=== PATIENT | male | born 1940 | race Caucasian/White ===

== ENCOUNTER 2017-01-12 16:35 | Emergency (ER) | payer MEDICARE, OTHER ==
[~2017-01-12] VITALS: Ht 172.7 cm; Wt 75.0 kg
[~2017-01-12 16:35] MED LIST: AMLO5TAB2 PO; ASPI81CH25 PO; BUME1TAB26 PO; CARV6.25 PO; HUMALOG SQ; ISOS30TA3 PO; LANTINJ SQ; LIPI80TA PO; OMEP20TA PO; PERC5TAB12 PO; PLAV75TA29 PO; PROS5TAB PO; SEVEL800 PO; SODI650T PO; TAMS5CAP PO; VITA200012 PO
[2017-01-12 16:44] VITALS: BP 95/64; PULSE 67; RESP 18; TEMP 97.7; O2SAT 95
[2017-01-12 17:09] VITALS: BP 96/52; PULSE 63; RESP 24; O2SAT 96
--- NOTE | 2017-01-12 17:27 | PD ---
HPI Chief Complaint: Respiratory Symptoms Time Seen by Provider: 17:18 Travel History International Travel<30 days: No Contact w/Intl Traveler<30days: No Traveled to known affect area: No History of Present Illness HPI 76-year-old male history of end-stage renal disease on dialysis Mondays once his and Fridays, coronary artery disease, congestive heart failure, CVA presents with his for evaluation of generalized weakness. The patient returned home 4 days ago from dialysis complaining of general weakness. He has had minimal appetite over the past few days. He has had a cough with congestion as well and today he vomited. He has had occasional left-sided chest pressure for the past 4 days as well. None currently. Denies abdominal pain, fevers or chills, rash, flank pain, dysuria. The left does note that he recently had some hematuria which seems to be improving as well. He has no other complaints. PFSH Past Medical History Hx Anticoagulant Therapy: Yes (DVT) Anemia: Yes Arthritis: Yes Asthma: No Autoimmune Disease: No Blood Disorders: No Anxiety: No Depression: No Heart Rhythm Problems: Yes Cancer: Yes (SKIN) Cardiovascular Problems: Yes ([place] X 2) High Cholesterol: Yes Chemotherapy: No Chest Pain: Yes Congestive Heart Failure: Yes COPD: Yes Cerebrovascular Accident: Yes (CVA) Diabetes: Yes Diminished Hearing: Yes ([place]) Endocrine: Yes Gastrointestinal Disorders: Yes (HX ULCER) GERD: Yes Genitourinary: Yes (BPH) Headaches: No Hepatitis: No Hiatal Hernia: No Hypertension: Yes Immune Disorder: No Implanted Vascular Access Dvce: Yes Kidney Stones: No Musculoskeletal: Yes (NECK) Neurologic: Yes (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) Psychiatric: No Reproductive: No Respiratory: Yes (COPD, EMPHYSEMA) Immunizations Current: Yes ( STATES DIALYSIS GAVE HEPATITIS SHOT TODAY) Migraines: No Myocardial Infarction: Yes (pt states one 4 weeks ago and 1 week ago ) Radiation Therapy: No Renal Failure: Yes (DIALYSIS X 3 YEARS, MWF, PER PT) Seizures: Yes Sickle Cell Disease: No Sleep Apnea: No Thyroid Disease: No Ulcer: No Past Surgical History Abdominal Surgery: Yes (CHOLY) AICD: No Arteriovenous Shunt: No Body Medical Devices: STENTS,IVC FILTER, AV FISTULA LEFT Cardiac Surgery: Yes (CABG X3 , HT STENTS) Coronary Artery Bypass Graft: Yes (triple, 2008) Coronary Stent: Yes Ear Surgery: No Endocrine Surgery: No Eye Surgery: Yes (DUONG CATARACTS) Genitourinary Surgery: No Insulin Pump: No Joint Replacement: Yes (LEFT KNEE) Oral Surgery: No Pacemaker: No Thoracic Surgery: No Other Surgery: Yes (REMOVED SKIN CANCER LEFT FOREARM AND NECK) Social History Alcohol Use: No Tobacco Use: No Substance Use: No Allergies-Medications (Allergen,Severity, Reaction): Coded Allergies: No Known Allergies (Verified , 01/12/17) Reported Meds & Prescriptions Reported Meds & Active Scripts Active Plavix (Clopidogrel Bisulfate) 75 Mg Tab 75 Mg PO DAILY 30 Days Coreg (Carvedilol) 6.25 Mg Tab 6.25 Mg PO BID 30 Days Lipitor (Atorvastatin Calcium) 80 Mg Tab 80 Mg PO HS 30 Days Aspirin Low Strength (Aspirin) 81 Mg Chew 81 Mg PO DAILY 30 Days Reported Humalog Inj (Insulin Human Lispro) 1,000 Unit/10 Ml Vial 5 Units SQ TIDAC Lantus Solostar Pen Inj (Insulin Glargine) 300 Unit/3 Ml Pen 10 Units SQ HS Vitamin D3 (Cholecalciferol) 2,000 Unit Tab 2,000 Units PO DAILY Isosorbide Mononitrate ER (Isosorbide Mononitrate) 30 Mg Tanmay 30 Mg PO DAILY Percocet (Oxycodone-Acetaminophen) 5-325 mg Tab 1-2 Tab PO Q6H PRN Flomax (Tamsulosin HCl) 0.4 Mg Cap 0.4 Mg PO BID Proscar (Finasteride) 5 Mg Tab 5 Mg PO DAILY Do not crush. Sodium Bicarbonate 650 Mg Tab 650 Mg PO BID Renvela (Sevelamer Carbonate) 800 Mg Tab 800 Mg PO DAILY Omeprazole 20 Mg Tab 20 Mg PO DAILY Bumex (Bumetanide) 1 Mg Tab 1 Mg PO DAILY Amlodipine (Amlodipine Besylate) 5 Mg Tab 5 Mg PO DAILY Review of Systems Except as stated in HPI: all other systems reviewed are Neg Physical Exam Narrative GENERAL: Well-developed well-nourished male in no acute distress SKIN: Warm and dry. HEAD: Atraumatic. Normocephalic. EYES: Pupils equal and round. No scleral icterus. No injection or drainage. ENT: No nasal bleeding or discharge. Mucous membranes pink and moist. NECK: Trachea midline. No JVD. CARDIOVASCULAR: Regular rate and rhythm. No murmur appreciated. RESPIRATORY: No accessory muscle use. Clear to auscultation. Breath sounds equal bilaterally. GASTROINTESTINAL: Abdomen soft, non-tender, nondistended. Hepatic and splenic margins not palpable. MUSCULOSKELETAL: No obvious deformities. No edema. NEUROLOGICAL: Awake and alert. No obvious cranial nerve deficits. Motor grossly within normal limits. Normal speech. PSYCHIATRIC: Appropriate mood and affect; insight and judgment normal. Data Data Last Documented VS Vital Signs Date Time Temp Pulse Resp B/P Pulse Ox O2 Delivery O2 Flow Rate FiO2 01/12/17 17:09 63 24 96/52 96 Room Air 01/12/17 16:44 97.7 Orders Electrocardiogram (01/12/17 17:22) B-Type Natriuretic Peptide (01/12/17 17:22) Ckmb (Isoenzyme) Profile (01/12/17 17:22) Complete Blood Count With Diff (01/12/17 17:22) Comprehensive Metabolic Panel (01/12/17 17:22) Magnesium (Mg) (01/12/17 17:22) Prothrombin Time / Inr (Pt) (01/12/17 17:22) Act Partial Throm Time (Ptt) (01/12/17 17:22) Troponin I (01/12/17 17:22) Chest, Single Ap (01/12/17 17:22) Urinalysis - C+S If Indicated (01/12/17 17:22) Lactic Acid Sepsis Protocol (01/12/17 18:40) Blood Culture (01/12/17 18:40) Influenzae A/B Antigen (01/12/17 18:41) Labs Laboratory Tests Test 01/12/17 17:40 White Blood Count 9.2 TH/MM3 Red Blood Count 4.09 MIL/MM3 Hemoglobin 11.9 GM/DL Hematocrit 36.7 % Mean Corpuscular Volume 89.6 FL Mean Corpuscular Hemoglobin 29.2 PG Mean Corpuscular Hemoglobin 32.6 % Concent Red Cell Distribution Width 19.0 % Platelet Count 141 TH/MM3 Mean Platelet Volume 9.9 FL Neutrophils (%) (Auto) 75.5 % Lymphocytes (%) (Auto) 13.0 % Monocytes (%) (Auto) 9.1 % Eosinophils (%) (Auto) 1.5 % Basophils (%) (Auto) 0.9 % Neutrophils # (Auto) 6.9 TH/MM3 Lymphocytes # (Auto) 1.2 TH/MM3 Monocytes # (Auto) 0.8 TH/MM3 Eosinophils # (Auto) 0.1 TH/MM3 Basophils # (Auto) 0.1 TH/MM3 CBC Comment DIFF FINAL Differential Comment Prothrombin Time 11.0 SEC Prothromb Time International 1.0 RATIO Ratio Activated Partial 21.5 SEC Thromboplast Time Sodium Level 135 MEQ/L Potassium Level 4.8 MEQ/L Chloride Level 100 MEQ/L Carbon Dioxide Level 19.1 MEQ/L Anion Gap 16 MEQ/L Blood Urea Nitrogen 47 MG/DL Creatinine 8.26 MG/DL Estimat Glomerular Filtration 6 ML/MIN Rate Random Glucose 157 MG/DL Calcium Level 8.0 MG/DL Magnesium Level 2.0 MG/DL Total Bilirubin 0.5 MG/DL Aspartate Amino Transf 9 U/L (AST/SGOT) Alanine Aminotransferase 8 U/L (ALT/SGPT) Alkaline Phosphatase 79 U/L Total Creatine Kinase 39 U/L Troponin I 0.06 NG/ML B-Type Natriuretic Peptide 99 PG/ML Total Protein 6.8 GM/DL Albumin 3.4 GM/DL MDM Medical Decision Making Medical Screen Exam Complete: Yes Emergency Medical Condition: Yes Medical Record Reviewed: Yes Differential Diagnosis Dehydration, angina, acute coronary syndrome, CHF exacerbation, pneumonia, electrolyte abnormality Narrative Course 76 year old male with 4 days of generalized weakness, intermittent left-sided chest pressure, nausea and vomiting, cough and congestion. The patient was initially seen in triage where protocol was initiated. The patient will be moved to a medical bed when one becomes available. Procedures EKG Prior to Arrival: Yes [place] Jan 12, 2017 17:27
[2017-01-12 17:51] LABS: AUTOMATED NEUTROPHIL # 6.9 TH/MM3 (1.8-7.7); BASOPHIL # 0.1 TH/MM3 (0-0.2); BASOPHIL % 0.9 % (0.0-2.0); EOSINOPHIL # 0.1 TH/MM3 (0-0.4); EOSINOPHIL % 1.5 % (0.0-4.0); HEMATOCRIT 36.7 % (39.0-51.0); HEMO FLAGS DIFF FINAL; LYMPHOCYTE # 1.2 TH/MM3 (1.0-4.8); MEAN CELL VOLUME 89.6 FL (80.0-100.0); MEAN CORPUSCULAR HEMOGLOBIN 29.2 PG (27.0-34.0); MEAN CORPUSCULAR HGB CONC 32.6 % (32.0-36.0); MONO % 9.1 % (0.0-8.0); NEUT % 75.5 % (16.0-70.0); PLATELET COUNT 141 TH/MM3 (150-450); RED BLOOD COUNT 4.09 MIL/MM3 (4.50-5.90); WHITE BLOOD COUNT 9.2 TH/MM3 (4.0-11.0)
--- NOTE | 2017-01-12 17:57 | RADRPT ---
EXAM DATE/TIME: 01/12/2017 17:33 [facility] COMPARISON: CHEST SINGLE AP, October 09, 2016, 4:07. INDICATIONS : Chest pain and short of breath x 4 days. MEDICAL HISTORY : Hypertension. Diabetes mellitus type II. Chronic obstructive pulmonary disease. Myocardial infarc tion. Angina. Congestive heart failure. SURGICAL HISTORY : CABG. Cholecystectomy. ENCOUNTER: Initial ACUITY: 1 day PAIN SCORE: 2/10 LOCATION: Bilateral chest FINDINGS: A single view of the chest demonstrates the lungs to be symmetrically aerated without evidence of mas s, infiltrate or effusion. The cardiomediastinal contours are unremarkable. Osseous structures are intact. Stents overlie the subclavian and axillary regions on the left. CONCLUSION: Normal examination. 8 intact sternal wires. John Trotter MD on January 12, 2017 at 17:55 Board Certified Radiologist. This report was verified electronically.
[2017-01-12 18:03] LABS: APTT (PATIENT) 21.5 SEC (24.3-30.1)
[2017-01-12 18:16] LABS: ALKALINE PHOSPHATASE 79 U/L (45-117); TOTAL BILIRUBIN ADULT 0.5 MG/DL (0.2-1.0)
[2017-01-12 18:19] LABS: ALT (GPT) 8 U/L (12-78); ANION GAP 16 MEQ/L (5-15); AST (GOT) 9 U/L (15-37); BICARBONATE 19.1 MEQ/L (21.0-32.0); BLOOD UREA NITROGEN 47 MG/DL (7-18); CHLORIDE 100 MEQ/L (98-107); CREATINE KINASE 39 U/L (39-308); GLOMERULAR FILTRATION RATE 6 ML/MIN (>89); POTASSIUM 4.8 MEQ/L (3.5-5.1); SODIUM (NA) 135 MEQ/L (136-145)
[2017-01-12 19:00] VITALS: BP 148/70; PULSE 63; RESP 20; O2SAT 98
--- NOTE | 2017-01-12 19:03 | PD ---
Physical Exam Date Seen by Provider: Jan 12, 2017 Narrative For full history and physical examination please see previous provider's note. Initial workup was initiated in triage. I assumed care of patient when he was transferred to medical bed. Patient reports having decreased appetite, dizziness, shortness of breath, left upper chest wall pain, productive cough, nausea, vomiting. states that he's been sleeping more than normal. Patient has dialysis on Wednesday, Wednesday, and Fridays. He had dialysis yesterday. There is been no documented fevers. Data Data Last Documented VS Vital Signs Date Time Temp Pulse Resp B/P Pulse Ox O2 Delivery O2 Flow Rate FiO2 01/12/17 21:07 63 16 157/68 98 Nasal Cannula 2 01/12/17 16:44 97.7 Orders Electrocardiogram (01/12/17 17:22) B-Type Natriuretic Peptide (01/12/17 17:22) Ckmb (Isoenzyme) Profile (01/12/17 17:22) Complete Blood Count With Diff (01/12/17 17:22) Comprehensive Metabolic Panel (01/12/17 17:22) Magnesium (Mg) (01/12/17 17:22) Prothrombin Time / Inr (Pt) (01/12/17 17:22) Act Partial Throm Time (Ptt) (01/12/17 17:22) Troponin I (01/12/17 17:22) Chest, Single Ap (01/12/17 17:22) Urinalysis - C+S If Indicated (01/12/17 17:22) Lactic Acid Sepsis Protocol (01/12/17 18:40) Blood Culture (01/12/17 18:40) Influenzae A/B Antigen (01/12/17 18:41) Ventilation & Perfusion Scan (01/12/17 ) Urine Culture (01/12/17 22:00) Labs Laboratory Tests Test 01/12/17 01/12/17 01/12/17 17:40 19:05 22:00 White Blood Count 9.2 TH/MM3 Red Blood Count 4.09 MIL/MM3 Hemoglobin 11.9 GM/DL Hematocrit 36.7 % Mean Corpuscular Volume 89.6 FL Mean Corpuscular Hemoglobin 29.2 PG Mean Corpuscular Hemoglobin 32.6 % Concent Red Cell Distribution Width 19.0 % Platelet Count 141 TH/MM3 Mean Platelet Volume 9.9 FL Neutrophils (%) (Auto) 75.5 % Lymphocytes (%) (Auto) 13.0 % Monocytes (%) (Auto) 9.1 % Eosinophils (%) (Auto) 1.5 % Basophils (%) (Auto) 0.9 % Neutrophils # (Auto) 6.9 TH/MM3 Lymphocytes # (Auto) 1.2 TH/MM3 Monocytes # (Auto) 0.8 TH/MM3 Eosinophils # (Auto) 0.1 TH/MM3 Basophils # (Auto) 0.1 TH/MM3 CBC Comment DIFF FINAL Differential Comment Prothrombin Time 11.0 SEC Prothromb Time International 1.0 RATIO Ratio Activated Partial 21.5 SEC Thromboplast Time Sodium Level 135 MEQ/L Potassium Level 4.8 MEQ/L Chloride Level 100 MEQ/L Carbon Dioxide Level 19.1 MEQ/L Anion Gap 16 MEQ/L Blood Urea Nitrogen 47 MG/DL Creatinine 8.26 MG/DL Estimat Glomerular Filtration 6 ML/MIN Rate Random Glucose 157 MG/DL Calcium Level 8.0 MG/DL Magnesium Level 2.0 MG/DL Total Bilirubin 0.5 MG/DL Aspartate Amino Transf 9 U/L (AST/SGOT) Alanine Aminotransferase 8 U/L (ALT/SGPT) Alkaline Phosphatase 79 U/L Total Creatine Kinase 39 U/L Troponin I 0.06 NG/ML B-Type Natriuretic Peptide 99 PG/ML Total Protein 6.8 GM/DL Albumin 3.4 GM/DL Lactic Acid Level 1.5 mmol/L Urine Color LIGHT-RED Urine Turbidity CLOUDY Urine pH 5.5 Urine Specific [place] 1.016 Urine Protein 300 mg/dL Urine Glucose (UA) NEG mg/dL Urine Ketones NEG mg/dL Urine Occult Blood LARGE Urine Nitrite NEG Urine Bilirubin NEG Urine Urobilinogen LESS THAN 2.0 MG/DL Urine Leukocyte Esterase LARGE Urine RBC /hpf Urine WBC /hpf Urine WBC Clumps MANY Urine Bacteria MOD /hpf Urine Mucus FEW /lpf Microscopic Urinalysis Comment CULTURE INDICATED MDM Medical Record Reviewed: Yes Supervised Visit with [place]: No Interpretation(s) Vital Signs Date Time Temp Pulse Resp B/P Pulse Ox O2 Delivery O2 Flow Rate FiO2 01/12/17 21:07 63 16 157/68 98 Nasal Cannula 2 01/12/17 19:00 63 20 148/70 98 Nasal Cannula 2 01/12/17 17:09 63 24 96/52 96 Room Air 01/12/17 16:44 97.7 67 18 95/64 95 Laboratory Tests Test 01/12/17 01/12/17 17:40 19:05 White Blood Count 9.2 TH/MM3 Red Blood Count 4.09 MIL/MM3 Hemoglobin 11.9 GM/DL Hematocrit 36.7 % Mean Corpuscular Volume 89.6 FL Mean Corpuscular Hemoglobin 29.2 PG Mean Corpuscular Hemoglobin 32.6 % Concent Red Cell Distribution Width 19.0 % Platelet Count 141 TH/MM3 Mean Platelet Volume 9.9 FL Neutrophils (%) (Auto) 75.5 % Lymphocytes (%) (Auto) 13.0 % Monocytes (%) (Auto) 9.1 % Eosinophils (%) (Auto) 1.5 % Basophils (%) (Auto) 0.9 % Neutrophils # (Auto) 6.9 TH/MM3 Lymphocytes # (Auto) 1.2 TH/MM3 Monocytes # (Auto) 0.8 TH/MM3 Eosinophils # (Auto) 0.1 TH/MM3 Basophils # (Auto) 0.1 TH/MM3 CBC Comment DIFF FINAL Differential Comment Prothrombin Time 11.0 SEC Prothromb Time International 1.0 RATIO Ratio Activated Partial 21.5 SEC Thromboplast Time Sodium Level 135 MEQ/L Potassium Level 4.8 MEQ/L Chloride Level 100 MEQ/L Carbon Dioxide Level 19.1 MEQ/L Anion Gap 16 MEQ/L Blood Urea Nitrogen 47 MG/DL Creatinine 8.26 MG/DL Estimat Glomerular Filtration 6 ML/MIN Rate Random Glucose 157 MG/DL Calcium Level 8.0 MG/DL Magnesium Level 2.0 MG/DL Total Bilirubin 0.5 MG/DL Aspartate Amino Transf 9 U/L (AST/SGOT) Alanine Aminotransferase 8 U/L (ALT/SGPT) Alkaline Phosphatase 79 U/L Total Creatine Kinase 39 U/L Troponin I 0.06 NG/ML B-Type Natriuretic Peptide 99 PG/ML Total Protein 6.8 GM/DL Albumin 3.4 GM/DL Lactic Acid Level 1.5 mmol/L Last Impressions Chest X-Ray 01/12/17 1722 Signed Impressions: Service Date/Time: Thursday, January 12, 2017 17:33 - CONCLUSION: Normal examination. 8 intact sternal wires. John Trotter MD Lung Scan-V Nuclear Medicine 01/12/17 0000 Signed Impressions: Service Date/Time: Thursday, January 12, 2017 21:11 - CONCLUSION: Low probability of pulmonary embolism. Chrsi Cabral MD Vital Signs Date Time Temp Pulse Resp B/P Pulse Ox O2 Delivery O2 Flow Rate FiO2 01/12/17 17:09 63 24 96/52 96 Room Air 01/12/17 16:44 97.7 67 18 95/64 95 Differential Diagnosis Sepsis versus pneumonia versus bronchitis versus electrolyte abnormality versus acute RI versus angina versus chest wall pain versus viral syndrome versus influenza versus pulmonary embolism versus other Narrative Course Patient is a 76-year-old male presenting to the emergency room with his and daughter for evaluation of generalized weakness that started on Wednesday after he went to hemodialysis. Patient was mildly hypotensive in triage, his blood pressure is currently in the 140s over 70s. He is well oxygenated on room air. Chest x-ray shows no acute disease. CBC shows mild anemia which was improved from the prior records. Chemistry with elevated BUN and creatinine which is to be expected as patient has end-stage renal disease on dialysis. BNP is 99, anion gap is 16. Coags are unremarkable. Troponin 0.06, patient had an RI in September 2016, last documented troponin was 3.21 Lactic acid, blood cultures, influenza screen added on. Urinalysis is pending. AV fistula in left upper arm with positive thrill and bruit. VQ scan shows low probability Lactic acid is normal Influenza screen is negative Blood cultures are pending Patient tolerated by mouth fluid challenge. Urinalysis with moderate bacteria, moderate white blood cells in clumps, large leukocyte esterase, large occult blood, protein. Patient will be treated with Keflex empirically, reflex culture pending. Patient is encouraged to follow-up with his primary care provider. He is encouraged to take medications as directed, on dialysis days he is encouraged to take the antibiotics after his dialysis treatment. He is encouraged to return to emergency department for any new or worsening symptoms. Patient is stable for discharge. Diagnosis Primary Impression: UTI (urinary tract infection) Qualified Code: N39.0 - Urinary tract infection with hematuria, site unspecified Referrals: Primary Care Physician 2 days Patient Instructions: General Instructions, Urinary Tract Infection in Men (DC) Additional Instruction: Follow-up with your primary doctor Take medications as directed Take antibiotics after dialysis on dialysis days Return to emergency department for any new or worsening symptoms Med/Other Pt SpecificInfo: Prescription(s) given Scripts Cephalexin (Keflex)500 Mg [id number] Mg PO Q12H 7 Days Ref 0 Prov:Jackie Garibay 01/12/17 Disposition: 01 DISCHARGE HOME Condition: Stable Jackie Garibay Jan 12, 2017 19:03
[2017-01-12 21:07] VITALS: BP 157/68; PULSE 63; RESP 16; O2SAT 98
--- NOTE | 2017-01-12 22:07 | RADRPT ---
EXAM DATE/TIME: 01/12/2017 21:11 [facility] COMPARISON: No previous studies available for comparison. INDICATIONS : Shortness of breath with dizziness and generalized weakness for one day. DOSE: 8.7 mCi Tc99m MAA IV 0.83 mCi Tc99m DTPA aerosol MEDICAL HISTORY : Diabetes mellitus type 2. Chronic obstructive pulmonary disease. Cardiovascular disease Renal disease . SURGICAL HISTORY : Cholecystectomy. CABG Coronary artery stent. ENCOUNTER: Initial ACUITY: 1 day PAIN SCALE: 0/10 LOCATION: Bilateral chest TECHNIQUE: Following five minutes of tidal breathing of DTPA aerosol, planar images of the lungs were performed in eight projections. The patient was then injected with MAA, and eight-view perfusion scan was perf ormed. FINDINGS: There is a heterogeneous pattern of aerosol delivery to the periphery of both lungs. No focal ventil atory defects are seen. The perfusion lung scan demonstrates a homogenous pattern of uptake in both lungs. No segmental or s ubsegmental defects are seen. CONCLUSION: Low probability of pulmonary embolism. Chris Cabral MD on January 12, 2017 at 22:05 Board Certified Radiologist. This report was verified electronically.
[2017-01-12 22:37] LABS: BACTERIA, URINE MOD /hpf; BLOOD, URINE LARGE (NEG); GLUCOSE,URINE NEG (NEG); KETONE, URINE NEG (NEG); MUCUS URINE FEW /lpf (OCC); NITRITE,URINE NEG (NEG); PH, URINE 5.5 (5.0-8.5)
[2017-01-12 22:39] LABS: COMMENT (UR) CULTURE INDICATED; CULTURE IF INDICATED CULTURE INDICATED; URINE COLOR LIGHT-RED (YELLW/STRAW)
[2017-01-12] MEDS ORDERED: CEPHALEXIN MONOHYDRATE 500 MG CAP PO ONE (22:45)
[2017-01-12] MEDS ORDERED: CEPH-460 PO (22:47)
[2017-01-12 22:57] VITALS: BP 147/79
--- NOTE | 2017-01-13 11:03 | EKG ---
Date Performed: 01/12/2017 Time Performed: 17:26:13 PTAGE: 76 years EKG: Sinus rhythm INFERIOR MYOCARDIAL INFARCTION MODERATE T-WAVE ABNORMALITY, CONSIDER ANTEROLATERAL ISCHEMIA ABNORMAL ECG PREVIOUS TRACING : 01/12/2017 17.25 DOCTOR: John Berger Interpretating Date/Time 01/19/2017 07:12:30
[2017-03-22] MEDS ORDERED: CEPH-459 PO (11:52)
[2017-03-22] MEDS ORDERED: PHEN0.4T PO (11:52)
[2017-03-22] MEDS ORDERED: PERC5TAB12 PO (11:52)
[2017-05-06] MEDS ORDERED: VITA2000 PO (15:25)
[2017-05-06] MEDS ORDERED: BUME1TAB PO (15:25)
[2017-05-06] MEDS ORDERED: BRIL90TA PO (15:25)
== END 2017-01-12 23:00 | disposition home or self-care (01) ==
LOC: NETRI 16:35 → NEPE 23:00
DX: N39.0 Urinary tract infection, site not specified (principal); R31.9 Hematuria, unspecified; B95.2 Enterococcus as the cause of diseases classified elsewhere; R94.31 Abnormal electrocardiogram [ECG] [EKG]; N18.6 End stage renal disease; E78.00 Pure hypercholesterolemia, unspecified; R07.9 Chest pain, unspecified; E11.22 Type 2 diabetes mellitus with diabetic chronic kidney disease; I12.0 Hypertensive chronic kidney disease with stage 5 chronic kidney disease or end stage renal disease; Z79.01 Long term (current) use of anticoagulants; Z99.2 Dependence on renal dialysis
CPT/HCPCS: 71010; 78582; 80053; 81001; 82550; 83605; 83735; 83880; 84484; 85025; 85610; 85730; 87040; 87077; 87086; 87186; 87804; 93005; 99285; A9540; A9567

== ENCOUNTER 2017-01-17 12:18 | Observation (INO) | payer MEDICARE, OTHER ==
[2017-01-17] VITALS (7 sets, daily range): BP systolic 117–150; BP diastolic 51–65; PULSE 60–67; RESP 16–20; TEMP 96.2–98; O2SAT 95–99
[~2017-01-17] VITALS: Ht 172.7 cm; Wt 76.3 kg
[~2017-01-17 12:18] MED LIST changes: +CEPH-460 PO
--- NOTE | 2017-01-17 12:43 | PD ---
HPI Chief Complaint: Abnormal Results Time Seen by Provider: 12:42 Travel History International Travel<30 days: No Contact w/Intl Traveler<30days: No Traveled to known affect area: No History of Present Illness HPI 76-year-old male with a history of ESRD on hemodialysis MWF, hypertension, CHF, COPD, CAD, recurrent DVT, remote CVA, seizures presents to the emergency department for evaluation of abnormal urine culture. The patient was seen here 5 days ago for generalized weakness and found to have a urinary tract infection. He does still produce a small amount of urine, he urinates about once daily. When he was seen 5 days ago he was sent home with a prescription for Keflex. The urine culture grew out enterococcus Raffinosus susceptible only to daptomycin, vancomycin or linezolid and therefore he was called today by charge nurse and advised to return to the ED. The patient states that he is still having generalized weakness and that his symptoms have not improved since he was last seen. He states that he does have chest pain "sometimes" but has not had any chest pain today. He does state he has shortness of breath but this is also not new. He is complaining of pain in his left upper abdomen and left flank that he states his been present for 5 days. Denies any fever, chills , nausea, vomiting, burning with urination, diarrhea, constipation, cough or cold symptoms. States that he did have gross hematuria this morning when he urinated, states that this was happening a few months ago but did stop for a while. PCP Dr. Winchester. Wool Was[facility] Dr. Purcell and Dr. Singh. [facility] Past Medical History Hx Anticoagulant Therapy: Yes (DVT) Anemia: Yes Arthritis: Yes Asthma: No Autoimmune Disease: No Blood Disorders: No Anxiety: No Depression: No Heart Rhythm Problems: Yes Cancer: Yes (SKIN) Cardiovascular Problems: Yes High Cholesterol: Yes Chemotherapy: No Chest Pain: Yes Congestive Heart Failure: Yes COPD: Yes Cerebrovascular Accident: Yes (CVA) Diabetes: Yes Diminished Hearing: Yes (CAP[place] BAND) Endocrine: Yes Gastrointestinal Disorders: Yes (HX ULCER) GERD: Yes Genitourinary: Yes (BPH) Headaches: No Hepatitis: No Hiatal Hernia: No Hypertension: Yes Immune Disorder: No Implanted Vascular Access Dvce: Yes Kidney Stones: No Musculoskeletal: Yes (NECK) Neurologic: Yes (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) Psychiatric: No Reproductive: No Respiratory: Yes (COPD, EMPHYSEMA) Immunizations Current: Yes ( STATES DIALYSIS GAVE HEPATITIS SHOT TODAY) Migraines: No Myocardial Infarction: Yes (pt states one 4 weeks ago and 1 week ago ) Radiation Therapy: No Renal Failure: Yes (DIALYSIS X 3 YEARS, MWF, PER PT) Seizures: Yes Sickle Cell Disease: No Sleep Apnea: No Thyroid Disease: No Ulcer: No Past Surgical History Abdominal Surgery: Yes (CHOLY) AICD: No Arteriovenous Shunt: No Body Medical Devices: STENTS,IVC FILTER, AV FISTULA LEFT Cardiac Surgery: Yes (CABG X3 , HT STENTS) Coronary Artery Bypass Graft: Yes (triple, 2008) Coronary Stent: Yes Ear Surgery: No Endocrine Surgery: No Eye Surgery: Yes (DUONG CATARACTS) Genitourinary Surgery: No Insulin Pump: No Joint Replacement: Yes (LEFT KNEE) Oral Surgery: No Pacemaker: No Thoracic Surgery: No Other Surgery: Yes (REMOVED SKIN CANCER LEFT FOREARM AND NECK) Social History Alcohol Use: No Tobacco Use: No Substance Use: No Allergies-Medications (Allergen,Severity, Reaction): Coded Allergies: No Known Allergies (Verified , 01/17/17) Reported Meds & Prescriptions Reported Meds & Active Scripts Active Keflex (Cephalexin) 500 Mg Cap 500 Mg PO Q12H 7 Days Plavix (Clopidogrel Bisulfate) 75 Mg Tab 75 Mg PO DAILY 30 Days Coreg (Carvedilol) 6.25 Mg Tab 6.25 Mg PO BID 30 Days Lipitor (Atorvastatin Calcium) 80 Mg Tab 80 Mg PO HS 30 Days Aspirin Low Strength (Aspirin) 81 Mg Chew 81 Mg PO DAILY 30 Days Reported Humalog Inj (Insulin Human Lispro) 1,000 Unit/10 Ml Vial 5 Units SQ TIDAC Lantus Solostar Pen Inj (Insulin Glargine) 300 Unit/3 Ml Pen 10 Units SQ HS Vitamin D3 (Cholecalciferol) 2,000 Unit Tab 2,000 Units PO DAILY Isosorbide Mononitrate ER (Isosorbide Mononitrate) 30 Mg Tan[place] 30 Mg PO DAILY Percocet (Oxycodone-Acetaminophen) 5-325 mg Tab 1-2 Tab PO Q6H PRN Flomax (Tamsulosin HCl) 0.4 Mg Cap 0.4 Mg PO BID Proscar (Finasteride) 5 Mg Tab 5 Mg PO DAILY Do not crush. Sodium Bicarbonate 650 Mg Tab 650 Mg PO BID Renvela (Sevelamer Carbonate) 800 Mg Tab 800 Mg PO DAILY Omeprazole 20 Mg Tab 20 Mg PO DAILY Bumex (Bumetanide) 1 Mg Tab 1 Mg PO DAILY Amlodipine (Amlodipine Besylate) 5 Mg Tab 5 Mg PO DAILY Review of Systems Except as stated in HPI: all other systems reviewed are Neg Physical Exam Narrative GENERAL: Well-nourished and well-developed male patient in no acute distress. SKIN: Warm and dry. HEAD: Normocephalic and atraumatic. EYES: No injection, drainage, or hyphema noted. PERRLA. EOMI. ENT: No nasal drainage noted. Oropharynx is clear. NECK: Supple and the trachea is midline. CARDIOVASCULAR: Regular rate and rhythm. RESPIRATORY: Breath sounds are equal bilaterally with no accessory muscle use, wheezing, rhonchi, or crackles. GASTROINTESTINAL: Mild left upper quadrant and left flank tenderness to palpation. No rebound tenderness or guarding. Abdomen is soft and nondistended. MUSCULOSKELETAL: No obvious deformities, swelling, cyanosis, or ecchymosis is present throughout the upper and lower extremities. Patient has full range of motion without any signs of neurovascular compromise. NEUROLOGICAL: Awake, alert, and oriented. Normal speech and gait. Cranial nerves are grossly intact. Data Data Last Documented VS Vital Signs Date Time Temp Pulse Resp B/P Pulse Ox O2 Delivery O2 Flow Rate FiO2 01/17/17 14:09 62 18 150/65 95 Room Air 01/17/17 12:29 98.0 Orders Electrocardiogram (01/17/17 12:37) Complete Blood Count With Diff (01/17/17 12:37) Comprehensive Metabolic Panel (01/17/17 12:37) Prothrombin Time / Inr (Pt) (01/17/17 12:37) Act Partial Throm Time (Ptt) (01/17/17 12:37) Lactic Acid Sepsis Protocol (01/17/17 12:37) Magnesium (Mg) (01/17/17 12:37) Troponin I (01/17/17 12:37) Urinalysis - C+S If Indicated (01/17/17 12:37) Blood Culture (01/17/17 12:37) Chest, Single Ap (01/17/17 12:37) Blood Glucose (01/17/17 12:37) Ecg Monitoring (01/17/17 12:37) Iv Access Insert/Monitor (01/17/17 12:37) Oximetry (01/17/17 12:37) Daptomycin Inj (Cubicin Inj) (01/17/17 12:45) Consult Infectious Disease (01/17/17 ) Consult Nephrology (01/17/17 ) Admit Order (Ed Use Only) (01/17/17 14:15) Labs Laboratory Tests Test 01/17/17 01/17/17 13:00 14:06 White Blood Count 7.9 TH/MM3 Red Blood Count 3.88 MIL/MM3 Hemoglobin 11.3 GM/DL Hematocrit 35.9 % Mean Corpuscular Volume 92.4 FL Mean Corpuscular Hemoglobin 29.2 PG Mean Corpuscular Hemoglobin 31.6 % Concent Red Cell Distribution Width 19.2 % Platelet Count 181 TH/MM3 Mean Platelet Volume 9.9 FL Neutrophils (%) (Auto) 76.6 % Lymphocytes (%) (Auto) 12.9 % Monocytes (%) (Auto) 7.3 % Eosinophils (%) (Auto) 1.9 % Basophils (%) (Auto) 1.3 % Neutrophils # (Auto) 6.1 TH/MM3 Lymphocytes # (Auto) 1.0 TH/MM3 Monocytes # (Auto) 0.6 TH/MM3 Eosinophils # (Auto) 0.2 TH/MM3 Basophils # (Auto) 0.1 TH/MM3 CBC Comment DIFF FINAL Differential Comment Prothrombin Time 10.4 SEC Prothromb Time International 0.9 RATIO Ratio Activated Partial 26.4 SEC Thromboplast Time Sodium Level 138 MEQ/L Potassium Level 5.0 MEQ/L Chloride Level 100 MEQ/L Carbon Dioxide Level 23.2 MEQ/L Anion Gap 15 MEQ/L Blood Urea Nitrogen 47 MG/DL Creatinine 8.29 MG/DL Estimat Glomerular Filtration 6 ML/MIN Rate Random Glucose 180 MG/DL Lactic Acid Level 2.4 mmol/L Calcium Level 7.4 MG/DL Protein Corrected Calcium 7.7 MG/DL Magnesium Level 1.9 MG/DL Total Bilirubin 0.3 MG/DL Aspartate Amino Transf 9 U/L (AST/SGOT) Alanine Aminotransferase 11 U/L (ALT/SGPT) Alkaline Phosphatase 119 U/L Troponin I 0.06 NG/ML Total Protein 6.5 GM/DL Albumin 3.0 GM/DL Urine Color RED Urine Turbidity HAZY Urine pH 5.5 Urine Specific [place] 1.017 Urine Protein 300 mg/dL Urine Glucose (UA) TRACE mg/dL Urine Ketones TRACE mg/dL Urine Occult Blood MOD Urine Nitrite NEG Urine Bilirubin NEG Urine Urobilinogen 2.0 MG/DL Urine Leukocyte Esterase LARGE Urine RBC /hpf Urine WBC /hpf Urine WBC Clumps MOD Urine Bacteria FEW /hpf Microscopic Urinalysis Comment CATH-CULTURE IND MDM Medical Decision Making Medical Screen Exam Complete: Yes Emergency Medical Condition: Yes Differential Diagnosis Urinary tract infection versus antibiotic resistance versus electrolyte abnormality versus sepsis Narrative Course 76-year-old male with ESRD on hemodialysis presents to the emergency department for generalized weakness. Patient is afebrile, vital signs are stable. 5 days ago when he was seen for the same complaint. Urinary tract infection that grew out enterococcus raffinosus which is susceptible only to vancomycin, daptomycin or linezolid. He was called to come back to the emergency department today. He still symptomatic. IV access is obtained, labs have been drawn and sent. EKG shows sinus rhythm with first-degree AV block, no acute ST elevations or depressions. Chest x-ray is negative for any acute abnormalities. CBC shows mild anemia with hemoglobin 11.3, hematocrit 35.9, consistent with previous laboratories. CMP shows renal failure with a creatinine of 8.29, BUN 47, GFR 6. Calcium is low at 7.7. Troponin is 0.06, this is the same from previous labs. Lactic acid is elevated at 2.4. Urinalysis shows 300 protein, trace ketones, moderate occult blood, large leukocyte Estrace, innumerable red blood cells and white blood cells with moderate white blood cell clumps and few bacteria. Patient will be admitted to medicine service with infectious disease and nephrology consultation. I discussed the case with my attending physician Dr. Pichardo who is aware of the patients history, physical examination findings, and treatment plan. Physician Communication Physician Communication I spoke with Dr. Viera [facility] who agrees to admit the patient to his service. Diagnosis Primary Impression: UTI (urinary tract infection) Qualified Code: N39.0 - Urinary tract infection without hematuria, site unspecified Additional Impression: ESRD (end stage renal disease) on dialysis Admitting Information Admitting Physician Requests: Admit Franci Doran Jan 17, 2017 12:42
[2017-01-17] MEDS ORDERED: DAPTOmycin INJ 300 MG in SODIUM CHLORIDE 0.9% INJ 100 ML IV ONE (12:45)
--- NOTE | 2017-01-17 13:01 | RADRPT ---
EXAM DATE/TIME: 01/17/2017 12:50 [place] COMPARISON: CHEST SINGLE AP, January 12, 2017, 17:33. INDICATIONS : Shortness of breath. MEDICAL HISTORY : Myocardial infarction. Angina. Congestive heart failure. Hypertension, COPD, emphyesema. SURGICAL HISTORY : CABG. ENCOUNTER: Initial ACUITY: 4 - 6 days PAIN SCORE: 0/10 LOCATION: Bilateral chest FINDINGS: Portable AP view of the chest demonstrates a normal-sized cardiac silhouette with calcification of th e aorta. Patient is post median sternotomy. Lungs are underinflated. No effusion, consolidation, or p neumothorax is visualized. Bones and soft tissues demonstrate no acute finding. Vascular stents are p resent in the left axillary region. CONCLUSION: Stable chest x-ray. No acute cardiopulmonary abnormality is identified. Kaleb Ba MD on January 17, 2017 at 12:59 Board Certified Radiologist. This report was verified electronically.
--- NOTE | 2017-01-17 13:19 | PD ---
Data Data Last Documented VS Vital Signs Date Time Temp Pulse Resp B/P Pulse Ox O2 Delivery O2 Flow Rate FiO2 01/17/17 12:46 96 Room Air 01/17/17 12:29 98.0 64 18 134/63 Orders Electrocardiogram (01/17/17 12:37) Complete Blood Count With Diff (01/17/17 12:37) Comprehensive Metabolic Panel (01/17/17 12:37) Prothrombin Time / Inr (Pt) (01/17/17 12:37) Act Partial Throm Time (Ptt) (01/17/17 12:37) Lactic Acid Sepsis Protocol (01/17/17 12:37) Magnesium (Mg) (01/17/17 12:37) Troponin I (01/17/17 12:37) Urinalysis - C+S If Indicated (01/17/17 12:37) Blood Culture (01/17/17 12:37) Chest, Single Ap (01/17/17 12:37) Blood Glucose (01/17/17 12:37) Ecg Monitoring (01/17/17 12:37) Iv Access Insert/Monitor (01/17/17 12:37) Oximetry (01/17/17 12:37) Consult Vascular Access Team (01/17/17 ) Daptomycin Inj (Cubicin Inj) (01/17/17 12:45) Vascular Poc Ultrasound (01/17/17 ) MDM Supervised Visit with [place]: Yes Narrative Course The history, exam, and medical decision-making in the associated mid-level provider note were completed with my assistance. I reviewed and agree with the findings presented. I attest that I had a [id number] encounter with the patient on the same day, and personally performed and documented my assessment and findings in the medical record. *My assessment and Findings: 76-year-old woman with multiple medical problems including end-stage renal disease, congestive heart failure, presents to the emergency department after being called to come back in. He is been having several weeks' worth of generalized weakness, some flank pain, and feeling poorly. Sets of intermittent hypotension at dialysis and in the emergency department recently. He has not had any fevers or chills. He had an extensive workup that revealed only pyuria. He states he urinates one time a day, small amount. He was treated for urinary tract infection however this grew back and unusual resistant organisms susceptible only to Zyvox, daptomycin, and linezolid. Given this he was instructed to return to the emergency department. He feels unchanged with several generalized weakness fatigue but no fevers. We'll resend labs, cultures, urine, x-ray. We'll give a dose of daptomycin, the patient will need to be admitted for further evaluation and treatment for possible multidrug resistant UTI. It's unclear if this represents true infection, or contamination and the patient and makes only a small amount of urine. John Pichardo MD Jan 17, 2017 13:19
[2017-01-17 13:22] LABS: AUTOMATED NEUTROPHIL # 6.1 TH/MM3 (1.8-7.7); BASOPHIL # 0.1 TH/MM3 (0-0.2); BASOPHIL % 1.3 % (0.0-2.0); EOSINOPHIL # 0.2 TH/MM3 (0-0.4); EOSINOPHIL % 1.9 % (0.0-4.0); HEMATOCRIT 35.9 % (39.0-51.0); HEMO FLAGS DIFF FINAL; LYMPH % 12.9 % (9.0-44.0); MEAN CELL VOLUME 92.4 FL (80.0-100.0); MEAN CORPUSCULAR HEMOGLOBIN 29.2 PG (27.0-34.0); MEAN CORPUSCULAR HGB CONC 31.6 % (32.0-36.0); MONO % 7.3 % (0.0-8.0); NEUT % 76.6 % (16.0-70.0); PLATELET COUNT 181 TH/MM3 (150-450); RED BLOOD COUNT 3.88 MIL/MM3 (4.50-5.90); RED CELL DISTRIBUTION WIDTH 19.2 % (11.6-17.2); WHITE BLOOD COUNT 7.9 TH/MM3 (4.0-11.0)
[2017-01-17 13:32] LABS: APTT (PATIENT) 26.4 SEC (24.3-30.1); INTERNATIONAL NORMALIZED RATIO 0.9 RATIO; PROTHROMBIN TIME - PATIENT 10.4 SEC (9.8-11.6)
[2017-01-17 13:41] LABS: BICARBONATE 23.2 MEQ/L (21.0-32.0); MAGNESIUM 1.9 MG/DL (1.5-2.5)
[2017-01-17 13:43] LABS: CALCIUM-PROTEIN CORRECTED 7.7 MG/DL (8.5-10.1); TOTAL BILIRUBIN ADULT 0.3 MG/DL (0.2-1.0)
[2017-01-17 14:37] LABS: BACTERIA, URINE FEW /hpf; BLOOD, URINE MOD (NEG); GLUCOSE,URINE TRACE mg/dL (NEG); KETONE, URINE TRACE mg/dL (NEG); NITRITE,URINE NEG (NEG); PH, URINE 5.5 (5.0-8.5)
[2017-01-17 14:43] LABS: COMMENT (UR) CATH-CULTURE IND; CULTURE IF INDICATED CATH CULTURE IND; URINE COLOR RED (YELLW/STRAW)
[2017-01-17] MEDS ORDERED: ACETAMINOPHEN 325 MG TAB PO PRN (14:45)
[2017-01-17] MEDS ORDERED: NALOXONE HCL 0.4 MG/ML AMP IV PRN (14:45)
[2017-01-17] MEDS ORDERED: ONDANSETRON HCL 4 MG/2 ML VIAL IVP PRN (14:45)
[2017-01-17] MEDS ORDERED: SODIUM CHLORIDE 0.9% FLUSH 5 ML FLUSH FLUSH PRN (14:45)
[2017-01-17 15:15] LABS: LACTIC ACID GHOST NOT REPORTABLE
[2017-01-17] MEDS: HEPARIN SODIUM - SQ 10,000 UNITS/ML VIAL SQ SCH (15:57)
--- NOTE | 2017-01-17 17:11 | HHI.HP ---
[facility] Service [facility] Primary Care Physician Tonio Winchester MD Admission Diagnosis UTI, Generalized Weakness Diagnoses: Chief Complaint: I was called because of urine culture result Travel History International Travel<30 Days: No Contact w/Intl Traveler <30 Da: No Traveled to Known Affected Are: No History of Present Illness 76 years old male with history of ESRD on hemodialysis MWF, CHF COPD coronary artery disease, recurrent DVT, and remote CVA, seizure, came to the ED after he was called and notified that his recent urine culture which was taken in his last visit to the ED, grew up enterococcus Raffinosus which is only susceptible to Vanco, daptomycin and linezolid. Initially patient came she days ago to the ED complaining of severe weakness, and then the urine culture was sent when he was found to have urine infection UTI. Patient still produces small amount of urine, in general him and his are extremely poor historian, however the told me that last month patient underwent bladder abscess versus cyst removal. Patient reported one time vomiting this morning, he denied any chest or short of breath, fever or chills, abdominal pain diarrhea or constipation or back pain. Patient started with 1 dose of daptomycin in ED Review of Systems All 10 systems reviewed and was positive for what is mentioned in history of present illness otherwise negative Past Family Social History Past Medical History ESRD on dialysis CAD COPD CHF Remote CVA with left sided weakness Past Surgical History IVC filter CABG 3 Heart stenting Lateral cataract Left knee replacement Skin cancer left forearm and neck Allergies: Coded Allergies: No Known Allergies (Verified , 01/17/17) Family History sister has a uterus cancer Social History Denied tobacco alcohol or illicit drug abuse Physical Exam Vital Signs Vital Signs Date Time Temp Pulse Resp B/P Pulse Ox O2 Delivery O2 Flow Rate FiO2 01/17/17 14:09 62 18 150/65 95 Room Air 01/17/17 12:46 96 Room Air 01/17/17 12:29 98.0 64 18 134/63 96 01/17/17 12:21 97.6 67 16 127/59 97 Physical Exam GENERAL: This is a frail elderly 76 years old male, well-developed patient, in no apparent distress. SKIN: No rashes, warm and dry HEAD: Atraumatic. Normocephalic. EYES: Pupils equal round and reactive. Extraocular motions intact. No scleral icterus. ENT: Nose without bleeding, or drainage, Airway patent. NECK: Trachea midline. Supple CARDIOVASCULAR: Regular rate and rhythm without murmurs, gallops, or rubs. RESPIRATORY: Fair air entry bilaterally. No wheezes, rales, or rhonchi. GASTROINTESTINAL: Abdomen soft, non-tender, nondistended. Positive bowel sounds MUSCULOSKELETAL: Extremities without clubbing, cyanosis, or edema. Pedal pulses appreciated NEUROLOGICAL: Awake and alert. Moves all extremity. Normal speech.no focal neurological deficit Laboratory Laboratory Tests Test 01/17/17 01/17/17 01/17/17 13:00 14:06 15:24 White Blood Count 7.9 Red Blood Count 3.88 Hemoglobin 11.3 Hematocrit 35.9 Mean Corpuscular Volume 92.4 Mean Corpuscular Hemoglobin 29.2 Mean Corpuscular Hemoglobin 31.6 Concent Red Cell Distribution Width 19.2 Platelet Count 181 Mean Platelet Volume 9.9 Neutrophils (%) (Auto) 76.6 Lymphocytes (%) (Auto) 12.9 Monocytes (%) (Auto) 7.3 Eosinophils (%) (Auto) 1.9 Basophils (%) (Auto) 1.3 Neutrophils # (Auto) 6.1 Lymphocytes # (Auto) 1.0 Monocytes # (Auto) 0.6 Eosinophils # (Auto) 0.2 Basophils # (Auto) 0.1 CBC Comment DIFF FINAL Differential Comment Prothrombin Time 10.4 Prothromb Time International 0.9 Ratio Activated Partial 26.4 Thromboplast Time Sodium Level 138 Potassium Level 5.0 Chloride Level 100 Carbon Dioxide Level 23.2 Anion Gap 15 Blood Urea Nitrogen 47 Creatinine 8.29 Estimat Glomerular Filtration 6 Rate Random Glucose 180 Lactic Acid Level 2.4 1.7 Calcium Level 7.4 Protein Corrected Calcium 7.7 Magnesium Level 1.9 Total Bilirubin 0.3 Aspartate Amino Transf 9 (AST/SGOT) Alanine Aminotransferase 11 (ALT/SGPT) Alkaline Phosphatase 119 Troponin I 0.06 Total Protein 6.5 Albumin 3.0 Urine Color RED Urine Turbidity HAZY Urine pH 5.5 Urine Specific [place] 1.017 Urine Protein 300 Urine Glucose (UA) TRACE Urine Ketones TRACE Urine Occult Blood MOD Urine Nitrite NEG Urine Bilirubin NEG Urine Urobilinogen 2.0 Urine Leukocyte Esterase LARGE Urine RBC Urine WBC Urine WBC Clumps MOD Urine Bacteria FEW Microscopic Urinalysis Comment CATH-CULTURE IND Date/Time Procedure Status Source Growth 01/17/17 14:06 Urine Culture Received Urine Catheterized Urine Pending 01/17/17 13:05 Aerobic Blood Culture Received Blood Peripheral Pending 01/17/17 13:05 Anaerobic Blood Culture Received Blood Peripheral Pending Result Diagram: 01/17/17 1300 01/17/17 1300 Imaging Last Impressions Chest X-Ray 01/17/17 1237 Signed Impressions: Service Date/Time: Tuesday, January 17, 2017 12:50 - CONCLUSION: Stable chest x-ray. No acute cardiopulmonary abnormality is identified. Kaleb Ba MD Assessment and Plan Problem List: (1) UTI (urinary tract infection) ICD Code: N39.0 Status: Acute (2) CHF (congestive heart failure) ICD Code: I50.9 Status: Acute (3) ESRD needing dialysis ICD Code: N18.6 Status: Acute (4) Diabetes mellitus ICD Code: E11.9 Status: Chronic (5) History of CVA (cerebrovascular accident) ICD Code: Z86.73 Status: Acute (6) History of DVT (deep vein thrombosis) ICD Code: Z86.718 Status: Acute Assessment and Plan 76 years old male with history of CAD, ESRD on hemodialysis, and H/O bladder cyst versus abscess removal last month came what with UTI with enterococcus Raffinosus, only susceptible for Vanco daptomycin and linezolid Reported history of bladder cyst versus abscess removal last month History of CAD status post CABG and stenting History of CHF H/O remote CVA with left sided weakness Diabetes mellitus DVT prophylaxis Plan: Admit for observation Healthy heart ADA diabetic renal diet Received one dose of daptomycin in ED, linezolid could possibly another good option, further recommendation per ID Consult ID Consult nephrology for hemodialysis Resume home medication for rest of medical problem Heparin for DVT prophylaxis Discussed Condition With Patient and his and ED physician Problem Qualifiers (1) UTI (urinary tract infection): Qualified Code: N39.0 - Urinary tract infection without hematuria, site unspecified David Viera MD Jan 17, 2017 17:11
[2017-01-17] MEDS ORDERED: oxyCODONE/ACETAMINOPHEN 5 MG/325 MG TAB PO PRN ×2 (17:15)
[2017-01-17] MEDS ORDERED: ATORVASTATIN 80 MG TAB PO SCH (21:00)
[2017-01-17] MEDS ORDERED: INSULIN DETEMIR 100 UNITS/ML VIAL SQ SCH (21:00)
[2017-01-17] MEDS: TAMSULOSIN HCL 0.4 MG CAP PO SCH (21:40)
[2017-01-17] MEDS: CARVEDILOL 6.25 MG TAB PO SCH (21:40)
[2017-01-17] MEDS: SODIUM CHLORIDE 0.9% FLUSH 5 ML FLUSH FLUSH SCH (22:15)
[2017-01-17] MEDS: SODIUM BICARBONATE 650 MG TAB PO SCH (22:15)
[2017-01-18] VITALS: BP 110/50; PULSE 60; RESP 20; TEMP 95.6; O2SAT 97
[2017-01-18] MEDS: HEPARIN SODIUM - SQ 10,000 UNITS/ML VIAL SQ SCH ×3 (00:58→16:00)
[2017-01-18 04:00] VITALS: BP 106/50; PULSE 60; RESP 20; TEMP 96; O2SAT 97
[2017-01-18 08:00] VITALS: BP 125/62; PULSE 61; RESP 20; TEMP 96.4; O2SAT 97
[2017-01-18] MEDS: TAMSULOSIN HCL 0.4 MG CAP PO SCH (08:15)
[2017-01-18] MEDS: SODIUM BICARBONATE 650 MG TAB PO SCH (08:15)
[2017-01-18] MEDS: CARVEDILOL 6.25 MG TAB PO SCH (08:16)
[2017-01-18] MEDS: SODIUM CHLORIDE 0.9% FLUSH 5 ML FLUSH FLUSH SCH (08:16)
[2017-01-18] MEDS ORDERED: CHOLECALCIFEROL (VIT D3) 1000 UNIT TAB PO SCH (09:00)
[2017-01-18] MEDS ORDERED: PANTOPRAZOLE SOD 20 MG DELAYED RELEASE TAB PO SCH (09:00)
[2017-01-18] MEDS ORDERED: FINASTERIDE 5 MG TAB PO SCH (09:00)
[2017-01-18] MEDS ORDERED: CLOPIDOGREL 75 MG TAB PO SCH (09:00)
[2017-01-18] MEDS ORDERED: BUMETANIDE 1 MG TAB PO SCH (09:00)
[2017-01-18] MEDS ORDERED: amLODIPine BESYLATE 5 MG TAB PO SCH (09:00)
[2017-01-18] MEDS ORDERED: ISOSORBIDE MONONITRATE 30 MG TAB PO SCH (09:00)
[2017-01-18] MEDS ORDERED: SEVELAMER CARBONATE 800 MG TAB PO SCH (09:00)
[2017-01-18] MEDS ORDERED: ASPIRIN 81 MG CHEW TAB PO SCH (09:00)
[2017-01-18] MEDS ORDERED: SODIUM CHLOR 0.9% 1000 ML INJ 1,000 ML IV PRN ×3 (09:05)
[2017-01-18] MEDS ORDERED: HEPARIN SODIUM - IV 10,000 UNITS/10 ML VIAL PRN (09:15)
[2017-01-18] MEDS ORDERED: cloNIDine HCL 0.1 MG TAB PO PRN (09:15)
[2017-01-18] MEDS ORDERED: GELATIN 12 MM/7 MM FOAM TOP PRN (09:15)
[2017-01-18] MEDS ORDERED: GENTAMICIN SULFATE (DIALYSIS USE ONLY) 20 MG/2 ML VIAL IV PRN (09:15)
[2017-01-18] MEDS ORDERED: MANNITOL 12.5 GM/50 ML VIAL IV PRN (09:15)
[2017-01-18] MEDS ORDERED: SODIUM CHLORIDE 0.9% FLUSH 5 ML FLUSH IVF PRN (09:15)
[2017-01-18] MEDS ORDERED: ALBUMIN HUMAN 25% 25 GM/100 ML BAGP IV PRN (09:15)
[2017-01-18] MEDS ORDERED: HEPARIN SODIUM - IV 10,000 UNITS/10 ML VIAL IVF PRN (09:15)
[2017-01-18] MEDS ORDERED: ONDANSETRON HCL 4 MG/2 ML VIAL IV PRN (09:15)
[2017-01-18] MEDS ORDERED: NITROGLYCERIN 0.4 MG SL 25 TABS/BTL SL PRN (09:15)
[2017-01-18] MEDS ORDERED: diphenhydrAMINE HCL 25 MG CAP PO PRN (09:15)
[2017-01-18] MEDS ORDERED: ACETAMINOPHEN 325 MG TAB PO PRN (09:15)
[2017-01-18 09:39] VITALS: PULSE 56
[2017-01-18 12:00] VITALS: BP 127/53; PULSE 57; RESP 23; TEMP 96.7; O2SAT 96
[2017-01-18 16:00] VITALS: BP 145/72; PULSE 73; RESP 22; TEMP 96.8; O2SAT 97
--- NOTE | 2017-01-18 16:33 | PD.ID.CON ---
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 (followed by Dr Velásquez) and multiple other med probolems presented to ER last tue co weakness, dizziness post HD No fever, chills, disuria Pt has some residual kidney fnx and produces small amount of urine daily He was diagnosed with UTI and d/c 'd on abx (Cephalexin (Keflex)500 Mg Fxa261 Mg PO Q12H 7 Days Ref 0) He took those abx thru Sat and felt fine, but received a call from the hospital to come back for his UTI tx He grew out susceptible only to vanco, daptomycin, and linezolid He was given 1 dose of daptomycin yday He is feeling OK today, afebrile with nl WBC His UA is again positive with pyuria, hematuria and growing enteroccus Past Family Social History Allergies: Coded Allergies: No Known Allergies (Verified , 01/17/17) Past Medical History ESRD on dialysis CAD COPD CHF Remote CVA with left sided weakness Past Surgical History IVC filter CABG 3 Heart stenting Lateral cataract Left knee replacement Skin cancer left forearm and neck Active Ordered Medications Medications where reviewed in EMR Antibiotics Include: daptomycin Family History Non-Contributory. Social History Denied tobacco alcohol or illicit drug abuse Physical Exam Vital Signs Vital Signs Date Time Temp Pulse Resp B/P Pulse Ox O2 Delivery O2 Flow Rate FiO2 01/18/17 16:00 96.8 73 22 145/72 97 01/18/17 12:00 96.7 57 23 127/53 96 01/18/17 09:39 56 01/18/17 08:00 96.4 61 20 125/62 97 01/18/17 04:00 96.0 60 20 106/50 97 01/18/17 00:00 95.6 60 20 110/50 97 01/17/17 20:09 96.7 60 20 117/51 99 01/17/17 20:00 60 01/17/17 18:01 96.2 63 18 137/63 97 Physical Exam CONSTITUTIONAL/GENERAL: This is an adequately nourished patient, in no apparent distress. TUBES/LINES/DRAINS: SKIN: No jaundice, rashes, or lesions. Ecchymoses on upper extremities. No wounds seen anteriorly. Skin temperature appropriate. Not diaphoretic. HEAD: Atraumatic. Normocephalic. EYES: Pupils equal and round and reactive. Extraocular motions intact. No scleral icterus. No injection or drainage. Fundi not examined. ENT: Hearing grossly normal. Nose without bleeding or purulent drainage. Throat without visible erythema, exudates, masses, or lesions. NECK: Trachea midline. Supple, nontender. . CARDIOVASCULAR: Regular rate and rhythm without 1/6 murmur, no gallops, or rubs. No JVD. Peripheral pulses symmetric. RESPIRATORY/CHEST: Symmetric, unlabored respirations. Clear to auscultation. Breath sounds equal bilaterally. No wheezes, rales, or rhonchi. GASTROINTESTINAL: Abdomen soft, non-tender, nondistended. No hepato-splenomegaly , or palpable masses. No guarding. Bowel sounds present. GENITOURINARY: Without palpable bladder distension. Small amount of urine in urinal appears bloody and cloudy MUSCULOSKELETAL: Extremities without clubbing, cyanosis, or edema. No joint tenderness or effusion noted. No calf tenderness. No mottling or clubbing. LYMPHATICS: No palpable cervical or supraclavicular adenopathy. NEUROLOGICAL: Awake and alert. Motor and sensory grossly within normal limits. Follows commands. Speech normal. Moves all extremities. PSYCHIATRIC: No obvious anxiety/depression. no apparent hallucinations or other psychotic thought process. Laboratory Date/Time Procedure Status Source Growth 01/17/17 14:06 Urine Culture - Preliminary Resulted Urine Catheterized Urine Group D Enterococcus 01/17/17 13:05 Aerobic Blood Culture - Preliminary Resulted Blood Peripheral NO GROWTH IN 1 DAY 01/17/17 13:05 Anaerobic Blood Culture - Preliminary Resulted Blood Peripheral NO GROWTH IN 1 DAY Result Diagram: 01/17/17 1300 01/17/17 1300 Imaging Last Impressions Chest X-Ray 01/17/17 1237 Signed Impressions: Service Date/Time: Tuesday, January 17, 2017 12:50 - CONCLUSION: Stable chest x-ray. No acute cardiopulmonary abnormality is identified. Kaleb Ba MD Assessment and Plan Assessment and Plan ESRD/HD UTI, Enterococcus raffinosus Bladder ca - Rx with vanco 1 gm p each HD x 2 weeks - fu with Dr Velásquez - KAMARI to dc home Discussed Condition With Mattie Larson MD Jan 18, 2017 16:33
--- NOTE | 2017-01-18 16:55 | PD.CONS ---
HPI Service Nephrology Consult Requested By [facility] Reason for Consult ESRD on HD Primary Care Physician Tonio Winchester MD History of Present Illness This is our 76 y/o dialysis pt who had treatment wednesday. He has been feeling weak with malaise for several days. He came to hospital on Wednesday, given oral Antibiotic at discharge for UTI. He later received a call that the medication ( Keflex) would not be effective per the culture report, which showed enterococcus. It is sensitive to vancomycin, daptomycin, and Zyvox.He was admitted for antibiotic therapy. He is due today for dialysis, no other complaints. He has a hx of chronic hematuria, follows with [facility] of urology, and has upcoming appt. He has had to have bladder growths removed. He is on Plavix and ASA per cardiology. Other PMH as outlined below including DM, HTN.. (Mechelle Mcgee) Review of Systems Constitutional: COMPLAINS OF: Fatigue, Change in appetite, DENIES: Fever Gastrointestinal: DENIES: Abdominal pain, Bloody stools Genitourinary: COMPLAINS OF: Dysuria (Mechelle Mcgee) Past Family Social History Allergies: Coded Allergies: No Known Allergies (Verified , 01/17/17) Past Medical History ESRD on dialysis M-W-F CAD COPD CHF Remote CVA with left sided weakness metabolic bone disorder anemia Past Surgical History IVC filter multiple cystoscopies bladder surgery CABG 3 Heart stenting Lateral cataract Left knee replacement Skin cancer left forearm and neck Reported Medications Keflex (Cephalexin) 500 Mg Cap 500 Mg PO Q12H 7 Days Plavix (Clopidogrel Bisulfate) 75 Mg Tab 75 Mg PO DAILY 30 Days Coreg (Carvedilol) 6.25 Mg Tab 6.25 Mg PO BID 30 Days Lipitor (Atorvastatin Calcium) 80 Mg Tab 80 Mg PO HS 30 Days Aspirin Low Strength (Aspirin) 81 Mg Chew 81 Mg PO DAILY 30 Days Humalog Inj (Insulin Human Lispro) 1,000 Unit/10 Ml Vial 5 Units SQ TIDAC Lantus Solostar Pen Inj (Insulin Glargine) 300 Unit/3 Ml Pen 10 Units SQ HS Vitamin D3 (Cholecalciferol) 2,000 Unit Tab 2,000 Units PO DAILY Isosorbide Mononitrate ER (Isosorbide Mononitrate) 30 Mg Tanmay 30 Mg PO DAILY Percocet (Oxycodone-Acetaminophen) 5-325 mg Tab 1-2 Tab PO Q6H PRN Flomax (Tamsulosin HCl) 0.4 Mg Cap 0.4 Mg PO BID Proscar (Finasteride) 5 Mg Tab 5 Mg PO DAILY Do not crush. Renvela (Sevelamer Carbonate) 800 Mg Tab 800 Mg PO DAILY Omeprazole 20 Mg Tab 20 Mg PO DAILY Bumex (Bumetanide) 1 Mg Tab 1 Mg PO DAILY Amlodipine (Amlodipine Besylate) 5 Mg Tab 5 Mg PO DAILY Active Ordered Medications Last 72 hours Impressions Chest X-Ray 01/17/17 1237 Signed Impressions: Service Date/Time: Tuesday, January 17, 2017 12:50 - CONCLUSION: Stable chest x-ray. No acute cardiopulmonary abnormality is identified. Kaleb Ba MD Family History No hx of renal disorders Social History , lives locally no hx of smoking or ETOH retired needs assistance with activities full code (Mechelle Mcgee) Physical Exam Vital Signs Vital Signs Date Time Temp Pulse Resp B/P Pulse Ox O2 Delivery O2 Flow Rate FiO2 01/18/17 16:00 96.8 73 22 145/72 97 01/18/17 12:00 96.7 57 23 127/53 96 01/18/17 09:39 56 01/18/17 08:00 96.4 61 20 125/62 97 01/18/17 04:00 96.0 60 20 106/50 97 01/18/17 00:00 95.6 60 20 110/50 97 01/17/17 20:09 96.7 60 20 117/51 99 01/17/17 20:00 60 01/17/17 18:01 96.2 63 18 137/63 97 Physical Exam Elderly male lying in bed, appears fatigued awake/alert, no neuro deficit S1/S2, reg rate/rhythm lungs: clear abd: soft extremities no edema Laboratory Date/Time Procedure Status Source Growth 01/17/17 14:06 Urine Culture - Preliminary Resulted Urine Catheterized Urine Group D Enterococcus 01/17/17 13:05 Aerobic Blood Culture - Preliminary Resulted Blood Peripheral NO GROWTH IN 1 DAY 01/17/17 13:05 Anaerobic Blood Culture - Preliminary Resulted Blood Peripheral NO GROWTH IN 1 DAY (Mechelle Mcgee) Result Diagram: 01/17/17 1300 01/17/17 1300 Imaging Last 72 hours Impressions Chest X-Ray 01/17/17 1237 Signed Impressions: Service Date/Time: Tuesday, January 17, 2017 12:50 - CONCLUSION: Stable chest x-ray. No acute cardiopulmonary abnormality is identified. Kaleb Ba MD (Mechelle Mcgee) Assessment and Plan Problem List: (1) ESRD needing dialysis Plan: dialyze today and M-W-, orders entered no electrolyte concerns has functioning AVF avoid IVF, gadolinium in ESRD pts renal panel in am high protein diet (2) UTI (urinary tract infection) Plan: ID has been consulted given a dose of Daptomycin, needs outpatient Abx therapy vanco can be given with dialysis in clinic setting (3) Hypertension Plan: resume home medications (4) Metabolic bone disease Plan: check phos in am continue renvela (5) Diabetes mellitus Plan: on multiple insulin therapies follow glucose (6) Anemia Plan: stable, no epogen required (Mechelle Mcgee) Assessment and Plan patient was seen and examined. Dialysis today. He can be discharged from renal standpoint after dialysis. Agree with above assessment and plan. (Chava Singh MD) Problem Qualifiers (1) UTI (urinary tract infection): Qualified Code: N39.0 - Urinary tract infection without hematuria, site unspecified Mechelle Mcgee Jan 18, 2017 16:55 Chava Singh MD Jan 19, 2017 09:44
--- NOTE | 2017-01-18 16:59 | EKG ---
Date Performed: 01/17/2017 Time Performed: 12:44:00 PTAGE: 76 years EKG: Sinus rhythm WITH FIRST DEGREE AV BLOCK INFERIOR MYOCARDIAL INFARCTION MODERATE T-WAVE ABNORMALITY, CONSIDER LATE RAL ISCHEMIA ABNORMAL ECG Compared to PREVIOUS TRACING , lateral T-wave changes have improved. PREVIOUS TRACIN01/12/2017 17. 26 DOCTOR: Migue Parra Interpretating Date/Time 01/18/2017 16:57:42
[2017-01-18] MEDS ORDERED: INSULIN ASPART 1,000 UNITS/10 ML VIAL SQ SCH (17:00)
[2017-01-18] MEDS ORDERED: VANCOMYCIN INJ 1,000 MG in SODIUM CHLOR 0.9% 250 ML INJ 250 ML IV SCH ×2 (17:45→18:30)
--- NOTE | 2017-01-18 17:48 | HHI.FF ---
Dr Camara Infusion Therapy Location of Infusion Therapy: Dialysis Center Patient Information Patient Weight 76.3 kg Diagnosis: Diagnosis UTI Coded Allergies: No Known Allergies (Verified , 01/17/17) Administer Medication Vancomycin 1 gram IV q 48 hours w/Hemodialysis M,W,F Start Treatment: Jan 18, 2017 Stop Treatment: Jan 31, 2017 Additional Information Venous access: Other (AVF) Additional Instructions [x] Peripheral flush and dressing changes per protocol [x] Implanted port and central line prep cook: * Implanted port: 10 ml Normal Saline followed by 5 ml Heparin 100 units/ml Heparin flush after each use and monthly to maintain. [] May leave port accessed during therapy. [] May leave peripheral site accessed for duration of therapy. [x] If patient has SOB or respiratory distress, check oxygen saturation. If less than 90% or clinical signs of respiratory distress, administer oxygen at 2 L/min. via nasal cannula and notify physician. [x] Anaphylaxis/Reaction orders: * Stop infusion. * Keep IV line open with saline flush. * Notify physician. * Monitor vital signs every 15 minutes until symptoms resolve. * Check Oxygen saturation; Oxygen at 2 L/min. via nasal cannula if less than 90% or clinical signs of respiratory distress. * Administer diphenhydramine (Benadryl) 25 mg IV STAT, (unless patient has received as pre-med). May repeat once, if necessary. * Solu-Cortef 250 mg IVP over 30-60 seconds, use 100 mg vials for each dissolution. * Epinephrine (1mg/1 ml) 0.3 mg subcutaneously or IVP now with any signs of respiratory distress. * Check with physician for new additional pre-med orders if patient is re- challenged or re-treated. [x] May remove PICC line when treatment complete, after confirming with Physician. [x] If the patient is admitted to the hospital, the ED, or transferred via [facility] , complete transfer form including medication reconciliation order sheet. Mattie Jaeger MD Jan 18, 2017 17:48
--- NOTE | 2017-01-18 18:00 | HHI.PR ---
Subjective Remarks Patient just came from hemodialysis is doing well, he wants to go home, discussed with ID, he will need to weeks of vancomycin with dialysis Objective Vitals Vital Signs Date Time Temp Pulse Resp B/P Pulse Ox O2 Delivery O2 Flow Rate FiO2 01/18/17 16:00 96.8 73 22 145/72 97 01/18/17 12:00 96.7 57 23 127/53 96 01/18/17 09:39 56 01/18/17 08:00 96.4 61 20 125/62 97 01/18/17 04:00 96.0 60 20 106/50 97 01/18/17 00:00 95.6 60 20 110/50 97 01/17/17 20:09 96.7 60 20 117/51 99 01/17/17 20:00 60 01/17/17 18:01 96.2 63 18 137/63 97 I/O 01/17/17 01/17/17 01/17/17 01/18/17 01/18/17 01/18/17 07:00 15:00 23:00 07:00 15:00 23:00 Intake Total 240 ml 60 ml 280 ml Output Total 100 ml 2000 ml Balance 240 ml -40 ml 280 ml -2000 ml Intake Oral 240 ml 60 ml 280 ml Output Urine Total 100 ml Hemodialysis 2000 ml # Voids 1 1 1 # Bowel Movements 0 1 1 Result Diagram: 01/17/17 1300 01/17/17 1300 Objective Remarks GENERAL: This is a frail elderly 76 years old male, well-developed patient, in no apparent distress. SKIN: No rashes, warm and dry HEAD: Atraumatic. Normocephalic. EYES: Pupils equal round and reactive. Extraocular motions intact. No scleral icterus. ENT: Nose without bleeding, or drainage, Airway patent. NECK: Trachea midline. Supple CARDIOVASCULAR: Regular rate and rhythm without murmurs, gallops, or rubs. RESPIRATORY: Fair air entry bilaterally. No wheezes, rales, or rhonchi. GASTROINTESTINAL: Abdomen soft, non-tender, nondistended. Positive bowel sounds MUSCULOSKELETAL: Extremities without clubbing, cyanosis, or edema. Pedal pulses appreciated NEUROLOGICAL: Awake and alert. Moves all extremity. Normal speech.no focal neurological deficit A/P Problem List: (1) UTI (urinary tract infection) ICD Code: N39.0 Status: Acute (2) CHF (congestive heart failure) ICD Code: I50.9 Status: Acute (3) ESRD needing dialysis ICD Code: N18.6 Status: Acute (4) Diabetes mellitus ICD Code: E11.9 Status: Chronic (5) History of CVA (cerebrovascular accident) ICD Code: Z86.73 Status: Acute (6) History of DVT (deep vein thrombosis) ICD Code: Z86.718 Status: Acute Assessment and Plan 76 years old male with history of CAD, ESRD on hemodialysis, and H/O bladder cyst versus abscess removal last month came what with UTI with enterococcus Raffinosus, only susceptible for Vanco daptomycin and linezolid Reported history of bladder cyst versus abscess removal last month History of CAD status post CABG and stenting History of CHF H/O remote CVA with left sided weakness Diabetes mellitus DVT prophylaxis Plan: Healthy heart ADA diabetic renal diet Received one dose of daptomycin in ED, linezolid could possibly another good option, further recommendation per ID Patient ID consultation, discussed with Dr. Jaeger, patient will need to weeks of vancomycin with dialysis Consult nephrology for hemodialysis Resume home medication for rest of medical problem Heparin for DVT prophylaxis Discharge Planning Discharge patient to home Condition on discharge: Improved Regular Diet as tolerated Ad Leeanna activity Rx written: Vancomycin with dialysis for 2 weeks Follow-up with primary care physician PCP normally, urology as directed, hemodialysis as scheduled Problem Qualifiers (1) UTI (urinary tract infection): Qualified Code: N39.0 - Urinary tract infection without hematuria, site unspecified David Viera MD Jan 18, 2017 18:00
[2017-03-22] MEDS ORDERED: PHEN0.4T PO (11:52)
[2017-03-22] MEDS ORDERED: PERC5TAB12 PO (11:52)
[2017-03-22] MEDS ORDERED: CEPH-459 PO (11:52)
[2017-05-06] MEDS ORDERED: VITA2000 PO (15:25)
[2017-05-06] MEDS ORDERED: BUME1TAB PO (15:25)
[2017-05-06] MEDS ORDERED: BRIL90TA PO (15:25)
== END 2017-01-18 18:26 | disposition home or self-care (01) ==
LOC: NEPC 12:18 → NEDA 14:19 → INTOOBSV 14:19 → N05A 17:17 → UNDODISIN 01-18 18:26
PROVIDERS: ADMIT Hospitalist; ATTEND Hospitalist
DX: N39.0 Urinary tract infection, site not specified (principal); R31.0 Gross hematuria; N40.1 Benign prostatic hyperplasia with lower urinary tract symptoms; R30.0 Dysuria; B95.2 Enterococcus as the cause of diseases classified elsewhere; B95.7 Other staphylococcus as the cause of diseases classified elsewhere; I13.2 Hypertensive heart and chronic kidney disease with heart failure and with stage 5 chronic kidney disease, or end stage renal disease; I50.9 Heart failure, unspecified; N18.6 End stage renal disease; E11.22 Type 2 diabetes mellitus with diabetic chronic kidney disease; I44.0 Atrioventricular block, first degree; J44.9 Chronic obstructive pulmonary disease, unspecified; I25.10 Atherosclerotic heart disease of native coronary artery without angina pectoris; I69.354 Hemiplegia and hemiparesis following cerebral infarction affecting left non-dominant side; D64.9 Anemia, unspecified; R53.1 Weakness; E78.00 Pure hypercholesterolemia, unspecified; K21.9 Gastro-esophageal reflux disease without esophagitis; I25.2 Old myocardial infarction; E88.89 Other specified metabolic disorders; C67.2 Malignant neoplasm of lateral wall of bladder; Z99.2 Dependence on renal dialysis; Z86.718 Personal history of other venous thrombosis and embolism; Z16.11 Resistance to penicillins; Z85.828 Personal history of other malignant neoplasm of skin; Z16.21 Resistance to vancomycin; Z95.1 Presence of aortocoronary bypass graft; Z79.02 Long term (current) use of antithrombotics/antiplatelets; Z79.82 Long term (current) use of aspirin
CPT/HCPCS: 71010; 80053; 81001; 82948; 83605; 83735; 84484; 85025; 85610; 85730; 87040; 87077; 87086; 87186; 87205; 93005; 96365; 99285; G0257; G0378; J0878; J1644; J1815; 90935

== ENCOUNTER 2017-02-27 14:01 | Emergency (ER) | payer MEDICARE, OTHER ==
[~2017-02-27] VITALS: Ht 172.7 cm; Wt 61.0 kg
[~2017-02-27 14:01] MED LIST changes: -CEPH-460 PO
[2017-02-27 14:03] VITALS: BP 115/69; PULSE 71; RESP 16; TEMP 98.1; O2SAT 97
[2017-02-27 14:29] VITALS: BP 127/60; PULSE 68; RESP 19; O2SAT 98
--- NOTE | 2017-02-27 14:44 | PD ---
HPI Chief Complaint: abdominal pain Time Seen by Provider: 14:24 Travel History International Travel<30 days: No Contact w/Intl Traveler<30days: No Traveled to known affect area: No History of Present Illness HPI This patient complains of both chest and abdominal pain. Location is primarily left upper quadrant to a lesser degree in the epigastrium. Radiated up into his chest to some degree but does not primarily seem to be chest pain. He's had diarrhea for a couple of weeks. No active vomiting or fever. Symptoms severity is moderate. No alleviating factors. He is a dialysis patient who went yesterday. Duration of abdominal pain 2 days PFSH Past Medical History Hx Anticoagulant Therapy: Yes (PLAVIX) Anemia: Yes Arthritis: Yes Asthma: No Autoimmune Disease: No Blood Disorders: No Anxiety: No Depression: No Heart Rhythm Problems: Yes Cancer: Yes (SKIN, BLADDER) Cardiovascular Problems: Yes High Cholesterol: Yes Chest Pain: Yes Congestive Heart Failure: Yes COPD: Yes Cerebrovascular Accident: Yes (CVA) Diabetes: Yes Patient Takes Glucophage: No Dialysis: Yes ( MWF) Diminished Hearing: Yes (WALES) Endocrine: Yes Gastrointestinal Disorders: Yes GERD: Yes Genitourinary: Yes (BPH) Headaches: No Hepatitis: No Hiatal Hernia: No Hypertension: Yes Immune Disorder: No Implanted Vascular Access Dvce: Yes Kidney Stones: No Musculoskeletal: Yes Neurologic: Yes Psychiatric: No Reproductive: No Respiratory: Yes Immunizations Current: Yes ( STATES DIALYSIS GAVE HEPATITIS SHOT TODAY) Migraines: No Myocardial Infarction: Yes (pt states one 4 weeks ago and 1 week ago ) Radiation Therapy: No Renal Failure: Yes Seizures: Yes Sickle Cell Disease: No Sleep Apnea: No Thyroid Disease: No Ulcer: Yes Tetanus Vaccination: Unknown Influenza Vaccination: Yes Past Surgical History Abdominal Surgery: Yes AICD: No Arteriovenous Shunt: No Body Medical Devices: STENTS,IVC FILTER, AV FISTULA LEFT Cardiac Surgery: Yes Cholecystectomy: Yes Coronary Artery Bypass Graft: Yes (triple, 2008) Coronary Stent: Yes Ear Surgery: No Endocrine Surgery: No Eye Surgery: Yes (DUONG CATARACTS) Genitourinary Surgery: No Insulin Pump: No Joint Replacement: Yes (LEFT KNEE) Oral Surgery: No Pacemaker: No Thoracic Surgery: No Other Surgery: Yes (REMOVED SKIN CANCER LEFT FOREARM AND NECK) Social History Alcohol Use: No Tobacco Use: No Substance Use: No Allergies-Medications (Allergen,Severity, Reaction): Coded Allergies: No Known Allergies (Verified , 02/27/17) Reported Meds & Prescriptions Reported Meds & Active Scripts Active Plavix (Clopidogrel Bisulfate) 75 Mg Tab 75 Mg PO DAILY 30 Days Coreg (Carvedilol) 6.25 Mg Tab 6.25 Mg PO BID 30 Days Lipitor (Atorvastatin Calcium) 80 Mg Tab 80 Mg PO HS 30 Days Aspirin Low Strength (Aspirin) 81 Mg Chew 81 Mg PO DAILY 30 Days Reported Humalog Inj (Insulin Human Lispro) 1,000 Unit/10 Ml Vial 5 Units SQ TIDAC Lantus Solostar Pen Inj (Insulin Glargine) 300 Unit/3 Ml Pen 10 Units SQ HS Vitamin D3 (Cholecalciferol) 2,000 Unit Tab 2,000 Units PO DAILY Isosorbide Mononitrate ER (Isosorbide Mononitrate) 30 Mg Tanmay 30 Mg PO DAILY Percocet (Oxycodone-Acetaminophen) 5-325 mg Tab 1-2 Tab PO Q6H PRN Flomax (Tamsulosin HCl) 0.4 Mg Cap 0.4 Mg PO BID Proscar (Finasteride) 5 Mg Tab 5 Mg PO DAILY Do not crush. Sodium Bicarbonate 650 Mg Tab 650 Mg PO BID Renvela (Sevelamer Carbonate) 800 Mg Tab 800 Mg PO DAILY Omeprazole 20 Mg Tab 20 Mg PO DAILY Bumex (Bumetanide) 1 Mg Tab 1 Mg PO DAILY Amlodipine (Amlodipine Besylate) 5 Mg Tab 5 Mg PO DAILY Review of Systems General / Constitutional: No: Fever Eyes: No: Visual changes HENT: No: Headaches Cardiovascular: Positive: Chest Pain or Discomfort, No: Palpitations Respiratory: No: Shortness of Breath Gastrointestinal: Positive: Nausea, Diarrhea, Abdominal Pain Genitourinary: No: Dysuria Musculoskeletal: No: Pain Skin: No Rash Neurologic: No: Weakness Psychiatric: No: Depression Endocrine: No: Polydipsia Hematologic/Lymphatic: No: Easy Bruising Physical Exam Narrative GENERAL: Well-nourished, well-developed patient in no apparent distress. SKIN: Focused skin assessment reveals no rash and nodules. Skin is Warm and dry. HEAD: Atraumatic. Normocephalic. EYES: Pupils equal and round. No scleral icterus. No injection or drainage. ENT: No nasal bleeding or discharge. Mucous membranes pink and moist. NECK: Trachea midline. No JVD. CARDIOVASCULAR: Regular rate and rhythm. No murmur appreciated. RESPIRATORY: No accessory muscle use. Clear to auscultation. Breath sounds equal bilaterally. GASTROINTESTINAL: Abdomen soft, protuberant, tender in the epigastrium but primarily left upper quadrant without rebound or guarding, nondistended. Hepatic and splenic margins not palpable. MUSCULOSKELETAL: No obvious deformities. No clubbing. No cyanosis. No edema. NEUROLOGICAL: Awake and alert. No obvious cranial nerve deficits. Motor grossly within normal limits. Normal speech. PSYCHIATRIC: Appropriate mood and affect; insight and judgment normal. Data Data Last Documented VS Vital Signs Date Time Temp Pulse Resp B/P Pulse Ox O2 Delivery O2 Flow Rate FiO2 02/27/17 14:46 16 98 Room Air 02/27/17 14:30 67 02/27/17 14:29 127/60 02/27/17 14:03 98.1 Orders Electrocardiogram (02/27/17 ) Complete Blood Count With Diff (02/27/17 14:36) Comprehensive Metabolic Panel (02/27/17 14:36) Lipase (02/27/17 14:36) Iv Access Insert/Monitor (02/27/17 14:36) Ecg Monitoring (02/27/17 14:36) Oximetry (02/27/17 14:36) Sodium Chloride 0.9% Flush (Ns Flush) (02/27/17 14:45) Ckmb (Isoenzyme) Profile (02/27/17 14:36) Troponin I (02/27/17 14:36) Ct Abd/Pel W/O Iv Contrast (02/27/17 ) Labs Laboratory Tests Test 02/27/17 14:25 White Blood Count 10.8 TH/MM3 Red Blood Count 4.21 MIL/MM3 Hemoglobin 12.0 GM/DL Hematocrit 38.0 % Mean Corpuscular Volume 90.5 FL Mean Corpuscular Hemoglobin 28.6 PG Mean Corpuscular Hemoglobin 31.6 % Concent Red Cell Distribution Width 19.4 % Platelet Count 157 TH/MM3 Mean Platelet Volume 10.9 FL Neutrophils (%) (Auto) 74.1 % Lymphocytes (%) (Auto) 14.9 % Monocytes (%) (Auto) 9.0 % Eosinophils (%) (Auto) 0.9 % Basophils (%) (Auto) 1.1 % Neutrophils # (Auto) 8.0 TH/MM3 Lymphocytes # (Auto) 1.6 TH/MM3 Monocytes # (Auto) 1.0 TH/MM3 Eosinophils # (Auto) 0.1 TH/MM3 Basophils # (Auto) 0.1 TH/MM3 CBC Comment DIFF FINAL Differential Comment Sodium Level 135 MEQ/L Potassium Level 5.0 MEQ/L Chloride Level 99 MEQ/L Carbon Dioxide Level 22.1 MEQ/L Anion Gap 14 MEQ/L Blood Urea Nitrogen 44 MG/DL Creatinine 7.19 MG/DL Estimat Glomerular Filtration 7 ML/MIN Rate Random Glucose 165 MG/DL Calcium Level 8.4 MG/DL Total Bilirubin 0.6 MG/DL Aspartate Amino Transf 13 U/L (AST/SGOT) Alanine Aminotransferase 10 U/L (ALT/SGPT) Alkaline Phosphatase 86 U/L Total Creatine Kinase 52 U/L Troponin I 0.05 NG/ML Total Protein 7.0 GM/DL Albumin 3.2 GM/DL Lipase 264 U/L MDM Medical Decision Making Medical Screen Exam Complete: Yes Emergency Medical Condition: Yes Medical Record Reviewed: Yes Differential Diagnosis Differential diagnosis includes pancreatitis, biliary colic, hepatitis, GERD, peptic ulcer disease. Narrative Course I have reviewed the patient's electronic medical record. I reviewed his most recent EKGs. He looks basically the same as the one done just now. I reviewed his cardiology consultation from 5 months ago. IV placed CBC is normal Metabolic profile is normal CK is normal Troponin is normal I reviewed his EKG which shows sinus rhythm. Lead 3 and aVF looks like possibility of 0.[address] elevation but it's the same as prior EKGs. He does not have ST elevation in lead 2 Extended cardiac monitoring reveals sinus rhythm without ectopy I reviewed his chest x-ray shows nothing acute This is not a cardiac situation. He basically has abdominal pain that is somewhat diffuse and radiates up into the chest but he is not having chest pain at all. EKG is his standard baseline EKG and his cardiac enzymes are normal CT of abdomen and pelvis was done. He does not have any acute findings to explain acute pain On recheck he looks comfortable and has normal vital signs and is stable for outpatient family physician follow-up I advised him to call Wednesday for follow-up as well as to dialyze Wednesday as usual Diagnosis Primary Impression: Abdominal pain Qualified Code: R10.12 - Left upper quadrant pain Additional Instructions: The patient was advised to follow up with their physician and return if they worsen. Med/Other Pt SpecificInfo: Other Disposition: 01 DISCHARGE HOME Condition: Stable Ankur Pierce MD Feb 27, 2017 14:44
[2017-02-27] MEDS ORDERED: SODIUM CHLORIDE 0.9% FLUSH 10 ML FLUSH IV FLUSH PRN (14:45)
[2017-02-27 14:46] VITALS: RESP 16; O2SAT 98
[2017-02-27 15:05] LABS: BASOPHIL # 0.1 TH/MM3 (0-0.2); BASOPHIL % 1.1 % (0.0-2.0); EOSINOPHIL # 0.1 TH/MM3 (0-0.4); EOSINOPHIL % 0.9 % (0.0-4.0); HEMO FLAGS DIFF FINAL; LYMPH % 14.9 % (9.0-44.0); LYMPHOCYTE # 1.6 TH/MM3 (1.0-4.8); MEAN CELL VOLUME 90.5 FL (80.0-100.0); MEAN CORPUSCULAR HEMOGLOBIN 28.6 PG (27.0-34.0); MEAN CORPUSCULAR HGB CONC 31.6 % (32.0-36.0); NEUT % 74.1 % (16.0-70.0); PLATELET COUNT 157 TH/MM3 (150-450); RED BLOOD COUNT 4.21 MIL/MM3 (4.50-5.90); RED CELL DISTRIBUTION WIDTH 19.4 % (11.6-17.2); WHITE BLOOD COUNT 10.8 TH/MM3 (4.0-11.0)
[2017-02-27 15:38] LABS: ANION GAP 14 MEQ/L (5-15); AST (GOT) 13 U/L (15-37); BICARBONATE 22.1 MEQ/L (21.0-32.0); BLOOD UREA NITROGEN 44 MG/DL (7-18); CHLORIDE 99 MEQ/L (98-107); GLOMERULAR FILTRATION RATE 7 ML/MIN (>89); SODIUM (NA) 135 MEQ/L (136-145)
[2017-02-27 15:40] LABS: ALKALINE PHOSPHATASE 86 U/L (45-117); ALT (GPT) 10 U/L (12-78); CREATINE KINASE 52 U/L (39-308); TOTAL BILIRUBIN ADULT 0.6 MG/DL (0.2-1.0)
--- NOTE | 2017-02-27 17:55 | RADRPT ---
EXAM DATE/TIME: 02/27/2017 17:31 [place] COMPARISON: No previous studies available for comparison. INDICATIONS : Left upper quadrant pain past 2 days. ORAL CONTRAST: No oral contrast ingested. RADIATION DOSE: 11.56 CTDIvol (mGy) MEDICAL HISTORY : Cardiovascular disease. Gastroesophageal reflux disease. Renal failure, acute. SURGICAL HISTORY : Cholecystectomy. CABG ENCOUNTER: Initial ACUITY: 2 days PAIN SCALE: 6/10 LOCATION: Left upper quadrant TECHNIQUE: Volumetric scanning of the abdomen and pelvis was performed. Using automated exposure control and ad justment of the mA and/or kV according to patient size, radiation dose was kept as low as reasonably achievable to obtain optimal diagnostic quality images. FINDINGS: There is linear atelectasis left lung base. Severe coronary calcifications. No acute findings in the liver. Previous cholecystectomy. Spleen, adrenals and pancreas unremarkable. Extensive renal vascular calcifications. Inferior vena cava filter is present. There is dense athero sclerotic change in the aorta and branches. Bladder wall is thickened. CONCLUSION: 1. No acute findings. Severe vascular calcifications including coronary artery calcifications without aneurysm. 2. Inferior vena cava filter present. Cholecystectomy. No acute inflammatory changes identified withi n the abdomen or pelvis. Specifically no obstructive uropathy. Jules Donald MD on February 27, 2017 at 17:49 Board Certified Radiologist. This report was verified electronically.
--- NOTE | 2017-02-28 14:00 | EKG ---
Date Performed: 02/27/2017 Time Performed: 14:30:03 PTAGE: 76 years EKG: Sinus rhythm WITH FIRST DEGREE AV BLOCK INFERIOR MYOCARDIAL INFARCTION MODERATE T-WAVE ABNORMALITY, CONSIDER LATE RAL ISCHEMIA Since previous tracing, no significant change noted ABNORMAL ECG PREVIOUS TRACING : 01/17/2017 12.44 DOCTOR: Anish Long Interpretating Date/Time 02/28/2017 13:59:24
[2017-03-22] MEDS ORDERED: CEPH-459 PO (11:52)
[2017-03-22] MEDS ORDERED: PERC5TAB12 PO (11:52)
[2017-03-22] MEDS ORDERED: PHEN0.4T PO (11:52)
[2017-05-06] MEDS ORDERED: BUME1TAB PO (15:25)
[2017-05-06] MEDS ORDERED: BRIL90TA PO (15:25)
[2017-05-06] MEDS ORDERED: VITA2000 PO (15:25)
== END 2017-02-27 19:17 | disposition home or self-care (01) ==
LOC: NEPC 14:01
DX: R10.12 Left upper quadrant pain (principal); I12.9 Hypertensive chronic kidney disease with stage 1 through stage 4 chronic kidney disease, or unspecified chronic kidney disease; N18.9 Chronic kidney disease, unspecified; E78.00 Pure hypercholesterolemia, unspecified; I50.9 Heart failure, unspecified; J44.9 Chronic obstructive pulmonary disease, unspecified; E11.9 Type 2 diabetes mellitus without complications; K21.9 Gastro-esophageal reflux disease without esophagitis; N40.0 Benign prostatic hyperplasia without lower urinary tract symptoms; I44.0 Atrioventricular block, first degree; I25.2 Old myocardial infarction; Z95.1 Presence of aortocoronary bypass graft; Z79.01 Long term (current) use of anticoagulants; Z99.2 Dependence on renal dialysis; Z86.73 Personal history of transient ischemic attack (TIA), and cerebral infarction without residual deficits; R94.31 Abnormal electrocardiogram [ECG] [EKG]
CPT/HCPCS: 74176; 80053; 82550; 83690; 84484; 85025; 93005

== ENCOUNTER → 2017-03-22 | Day surgery (SDC) | payer MEDICARE, OTHER ==
[~2017-03-22] VITALS: Ht 172.7 cm; Wt 84.7 kg
[~2017-03-22] MED LIST changes: +ASPI1TAB91 PO; +Aspirin Chew PO; +BRIL90TA PO; +BUME1TAB PO; +CARV12.5 PO; +CEPH-459 PO; +CHLORHEXIDINE GLUCONATE 2 % 1 PACK (2 CLOTHS) TOPICAL PRN; +DO NOT ADM ANY ANTICOAGULANT DRUGS PRN; +FAMOTIDINE 20 MG/2 ML VIAL ONE; +INSULIN HUMAN REGULAR 1,000 UNITS/10 ML VIAL SQ PRN; +LACTATED RINGER'S 1000 ML IV PRN; +LEVO500T3 PO; +METOPROLOL TARTRATE 25 MG TAB PO PRN; +ONDANSETRON HCL 4 MG/2 ML VIAL IV PUSH ONE; +ONDANSETRON HCL 4 MG/2 ML VIAL IV PUSH PRN; +OXYB5TAB10 PO; +OXYGENDME NAS.CANULA; +PHEN0.4T PO; +POVIDONE IODINE 5% (ANTISEPSIS KIT) 4 APPLICATIONS EACH NARE PRN; +PRED20 PO; +PROPOFOL 200 MG/20 ML AMP IV ONE; +SODIUM CHLORID 0.9% 500 ML IV PRN; +VITA2000 PO; +ceFAZolin 1,000 MG/NS 100 ML IV SCH; +fentaNYL CITRATE 250 MCG/5 ML AMP ONE; +oxyCODONE/ACETAMINOPHEN 5 MG/325 MG TAB PO PRN
[2017-03-22 08:20] VITALS: BP 118/49; PULSE 63; RESP 18; TEMP 97.8; O2SAT 99
--- NOTE | 2017-03-22 11:50 | PD.OP ---
Operative Report Date of Surgery: March 22, 2017 Preoperative Diagnosis: (1) Bladder mass Postoperative Diagnosis: (1) Bladder mass Procedure: Cystoscopy and transurethral resection of bladder tumors involving the left wall and bladder neck region Anesthesia: General Surgeon: Shubham Velásquez Cable Tool Driller(s): None Operation and Findings: Indication for procedure: Case of a pleasant 76-year-old gentleman with history of high grade bladder cancer who presents now for transurethral resection of at least 2 recurrent lesions seen on cystoscopic evaluation. Operative procedure in detail: Patient was brought to the operating room suite and placed supine on the cystoscopy table. He was then placed under general anesthesia. He was then repositioned in the dorsolithotomy position and prepped and draped in normal sterile fashion. After the appropriate timeout was undertaken I proceeded with cystoscopic evaluation utilizing the rigid cystoscope with a 20 [place] sheath and 30 lens. The prostatic urethra was moderately obstructing with apposition of the lateral lobes. Further advancement of the cystoscope within the urinary bladder to continuous bladder tumors involving the left wall greater than 5 cm in total diameter. Also noted was a less than 1 cm papillary lesion involving the bladder neck region at the 5 o'clock position. The cystoscope was exchanged for the resectoscope with a 24 [place] cutting loop. The patient next underwent transrectal resection of these recurrent bladder tumors. The uric evacuation device to extract some of the tissue and this was sent off to pathology. Most of the tumor was fulgurated with electrocautery. The resectoscope was then withdrawn after careful inspection was made for any inadvertent bladder wall perforation and none was noted. A 20 [place] 10 cc Frankel catheter was then placed and connected to gravity drainage. The patient tolerated the procedures without complications and was transferred to the PACU in satisfactory condition. Shubham Velásquez MD March 22, 2017 11:50
[2017-03-22 13:30] VITALS: BP 150/73; PULSE 76; RESP 18; TEMP 97.6; O2SAT 97
--- NOTE | 2017-03-24 14:56 | CATHPROC ---
[facility] HIS Report Study Information Study Number Admission Scheduled Start Study Start 03/24/2017 03/24/2017 Mar 24 2017 11:53AM Study Type [place] Service Left/Possible PCI Cardiac Catheterization Referring Institution Admit Source Facility Department 1 Emergency department [facility] - Street Openings Inspector Physician and Clinical Staff Initial Rachael Mccollum Music Manager Krista Lamar BSRN Music Manager Arlin Blanco RN Other cathlab, cathlab Recorder Tereso Cruz RCIS(BS) Scrub Jessica Schultz RCIS TECH2 Procedures Performed Procedure Location (Site) Vessel Name Angiogram LV LV Ventricle Coronary Angiograms LCA Left Coronary Coronary Angiograms RCA Right Coronary Coronary Angiograms RIBEIRO-LAD Left Coronary Coronary Angiograms SVG-OM CIRC Coronary Angiograms SVG-RCA Right Coronary Drug Eluting Inflatio SVG-RCA Right Coronary L Heart Cath PTCA SVG-RCA Right Coronary Wire insertion Fem Art (right) Femoral Art Equipment Time Protection Mgr Description Size Mfg Part Number Used/Scraped WIRE, BALANCE MIDDLEWEIGHT [id number] 12:37 SIN [employer]IT[employer]ARE 190CM Used 190CM *[id number] WIRE, HI TORQUE ALLSTAR [id number] 13:17 SIN CRITICAL CARE 190CM Used 190CM *[id number] 13:39 SIN CRITICAL CARE WIRE, IRON MAN 190CM 190CM Used *[id number] TRANSDUCER, TRUWAVE 12:24 QUINONEZ FRANCISCO * [id number] Used W/STOCKCOCK STENT, 3.5 38MM PROMUS [id number] 14:07 BOSTON SCIENTIFIC 3.5 38MM Used PREMIER *[id number] 13:41 BOSTON SCI[employer] WIRE, SAMURAI 190CM 190CM Used *[id number] 73928-875 13:22 BOSTON SCI[employer] WIRE, SAMURAI 190CM 190CM Used *[id number] [id number] *[id number] [id number] *[id number] [id number] *[id number] *[id number] [id number] *[id number] 14:15 DAIG/ST. ROSALINE MEDICAL ANGIOSEAL, FR6 VIP FR 6 Used *[id number] 12:24 MEDLINE INDUSTRIES PACK, CCL CUSTOM * Used *[id number] 12:24 MEDLINE PACER PEN, SKIN DUAL W/ RULER * [id number] Used [id number] 13:27 MEDTRONIC BALLOON, 2.5 X 15MM EUPHORA 15MM Used *[id number] 12:52 MEDTRONIC BALLOON, 3.0 X 15MM EUPHORA 15MM Used *[id number] BALLOON, 3.0 X 15MM NC [id number] 13:08 MEDTRONIC 15MM Used EUPHORA *[id number] BALLOON, 3.5 X 12MM NC [id number] 13:40 MEDTRONIC 12MM Used EUPHORA *[id number] EXPORTAP 12:38 MEDTRONIC CATHETER, EXPORT ASPIRATON Used *[id number] STENT, 3.5 38 RESOLUTE [id number] 13:56 MEDTRONIC 3.5 38 Used INTEGRITY RX *[id number] STENT, 3.5 38 RESOLUTE [id number] 13:59 MEDTRONIC 3.5 38 Used INTEGRITY RX *[id number] [id number] 12:43 Stem MEDICAL 30 BRANDAN INDEFLATOR Used *[id number] [id number] 12:38 Stem MEDICAL SHEATH, FR6.5 PRELUDE 11CM FR 6.5 038ACT Used *[id number] 14:15 Stem MEDICAL SHEATH, FR6.5 PRELUDE 11CM FR 6.5 038ACT Used *0610507 [id number] 12:24 Stem MEDICAL WIRE, 3MMJ .035 180CM 180CM Used *1689314 PROBE COVER, STERILE 12:24 [employer] MEDICAL * [id number] Used ULTRASOUND W/ GEL [id number] 12:24 NAMIC MANIFOLD, 4 PORT * Used *[id number] [id number] 12:24 NAMIC TUBING, HIGH PRESSURE 48" 48" Used *[id number] [id number] 12:24 NAMIC TUBING, HIGH PRESSURE 48" 48" Used *[id number] 12:24 NYCOMED OMNIPAQUE, 350 MG, 100ML 100ML [id number] Used 14:12 NYCOMED OMNIPAQUE, 350 MG, 50ML 50ML [id number] Used CATHETER, FR4 SPIROFLEX [id number] 13:05 [employer] FR 4 Used ANGIOJET RX *[id number] 12:24 BRANDT MEDICAL BLANKET,WARM AIR CCL * Used *[id number] 12:24 TERUMO MEDICAL SHEATH, FR5 TERUMO (10CM) FR 5 [id number] Used Equipment Model, Serial, Lot Number and Expiration Data Description Model Number Serial Number Lot Number Expiration Date ANGIOSEAL, FR6 VIP [id number] 01-12-2018 STENT, 3.5 38 RESOLUTE [id number] 10-14-2018 INTEGRITY RX STENT, 3.5 38 RESOLUTE [id number] 01-10-2019 INTEGRITY RX STENT, 3.5 38MM PROMUS [id number] 07-07-2017 PREMIER History: Current Medications Medication Dosage/Unit Route Frequency Last Date/Time Taken ASA PLAVIX Statins (any) History: Allergies Allergy Reaction No Known Allergies History: Risk Factors Family History of Hypertension Dyslipidemia Previous UT Previous Heart Failure Premature CAD Yes Yes No Yes Yes Prior Valve Prior PCI Prior PCIDate Prior CABG Prior CABGDate Surgery No Yes 09/11/2016 Yes 11/15/1998 Cerebrovascular Peripheral 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 Diabetes Diabetes Therapy Disease Disease Disease No Yes No Yes Yes Oral History: Symptoms/Diagnosis Selection Items Chest pain History: Stress Tests Stress or Imaging Studies Performed No History: UT/CV Data Previous Cath Date Previous CABG Date 09/11/2016 11/15/1998 History: Other Current Smoker No Labs Hgb (g/dl) Hct (%) 12.00-18.00 37.00-55.00 11.9 35 BUN (mg/dl) Creatinine (mg/dl) BUN:Creatinine (1:x) 8.00-20.00 0.10-9.00 10.00-20.00 57 6.8 8.4 Na (meq/l) K (meq/l) 138.00-146.00 3.80-5.10 140 5.6 Troponin I (ng/ml) CPK-MB (ng/ML) 0.40-2.30 0.00-7.00 0.75 Not Drawn Medication Medication Total Dose (Bolus/Oral) Medication Total Dosage/Unit 1% XYLOCAINE 20 mL AGGRASTAT BOLUS 39 mg BRILLINTA 180 mg FENTANYL 50 mcg HEPARIN 8000 units LASIX 20 mg VERSED 2 mg Medications (Bolus/Oral) Medication Time Given Dosage/Unit Administered By Reason VERSED 03/24/2017 12:29:48 PM 2 mg Arlin Blanco 2 mg VERSED given in lab by Arlin Blanco RN in Right Hand via Peripheral IV. FENTANYL 03/24/2017 12:29:54 PM 50 mcg Arlin Blanco 50 mcg FENTANYL given in lab by Arlin Blanco RN in Right Hand via Peripheral IV. Ordered by Rachael Mendoza. 1% XYLOCAINE 03/24/2017 12:30:10 PM 20 mL Arlin Blanco 20 mL 1% XYLOCAINE given in lab by Arlin Blanco RN in Right Groin via Subcutaneous. Ordered by Rachael Parmar. HEPARIN 03/24/2017 12:36:02 PM 6000 units Arlin Blanco 6000 units HEPARIN given in lab by Arlin Blanco RN in Right Hand via Peripheral IV. Ordered by Rahcael Parmar. HEPARIN 03/24/2017 1:18:24 PM 2000 units Arlin Blanco 2000 units HEPARIN given in lab by Arlin Blanco RN in Right Hand via Peripheral IV. Ordered by Rachael Parmar. AGGRASTAT BOLUS 03/24/2017 1:56:43 PM 39 mg Arlin Blanco 39 mg AGGRASTAT BOLUS given in lab by Arlin Blanco RN in Right Hand via Peripheral IV. Ordered b y Rachael Eason. BRILLINTA 03/24/2017 2:17:27 PM 180 mg Arlin Blanco 180 mg BRILLINTA given in lab by Arlin Blanco RN in Per mouth via Oral. Ordered by Yoan Eason. LASIX 03/24/2017 2:24:08 PM 20 mg Arlin Blanco 20 mg LASIX given in lab by Arlin Blanco RN in Right Hand via Peripheral IV. Ordered by Rachael Eason. Medication (Drip) Medication Time Given Dosage/Unit Concentration/Unit Diluent (ml) Solution AGGRASTAT DRIP 03/24/2017 1:57:08 PM 0.075 mcg/kg/min 12.5 mg 250 NaCl .9 0.075 mcg/kg/min AGGRASTAT DRIP given in lab by Arlin Blanco RN in Right Hand via Peripheral IV. Pump/Drip Flow = 7 ml/hr using NaCl .9 with a concentration of 12.5 mg in 250 ml. Ordered by Quadrat, [place]ar. IV Solutions 03/24/2017 12:15:38 PM 0 mL (IV) 500 NaCl .9 Patient arrived on IV Solutions given by cathlab, cathlab in Right Hand via Peripheral IV. Pump/Drip Flow = 20 ml/hr using NaCl .9. Initial Case Assessment Cardiovascular HR Rhythm NIBP Chest Pain 99 stemi 115/82 8 Edema Present Skin color Skin None Normal Warm Dry Circulatory - Right Pulses Dorsalis Pedis Femoral d 1 Scale (0,1,2,3,4,d) Circulatory - Left Pulses Dorsalis Pedis Femoral d 1 Scale (0,1,2,3,4,d) Neurological State Oriented to time-place- Alert Moves all extremities person Respiration - General Respiration Rate SpO2 (%) (B/min) 15 97 Initial Case Assessment Cardiovascular HR Rhythm NIBP Chest Pain 73 stemi 136/63 8 Edema Present Skin color Skin None Normal Warm Dry Circulatory - Right Pulses Dorsalis Pedis Femoral d 1 Scale (0,1,2,3,4,d) Circulatory - Left Pulses Dorsalis Pedis Femoral d 1 Scale (0,1,2,3,4,d) Neurological State Oriented to time-place- Alert Moves all extremities person Respiration - General Respiration Rate SpO2 (%) (B/min) 15 100 Chronological Log Time Study Chronological Log 12:15:28 Patient arrived via Bed. 12:15:29 Patient Name, D.O.B, / Armband Verified By R.N. 12:15:30 Consent signed by the physician and the patient and verified by the Street Openings Inspector staff. 12:15:30 Pre-op and post- op instructions given; patient acknowledges understanding of instructions. 12:15:32 Presedation assessment performed by Street Openings Inspector RN. 12:15:33 Immediate Presedation assesment performed by physician. 12:15:33 Patient has been NPO for More than 6Hrs. 12:15:34 Skin Breakdown- none visible 12:15:36 Patient Warmer Placed on the Table. 12:15:36 Ebony Prominences Protected 12:15:37 A # 20 IV was noted in the Hand (right). Grade = 0 Patient arrived on IV Solutions given by cathlab, cathlab in Right Hand via Peripheral IV. Pump /Drip Flow = 20 ml/hr 12:15:38 using NaCl .9. 12:15:39 History and physical on the chart or being dictated. Vitals capture started with the following parameters, Patient=Adult, Interval=5 min, Initial Pr dfxxab=298 mmHg, 12:19:02 Deflation Rate=5 mmHg Vitals capture started with the following parameters, Patient=Adult, Interval=5 min, Initial Pr cyhdue=843 mmHg, 12:21:25 Deflation Rate=5 mmHg Assessment: Initial Case, HR=99 BPM, Rhythm=stemi, VZKW=610/82 mmhg, Chest Pain=8, Edema=None, Color=Normal, Skin = Warm, Dry Right Pulses: Isaac Ped=d, Femoral=1 12:21:44 Left Pulses: Isaac Ped=d, Femoral=1 Neurological: State=Alert, Ox3, [place] Respiration: Resp=15 B/min, SpO2=97 % 12:23:12 Reference ECG taken 12::26 HR=62 bpm, NUQY=263/82 mmhg, SpO2=96.0 %, Resp=16 B/min, Pain=8, Guillermina=10, Duarte=2 12:23:38 MD arrived. 12::15 Contrast Scanned 12::16 Immediate Presedation assesment performed by physician. 12::32 Pressure channel 1 zeroed. Vitals capture started with the following parameters, Patient=Adult, Interval=5 min, Initial Pr guprnq=032 mmHg, 12::37 Deflation Rate=5 mmHg Time Out. Correct patient, correct procedure,correct physician, ,power injector loaded with con trast with surgical team 12:29:22 present. Time Out Concurred by MD, individual staff in procedure 12::42 Case Start 12::43 Verbal Stimulation=2 Physical Stimulation=2 Airway=2 Respiration=2 TOTAL=8. (0=absent, 1=li mited, 2=present) 12:29:48 2 mg VERSED given in lab by Arlin Blanco, SUSAN in Right Hand via Peripheral IV. 12:29:54 50 mcg FENTANYL given in lab by Arlin Blanco, SUSAN in Right Hand via Peripheral IV. Order ed by Rachael Eason. 20 mL 1% XYLOCAINE given in lab by Arlin Blanco, RN in Right Groin via Subcutaneous. Ordere d by Yumi, 12:30:10 Rachael. 12:30:45 HR=37 bpm, TEVX=914/73 mmhg, SpO2=98.0 %, Resp=20 B/min, Pain=8, Guillermina=10, Duarte=2 12:32:36 Access site was Right Femoral Artery. 12:32:41 A SHEATH, FR5 TERUMO (10CM) FR 5 was advanced into the Fem Art (right) using the Percutaneo us technique. A AR MOD INFINITI CATHETER FR 5 was advanced over a wire. OMNIPAQUE, 350 MG, 100ML 100ML was us ed for 12:33:30 injections. 12:34:50 The SVG-RCA was injected and visualized at various angles. OMNIPAQUE, 350 MG, 100ML 100ML u sed. 12:35:22 The RCA was injected and visualized at various angles. OMNIPAQUE, 350 MG, 100ML 100ML used . Vitals capture started with the following parameters, Patient=Adult, Interval=5 min, Initial Pr vbkgsy=413 mmHg, 12:35:45 Deflation Rate=5 mmHg 12:36:02 6000 units HEPARIN given in lab by Arlin Blanco RN in Right Hand via Peripheral IV. Or dered by Rachael Eason. 12:36:21 HR=68 bpm, PQDE=470/90 mmhg, SpO2=94.0 %, Resp=17 B/min 12:37:22 The RIBEIRO-LAD was injected and visualized at various angles. OMNIPAQUE, 350 MG, 100ML 100ML used. 12:38:09 Catheter was removed Recorded Pressure: Ao, HR=56, Condition=Condition 1 12:38:56 (Aorta) Ao 95/33/55 A JL 4.0 INFINITI CATHETER FR 5 was advanced over a wire. OMNIPAQUE, 350 MG, 100ML 100ML was us ed for 12:39:13 injections. 12:39:17 The LCA was injected and visualized at various angles. OMNIPAQUE, 350 MG, 100ML 100ML used . 12:40:16 Catheter was removed 12:41:04 A LCB INFINITI CATHETER FR 5 was advanced over a wire. contrast was used for injections. 12:41:33 The SVG-OM was injected and visualized at various angles. OMNIPAQUE, 350 MG, 100ML 100ML us ed. 12:42:03 HR=62 bpm, NIBP=65/29 mmhg, SpO2=97.0 %, Resp=16 B/min, Pain=8, Guillermina=10, Duarte=2 12:42:40 Catheter was removed A SHEATH, FR6.5 PRELUDE 11CM FR 6.5 was exchanged in the Fem Art (right). This was necessary in order to 12:42:42 accomodate a larger catheter. 12:43:01 Activated Clotting Time Drawn A MPA-1 SH GUIDE CATHETER FR 6 was advanced over a wire. OMNIPAQUE, 350 MG, 100ML 100ML was use d for 12:45:13 injections. 12:45:20 A WIRE, BALANCE MIDDLEWEIGHT 190CM 190CM was inserted via Fem Art (right). 12:46:54 Interventional wire has crossed the lesion Vitals capture started with the following parameters, Patient=Adult, Interval=5 min, Initial Pr tzuaal=562 mmHg, 12:47:37 Deflation Rate=5 mmHg Recorded Pressure: Ao, HR=67, Condition=Condition 1 12:47:55 (Aorta) Ao 92/30/55 12:48:23 ACT (Normal Range 90-180) = 301 12:48:30 Aspiration catheter inserted 12:49:04 Aspiration in progress. 30cc 12:49:38 Catheter was removed Vitals capture started with the following parameters, Patient=Adult, Interval=5 min, Initial Pr yklwej=965 mmHg, 12:49:53 Deflation Rate=5 mmHg 12:51:02 Access site was Right Femoral Vein. Vitals capture started with the following parameters, Patient=Adult, Interval=5 min, Initial Pr fsgoer=988 mmHg, 12:51:46 Deflation Rate=5 mmHg 12:52:02 A SHEATH, FR6.5 PRELUDE 11CM FR 6.5 was advanced into the Fem Vein (right) using the Percut aneous technique. A BALLOON, 3.0 X 15MM EUPHORA 15MM was inserted over WIRE, BALANCE MIDDLEWEIGHT 190CM 190CM via the 12:52:06 SVG-RCA. A BALLOON, 3.0 X 15MM EUPHORA 15MM over a WIRE, BALANCE MIDDLEWEIGHT 190CM 190CM in the SVG-RCA was 12:53:33 inflated using a 30 BRANDAN INDEFLATOR at 10 brandan for 20 sec. Vitals capture started with the following parameters, Patient=Adult, Interval=5 min, Initial Pr sidlih=054 mmHg, 12:54:08 Deflation Rate=5 mmHg A BALLOON, 3.0 X 15MM EUPHORA 15MM over a WIRE, BALANCE MIDDLEWEIGHT 190CM 190CM in the SVG-RCA was 12:54:33 inflated using a 30 BRANDAN INDEFLATOR at 17 brandan for 12 sec. A BALLOON, 3.0 X 15MM EUPHORA 15MM over a WIRE, BALANCE MIDDLEWEIGHT 190CM 190CM in the SVG-RCA was 12:54:46 inflated using a 30 BRANDAN INDEFLATOR at 17 brandan for 12 sec. A BALLOON, 3.0 X 15MM EUPHORA 15MM over a WIRE, BALANCE MIDDLEWEIGHT 190CM 190CM in the SVG-RCA was 12:55:09 inflated using a 30 BRANDAN INDEFLATOR at 17 brandan for 6 sec. A BALLOON, 3.0 X 15MM EUPHORA 15MM over a WIRE, BALANCE MIDDLEWEIGHT 190CM 190CM in the SVG-RCA was 12:55:32 inflated using a 30 BRANDAN INDEFLATOR at 17 brandan for 9 sec. A BALLOON, 3.0 X 15MM EUPHORA 15MM over a WIRE, BALANCE MIDDLEWEIGHT 190CM 190CM in the SVG-RCA was 12:56:32 inflated using a 30 BRANDAN INDEFLATOR at 17 brandan for 15 sec. A BALLOON, 3.0 X 15MM EUPHORA 15MM over a WIRE, BALANCE MIDDLEWEIGHT 190CM 190CM in the SVG-RCA was 12:57:09 inflated using a 30 BRANDAN INDEFLATOR at 17 brandan for 14 sec. 12:57:39 Balloon Removed. Vitals capture started with the following parameters, Patient=Adult, Interval=5 min, Initial Pr izfweu=312 mmHg, 12:58:16 Deflation Rate=5 mmHg 12:59:03 HR=48 bpm, NIBP=89/51 mmhg, SpO2=98.0 %, Resp=15 B/min 12:59:18 A CATHETER, EXPORT ASPIRATON was advanced over a wire. contrast was used for injections. 13:01:04 Aspiration in progress. 15cc. 13:02:35 Catheter was removed 13:03:49 HR=66 bpm, BFPB=560/48 mmhg, SpO2=98.0 %, Resp=16 B/min, Pain=8, Guillermina=10, Duarte=2 A BALLOON, 3.0 X 15MM NC EUPHORA 15MM was inserted over WIRE, BALANCE MIDDLEWEIGHT 190CM 190CM via 13:06:44 the SVG-RCA. A BALLOON, 3.0 X 15MM NC EUPHORA 15MM over a WIRE, BALANCE MIDDLEWEIGHT 190CM 190CM in the SVG- RCA 13:07:02 was inflated using a 30 BRANDAN INDEFLATOR at 25 brandan for 15 sec. A BALLOON, 3.0 X 15MM NC EUPHORA 15MM over a WIRE, BALANCE MIDDLEWEIGHT 190CM 190CM in the SVG- RCA 13:07:51 was inflated using a 30 BRANDAN INDEFLATOR at 19 brandan for 25 sec. 13:08:53 HR=49 bpm, NIBP=96/53 mmhg, SpO2=99.0 %, Resp=24 B/min, Pain=8, Guillermina=10, Duarte=2 13:10:27 Balloon Removed. A CATHETER, FR4 SPIROFLEX ANGIOJET RX FR 4 was advanced over a wire. OMNIPAQUE, 350 MG, 100ML 1 00ML was 13:12:07 used for injections. 13:12:50 Aspiration in progress 13:13:50 HR=50 bpm, PPXU=327/58 mmhg, SpO2=99.0 %, Resp=16 B/min, Pain=8, Guillermina=10, Duarte=2 13:14:50 Lost wire position. 13:15:32 Catheter was removed 13:17:29 A WIRE, HI TORQUE ALLSTAR 190CM 190CM was inserted via Fem Art (right). 13:18:24 2000 units HEPARIN given in lab by Arlin Blanco RN in Right Hand via Peripheral IV. Or dered by Rachael Eason. 13:18:53 HR=52 bpm, YTGZ=252/53 mmhg, SpO2=99.0 %, Resp=24 B/min, Pain=8, Guillermina=10, Duarte=2 13:20:01 Wire removed 13:21:02 A WIRE, SAMURAI 190CM 190CM was inserted via Fem Art (right). 13:22:34 Interventional wire has crossed the lesion A CATHETER, FR4 SPIROFLEX ANGIOJET RX FR 4 was advanced over a wire. OMNIPAQUE, 350 MG, 100ML 1 00ML was 13:22:42 used for injections. 13:23:49 Aspiration in progress 13:23:52 HR=51 bpm, LPUF=846/60 mmhg, SpO2=99.0 %, Resp=16 B/min, Pain=8, Guillermina=10, Duarte=2 13:25:51 Catheter was removed 13:26:36 A BALLOON, 2.5 X 15MM EUPHORA 15MM was inserted over WIRE, SAMURAI 190CM 190CM via the SVG- RCA. 13::53 HR=53 bpm, MFQF=645/56 mmhg, SpO2=99.0 %, Resp=23 B/min A BALLOON, 2.5 X 15MM EUPHORA 15MM over a WIRE, SAMURAI 190CM 190CM in the SVG-RCA was inflated using a 13:28:55 30 BRANDAN INDEFLATOR at 8 brandan for 8 sec. A BALLOON, 2.5 X 15MM EUPHORA 15MM over a WIRE, SAMURAI 190CM 190CM in the SVG-RCA was inflated using a 13:29:06 30 BRANDAN INDEFLATOR at 17 brandan for 8 sec. A BALLOON, 2.5 X 15MM EUPHORA 15MM over a WIRE, SAMURAI 190CM 190CM in the SVG-RCA was inflated using a 13:29:24 30 BRANDAN INDEFLATOR at 17 brandan for 10 sec. A BALLOON, 2.5 X 15MM EUPHORA 15MM over a WIRE, SAMURAI 190CM 190CM in the SVG-RCA was inflated using a 13:29:48 30 BRANDAN INDEFLATOR at 17 brandan for 8 sec. A BALLOON, 2.5 X 15MM EUPHORA 15MM over a WIRE, SAMURAI 190CM 190CM in the SVG-RCA was inflated using a 13:29:57 30 BRANDAN INDEFLATOR at 17 brandan for 8 sec. A BALLOON, 2.5 X 15MM EUPHORA 15MM over a WIRE, SAMURAI 190CM 190CM in the SVG-RCA was inflated using a 13:30:07 30 BRANDAN INDEFLATOR at 17 brandan for 8 sec. A BALLOON, 2.5 X 15MM EUPHORA 15MM over a WIRE, SAMURAI 190CM 190CM in the SVG-RCA was inflated using a 13:30:23 30 BRANDAN INDEFLATOR at 17 brandan for 8 sec. A BALLOON, 2.5 X 15MM EUPHORA 15MM over a WIRE, SAMURAI 190CM 190CM in the SVG-RCA was inflated using a 13:30:37 30 BRANDAN INDEFLATOR at 17 brandan for 8 sec. A BALLOON, 2.5 X 15MM EUPHORA 15MM over a WIRE, SAMURAI 190CM 190CM in the SVG-RCA was inflated using a 13:30:42 30 BRANDAN INDEFLATOR at 17 brandan for 8 sec. A BALLOON, 2.5 X 15MM EUPHORA 15MM over a WIRE, SAMURAI 190CM 190CM in the SVG-RCA was inflated using a 13:30:56 30 BRANDAN INDEFLATOR at 17 brandan for 8 sec. A BALLOON, 2.5 X 15MM EUPHORA 15MM over a WIRE, SAMURAI 190CM 190CM in the SVG-RCA was inflated using a 13:31:08 30 BRANDAN INDEFLATOR at 17 barndan for 8 sec. A BALLOON, 2.5 X 15MM EUPHORA 15MM over a WIRE, SAMURAI 190CM 190CM in the SVG-RCA was inflated using a 13:31:15 30 BRANDAN INDEFLATOR at 17 brandan for 6 sec. A BALLOON, 2.5 X 15MM EUPHORA 15MM over a WIRE, SAMURAI 190CM 190CM in the SVG-RCA was inflated using a 13:31:28 30 BRANDAN INDEFLATOR at 17 brandan for 6 sec. A BALLOON, 2.5 X 15MM EUPHORA 15MM over a WIRE, SAMURAI 190CM 190CM in the SVG-RCA was inflated using a 13:31:42 30 BRANDAN INDEFLATOR at 17 brandan for 6 sec. 13:33:54 HR=56 bpm, YBYP=733/62 mmhg, VzY9=777.0 %, Resp=16 B/min, Pain=8, Guillermina=10, Duarte=2 A BALLOON, 2.5 X 15MM EUPHORA 15MM over a WIRE, SAMURAI 190CM 190CM in the SVG-RCA was inflated using a 13:34:06 30 BRANDAN INDEFLATOR at 17 brandan for 10 sec. A BALLOON, 2.5 X 15MM EUPHORA 15MM over a WIRE, SAMURAI 190CM 190CM in the SVG-RCA was inflated using a 13:34:15 30 BRANDAN INDEFLATOR at 17 brandan for 8 sec. A BALLOON, 2.5 X 15MM EUPHORA 15MM over a WIRE, SAMURAI 190CM 190CM in the SVG-RCA was inflated using a 13:34:28 30 BRANDAN INDEFLATOR at 17 brandan for 6 sec. A BALLOON, 2.5 X 15MM EUPHORA 15MM over a WIRE, SAMURAI 190CM 190CM in the SVG-RCA was inflated using a 13:34:32 30 BRANDAN INDEFLATOR at 17 brandan for 6 sec. A BALLOON, 2.5 X 15MM EUPHORA 15MM over a WIRE, SAMURAI 190CM 190CM in the SVG-RCA was inflated using a 13:34:40 30 BRANDAN INDEFLATOR at 17 brandan for 6 sec. A BALLOON, 2.5 X 15MM EUPHORA 15MM over a WIRE, SAMURAI 190CM 190CM in the SVG-RCA was inflated using a 13:34:57 30 BRANDAN INDEFLATOR at 17 brandan for 6 sec. A BALLOON, 2.5 X 15MM EUPHORA 15MM over a WIRE, SAMURAI 190CM 190CM in the SVG-RCA was inflated using a 13:35:07 30 BRANDAN INDEFLATOR at 17 brandan for 6 sec. A BALLOON, 2.5 X 15MM EUPHORA 15MM over a WIRE, SAMURAI 190CM 190CM in the SVG-RCA was inflated using a 13:35:29 30 BRANDAN INDEFLATOR at 17 brandan for 8 sec. A BALLOON, 2.5 X 15MM EUPHORA 15MM over a WIRE, SAMURAI 190CM 190CM in the SVG-RCA was inflated using a 13:35:49 30 BRANDAN INDEFLATOR at 17 brandan for 7 sec. A BALLOON, 2.5 X 15MM EUPHORA 15MM over a WIRE, SAMURAI 190CM 190CM in the SVG-RCA was inflated using a 13:36:04 30 BRANDAN INDEFLATOR at 17 brandan for 7 sec. A BALLOON, 2.5 X 15MM EUPHORA 15MM over a WIRE, SAMURAI 190CM 190CM in the SVG-RCA was inflated using a 13:36:15 30 BRANDAN INDEFLATOR at 17 brandan for 7 sec. A BALLOON, 2.5 X 15MM EUPHORA 15MM over a WIRE, SAMURAI 190CM 190CM in the SVG-RCA was inflated using a 13:36:37 30 BRANDAN INDEFLATOR at 20 brandan for 18 sec. 13:37:03 Balloon Removed. 13:38:57 HR=52 bpm, TKAJ=127/58 mmhg, CkT2=973.0 %, Resp=14 B/min, Pain=8, Guillermina=10, Duarte=2 13:39:42 A WIRE, IRON MAN 190CM 190CM was inserted via Fem Art (right). 13:40:54 Wires removed 13:41:02 A WIRE, SAMURAI 190CM 190CM was inserted via Fem Art (right). 13:42:36 Interventional wire has crossed the lesion A BALLOON, 3.5 X 12MM NC EUPHORA 12MM over a WIRE, SAMURAI 190CM 190CM in the SVG-RCA was infla tl 13:43:09 using a 30 BRANDAN INDEFLATOR at 25 brandan for 15 sec. 13:43:54 HR=53 bpm, KSSB=680/63 mmhg, RfH6=440.0 %, Resp=19 B/min, Pain=8, Guillermina=10, Duarte=2 A BALLOON, 3.5 X 12MM NC EUPHORA 12MM over a WIRE, SAMURAI 190CM 190CM in the SVG-RCA was infla tl 13:44:16 using a 30 BRANDAN INDEFLATOR at 25 brandan for 12 sec. A BALLOON, 3.5 X 12MM NC EUPHORA 12MM over a WIRE, SAMURAI 190CM 190CM in the SVG-RCA was infla tl 13:44:28 using a 30 BRANDAN INDEFLATOR at 25 brandan for 18 sec. A BALLOON, 3.5 X 12MM NC EUPHORA 12MM over a WIRE, SAMURAI 190CM 190CM in the SVG-RCA was infla tl 13:46:00 using a 30 BRANDAN INDEFLATOR at 25 brandan for 18 sec. A BALLOON, 3.5 X 12MM NC EUPHORA 12MM over a WIRE, SAMURAI 190CM 190CM in the SVG-RCA was infla tl 13:46:35 using a 30 BRANDAN INDEFLATOR at 25 brandan for 10 sec. A BALLOON, 3.5 X 12MM NC EUPHORA 12MM over a WIRE, SAMURAI 190CM 190CM in the SVG-RCA was infla tl 13:46:39 using a 30 BRANDAN INDEFLATOR at 25 brandan for 10 sec. A BALLOON, 3.5 X 12MM NC EUPHORA 12MM over a WIRE, SAMURAI 190CM 190CM in the SVG-RCA was infla tl 13:47:08 using a 30 BRANDAN INDEFLATOR at 25 brandan for 10 sec. 13:48:57 HR=56 bpm, UQQJ=423/55 mmhg, OhG1=720.0 %, Resp=19 B/min, Pain=0, Guillermina=10, Duarte=2 13:49:04 Balloon Removed. 13:50:34 Aspiration in progress 13:51:38 Catheter was removed 13:54:37 HR=64 bpm, CGWX=032/57 mmhg, ZaH7=370.0 %, Resp=10 B/min, Pain=0, Guillermina=10, Duarte=2 An STENT, 3.5 38 RESOLUTE INTEGRITY RX 3.5 38 Bare Metal Stent was inserted through a MPA-1 SH GUIDE 13:55:12 CATHETER FR 6 over a WIRE, SAMURAI 190CM 190CM. 39 mg AGGRASTAT BOLUS given in lab by Arlin Blanco RN in Right Hand via Peripheral IV. Ord ered by Yumi 13:56:43 Rachael. 0.075 mcg/kg/min AGGRASTAT DRIP given in lab by Arlin Blanco RN in Right Hand via Peripher al IV. Pump/Drip 13:57:08 Flow = 7 ml/hr using NaCl .9 with a concentration of 12.5 mg in 250 ml. Ordered by Omayra Eason. A STENT, 3.5 38 RESOLUTE INTEGRITY RX 3.5 38 was deployed using a 30 BRANDAN INDEFLATOR at 16 atmos pheres for 13:57:16 12 seconds in the SVG-RCA. 13:57:38 Re-inflated the stent balloon in the SVG-RCA to 16 BRANDAN for 12 seconds. 13:57:53 Re-inflated the stent balloon in the SVG-RCA to 16 BRANDAN for 8 seconds. 13:58:25 Delivery device removed A STENT, 3.5 38 RESOLUTE INTEGRITY RX 3.5 38 was advanced through a MPA-1 SH GUIDE CATHETER FR 6 over a 13:58:35 WIRE, SAMURAI 190CM 190CM. 13:58:59 HR=70 bpm, EJIN=553/63 mmhg, HpD5=437.0 %, Resp=23 B/min, Pain=0, Guillermina=10, Duarte=2 A STENT, 3.5 38 RESOLUTE INTEGRITY RX 3.5 38 was deployed using a 30 BRANDAN INDEFLATOR at 16 atmos pheres for 14:00:49 12 seconds in the SVG-RCA. 14:01:59 Delivery device removed 14:04:00 HR=67 bpm, BDRM=291/65 mmhg, ZqW3=184.0 %, Resp=15 B/min, Pain=0, Guillermina=10, Duarte=2 A STENT, 3.5 38MM PROMUS PREMIER 3.5 38MM was advanced through a MPA-1 SH GUIDE CATHETER FR 6 o anil a 14:04:26 WIRE, SAMURAI 190CM 190CM. A STENT, 3.5 38MM PROMUS PREMIER 3.5 38MM was deployed using a 30 BRANDAN INDEFLATOR at 22 atmosphe res for 22 14:08:07 seconds in the SVG-RCA. 14:08:28 Delivery device removed 14:09:03 HR=68 bpm, EGHT=663/57 mmhg, CdA7=965.0 %, Resp=15 B/min, Pain=0, Guillermina=10, Duarte=2 14:09:20 Wire removed 14:10:28 Catheter was removed A PIGTAIL ANG. INFINITI CATHETER FR 5 was advanced over a wire. OMNIPAQUE, 350 MG, 100ML 100ML was used 14:10:30 for injections. Recorded Pressure: LV, HR=65, Condition=Condition 1 14:11:01 (Left Ventricle) LV 126/10/18 14:11:31 The LV was injected at 10 cc/sec for a total of 30. OMNIPAQUE, 350 MG, 50ML 50ML used. Recorded Pressure: LV, Ao, HR=65, Condition=Condition 1 14:12:51 (Left Ventricle) LV 127/-11/21, (Aorta) Ao 126/40/74 14:13:10 Catheter was removed 14:13:43 An injection in the Fem Art (right) was made through the SHEATH, FR6.5 PRELUDE 11CM FR 6.5. 14:14:00 HR=62 bpm, PNJE=849/63 mmhg, PaB8=212.0 %, Resp=15 B/min, Pain=0, Guillermina=10, Duaret=2 14:15:14 ANGIOSEAL, FR6 VIP FR 6 placement in the Fem Art (right) 14:17:27 180 mg BRILLINTA given in lab by Arlin Blanco, RN in Per mouth via Oral. Ordered by Rachael Mendieta. 14:17:37 Case End 14:17:47 No case complications noted. 14:17:48 Cine recording checked. 14:17:50 Bedside Report will be given. 14:17:51 Implantable Device card placed in patient's chart. 14:17:53 Verbal Stimulation=2 Physical Stimulation=2 Airway=2 Respiration=2 TOTAL=8. (0=absent, 1=li mited, 2=present) 14:18:03 A Left Heart Cath was performed. 14:18:28 Sheath removed; pressure applied to access site. 14:19:34 HR=54 bpm, RXKC=558/61 mmhg, SpO2=98.0 %, Resp=12 B/min, Pain=0, Guillermina=10, Duarte=2 14:23:52 HR=55 bpm, SSFI=912/93 mmhg, SpO2=99.0 %, Resp=17 B/min, Pain=0, Guillermina=10, Duarte=2 14:24:08 20 mg LASIX given in lab by Arlin Blanco, RN in Right Hand via Peripheral IV. Ordered b Rachael Willett. 14:29:02 HR=72 bpm, WWTS=584/63 mmhg, UiJ1=544.0 %, Resp=16 B/min, Pain=0, Guillermina=10, Duarte=2 14:33:50 Sterile dressing applied to site Vitals capture started with the following parameters, Patient=Adult, Interval=5 min, Initial Pr efwtpb=370 mmHg, 14:34:12 Deflation Rate=5 mmHg Assessment: Initial Case, HR=73 BPM, Rhythm=stemi, KUDN=540/63 mmhg, Chest Pain=8, Edema=None , Color=Normal, Skin = Warm, Dry Right Pulses: Isaac Ped=d, Femoral=1 14:35:07 Left Pulses: Isaac Ped=d, Femoral=1 Neurological: State=Alert, Ox3, [place] Respiration: Resp=15 B/min, QpE4=401 % 14:38:54 Patient moved to stretcher End Study - Contrast Media Used In Study Contrast Total Opened (mL) Total Used (mL) Total Wasted (mL) Omnipaque 215 215 0 End Study - Maximum Contrast Load Max Contrast Load (mL) 57.4 End Study - Radiation Exposure Fluoro Time (minutes) 43.4 End Study - Sheaths Sheaths Pulled By Sheath Hold Time (min) Jessica Schultz 20 End Study - Patient Disposition Complications Transferred To Interventional Outcome No Street Openings Inspector Holding successful
== END | disposition home or self-care (01) ==
LOC: HSDC 07:35
PROVIDERS: ATTEND Urology
DX: C67.9 Malignant neoplasm of bladder, unspecified (principal); E11.9 Type 2 diabetes mellitus without complications; Z79.4 Long term (current) use of insulin
CPT/HCPCS: 00912; 52234; 82948; 88307; J2405; J3010; J7040

== ENCOUNTER 2017-03-24 11:48 | Inpatient (IN) | payer MEDICARE, OTHER ==
[2017-03-24] VITALS (10 sets, daily range): BP systolic 118–162; BP diastolic 51–76; PULSE 74–107; RESP 17–20; TEMP 97.5–99; O2SAT 94–98
[~2017-03-24] VITALS: Ht 172.7 cm; Wt 83.2 kg
[~2017-03-24 11:48] MED LIST changes: -ASPI1TAB91 PO; -Aspirin Chew PO; -BRIL90TA PO; -BUME1TAB PO; -CARV12.5 PO; -CHLORHEXIDINE GLUCONATE 2 % 1 PACK (2 CLOTHS) TOPICAL PRN; -DO NOT ADM ANY ANTICOAGULANT DRUGS PRN; -FAMOTIDINE 20 MG/2 ML VIAL ONE; -INSULIN HUMAN REGULAR 1,000 UNITS/10 ML VIAL SQ PRN; -LACTATED RINGER'S 1000 ML IV PRN; -LEVO500T3 PO; -METOPROLOL TARTRATE 25 MG TAB PO PRN; -ONDANSETRON HCL 4 MG/2 ML VIAL IV PUSH ONE; -ONDANSETRON HCL 4 MG/2 ML VIAL IV PUSH PRN; -OXYB5TAB10 PO; -OXYGENDME NAS.CANULA; -POVIDONE IODINE 5% (ANTISEPSIS KIT) 4 APPLICATIONS EACH NARE PRN; -PRED20 PO; -PROPOFOL 200 MG/20 ML AMP IV ONE; -SODIUM CHLORID 0.9% 500 ML IV PRN; -VITA2000 PO; -ceFAZolin 1,000 MG/NS 100 ML IV SCH; -fentaNYL CITRATE 250 MCG/5 ML AMP ONE; -oxyCODONE/ACETAMINOPHEN 5 MG/325 MG TAB PO PRN
[2017-03-24] MEDS ORDERED: HEPARIN SODIUM - IV 10,000 UNITS/10 ML VIAL ONE (12:00)
[2017-03-24] MEDS ORDERED: IOHEXOL 350 MG/ML 50 ML BTL (for Cath Lab) OTHER ONE (12:00)
[2017-03-24] MEDS ORDERED: HEPARIN-NS/PF INJ 500 ML ONE ×2 (12:00→12:16)
[2017-03-24] MEDS ORDERED: IOHEXOL 350 MG/ML 100 ML BTL (for Cath Lab) OTHER ONE (12:00)
[2017-03-24] MEDS ORDERED: SODIUM CHLOR 0.9% 1000 ML INJ 1,000 ML IV ONE (12:02)
[2017-03-24] MEDS ORDERED: HEPARIN SODIUM - IV 10,000 UNITS/10 ML VIAL IV STA (12:06)
[2017-03-24 12:14] LABS: I-STAT SODIUM 140 MMOL/L (138-146)
[2017-03-24 12:15] LABS: AUTOMATED NEUTROPHIL # 5.4 TH/MM3 (1.8-7.7); BASOPHIL % 0.5 % (0.0-2.0); EOSINOPHIL % 0.5 % (0.0-4.0); HEMATOCRIT 36.6 % (39.0-51.0); HEMO FLAGS DIFF FINAL; I-STAT POTASSIUM 5.6 MMOL/L (3.5-4.9); LYMPH % 7.9 % (9.0-44.0); LYMPHOCYTE # 0.5 TH/MM3 (1.0-4.8); MEAN CELL VOLUME 94.8 FL (80.0-100.0); MEAN CORPUSCULAR HEMOGLOBIN 29.2 PG (27.0-34.0); MEAN CORPUSCULAR HGB CONC 30.8 % (32.0-36.0); MONO % 9.7 % (0.0-8.0); NEUT % 81.4 % (16.0-70.0); PLATELET COUNT 138 TH/MM3 (150-450); RED BLOOD COUNT 3.86 MIL/MM3 (4.50-5.90); WHITE BLOOD COUNT 6.6 TH/MM3 (4.0-11.0)
[2017-03-24] MEDS ORDERED: SODIUM CHLORIDE 0.9% FLUSH 10 ML FLUSH IVF PRN (12:15)
[2017-03-24] MEDS ORDERED: MIDAZOLAM HCL 2 MG/2 ML VIAL ONE (12:17)
[2017-03-24 12:19] LABS: APTT (PATIENT) 29.4 SEC (24.3-30.1); PROTHROMBIN TIME - PATIENT 11.3 SEC (9.8-11.6)
--- NOTE | 2017-03-24 12:28 | PD ---
HPI Chief Complaint: STEMI Alert Time Seen by Provider: 12:01 Travel History International Travel<30 days: No Contact w/Intl Traveler<30days: No Traveled to known affect area: No History of Present Illness HPI 76yo M with PMH of ESRD on HD, last episode yesterday, hypothyroidism, CAD, bladder tumor removal 2 days ago presents to the ED with c/o right sided chest pain since last night. States it is intermittent and hard to described. Associated with sob, nausea, vomiting. Denies any abdominal pain, focal weakness or numbness. Pt was off aspirin and plavix for 9 days for the cystoscopy. Had NSTEMI in 2016. STEMI alert called by [facility]. Pt given aspirin 162mg and albuterol because he was wheezing. PFSH Past Medical History Hx Anticoagulant Therapy: Yes Anemia: Yes Arthritis: Yes Asthma: No Autoimmune Disease: No Blood Disorders: No Anxiety: No Depression: No Heart Rhythm Problems: Yes Cancer: Yes (SKIN, BLADDER) Cardiovascular Problems: Yes High Cholesterol: Yes Chest Pain: Yes Congestive Heart Failure: Yes COPD: Yes Cerebrovascular Accident: Yes (CVA) Diabetes: Yes Dialysis: Yes ( MWF) Diminished Hearing: Yes ([place]) Endocrine: Yes Gastrointestinal Disorders: Yes GERD: Yes Genitourinary: Yes (BPH) Headaches: No Hepatitis: No Hiatal Hernia: No Hypertension: Yes Immune Disorder: No Implanted Vascular Access Dvce: Yes Kidney Stones: No Musculoskeletal: Yes (arthritis, chronic back pain) Neurologic: Yes (stroke 1998 Left sided weakness) Psychiatric: No Reproductive: No Respiratory: Yes Immunizations Current: Yes ( STATES DIALYSIS GAVE HEPATITIS SHOT TODAY) Migraines: No Myocardial Infarction: Yes (pt states one 4 weeks ago and 1 week ago ) Radiation Therapy: No Renal Failure: Yes Seizures: Yes Sickle Cell Disease: No Sleep Apnea: No Thyroid Disease: No Ulcer: Yes Past Surgical History Abdominal Surgery: Yes (solomon) AICD: No Arteriovenous Shunt: No Body Medical Devices: STENTS,IVC FILTER, AV FISTULA LEFT arm Cardiac Surgery: Yes (1998 CABG x 3) Cholecystectomy: Yes Coronary Artery Bypass Graft: Yes (triple, 2008) Coronary Stent: Yes Ear Surgery: No Endocrine Surgery: No Eye Surgery: Yes (DUONG CATARACTS) Genitourinary Surgery: Yes (turbt x 1 yr ago) Gynecologic Surgery: No Insulin Pump: No Joint Replacement: Yes (LEFT KNEE) Oral Surgery: No Pacemaker: No Thoracic Surgery: No Other Surgery: Yes (REMOVED SKIN CANCER LEFT FOREARM AND NECK) Social History Alcohol Use: No Tobacco Use: No Substance Use: No Allergies-Medications (Allergen,Severity, Reaction): Coded Allergies: No Known Allergies (Verified , 03/24/17) Reported Meds & Prescriptions Reported Meds & Active Scripts Active Keflex (Cephalexin) 250 Mg Cap 250 Mg PO TID Pyridium (Phenazopyridine HCl) 100 Mg Tab 100 Mg PO Q8H PRN Percocet (Oxycodone-Acetaminophen) 5-325 mg Tab 1-2 Tab PO Q6H PRN Coreg (Carvedilol) 6.25 Mg Tab 6.25 Mg PO BID 30 Days Lipitor (Atorvastatin Calcium) 80 Mg Tab 80 Mg PO HS 30 Days Aspirin Low Strength (Aspirin) 81 Mg Chew 81 Mg PO DAILY 30 Days Reported Humalog Inj (Insulin Human Lispro) 1,000 Unit/10 Ml Vial 5 Units SQ TIDAC Lantus Solostar Pen Inj (Insulin Glargine) 300 Unit/3 Ml Pen 10 Units SQ HS Vitamin D3 (Cholecalciferol) 2,000 Unit Tab 2,000 Units PO DAILY Isosorbide Mononitrate ER (Isosorbide Mononitrate) 30 Mg Tanmay 30 Mg PO DAILY Flomax (Tamsulosin HCl) 0.4 Mg Cap 0.4 Mg PO BID Proscar (Finasteride) 5 Mg Tab 5 Mg PO DAILY Do not crush. Sodium Bicarbonate 650 Mg Tab 650 Mg PO BID Renvela (Sevelamer Carbonate) 800 Mg Tab 800 Mg PO DAILY Omeprazole 20 Mg Tab 20 Mg PO DAILY Bumex (Bumetanide) 1 Mg Tab 1 Mg PO DAILY Amlodipine (Amlodipine Besylate) 5 Mg Tab 5 Mg PO DAILY Review of Systems Except as stated in HPI: all other systems reviewed are Neg Physical Exam Narrative GENERAL: 76yo M in moderate distress. SKIN: Focused skin assessment warm/dry. HEAD: Atraumatic. Normocephalic. EYES: Pupils equal and round. No scleral icterus. No injection or drainage. ENT: No nasal bleeding or discharge. Mucous membranes pink and moist. NECK: Trachea midline. No JVD. CARDIOVASCULAR: Regular rate and rhythm. No murmur appreciated. RESPIRATORY: + accessory muscle use. Crackles in bases bilaterally. End expiratory wheezing. GASTROINTESTINAL: Abdomen soft, non-tender, nondistended. No rebound tenderness or guarding. : Frankel in place, gross hematuria which is expected. MUSCULOSKELETAL: No obvious deformities. No clubbing. No cyanosis. NEUROLOGICAL: Awake and alert. No obvious cranial nerve deficits. Motor grossly within normal limits. Normal speech. PSYCHIATRIC: Appropriate mood and affect; insight and judgment normal. Data Data Last Documented VS Vital Signs Date Time Temp Pulse Resp B/P Pulse Ox O2 Delivery O2 Flow Rate FiO2 03/24/17 17:00 84 03/24/17 15:00 98.0 20 122/51 97 03/24/17 12:07 Nasal Cannula 2 Orders Heparin-Ns/Pf Inj (Heparin-Ns/Pf Inj) (03/24/17 12:00) Heparin Inj (Heparin Inj) (03/24/17 12:00) Troponin I (03/24/17 12:02) Ckmb (Isoenzyme) Profile (03/24/17 12:02) Complete Blood Count With Diff (03/24/17 12:02) I-Stat Profile (03/24/17 12:02) I-Stat Creatinine (03/24/17 12:02) Calcium (03/24/17 12:02) Magnesium (Mg) (03/24/17 12:02) Prothrombin Time / Inr (Pt) (03/24/17 12:02) Act Partial Throm Time (Ptt) (03/24/17 12:02) B-Type Natriuretic Peptide (03/24/17 12:02) Oxygen Administration (03/24/17 12:02) Iv Access Insert/Monitor (03/24/17 12:02) Oximetry (03/24/17 12:02) Sodium Chlor 0.9% 1000 Ml Inj (Ns 1000 M (03/24/17 12:02) Sodium Chloride 0.9% Flush (Ns Flush) (03/24/17 12:15) Heparin Inj (Heparin Inj) (03/24/17 12:06) Heparin-Ns/Pf Inj (Heparin-Ns/Pf Inj) (03/24/17 12:16) Midazolam Inj (Versed Inj) (03/24/17 12:17) Fentanyl Inj (Fentanyl Inj) (03/24/17 12:17) CKMB (03/24/17 11:51) CKMB% (03/24/17 11:51) Tirofiban Infusion Inj (Aggrastat Infusi (03/24/17 13:54) Ticagrelor (Brilinta) (03/24/17 14:12) Furosemide Inj (Lasix Inj) (03/24/17 14:23) Admit Order (Ed Use Only) (03/24/17 15:26) Activity Bed Rest (03/24/17 16:11) Activity Oob Ad Leeanna (03/24/17 16:11) Diet Heart Healthy (03/24/17 Dinner) ^ Follow Standard Of Care (03/24/17 16:11) Vital Signs (Adult) Q15MX4,Q30MX4,Q1HX4 (03/24/17 16:11) Electrocardiogram (03/24/17 16:11) Electrocardiogram (03/25/17 07:00) Complete Blood Count With Diff (03/25/17 06:30) Creatine Kinase (Cpk) (03/25/17 06:30) Ckmb (Isoenzyme) Profile (03/25/17 06:30) Basic Metabolic Panel (Bmp) (03/25/17 06:30) Lipid Profile (03/25/17 06:30) Cardiac Rehab Consult (03/24/17 16:11) Acetaminophen (Tylenol) (03/24/17 16:15) Temazepam (Restoril) (03/24/17 16:15) Aspirin Chew (Aspirin Chew) (03/25/17 09:00) Ticagrelor (Brilinta) (03/25/17 09:00) Misc Information (03/24/17 16:15) Notify Dr: Other (03/24/17 16:11) Electrocardiogram (03/24/17 11:52) Consult Hospitalist (03/24/17 ) Consult Nephrology (03/24/17 ) Tirofiban Infusion Inj (Aggrastat Infusi (03/24/17 16:13) Notify Dr: Other (03/24/17 16:13) Aspirin Chew (Aspirin Chew) (03/25/17 09:00) Atorvastatin (Lipitor) (03/24/17 21:00) Bumetanide (Bumetanide) (03/25/17 09:00) Carvedilol (Coreg) (03/24/17 21:00) Cephalexin (Keflex) (03/24/17 18:00) Cholecalciferol (Vitamin D3) (03/25/17 09:00) Finasteride (Proscar) (03/25/17 09:00) Isosorbide Mononitrate (Imdur) (03/25/17 09:00) Phenazopyridine (Pyridium) (03/24/17 16:30) Sevelamer (Renvela) (03/25/17 09:00) Sodium Bicarbonate (Sodium Bicarbonate) (03/24/17 21:00) Tamsulosin (Flomax) (03/24/17 21:00) Insulin Detemir Inj (Levemir Inj) (03/24/17 21:00) Insulin Aspart Inj (Novolog Inj) (03/24/17 17:00) Pantoprazole (Protonix) (03/25/17 09:00) Consult Nephrology (03/24/17 ) Dextrose 50% In Ignacio (Vial) Inj (D50w (Vi (03/24/17 16:45) Glucagon Inj (Glucagon Inj) (03/24/17 16:45) (Hub Use Only)Inp Phy Cons/Ref (03/24/17 ) Basic Metabolic Panel (Bmp) (03/24/17 16:45) Consult Urology (03/24/17 ) (Hub Use Only)Inp Phy Cons/Ref (03/24/17 ) Bedside Glucose DERRICK.AC&HS (03/24/17 17:15) Insulin Aspart Supplemtl Scale (Novolog (03/24/17 21:00) Swallow Eval W/ St (03/24/17 17:22) (Hub Use Only)Inp Phy Cons/Ref (03/24/17 ) Resp Oxygen Sammy C Titrat 1-4 L (03/24/17 ) Protein Corrected Calcium(Pcc) (03/24/17 19:00) Labs Laboratory Tests Test 03/24/17 11:51 White Blood Count 6.6 TH/MM3 Red Blood Count 3.86 MIL/MM3 Hemoglobin 11.3 GM/DL Bedside Hemoglobin 11.9 G/DL Hematocrit 36.6 % Bedside Hematocrit 35.0 % Mean Corpuscular Volume 94.8 FL Mean Corpuscular Hemoglobin 29.2 PG Mean Corpuscular Hemoglobin 30.8 % Concent Red Cell Distribution Width 20.0 % Platelet Count 138 TH/MM3 Mean Platelet Volume 10.3 FL Neutrophils (%) (Auto) 81.4 % Lymphocytes (%) (Auto) 7.9 % Monocytes (%) (Auto) 9.7 % Eosinophils (%) (Auto) 0.5 % Basophils (%) (Auto) 0.5 % Neutrophils # (Auto) 5.4 TH/MM3 Lymphocytes # (Auto) 0.5 TH/MM3 Monocytes # (Auto) 0.6 TH/MM3 Eosinophils # (Auto) 0.0 TH/MM3 Basophils # (Auto) 0.0 TH/MM3 CBC Comment DIFF FINAL Differential Comment Prothrombin Time 11.3 SEC Prothromb Time International 1.0 RATIO Ratio Activated Partial 29.4 SEC Thromboplast Time Bedside Sodium 140 MMOL/L Bedside Potassium 5.6 MMOL/L Bedside Chloride 105 MMOL/L Bedside Blood Urea Nitrogen 57 MG/DL Bedside Creatinine 6.8 MG/DL Bedside Glucose 142 MG/DL Calcium Level 7.7 MG/DL Magnesium Level 2.0 MG/DL Total Creatine Kinase 139 U/L Creatine Kinase MB 8.9 NG/ML Troponin I 0.75 NG/ML B-Type Natriuretic Peptide 1416 PG/ML MDM Medical Decision Making Medical Screen Exam Complete: Yes Emergency Medical Condition: Yes Differential Diagnosis STEMI vs. CHF exacerbation vs. Fluid overload Narrative Course 76yo M with chest pain found to have STEMI. EKG showed elevated ST segment in inferior leads and reciprocal ST depression in anterior and lateral leads. Discussed with Dr. Eason who states to bring pt up. I accompanied pt to the laboratory assistant and waited for Dr. Eason to arrive. Heparin was ordered but was not given in the ED. Pt received aspirin by [facility]. Critical Care Narrative Aggregate critical care time was 35 minutes. Time to perform other separately billable procedures was not included in the critical care time. My time did not include minutes spent treating any other patients simultaneously or on activities that did not directly contribute to the patient's treatment. The services I provided to this patient were to treat and/or prevent clinically significant deterioration that could result in: cardiovascular collapse or . I provided critical care services requiring my management, as noted below: Chart data review, documentation time, medication orders and management, vital sign assessments/reviewing monitor data, ordering and reviewing lab tests, ordering and interpreting/reviewing x-rays and diagnostic studies, care of the patient and discussion of the patient with the admitting physicians. Diagnosis Primary Impression: STEMI (ST elevation myocardial infarction) Qualified Code: I21.19 - ST elevation myocardial infarction (STEMI) involving other coronary artery of inferior wall Admitting Information Admitting Physician Requests: Kathie Brothers DO March 24, 2017 12:28
[2017-03-24 12:31] LABS: CREATINE KINASE 139 U/L (39-308)
[2017-03-24 12:52] LABS: CKMB 8.9 NG/ML (0.5-3.6)
[2017-03-24] MEDS ORDERED: TIROFIBAN INFUSION INJ 250 ML IV ONE (13:54)
[2017-03-24] MEDS ORDERED: TICAGRELOR 90 MG TAB PO ONE (14:12)
[2017-03-24] MEDS ORDERED: FUROSEMIDE 40 MG/4 ML VIAL ONE (14:23)
--- NOTE | 2017-03-24 15:40 | MB ---
cc: ELIHAYDEN DATE OF CONSULTATION: 03/24/2017 HISTORY OF PRESENT ILLNESS This is a 76-year-old white male with a history of end-stage renal disease on hemodialysis, coronary artery disease and three-vessel coronary bypass. He had vqw-AI-ymrenkuiw infarction in 2016 and underwent coronary intervention for total occlusion of the saphenous venous graft on the right coronary artery. He developed right-sided chest discomfort last night which was intermittent associated with shortness of breath, nausea and vomiting. He was diagnosed with acute inferior wall myocardial infarction and referred for emergent coronary intervention. The patient has been off Plavix and aspirin for nine days for a cystoscopy to remove bladder tumors. PAST MEDICAL HISTORY 1. Coronary artery disease, history of three-vessel bypass. 2. Stroke in 1998. 3. End-stage renal disease on hemodialysis. 4. CHF. 5. COPD. 6. Recurrent DVT. 7. Seizure disorder. 8. Remote severe left-sided weakness. 10.IVC filter. 11.Left knee replacement. 12.Skin cancer surgery. MEDICATIONS 1. Keflex. 2. Pyridium. 3. Percocet. 4. Plavix. 5. Coreg. 6. Lipitor. 7. Aspirin. 8. Insulin. 9. Vitamin-D3. 10.Isosorbide. 11.Flomax. 12.Proscar. 13.Renvela. 14.Omeprazole. 15.Bumex. 16.Amlodipine. 17.The patient has been off Plavix and aspirin for the last nine days. ALLERGIES None. SOCIAL HISTORY The patient does not smoke, does not drink alcohol. FAMILY HISTORY Negative for heart disease. REVIEW OF SYSTEMS Otherwise negative. PHYSICAL EXAMINATION VITAL SIGNS: Blood pressure 118/71, pulse 50 and regular. HEENT: Negative. NECK: 2+ carotid upstrokes. No bruits. LUNGS: Clear. HEART: Regular, bradycardic with no murmur or gallop. ABDOMEN: Soft. No bruit. EXTREMITIES: Without edema. 1+ distal pulses. NEUROLOGIC: Grossly nonfocal. EKG EKG was reviewed and showed sinus bradycardia and inferior elevation suggestive of coronary changes. LABORATORY Hemoglobin 11.3. Potassium 5.6. Creatinine 7.19. AST and ALT normal. Troponin 0.05, 0.75. BNP 1416. DIAGNOSIS 1. Acute inferior wall myocardial infarction. 2. Coronary artery disease, history of three-vessel coronary bypass and coronary intervention for a total occlusion of the saphenous vein graft to the right coronary artery. 3. Ischemic cardiomyopathy with moderate left ventricular systolic dysfunction. 4. End-stage renal disease on hemodialysis. 5. Recent cystoscopy and removal of bladder tumors. 6. COPD. 7. History of CVA. 8. Congestive heart failure. 9. Recurrent DVT. 10.Seizure disorder. DISPOSITION Mr. Valdovinos will undergo emergent cardiac catheterization and coronary intervention if necessary. He understands the risks and benefits and wishes to proceed. MD HANNAH Sanchez/CHER /3:08 PM /3:20 PM MTDJeannette
[2017-03-24] MEDS: TIROFIBAN INFUSION INJ 250 ML IV SCH (16:13)
[2017-03-24] MEDS ORDERED: ACETAMINOPHEN 325 MG TAB PO PRN ×2 (16:15→18:00)
[2017-03-24] MEDS ORDERED: MISC INFORMATION XX ONE (16:15)
[2017-03-24] MEDS ORDERED: TEMAZEPAM 15 MG CAP PO PRN (16:15)
[2017-03-24] MEDS ORDERED: GLUCAGON 1 MG/ML VIAL OTHER PRN (16:45)
[2017-03-24] MEDS ORDERED: DEXTROSE 50% IN WATER 50 ML VIAL(D50) IV PUSH PRN (16:45)
[2017-03-24] MEDS: INSULIN ASPART 1,000 UNITS/10 ML VIAL SQ SCH (17:00)
--- NOTE | 2017-03-24 17:15 | PD.CONS ---
HPI Service [facility] Hospitalists Consult Requested By Dr. Eason. Reason for Consult Medical management Primary Care Physician Tonio Winchester MD Diagnoses: History of Present Illness The patient is a 76-year-old male with past medical history of CAD status post CABG who is presenting to the hospital with chest pain and shortness of breath. The chest pain was located on the right side of his chest and started at about midnight. He then developed coughing, shortness of breath and nausea and vomiting. He had bouts of vomiting every 20 minutes or so. He had a persistent cough and stated that it was difficult to breathe at times. The patient was evaluated on the scene and he was brought into the hospital as a STEMI alert. The patient says that on Wednesday he had 3 growths removed from his bladder by his urologist. He had been off aspirin and Plavix for a week before that procedure. He had a Frankel catheter in place which was bloody and was told not to resume the aspirin and Plavix until his urine cleared up. He says he is supposed to be on antibiotics after that procedure. The patient also mentions he was supposed to get stents placed in his lower extremities for decreased blood flow. He also endorses a difficult time swallowing at times. Review of Systems Except as stated in HPI: all other systems reviewed are Neg Past Family Social History Allergies: Coded Allergies: No Known Allergies (Verified , 03/24/17) Past Medical History ESRD on dialysis CAD COPD CHF DM Remote CVA with left sided paresthesias DVT IVC filter CABG 3 Cardiac stents Cataract surgery Left knee replacement Skin cancer left forearm and neck Bladder tumor removal TURP Active Ordered Medications Current Medications Medications (Trade) Dose Ordered Sig/Darinel Route Start Time Stop Time Status Last Admin (NS Flush) 2 ml UNSCH PRN IVF 03/24/17 12:15 (Tylenol) 325 mg Q4H PRN PO 03/24/17 16:15 (Restoril) 15 mg HS PRN PO 03/24/17 16:15 (Aspirin Chew) 81 mg DAILY PO 03/25/17 09:00 Ticagrelor 90 mg 90 mg BID PO 03/25/17 09:00 (Aggrastat Infusion Inj) 250 ml @ 7.02 mls/hr Q24H IV 03/24/17 16:13 (Aspirin Chew) 81 mg DAILY PO 03/25/17 09:00 (Lipitor) 80 mg HS PO 03/24/17 21:00 (Bumetanide) 1 mg DAILY PO 03/25/17 09:00 (Coreg) 6.25 mg BID PO 03/24/17 21:00 (Keflex) 250 mg TID PO 03/24/17 18:00 (Vitamin D3) 2,000 units DAILY PO 03/25/17 09:00 (Proscar) 5 mg DAILY PO 03/25/17 09:00 (Imdur) 30 mg DAILY PO 03/25/17 09:00 (Pyridium) 100 mg Q8H PRN PO 03/24/17 16:30 (Renvela) 800 mg DAILY PO 03/25/17 09:00 (Sodium Bicarbonate) 650 mg BID PO 03/24/17 21:00 (Flomax) 0.4 mg BID PO 03/24/17 21:00 (Levemir Inj) 10 units HS SQ 03/24/17 21:00 (NovoLOG INJ) 5 units TIDAC SQ 03/24/17 17:00 (Protonix) 20 mg DAILY PO 03/25/17 09:00 (D50w (Vial) Inj) 25 ml UNSCH PRN IV PUSH 03/24/17 16:45 (Glucagon Inj) 1 mg UNSCH PRN OTHER 03/24/17 16:45 Family History Uterine cancer Social History The patient does not smoke or drink. Physical Exam Vital Signs Vital Signs Date Time Temp Pulse Resp B/P Pulse Ox O2 Delivery O2 Flow Rate FiO2 03/24/17 16:00 79 03/24/17 15:00 98.0 74 20 122/51 97 03/24/17 15:00 76 03/24/17 12:07 118/71 98 Nasal Cannula 2 03/24/17 11:58 96 3.00 03/24/17 11:52 98 Nasal Cannula 2 03/24/17 11:52 20 98 Nasal Cannula 2 03/24/17 11:51 99.0 89 20 132/61 98 03/24/17 11:51 102 20 98 Nasal Cannula 2 Physical Exam GENERAL: Resting comfortably. SKIN: Focused skin assessment warm/dry. HEAD: Atraumatic. Normocephalic. EYES: Pupils equal and round. No scleral icterus. No injection or drainage. ENT: No nasal bleeding or discharge. Mucous membranes pink and moist. NECK: Trachea midline. No JVD. CARDIOVASCULAR: Regular rate and rhythm. No murmur appreciated. RESPIRATORY: Crackles in bases bilaterally. GASTROINTESTINAL: Abdomen soft, slightly tender, nondistended. No rebound tenderness or guarding. : Frankel in place, gross hematuria. MUSCULOSKELETAL: No obvious deformities. No clubbing. No cyanosis. Pedal pulses not palpable. NEUROLOGICAL: Awake and alert. No obvious cranial nerve deficits. Motor grossly within normal limits. Normal speech. PSYCHIATRIC: Appropriate mood and affect; insight and judgment normal. Laboratory Laboratory Tests Test 03/24/17 11:51 White Blood Count 6.6 Red Blood Count 3.86 Hemoglobin 11.3 Bedside Hemoglobin 11.9 Hematocrit 36.6 Bedside Hematocrit 35.0 Mean Corpuscular Volume 94.8 Mean Corpuscular Hemoglobin 29.2 Mean Corpuscular Hemoglobin 30.8 Concent Red Cell Distribution Width 20.0 Platelet Count 138 Mean Platelet Volume 10.3 Neutrophils (%) (Auto) 81.4 Lymphocytes (%) (Auto) 7.9 Monocytes (%) (Auto) 9.7 Eosinophils (%) (Auto) 0.5 Basophils (%) (Auto) 0.5 Neutrophils # (Auto) 5.4 Lymphocytes # (Auto) 0.5 Monocytes # (Auto) 0.6 Eosinophils # (Auto) 0.0 Basophils # (Auto) 0.0 CBC Comment DIFF FINAL Differential Comment Prothrombin Time 11.3 Prothromb Time International 1.0 Ratio Activated Partial 29.4 Thromboplast Time Bedside Sodium 140 Bedside Potassium 5.6 Bedside Chloride 105 Bedside Blood Urea Nitrogen 57 Bedside Creatinine 6.8 Bedside Glucose 142 Calcium Level 7.7 Magnesium Level 2.0 Total Creatine Kinase 139 Creatine Kinase MB 8.9 Troponin I 0.75 B-Type Natriuretic Peptide 1416 Result Diagram: 03/24/17 1151 Assessment and Plan Assessment and Plan STEMI EKG revealed ST elevations in the inferior leads with reciprocal ST depressions. Troponin was 0.75. The patient was taken to the [facility] and a stent was placed to the graft of the RCA. - Continue medication regimen per cardiology. - Telemetry. - Oxygen and pain meds as needed. CHF BNP markedly elevated. Has a history of CAD s/p CABG. - continue Bumex. - dialysis for volume management. - follow Is and Os. - follow up with cardiology. ESRD The patient is on hemodialysis. Will need dialysis soon s/t dye load from cath. - Nephrology consult pending. - Follow BMP. Kayexalate as needed. - Continue diuretics. N/V Likely secondary to STEMI. Seems to be resolved. - Antiemetics as needed. - Advance diet as tolerated. Cough Likely secondary to chronic bronchitis. The patient also acknowledges some difficulty swallowing. - Speech evaluation pending. - Chest x-ray. - Continue diuretics. 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 - Physical therapy. - Continue medical regimen. Bladder tumors/ Hematuria The patient had recent bladder tumor removal on Wednesday. He has hematuria and a Frankel in place. - Continue blood thinners per cardiology. - Urology consult requested. - Follow CBC. PPx: SCDs. Code Status Full. Discussed Condition With Pt, pt's family, nurse. Feliciano Echeverria DO March 24, 2017 17:15
[2017-03-24] MEDS ORDERED: MANNITOL 12.5 GM/50 ML VIAL IV PRN (18:00)
[2017-03-24] MEDS ORDERED: ALBUMIN HUMAN 25% 25 GM/100 ML BAGP IV PRN (18:00)
[2017-03-24] MEDS ORDERED: NS 250 ML IV PRN (18:00)
[2017-03-24] MEDS ORDERED: diphenhydrAMINE HCL 25 MG CAP PO PRN (18:00)
[2017-03-24] MEDS ORDERED: EPOETIN ALFA 10,000 UNITS/ML VIAL IV PRN (18:00)
[2017-03-24] MEDS ORDERED: GENTAMICIN SULFATE (DIALYSIS USE ONLY) 20 MG/2 ML VIAL OTHER PRN (18:00)
[2017-03-24] MEDS ORDERED: NITROGLYCERIN 0.4 MG SL 25 TABS/BTL SL PRN (18:00)
[2017-03-24] MEDS ORDERED: SODIUM CHLOR 0.9% 1000 ML IV PRN ×2 (18:00)
[2017-03-24] MEDS ORDERED: ONDANSETRON HCL 4 MG/2 ML VIAL IV PRN (18:00)
[2017-03-24] MEDS ORDERED: HEPARIN SODIUM - IV 10,000 UNITS/10 ML VIAL IV FLUSH PRN ×2 (18:00)
[2017-03-24] MEDS ORDERED: HEPARIN SODIUM - IV 10,000 UNITS/10 ML VIAL OTHER PRN (18:00)
[2017-03-24] MEDS ORDERED: cloNIDine HCL 0.1 MG TAB PO PRN (18:00)
[2017-03-24] MEDS ORDERED: SODIUM CHLORIDE 0.9% FLUSH 10 ML FLUSH IV FLUSH PRN (18:00)
[2017-03-24] MEDS: CEPHALEXIN MONOHYDRATE 250 MG CAP PO SCH (18:32)
[2017-03-24] MEDS: GELATIN 12 MM/7 MM FOAM TOPICAL PRN (18:54)
[2017-03-24 20:02] LABS: BICARBONATE 25.3 MEQ/L (21.0-32.0); POTASSIUM 4.1 MEQ/L (3.5-5.1)
[2017-03-24 20:15] LABS: CALCIUM-PROTEIN CORRECTED 8.2 MG/DL (8.5-10.1)
[2017-03-24] MEDS ORDERED: SODIUM BICARBONATE 650 MG TAB PO SCH (21:00)
[2017-03-24] MEDS: INSULIN ASPART SUPPLEMENTAL SCALE SQ SCH (21:00)
[2017-03-24] MEDS: TAMSULOSIN HCL 0.4 MG CAP PO SCH (22:26)
[2017-03-24] MEDS: ATORVASTATIN 80 MG TAB PO SCH (22:26)
[2017-03-24] MEDS: CARVEDILOL 6.25 MG TAB PO SCH (22:26)
[2017-03-24] MEDS: INSULIN DETEMIR 100 UNITS/ML VIAL SQ SCH (22:30)
[2017-03-25] VITALS (26 sets, daily range): BP systolic 109–141; BP diastolic 45–72; PULSE 72–100; RESP 16–22; TEMP 97.5–99.4; O2SAT 95–97
[2017-03-25 05:39] LABS: AUTOMATED NEUTROPHIL # 3.3 TH/MM3 (1.8-7.7); BASOPHIL % 0.4 % (0.0-2.0); EOSINOPHIL # 0.1 TH/MM3 (0-0.4); EOSINOPHIL % 1.2 % (0.0-4.0); HEMATOCRIT 27.7 % (39.0-51.0); HEMO FLAGS DIFF FINAL; LYMPH % 11.8 % (9.0-44.0); LYMPHOCYTE # 0.5 TH/MM3 (1.0-4.8); MEAN CELL VOLUME 92.4 FL (80.0-100.0); MEAN CORPUSCULAR HEMOGLOBIN 29.6 PG (27.0-34.0); MONO % 11.5 % (0.0-8.0); NEUT % 75.1 % (16.0-70.0); PLATELET COUNT 124 TH/MM3 (150-450); RED CELL DISTRIBUTION WIDTH 19.7 % (11.6-17.2); WHITE BLOOD COUNT 4.5 TH/MM3 (4.0-11.0)
[2017-03-25] MEDS: INSULIN ASPART SUPPLEMENTAL SCALE SQ SCH ×4 (05:55→21:00)
[2017-03-25 06:05] LABS: ANION GAP 10 MEQ/L (5-15); BICARBONATE 28.9 MEQ/L (21.0-32.0); BLOOD UREA NITROGEN 28 MG/DL (7-18); CHLORIDE 102 MEQ/L (98-107); CREATINE KINASE 144 U/L (39-308); GLOMERULAR FILTRATION RATE 13 ML/MIN (>89); HDL CHOLESTEROL 33.5 MG/DL (40.0-60.0); LDL CHOLESTEROL 15 MG/DL (0-99); POTASSIUM 3.6 MEQ/L (3.5-5.1); SODIUM (NA) 141 MEQ/L (136-145)
[2017-03-25 06:21] LABS: CKMB 15.6 NG/ML (0.5-3.6)
[2017-03-25] MEDS: INSULIN ASPART 1,000 UNITS/10 ML VIAL SQ SCH ×3 (08:00→17:00)
[2017-03-25] MEDS: CEPHALEXIN MONOHYDRATE 250 MG CAP PO SCH ×3 (09:00→18:19)
[2017-03-25] MEDS: FINASTERIDE 5 MG TAB PO SCH (09:00)
[2017-03-25] MEDS: TICAGRELOR 90 MG TAB PO SCH ×2 (09:00→21:00)
[2017-03-25] MEDS ORDERED: ASPIRIN 81 MG CHEW TAB PO SCH (09:00)
[2017-03-25] MEDS: SEVELAMER CARBONATE 800 MG TAB PO SCH (09:00)
[2017-03-25] MEDS: ASPIRIN 81 MG CHEW TAB PO SCH (09:00)
[2017-03-25] MEDS: CARVEDILOL 6.25 MG TAB PO SCH ×2 (09:00→21:00)
[2017-03-25] MEDS: CHOLECALCIFEROL (VIT D3) 1000 UNIT TAB PO SCH (09:00)
[2017-03-25] MEDS: TAMSULOSIN HCL 0.4 MG CAP PO SCH ×2 (09:01→21:00)
[2017-03-25] MEDS: BUMETANIDE 1 MG TAB PO SCH (09:01)
[2017-03-25] MEDS: ISOSORBIDE MONONITRATE 30 MG TAB PO SCH (09:01)
[2017-03-25] MEDS: PANTOPRAZOLE SOD 20 MG DELAYED RELEASE TAB PO SCH (09:01)
--- NOTE | 2017-03-25 09:28 | PD.CONS ---
[facility] Service Nephrology Consult Requested By Reason for Consult ESRD on HD Primary Care Physician Tonio Winchester MD History of Present Illness This is a 76 y/o patient with whom we follow outpatient. Extensive PMH including CAD with pervious CABG and stent placement, CHF, bladder cancer who follows with urology, anemia, HTN, DMII, and CVA. He also has ESRD and is on dialysis MWF. He was taken off ASA and Plavix for 7 days per urology in preparation for cystoscopy with tumor removal that happened Wednesday. He was to resume the medications 24 hours after hematuria ceased. He came to the ER for complaints of vomiting and chest pain Wednesday morning, was found to have STEMI and was taken to physical laboratory assistant emergently. A bare metal stent was placed to RCA. He was dialyzed immediately after the catheterization yesterday, and we were consulted for renal management. He is not in distress today, his metabolic profile is unremarkable aside from labs consistent with renal failure. CBC showing worsening anemia. He has a strong in place with wicho hematuria and blood coming from the tip of his penis, which has been occuring since before the procedure on Wednesday. He and his report RUQ abdominal pain that he has had since the end of last week, no hx of this in the past.; He is a full code. (Mechelle Mcgee) Review of Systems Constitutional: COMPLAINS OF: Fatigue Respiratory: COMPLAINS OF: Shortness of breath Cardiovascular: COMPLAINS OF: Chest pain, DENIES: Palpitations, Lower Extremity Edema Gastrointestinal: DENIES: Abdominal pain Genitourinary: COMPLAINS OF: Hematuria (Mechelle Mcgee) Past Family Social History Allergies: Coded Allergies: No Known Allergies (Verified , 03/24/17) Past Medical History ESRD on dialysis MWF CAD COPD CHF anemia of chronic disease metabolic bone disorder DM Remote CVA with left sided paresthesias hx of DVT bladder cancer Past Surgical History IVC filter multiple cystoscopies (most recent 03/22), bladder surgery TURP CABG 3 Heart stenting Bilateral cataract removal Left knee replacement Skin cancer left forearm and neck Reported Medications Keflex (Cephalexin) 250 Mg Cap 250 Mg PO TID Pyridium (Phenazopyridine HCl) 100 Mg Tab 100 Mg PO Q8H PRN Percocet (Oxycodone-Acetaminophen) 5-325 mg Tab 1-2 Tab PO Q6H PRN Coreg (Carvedilol) 6.25 Mg Tab 6.25 Mg PO BID 30 Days Lipitor (Atorvastatin Calcium) 80 Mg Tab 80 Mg PO HS 30 Days Aspirin Low Strength (Aspirin) 81 Mg Chew 81 Mg PO DAILY 30 Days Reported Humalog Inj (Insulin Human Lispro) 1,000 Unit/10 Ml Vial 5 Units SQ TIDAC Lantus Solostar Pen Inj (Insulin Glargine) 300 Unit/3 Ml Pen 10 Units SQ HS Vitamin D3 (Cholecalciferol) 2,000 Unit Tab 2,000 Units PO DAILY Isosorbide Mononitrate ER (Isosorbide Mononitrate) 30 Mg Tanmay 30 Mg PO DAILY Flomax (Tamsulosin HCl) 0.4 Mg Cap 0.4 Mg PO BID Proscar (Finasteride) 5 Mg Tab 5 Mg PO DAILY Do not crush. Sodium Bicarbonate 650 Mg Tab 650 Mg PO BID Renvela (Sevelamer Carbonate) 800 Mg Tab 800 Mg PO DAILY Omeprazole 20 Mg Tab 20 Mg PO DAILY Bumex (Bumetanide) 1 Mg Tab 1 Mg PO DAILY Amlodipine (Amlodipine Besylate) 5 Mg Tab 5 Mg PO DAILY Active Ordered Medications Current Medications Medications (Trade) Dose Ordered Sig/Darinel Route Start Time Stop Time Status Last Admin (NS Flush) 2 ml UNSCH PRN IVF 03/24/17 12:15 (Tylenol) 325 mg Q4H PRN PO 03/24/17 16:15 (Restoril) 15 mg HS PRN PO 03/24/17 16:15 (Aspirin Chew) 81 mg DAILY PO 03/25/17 09:00 Ticagrelor 90 mg 90 mg BID PO 03/25/17 09:00 (Aggrastat Infusion Inj) 250 ml @ 7.02 mls/hr Q24H IV 03/24/17 16:13 (Lipitor) 80 mg HS PO 03/24/17 21:00 03/24/17 22:26 (Bumetanide) 1 mg DAILY PO 03/25/17 09:00 (Coreg) 6.25 mg BID PO 03/24/17 21:00 03/24/17 22:26 (Keflex) 250 mg TID PO 03/24/17 18:00 03/24/17 18:32 (Vitamin D3) 2,000 units DAILY PO 03/25/17 09:00 (Proscar) 5 mg DAILY PO 03/25/17 09:00 (Imdur) 30 mg DAILY PO 03/25/17 09:00 (Pyridium) 100 mg Q8H PRN PO 03/24/17 16:30 (Renvela) 800 mg DAILY PO 03/25/17 09:00 (Sodium Bicarbonate) 650 mg BID PO 03/24/17 21:00 03/24/17 22:26 (Flomax) 0.4 mg BID PO 03/24/17 21:00 03/24/17 22:26 (Levemir Inj) 10 units HS SQ 03/24/17 21:00 03/24/17 22:30 (NovoLOG INJ) 5 units TIDAC SQ 03/24/17 17:00 (Protonix) 20 mg DAILY PO 03/25/17 09:00 (D50w (Vial) Inj) 25 ml UNSCH PRN IV PUSH 03/24/17 16:45 Glucagon 1 mg 1 mg UNSCH PRN OTHER 03/24/17 16:45 (NS 1000 ml Inj) 1,000 ml @ 0 mls/hr TITRATE PRN IV 03/24/17 18:00 (Heparin Inj) 8,000 units UNSCH PRN IV FLUSH 03/24/17 18:00 Heparin Sodium (Porcine) 1000 units 1,000 units Q1H PRN IV FLUSH 03/24/17 18:00 Sodium Chloride 1,000 ml @ 200 mls/hr Q5H PRN IV 03/24/17 18:00 (NS 250 ml Inj) 200 ml @ 0 mls/hr UNSCH PRN IV 03/24/17 18:00 (Mannitol Inj) 12.5 gm UNSCH PRN IV 03/24/17 18:00 (Albumin 25% Inj) 25 gm UNSCH PRN IV 03/24/17 18:00 03/24/17 19:55 (NS Flush) 5 ml UNSCH PRN IV FLUSH 03/24/17 18:00 (Heparin Inj) Dwell Heparin to f... UNSCH PRN OTHER 03/24/17 18:00 (Gentamicin (Dialysis) Inj) 10 mg UNSCH PRN OTHER 03/24/17 18:00 (Gelfoam 12 Mm/7 Mm Top) 1 foam UNSCH PRN TOPICAL 03/24/17 18:00 03/24/17 18:54 (Zofran Inj) 4 mg UNSCH PRN IV 03/24/17 18:00 03/24/17 22:26 (Benadryl) 25 mg UNSCH PRN PO 03/24/17 18:00 (Nitrostat Sl) 0.4 mg UNSCH PRN SL 03/24/17 18:00 (Catapres) 0.1 mg UNSCH PRN PO 03/24/17 18:00 (Epogen Inj) 6,000 units UNSCH PRN IV 03/24/17 18:00 03/24/17 18:54 Family History No hx of renal disorders Social History , lives locally no hx of smoking or ETOH retired needs assistance with activities full code (Mechelle Mcgee) Physical Exam Vital Signs Vital Signs Date Time Temp Pulse Resp B/P Pulse Ox O2 Delivery O2 Flow Rate FiO2 03/25/17 08:49 82 03/25/17 07:03 72 03/25/17 07:00 97.9 83 16 111/53 96 03/25/17 06:01 79 03/25/17 05:05 81 03/25/17 04:01 77 03/25/17 04:01 98.3 78 18 130/56 96 03/25/17 03:01 87 03/25/17 02:01 88 03/25/17 01:01 99.4 87 18 109/57 97 03/25/17 01:01 91 03/25/17 00:01 89 03/24/17 23:01 93 03/24/17 23:01 97.5 107 18 162/76 96 03/24/17 22:01 97.5 107 20 162/76 94 03/24/17 22:01 107 03/24/17 18:00 90 03/24/17 17:00 84 03/24/17 16:00 79 03/24/17 15:00 98.0 74 20 122/51 97 03/24/17 15:00 76 03/24/17 12:07 118/71 98 Nasal Cannula 2 03/24/17 11:58 96 3.00 03/24/17 11:58 96 Nasal Cannula 3.00 03/24/17 11:52 98 Nasal Cannula 2 03/24/17 11:52 20 98 Nasal Cannula 2 03/24/17 11:51 99.0 89 20 132/61 98 03/24/17 11:51 102 20 98 Nasal Cannula 2 Physical Exam Elderly male lying in bed, awake/alert, somewhat pale follows commands, no neuro deficit S1/S2, reg rate/rhythm lungs: course throughout with wheezing and rales/rhonchi, coughing intermittently, on oxygen abd: soft, tender RUQ, no rebound extremities no edema, AVF + thrill/bruit ; right foot darkened consistent with PAD. : strong in place, bleeding from catheter site and wicho hematuria in drainage bag Laboratory Laboratory Tests Test 03/24/17 03/24/17 03/25/17 11:51 19:00 05:00 White Blood Count 6.6 4.5 Red Blood Count 3.86 3.00 Hemoglobin 11.3 8.9 Bedside Hemoglobin 11.9 Hematocrit 36.6 27.7 Bedside Hematocrit 35.0 Mean Corpuscular Volume 94.8 92.4 Mean Corpuscular Hemoglobin 29.2 29.6 Mean Corpuscular Hemoglobin 30.8 32.0 Concent Red Cell Distribution Width 20.0 19.7 Platelet Count 138 124 Mean Platelet Volume 10.3 10.4 Neutrophils (%) (Auto) 81.4 75.1 Lymphocytes (%) (Auto) 7.9 11.8 Monocytes (%) (Auto) 9.7 11.5 Eosinophils (%) (Auto) 0.5 1.2 Basophils (%) (Auto) 0.5 0.4 Neutrophils # (Auto) 5.4 3.3 Lymphocytes # (Auto) 0.5 0.5 Monocytes # (Auto) 0.6 0.5 Eosinophils # (Auto) 0.0 0.1 Basophils # (Auto) 0.0 0.0 CBC Comment DIFF FINAL DIFF FINAL Differential Comment Prothrombin Time 11.3 Prothromb Time International 1.0 Ratio Activated Partial 29.4 Thromboplast Time Bedside Sodium 140 Bedside Potassium 5.6 Bedside Chloride 105 Bedside Blood Urea Nitrogen 57 Bedside Creatinine 6.8 Bedside Glucose 142 Calcium Level 7.7 7.4 7.8 Magnesium Level 2.0 Total Creatine Kinase 139 144 Creatine Kinase MB 8.9 15.6 Troponin I 0.75 B-Type Natriuretic Peptide 1416 Sodium Level 140 141 Potassium Level 4.1 3.6 Chloride Level 104 102 Carbon Dioxide Level 25.3 28.9 Anion Gap 11 10 Blood Urea Nitrogen 37 28 Creatinine 5.37 4.59 Estimat Glomerular Filtration 10 13 Rate Random Glucose 117 75 Protein Corrected Calcium 8.2 Total Protein 5.6 Triglycerides Level 73 Cholesterol Level 63 LDL Cholesterol 15 HDL Cholesterol 33.5 Cholesterol/HDL Ratio 1.88 (Mechelle Mcgee) Result Diagram: 03/25/17 0500 03/25/17 0500 Assessment and Plan Problem List: (1) ESRD (end stage renal disease) on dialysis Plan: continue HD MWF, orders entered he missed Wednesday due to cystoscopy, was dialyzed Wednesday instead he has dialysis with dye clearance last night (Wed) with 3L UF no current electrolyte concerns functioning AVF for dialysis he does make urine, continue Bumex stop sodium bicarbonate, it is not indicated at this time avoid IVF, gadolinium renal diet with no protein restriction continue present plan, orders reviewed. (2) STEMI (ST elevation myocardial infarction) Plan: cardiology following, s/p PCI with BMS placement to RCA on 03/24 on Brilinta, ASA, and Lipitor appreciate further recommendations (3) Hypertension Plan: BP stable, contine present antihypertensives (4) Anemia Plan: continue epogen, repeat Hb lower, which may be due to gross hematuria monitor CBC (5) Metabolic bone disease Plan: On renvela, obtain intermittent phosphorus level (6) Bladder mass Plan: s/p cystoscopy with tumor removal, follows with [facility] he has been consulted to assist with hematuria management he is on Flomax and Proscar (Mechelle Mcgee) Problem List: (1) ESRD (end stage renal disease) on dialysis Plan: continue HD MWF, orders entered he missed Wednesday due to cystoscopy, was dialyzed Wednesday instead he has dialysis with dye clearance last night (Wed) with 3L UF no current electrolyte concerns functioning AVF for dialysis he does make urine, continue Bumex stop sodium bicarbonate, it is not indicated at this time avoid IVF, gadolinium renal diet with no protein restriction continue present plan, orders reviewed. (2) STEMI (ST elevation myocardial infarction) Plan: cardiology following, s/p PCI with BMS placement to RCA on 03/24 on Brilinta, ASA, and Lipitor appreciate further recommendations (3) Hypertension Plan: BP stable, contine present antihypertensives (4) Anemia Plan: continue epogen, repeat Hb lower, which may be due to gross hematuria monitor CBC (5) Metabolic bone disease Plan: On renvela, obtain intermittent phosphorus level (6) Bladder mass Plan: s/p cystoscopy with tumor removal, follows with [facility] he has been consulted to assist with hematuria management he is on Flomax and Proscar Assessment and Plan patient was seen and examined. s/p STEMI, s/p stent in RCA. Unfortunately he has gross hematuria at this time. Dialyzed yesterday. Urology has been consulted. (Chava Singh MD) Problem Qualifiers (1) STEMI (ST elevation myocardial infarction): Qualified Code: I21.19 - ST elevation myocardial infarction (STEMI) involving other coronary artery of inferior wall Mechelle Mcgee March 25, 2017 09:28 Chava Singh MD March 25, 2017 11:21
--- NOTE | 2017-03-25 14:06 | PD.CONS ---
HPI Service Urology Consult Requested By Reason for Consult Gross hematuria Primary Care Physician Tonio Winchester MD Diagnosis: History of Present Illness 76 year old gentleman with history recurrent bladder cancer who is status post transurethral resection of a large tumor involving the left wall as well as a small tumor involving the bladder neck region on March 22 of this year. He presented to the emergency room on March 24 with complaints of chest pain and shortness of breath. He was diagnosed with a inferior wall GA and underwent emergent cardiac catheterization. Patient still had his Frankel catheter that was placed at the time of surgery and was grossly bloody at the time of ER presentation. Patient had been off of his aspirin and Plavix for over one week. Hematuria had initially resolved during present hospitalization but has now recurred. 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 Review of Systems Constitutional: DENIES: Fever, Chills Cardiovascular: COMPLAINS OF: Chest pain Gastrointestinal: COMPLAINS OF: Nausea, Vomiting Genitourinary: COMPLAINS OF: Hematuria Except as stated in HPI: all other systems reviewed are Neg Past Family Social History Past Medical History End-stage renal disease on hemodialysis Recurrent bladder cancer Coronary artery disease COPD Congestive heart failure Diabetes mellitus CVA history DVT history Past Surgical History Status post multiple TURBTs Status post cardiac stents Status post CABG 3 Status post cataract surgery Status post skin cancer removal Status post left knee replacement Status post placement of IVC filter Reported Medications Refer to EMR Allergies: Coded Allergies: No Known Allergies (Verified , 03/24/17) Active Ordered Medications Refer to EMR Family History Reviewed and noncontributory Social History Denies tobacco, alcohol or intravenous drug abuse Physical Exam Vital Signs Date Time Temp Pulse Resp B/P Pulse Ox O2 Delivery O2 Flow Rate FiO2 03/25/17 13:23 77 03/25/17 12:22 77 03/25/17 11:34 77 03/25/17 11:11 98.5 77 16 111/45 95 03/25/17 10:12 75 03/25/17 09:52 80 03/25/17 08:49 82 03/25/17 07:03 72 03/25/17 07:00 97.9 83 16 111/53 96 03/25/17 06:01 79 03/25/17 05:05 81 03/25/17 04:01 77 03/25/17 04:01 98.3 78 18 130/56 96 03/25/17 03:01 87 03/25/17 02:01 88 03/25/17 01:01 99.4 87 18 109/57 97 03/25/17 01:01 91 03/25/17 00:01 89 03/24/17 23:01 93 03/24/17 23:01 97.5 107 18 162/76 96 03/24/17 22:01 97.5 107 20 162/76 94 03/24/17 22:01 107 03/24/17 18:00 90 03/24/17 17:00 84 03/24/17 16:00 79 03/24/17 15:00 98.0 74 20 122/51 97 03/24/17 15:00 76 Physical Exam GENERAL: This is a well-nourished, well-developed patient, in no apparent distress. SKIN: No rashes, ecchymoses or lesions. Cool and dry. HEAD: Atraumatic. Normocephalic. No temporal or scalp tenderness. EYES: Pupils equal round and reactive. Extraocular motions intact. No scleral icterus. No injection or drainage. ENT: Nose without bleeding, purulent drainage or septal hematoma. Throat without erythema, tonsillar hypertrophy or exudate. Uvula midline. Airway patent. NECK: Trachea midline. No JVD or lymphadenopathy. Supple, nontender, no meningeal signs.. GASTROINTESTINAL: Abdomen soft, non-tender, nondistended. No hepato-splenomegaly , or palpable masses. No guarding. GENITOURINARY: Frankel catheter in place draining grossly bloody urine. Bladder not distended. MUSCULOSKELETAL: Extremities without clubbing, cyanosis, or edema. No joint tenderness, effusion, or edema noted. No calf tenderness. Negative Homans sign bilaterally. NEUROLOGICAL: Awake and alert. Cranial nerves II through XII intact. Motor and sensory grossly within normal limits. Five out of 5 muscle strength in all muscle groups. Normal speech. Laboratory Tests Test 03/24/17 03/25/17 19:00 05:00 Sodium Level 140 141 Potassium Level 4.1 3.6 Chloride Level 104 102 Carbon Dioxide Level 25.3 28.9 Anion Gap 11 10 Blood Urea Nitrogen 37 28 Creatinine 5.37 4.59 Estimat Glomerular Filtration 10 13 Rate Random Glucose 117 75 Calcium Level 7.4 7.8 Protein Corrected Calcium 8.2 Total Protein 5.6 White Blood Count 4.5 Red Blood Count 3.00 Hemoglobin 8.9 Hematocrit 27.7 Mean Corpuscular Volume 92.4 Mean Corpuscular Hemoglobin 29.6 Mean Corpuscular Hemoglobin 32.0 Concent Red Cell Distribution Width 19.7 Platelet Count 124 Mean Platelet Volume 10.4 Neutrophils (%) (Auto) 75.1 Lymphocytes (%) (Auto) 11.8 Monocytes (%) (Auto) 11.5 Eosinophils (%) (Auto) 1.2 Basophils (%) (Auto) 0.4 Neutrophils # (Auto) 3.3 Lymphocytes # (Auto) 0.5 Monocytes # (Auto) 0.5 Eosinophils # (Auto) 0.1 Basophils # (Auto) 0.0 CBC Comment DIFF FINAL Differential Comment Total Creatine Kinase 144 Creatine Kinase MB 15.6 Triglycerides Level 73 Cholesterol Level 63 LDL Cholesterol 15 HDL Cholesterol 33.5 Cholesterol/HDL Ratio 1.88 Result Diagram: 03/25/17 0500 03/25/17 0500 Assessment and Plan Assessment and Plan Urologic impression: Gross hematuria related to recent bladder cancer surgery. Plan: #1 replace present Frankel with a 20 Telugu three-way catheter #2 implement continuous bladder irrigation with Amicar 3000 mg in 3000 cc normal saline #3 will eventually require oncology evaluation for chemotherapy and radiation therapy regarding the muscle invasive bladder cancer, patient would be a poor surgical risk for a radical cystoprostatectomy. Shubham Velásquez MD March 25, 2017 14:06
--- NOTE | 2017-03-25 15:38 | EKG ---
Date Performed: 03/25/2017 Time Performed: 06:03:16 PTAGE: 76 years EKG: Sinus arrhythmia Possible inferior infarct - age undetermined Ant/septal and lateral ST-T c hanges may be due to myocardial ischemia Abnormal ECG PREVIOUS TRACING : 03/24/2017 11.52 Compared to prior tracing no significant change DOCTOR: Toni Jaeger Interpretating Date/Time 03/25/2017 15:39:53
--- NOTE | 2017-03-25 15:38 | EKG ---
Date Performed: 03/24/2017 Time Performed: 11:52:46 PTAGE: 76 years EKG: SUPRAVENTRICULAR RHYTHM INFERIOR MYOCARDIAL INFARCTION ACUTE AL PREVIOUS TRACING 02/27/2017 Compared to prior tracing no significant change DOCTOR: Toni Jaeger Interpretating Date/Time 03/25/2017 15:39:46
[2017-03-25] MEDS: TIROFIBAN INFUSION INJ 250 ML IV SCH (16:13)
--- NOTE | 2017-03-25 16:18 | RADRPT ---
EXAM DATE/TIME: 03/25/2017 15:33 [facility] COMPARISON: CHEST SINGLE AP, January 17, 2017, 12:50. INDICATIONS : Short of breath. MEDICAL HISTORY : None. SURGICAL HISTORY : CABG. ENCOUNTER: Subsequent ACUITY: 1 month PAIN SCORE: 0/10 LOCATION: Bilateral chest FINDINGS: A single view of the chest demonstrates diminished lung volumes and bibasilar densities. Heart normal in size. Previous CABG. Stents are seen in the left arm. Osseous structures are intact. CONCLUSION: Bibasilar densities likely atelectasis. Benji Martin MD on March 25, 2017 at 16:15 Board Certified Radiologist. This report was verified electronically.
--- NOTE | 2017-03-25 17:17 | HHI.PR ---
Subjective Remarks The pt said he has chronic abdominal pain. He has trouble swallowing. He said he talked with the urologist. Family at the bedside. Discusses with nursing. Objective Vitals Vital Signs Date Time Temp Pulse Resp B/P Pulse Ox O2 Delivery O2 Flow Rate FiO2 03/25/17 16:25 77 03/25/17 15:39 97.5 100 16 127/72 96 03/25/17 14:13 77 03/25/17 13:23 77 03/25/17 12:22 77 03/25/17 11:34 77 03/25/17 11:11 98.5 77 16 111/45 95 03/25/17 10:12 75 03/25/17 09:52 80 03/25/17 08:49 82 03/25/17 07:03 72 03/25/17 07:00 97.9 83 16 111/53 96 03/25/17 06:01 79 03/25/17 05:05 81 03/25/17 04:01 77 03/25/17 04:01 98.3 78 18 130/56 96 03/25/17 03:01 87 03/25/17 02:01 88 03/25/17 01:01 99.4 87 18 109/57 97 03/25/17 01:01 91 03/25/17 00:01 89 03/24/17 23:01 93 03/24/17 23:01 97.5 107 18 162/76 96 03/24/17 22:01 97.5 107 20 162/76 94 03/24/17 22:01 107 03/24/17 18:00 90 I/O 03/24/17 03/24/17 03/24/17 03/25/17 03/25/17 03/25/17 07:00 15:00 23:00 07:00 15:00 23:00 Intake Total 304 ml 320 ml Output Total 1050 ml 175 ml Balance -746 ml 145 ml Intake Oral 240 ml 240 ml IV Total 64 ml 80 ml Output Urine Total 1050 ml 175 ml # Bowel Movements 0 Result Diagram: 03/25/17 0500 03/25/17 0500 Imaging Last Impressions Chest X-Ray 03/25/17 0000 Signed Impressions: Service Date/Time: March 15:33 - CONCLUSION: Bibasilar densities likely atelectasis. Benji F. Tocci, MD Objective Remarks GENERAL: Resting comfortably. SKIN: Focused skin assessment warm/dry. HEAD: Atraumatic. Normocephalic. EYES: Pupils equal and round. No scleral icterus. No injection or drainage. ENT: No nasal bleeding or discharge. Mucous membranes pink and moist. NECK: Trachea midline. No JVD. CARDIOVASCULAR: Regular rate and rhythm. No murmur appreciated. RESPIRATORY: Crackles in bases bilaterally. GASTROINTESTINAL: Abdomen soft, slightly tender, nondistended. No rebound tenderness or guarding. : Frankel in place, gross hematuria. MUSCULOSKELETAL: No obvious deformities. No clubbing. No cyanosis. Pedal pulses not palpable. NEUROLOGICAL: Awake and alert. No obvious cranial nerve deficits. Motor grossly within normal limits. Normal speech. PSYCHIATRIC: Appropriate mood and affect; insight and judgment normal. Medications and IVs Current Medications Medications (Trade) Dose Ordered Sig/Darinel Route Start Time Stop Time Status Last Admin (NS Flush) 2 ml UNSCH PRN IVF 03/24/17 12:15 (Tylenol) 325 mg Q4H PRN PO 03/24/17 16:15 (Restoril) 15 mg HS PRN PO 03/24/17 16:15 (Aspirin Chew) 81 mg DAILY PO 03/25/17 09:00 03/25/17 09:00 Ticagrelor 90 mg 90 mg BID PO 03/25/17 09:00 03/25/17 09:00 (Aggrastat Infusion Inj) 250 ml @ 7.02 mls/hr Q24H IV 03/24/17 16:13 (Lipitor) 80 mg HS PO 03/24/17 21:00 03/24/17 22:26 (Bumetanide) 1 mg DAILY PO 03/25/17 09:00 03/25/17 09:01 (Coreg) 6.25 mg BID PO 03/24/17 21:00 03/25/17 09:00 (Keflex) 250 mg TID PO 03/24/17 18:00 03/25/17 13:11 (Vitamin D3) 2,000 units DAILY PO 03/25/17 09:00 03/25/17 09:00 (Proscar) 5 mg DAILY PO 03/25/17 09:00 03/25/17 09:00 (Imdur) 30 mg DAILY PO 03/25/17 09:00 03/25/17 09:01 (Pyridium) 100 mg Q8H PRN PO 03/24/17 16:30 (Renvela) 800 mg DAILY PO 03/25/17 09:00 03/25/17 09:00 (Flomax) 0.4 mg BID PO 03/24/17 21:00 03/25/17 09:01 (Levemir Inj) 10 units HS SQ 03/24/17 21:00 03/24/17 22:30 (NovoLOG INJ) 5 units TIDAC SQ 03/24/17 17:00 03/25/17 08:00 (Protonix) 20 mg DAILY PO 03/25/17 09:00 03/25/17 09:01 (D50w (Vial) Inj) 25 ml UNSCH PRN IV PUSH 03/24/17 16:45 Glucagon 1 mg 1 mg UNSCH PRN OTHER 03/24/17 16:45 (NS 1000 ml Inj) 1,000 ml @ 0 mls/hr TITRATE PRN IV 03/24/17 18:00 (Heparin Inj) 8,000 units UNSCH PRN IV FLUSH 03/24/17 18:00 Heparin Sodium (Porcine) 1000 units 1,000 units Q1H PRN IV FLUSH 03/24/17 18:00 Sodium Chloride 1,000 ml @ 200 mls/hr Q5H PRN IV 03/24/17 18:00 (NS 250 ml Inj) 200 ml @ 0 mls/hr UNSCH PRN IV 03/24/17 18:00 (Mannitol Inj) 12.5 gm UNSCH PRN IV 03/24/17 18:00 (Albumin 25% Inj) 25 gm UNSCH PRN IV 03/24/17 18:00 03/24/17 19:55 (NS Flush) 5 ml UNSCH PRN IV FLUSH 03/24/17 18:00 (Heparin Inj) Dwell Heparin to f... UNSCH PRN OTHER 03/24/17 18:00 (Gentamicin (Dialysis) Inj) 10 mg UNSCH PRN OTHER 03/24/17 18:00 (Gelfoam 12 Mm/7 Mm Top) 1 foam UNSCH PRN TOPICAL 03/24/17 18:00 03/24/17 18:54 (Zofran Inj) 4 mg UNSCH PRN IV 03/24/17 18:00 03/24/17 22:26 (Benadryl) 25 mg UNSCH PRN PO 03/24/17 18:00 (Nitrostat Sl) 0.4 mg UNSCH PRN SL 03/24/17 18:00 (Catapres) 0.1 mg UNSCH PRN PO 03/24/17 18:00 Epoetin Rafael 42359 units 10,000 units UNSCH PRN IV 03/25/17 10:00 (Amicar Inj/NS Irr Bag) 3,012 ml @ 0 mls/hr TITRATE IRRIGATION 03/25/17 16:00 A/P Assessment and Plan STEMI EKG revealed ST elevations in the inferior leads with reciprocal ST depressions. Troponin was 0.75. The patient was taken to the Plant Nursery Worker and a stent was placed to the graft of the RCA. - Continue medication regimen per cardiology. - Telemetry. - Oxygen and pain meds as needed. CHF BNP markedly elevated. Has a history of CAD s/p CABG. - continue Bumex. - dialysis for volume management. - follow Is and Os. - follow up with cardiology. ESRD The patient is on hemodialysis. Will need dialysis soon s/t dye load from cath. Nephrology consult appreciated. - Follow BMP. Kayexalate as needed. - Continue diuretics. - dialysis per nephrology. N/V/ Abdominal pain N/V seems to have resolved but pt complains of some right sided abdominal pain. - Antiemetics and pain meds as needed. - Advance diet as tolerated. - check LFTs and lipase. Cough/ Aspiration Likely secondary to chronic bronchitis. The patient also acknowledges some difficulty swallowing. Speech recommending NPO status. CXR with bibasilar densities, likely atelectasis. - barium swallow per speech. - keep NPO for now. 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 - Physical therapy. - Continue medical regimen. Bladder tumors/ Hematuria The patient had recent bladder tumor removal on Wednesday. He has hematuria and a Frankel in place. Urology consult appreciated. - Continue blood thinners per cardiology. - 3 way Frankel per urology. - Follow CBC and transfuse as needed. PPx: SCDs. Discharge Planning Awaiting clinical improvement. Feliciano Echeverria DO March 25, 2017 17:17
[2017-03-25] MEDS ORDERED: FUROSEMIDE 100 MG/10 ML VIAL IV PUSH ONE (18:15)
--- NOTE | 2017-03-25 18:20 | PD.CARD.PN ---
Subjective Subjective Remarks No CP, mild SOB, abdominal discomfort, still has hematuria, had dialysis yest andrez Objective Medications Current Medications Medications (Trade) Dose Ordered Sig/Darinel Route Start Time Stop Time Status Last Admin (NS Flush) 2 ml UNSCH PRN IVF 03/24/17 12:15 (Tylenol) 325 mg Q4H PRN PO 03/24/17 16:15 (Restoril) 15 mg HS PRN PO 03/24/17 16:15 (Aspirin Chew) 81 mg DAILY PO 03/25/17 09:00 03/25/17 09:00 Ticagrelor 90 mg 90 mg BID PO 03/25/17 09:00 03/25/17 09:00 (Aggrastat Infusion Inj) 250 ml @ 7.02 mls/hr Q24H IV 03/24/17 16:13 (Lipitor) 80 mg HS PO 03/24/17 21:00 03/24/17 22:26 (Bumetanide) 1 mg DAILY PO 03/25/17 09:00 03/25/17 09:01 (Coreg) 6.25 mg BID PO 03/24/17 21:00 03/25/17 09:00 (Keflex) 250 mg TID PO 03/24/17 18:00 03/25/17 13:11 (Vitamin D3) 2,000 units DAILY PO 03/25/17 09:00 03/25/17 09:00 (Proscar) 5 mg DAILY PO 03/25/17 09:00 03/25/17 09:00 (Imdur) 30 mg DAILY PO 03/25/17 09:00 03/25/17 09:01 (Pyridium) 100 mg Q8H PRN PO 03/24/17 16:30 (Renvela) 800 mg DAILY PO 03/25/17 09:00 03/25/17 09:00 (Flomax) 0.4 mg BID PO 03/24/17 21:00 03/25/17 09:01 (Levemir Inj) 10 units HS SQ 03/24/17 21:00 03/24/17 22:30 (NovoLOG INJ) 5 units TIDAC SQ 03/24/17 17:00 03/25/17 08:00 (Protonix) 20 mg DAILY PO 03/25/17 09:00 03/25/17 09:01 (D50w (Vial) Inj) 25 ml UNSCH PRN IV PUSH 03/24/17 16:45 Glucagon 1 mg 1 mg UNSCH PRN OTHER 03/24/17 16:45 (NS 1000 ml Inj) 1,000 ml @ 0 mls/hr TITRATE PRN IV 03/24/17 18:00 (Heparin Inj) 8,000 units UNSCH PRN IV FLUSH 03/24/17 18:00 Heparin Sodium (Porcine) 1000 units 1,000 units Q1H PRN IV FLUSH 03/24/17 18:00 Sodium Chloride 1,000 ml @ 200 mls/hr Q5H PRN IV 03/24/17 18:00 (NS 250 ml Inj) 200 ml @ 0 mls/hr UNSCH PRN IV 03/24/17 18:00 (Mannitol Inj) 12.5 gm UNSCH PRN IV 03/24/17 18:00 (Albumin 25% Inj) 25 gm UNSCH PRN IV 03/24/17 18:00 03/24/17 19:55 (NS Flush) 5 ml UNSCH PRN IV FLUSH 03/24/17 18:00 (Heparin Inj) Dwell Heparin to f... UNSCH PRN OTHER 03/24/17 18:00 (Gentamicin (Dialysis) Inj) 10 mg UNSCH PRN OTHER 03/24/17 18:00 (Gelfoam 12 Mm/7 Mm Top) 1 foam UNSCH PRN TOPICAL 03/24/17 18:00 03/24/17 18:54 (Zofran Inj) 4 mg UNSCH PRN IV 03/24/17 18:00 03/24/17 22:26 (Benadryl) 25 mg UNSCH PRN PO 03/24/17 18:00 (Nitrostat Sl) 0.4 mg UNSCH PRN SL 03/24/17 18:00 (Catapres) 0.1 mg UNSCH PRN PO 03/24/17 18:00 Epoetin Rafael 22381 units 10,000 units UNSCH PRN IV 03/25/17 10:00 (Amicar Inj/NS Irr Bag) 3,012 ml @ 0 mls/hr TITRATE IRRIGATION 03/25/17 16:00 Vital Signs / I&O Vital Signs Date Time Temp Pulse Resp B/P Pulse Ox O2 Delivery O2 Flow Rate FiO2 03/25/17 18:00 80 03/25/17 17:19 78 03/25/17 16:25 77 03/25/17 15:39 97.5 100 16 127/72 96 03/25/17 14:13 77 03/25/17 13:23 77 03/25/17 12:22 77 03/25/17 11:34 77 03/25/17 11:11 98.5 77 16 111/45 95 03/25/17 10:12 75 03/25/17 09:52 80 03/25/17 08:49 82 03/25/17 07:03 72 03/25/17 07:00 97.9 83 16 111/53 96 03/25/17 06:01 79 03/25/17 05:05 81 03/25/17 04:01 77 03/25/17 04:01 98.3 78 18 130/56 96 03/25/17 03:01 87 03/25/17 02:01 88 03/25/17 01:01 99.4 87 18 109/57 97 03/25/17 01:01 91 03/25/17 00:01 89 03/24/17 23:01 93 03/24/17 23:01 97.5 107 18 162/76 96 03/24/17 22:01 97.5 107 20 162/76 94 03/24/17 22:01 107 I/O 03/24/17 03/24/17 03/24/17 03/25/17 03/25/17 03/25/17 06:59 14:59 22:59 06:59 14:59 22:59 Intake Total 304 ml 320 ml 540 ml Output Total 1050 ml 175 ml 200 ml Balance -746 ml 145 ml 340 ml Intake Oral 240 ml 240 ml 480 ml IV Total 64 ml 80 ml 60 ml Output Urine Total 1050 ml 175 ml 200 ml # Bowel Movements 0 0 Physical Exam GENERAL: In NAD. SKIN: Warm and dry. HEAD: Normocephalic. EYES: No scleral icterus. No injection or drainage. NECK: Supple, trachea midline. No JVD or lymphadenopathy. CARDIOVASCULAR: Regular rate and rhythm without murmurs, gallops, or rubs. RESPIRATORY: Breath sounds equal bilaterally. No accessory muscle use. GASTROINTESTINAL: Abdomen soft, non-tender, nondistended. MUSCULOSKELETAL: No cyanosis, or edema. Groin stable. Laboratory Laboratory Tests Test 03/24/17 03/25/17 19:00 05:00 Sodium Level 140 MEQ/L 141 MEQ/L Potassium Level 4.1 MEQ/L 3.6 MEQ/L Chloride Level 104 MEQ/L 102 MEQ/L Carbon Dioxide Level 25.3 MEQ/L 28.9 MEQ/L Anion Gap 11 MEQ/L 10 MEQ/L Blood Urea Nitrogen 37 MG/DL 28 MG/DL Creatinine 5.37 MG/DL 4.59 MG/DL Estimat Glomerular Filtration 10 ML/MIN 13 ML/MIN Rate Random Glucose 117 MG/DL 75 MG/DL Calcium Level 7.4 MG/DL 7.8 MG/DL Protein Corrected Calcium 8.2 MG/DL Total Protein 5.6 GM/DL White Blood Count 4.5 TH/MM3 Red Blood Count 3.00 MIL/MM3 Hemoglobin 8.9 GM/DL Hematocrit 27.7 % Mean Corpuscular Volume 92.4 FL Mean Corpuscular Hemoglobin 29.6 PG Mean Corpuscular Hemoglobin 32.0 % Concent Red Cell Distribution Width 19.7 % Platelet Count 124 TH/MM3 Mean Platelet Volume 10.4 FL Neutrophils (%) (Auto) 75.1 % Lymphocytes (%) (Auto) 11.8 % Monocytes (%) (Auto) 11.5 % Eosinophils (%) (Auto) 1.2 % Basophils (%) (Auto) 0.4 % Neutrophils # (Auto) 3.3 TH/MM3 Lymphocytes # (Auto) 0.5 TH/MM3 Monocytes # (Auto) 0.5 TH/MM3 Eosinophils # (Auto) 0.1 TH/MM3 Basophils # (Auto) 0.0 TH/MM3 CBC Comment DIFF FINAL Differential Comment Total Creatine Kinase 144 U/L Creatine Kinase MB 15.6 NG/ML Triglycerides Level 73 MG/DL Cholesterol Level 63 MG/DL LDL Cholesterol 15 MG/DL HDL Cholesterol 33.5 MG/DL Cholesterol/HDL Ratio 1.88 RATIO Imaging Last Impressions Chest X-Ray 03/25/17 0000 Signed Impressions: Service Date/Time: March 15:33 - CONCLUSION: Bibasilar densities likely atelectasis. Benji Martin MD Assessment and Plan Problem List: (1) ST elevation myocardial infarction (STEMI) of inferior wall (2) CAD (coronary artery disease) (3) ESRD (end stage renal disease) on dialysis (4) Bladder mass (5) Hypertension (6) Diabetes mellitus (7) COPD exacerbation (8) Hematuria, unspecified Assessment and Plan Stable post MS and PCI. Continue Brilinta and baby ASA. Continue post MS care. Still has hematuria, followed by urology. Increase activity. Continue dialysis as per nephrology. Continue monitoring. Rachael Eason MD March 25, 2017 18:20
[2017-03-25 19:52] LABS: INDIRECT BILIRUBIN 0.5 MG/DL (0.0-0.8); TOTAL BILIRUBIN ADULT 0.8 MG/DL (0.2-1.0)
[2017-03-25] MEDS: ATORVASTATIN 80 MG TAB PO SCH (21:00)
[2017-03-25] MEDS: INSULIN DETEMIR 100 UNITS/ML VIAL SQ SCH (21:00)
[2017-03-25] MEDS: guaiFENesin E.R. 600 MG TAB PO SCH (21:00)
[2017-03-26] VITALS (26 sets, daily range): BP systolic 116–144; BP diastolic 62–73; PULSE 72–116; RESP 16–20; TEMP 97.8–98.8; O2SAT 95–99
[2017-03-26 05:34] LABS: HEMATOCRIT 29.6 % (39.0-51.0); MEAN CORPUSCULAR HEMOGLOBIN 29.3 PG (27.0-34.0); MEAN CORPUSCULAR HGB CONC 31.8 % (32.0-36.0); PLATELET COUNT 130 TH/MM3 (150-450); RED BLOOD COUNT 3.21 MIL/MM3 (4.50-5.90); RED CELL DISTRIBUTION WIDTH 19.7 % (11.6-17.2); WHITE BLOOD COUNT 8.3 TH/MM3 (4.0-11.0)
[2017-03-26 05:59] LABS: BICARBONATE 26.8 MEQ/L (21.0-32.0); MAGNESIUM 1.9 MG/DL (1.5-2.5); POTASSIUM 4.2 MEQ/L (3.5-5.1)
[2017-03-26 06:52] LABS: REVIEW FLAG FINAL
[2017-03-26] MEDS: INSULIN ASPART SUPPLEMENTAL SCALE SQ SCH ×3 (07:00→16:00)
--- NOTE | 2017-03-26 07:09 | MA ---
cc: HAYDEN BENITEZ DATE 03/24/[address] elevation myocardial infarction, coronary artery disease, history of coronary bypass, history of ischemic cardiomyopathy, Class IV angina, congestive heart failure Class III. PROCEDURE PERFORMED 1. Retrograde left heart catheterization with left ventriculography, selective coronary angiography, saphenous venous graft angiography and left internal mammary artery angiography. 2. Thrombectomy, angioplasty and stenting of the saphenous vein graft to the right coronary artery. 3. Moderate sedation. ACCESS SITE Right femoral artery and right femoral vein. EQUIPMENT USED A 5-Serbian pigtail catheter, 5-Serbian JL4 and AR modified coronary artery catheters, left bypass graft catheter, [address] thrombectomy catheter, AngioJet catheter; 2.5, 3.0 and 3.5 Compliant and Non-Compliant balloons, 3.5 x 38 Resolute stent at 16 atmospheres to the distal RCA, 3.5 x 38-mm Resolute stent to the mid-RCA at 16 atmospheres and 3.5 x 38-mm Promus Premier stent at 22 atmospheres to the proximal RCA. MEDICATIONS Versed IV. Fentanyl IV. Heparin IV. Tirofiban IV. Brilinta 180 mg p.o. CONTRAST Omnipaque 215 cc. COMPLICATIONS None. BLOOD LOSS Less than 10 cc. METHOD OF HEMOSTASIS AngioSeal closure and manual compression for the vein. RESULTS HEMODYNAMICS: Heart rate 50 beats per minute. Left ventricular end-diastolic pressure 17 mmHg. Left ventricle 136/17. Aorta 130/40/75. LEFT VENTRICULOGRAPHY Ejection fraction 30%. Wall motion: Inferior akinesis. No mitral regurgitation. CORONARY ANGIOGRAPHY The left main coronary artery had 30% stenosis in the distal portion. The proximal LAD had a 20% stenosis. The mid-LAD was totally occluded. The first diagonal artery had 50% stenosis. The left circumflex artery had total occlusion in the mid-portion. OM-1 was a small vessel with 99% proximal stenosis. OM-2 was totally occluded. The right coronary artery is a dominant vessel with 95% stenosis in the proximal portion and total occlusion in the mid-portion. The left internal mammary artery graft to the left anterior descending artery was patent. Saphenous venous graft to the second obtuse marginal artery was patent. Saphenous venous graft to the right coronary artery was totally occluded. Lesion length 100 mm. Pre-DANE flow 0. Post-DANE flow 2. Post-stenosis 0. This was a type C lesion. Post-procedure angiography revealed patency of the stented segments and no evidence of dissection, thrombosis or distal embolization. DIAGNOSES 1. Acute inferior wall myocardial infarction. 2. Coronary artery disease with total occlusion of the saphenous vein graft to the right coronary artery with large amount of thrombus. 3. Moderate to severe left ventricular dysfunction consistent with ischemic cardiomyopathy. 4. Successful thrombectomy, angioplasty and stenting of the saphenous graft to the right coronary artery. DISPOSITION 1. Mr. Valdovinos will be monitored on telemetry after his procedure. He will continue aggressive modification of his cardiac risk factors. 2. He will also continue platelet inhibition including Brilinta and baby aspirin. 3. He will need to stay on platelet inhibition long-term since this was the second time of graft thrombosis. 4. Continue therapy for CHF. The patient is not a candidate for KAYLI inhibitor or ARB since he has end stage renal disease on hemodialysis. MD HANNAH Sanchez/CLINT /2:58 PM /6:38 AM PAUL
[2017-03-26] MEDS: INSULIN ASPART 1,000 UNITS/10 ML VIAL SQ SCH ×3 (08:00→17:00)
[2017-03-26] MEDS: guaiFENesin E.R. 600 MG TAB PO SCH ×2 (08:29→22:17)
[2017-03-26] MEDS: ASPIRIN 81 MG CHEW TAB PO SCH (08:29)
[2017-03-26] MEDS: SEVELAMER CARBONATE 800 MG TAB PO SCH (08:29)
[2017-03-26] MEDS: TICAGRELOR 90 MG TAB PO SCH ×2 (08:30→22:17)
[2017-03-26] MEDS: PANTOPRAZOLE SOD 20 MG DELAYED RELEASE TAB PO SCH (08:30)
[2017-03-26] MEDS: BUMETANIDE 1 MG TAB PO SCH (08:30)
[2017-03-26] MEDS: CEPHALEXIN MONOHYDRATE 250 MG CAP PO SCH ×3 (08:30→18:25)
[2017-03-26] MEDS: FINASTERIDE 5 MG TAB PO SCH (08:30)
[2017-03-26] MEDS: CARVEDILOL 6.25 MG TAB PO SCH ×2 (08:30→22:16)
[2017-03-26] MEDS: CHOLECALCIFEROL (VIT D3) 1000 UNIT TAB PO SCH (08:30)
[2017-03-26] MEDS: TAMSULOSIN HCL 0.4 MG CAP PO SCH ×2 (08:30→22:23)
[2017-03-26] MEDS: ISOSORBIDE MONONITRATE 30 MG TAB PO SCH (08:30)
--- NOTE | 2017-03-26 11:48 | RADRPT ---
EXAM DATE/TIME: 03/26/2017 10:57 [facility] COMPARISON: No previous studies available for comparison. INDICATIONS : Dysphagia FLUORO TIME: 1.3 minutes IMAGE COUNT: 4 CONTRAST: Dose as prescribed by speech pathologist. MEDICAL HISTORY : None. Cardiovascular disease. Gastroesophageal reflux disease. Renal failure, acute SURGICAL HISTORY : CABG. ENCOUNTER: Initial ACUITY: 3 days PAIN SCORE: Non-responsive. LOCATION: throat FINDINGS: A modified barium swallow was performed with speech pathology. Patient was given a variety of liquids to swallow. For a full detailed report, see report by the speech pathologist. CONCLUSION: There is no evidence for aspiration. Jamal Jay MD FACR on March 26, 2017 at 11:45 Board Certified Radiologist. This report was verified electronically.
--- NOTE | 2017-03-26 13:08 | HHI.PR ---
Subjective Remarks The patient was complaining of shortness of breath. He has been coughing up some sputum. He is complaining of abdominal pain. He points to the left upper quadrant but then seems tender in other areas. Family and nursing at the bedside. Objective Vitals Vital Signs Date Time Temp Pulse Resp B/P Pulse Ox O2 Delivery O2 Flow Rate FiO2 03/26/17 12:39 77 03/26/17 11:45 85 03/26/17 11:00 97.8 80 18 116/73 95 03/26/17 10:25 77 03/26/17 09:15 78 03/26/17 08:05 78 03/26/17 07:03 72 03/26/17 07:00 98.3 83 20 118/62 95 03/26/17 06:00 80 03/26/17 05:00 84 03/26/17 04:00 84 03/26/17 03:00 77 03/26/17 03:00 98.4 83 20 120/63 97 03/26/17 02:00 82 03/26/17 01:00 82 03/26/17 00:00 86 03/25/17 23:00 98.7 85 20 120/57 97 03/25/17 23:00 81 03/25/17 22:00 90 03/25/17 21:00 80 03/25/17 20:00 80 03/25/17 19:00 98.6 87 22 141/63 96 03/25/17 19:00 85 03/25/17 18:00 80 03/25/17 17:19 78 03/25/17 16:25 77 03/25/17 15:39 97.5 100 16 127/72 96 03/25/17 14:13 77 03/25/17 13:23 77 I/O 03/25/17 03/25/17 03/25/17 03/26/17 03/26/17 03/26/17 06:59 14:59 22:59 06:59 14:59 22:59 Intake Total 320 ml 540 ml Output Total 175 ml 200 ml 2550 ml Balance 145 ml 340 ml -2550 ml Intake Oral 240 ml 480 ml IV Total 80 ml 60 ml Output Urine Total 175 ml 200 ml 2550 ml # Bowel Movements 0 0 Result Diagram: 03/26/1751903/26/17519 Imaging Last Impressions Modified Barium Swallow 03/26/17 0000 Signed Impressions: Service Date/Time: Sunday, March 26, 2017 10:57 - CONCLUSION: There is no evidence for aspiration. Jamal Jay MD FACR Chest X-Ray 03/25/17 0000 Signed Impressions: Service Date/Time: March 15:33 - CONCLUSION: Bibasilar densities likely atelectasis. Benji Martin MD Objective Remarks GENERAL: Resting comfortably. SKIN: Focused skin assessment warm/dry. HEAD: Atraumatic. Normocephalic. EYES: Pupils equal and round. No scleral icterus. No injection or drainage. ENT: No nasal bleeding or discharge. Mucous membranes pink and moist. NECK: Trachea midline. No JVD. CARDIOVASCULAR: Regular rate and rhythm. No murmur appreciated. RESPIRATORY: Moderate diffuse wheezing. GASTROINTESTINAL: Abdomen soft, slight general tenderness, nondistended. No rebound tenderness or guarding. : Frankel in place, gross hematuria. MUSCULOSKELETAL: No obvious deformities. No clubbing. No cyanosis. Pedal pulses not palpable. NEUROLOGICAL: Awake and alert. No obvious cranial nerve deficits. Motor grossly within normal limits. Normal speech. PSYCHIATRIC: Appropriate mood and affect; insight and judgment normal. Medications and IVs Current Medications Medications (Trade) Dose Ordered Sig/Darinel Route Start Time Stop Time Status Last Admin (NS Flush) 2 ml UNSCH PRN IVF 03/24/17 12:15 (Tylenol) 325 mg Q4H PRN PO 03/24/17 16:15 (Restoril) 15 mg HS PRN PO 03/24/17 16:15 (Aspirin Chew) 81 mg DAILY PO 03/25/17 09:00 03/26/17 08:29 Ticagrelor 90 mg 90 mg BID PO 03/25/17 09:00 03/26/17 08:30 (Aggrastat Infusion Inj) 250 ml @ 7.02 mls/hr Q24H IV 03/24/17 16:13 (Lipitor) 80 mg HS PO 03/24/17 21:00 03/25/17 21:00 (Bumetanide) 1 mg DAILY PO 03/25/17 09:00 03/26/17 08:30 (Coreg) 6.25 mg BID PO 03/24/17 21:00 03/26/17 08:30 (Keflex) 250 mg TID PO 03/24/17 18:00 03/26/17 08:30 (Vitamin D3) 2,000 units DAILY PO 03/25/17 09:00 03/26/17 08:30 (Proscar) 5 mg DAILY PO 03/25/17 09:00 03/26/17 08:30 (Imdur) 30 mg DAILY PO 03/25/17 09:00 03/26/17 08:30 (Pyridium) 100 mg Q8H PRN PO 03/24/17 16:30 (Renvela) 800 mg DAILY PO 03/25/17 09:00 03/26/17 08:29 (Flomax) 0.4 mg BID PO 03/24/17 21:00 03/26/17 08:30 (Levemir Inj) 10 units HS SQ 03/24/17 21:00 03/24/17 22:30 (NovoLOG INJ) 5 units TIDAC SQ 03/24/17 17:00 03/25/17 08:00 (Protonix) 20 mg DAILY PO 03/25/17 09:00 03/26/17 08:30 (D50w (Vial) Inj) 25 ml UNSCH PRN IV PUSH 03/24/17 16:45 Glucagon 1 mg 1 mg UNSCH PRN OTHER 03/24/17 16:45 (NS 1000 ml Inj) 1,000 ml @ 0 mls/hr TITRATE PRN IV 03/24/17 18:00 (Heparin Inj) 8,000 units UNSCH PRN IV FLUSH 03/24/17 18:00 Heparin Sodium (Porcine) 1000 units 1,000 units Q1H PRN IV FLUSH 03/24/17 18:00 Sodium Chloride 1,000 ml @ 200 mls/hr Q5H PRN IV 03/24/17 18:00 (NS 250 ml Inj) 200 ml @ 0 mls/hr UNSCH PRN IV 03/24/17 18:00 (Mannitol Inj) 12.5 gm UNSCH PRN IV 03/24/17 18:00 (Albumin 25% Inj) 25 gm UNSCH PRN IV 03/24/17 18:00 03/24/17 19:55 (NS Flush) 5 ml UNSCH PRN IV FLUSH 03/24/17 18:00 (Heparin Inj) Dwell Heparin to f... UNSCH PRN OTHER 03/24/17 18:00 (Gentamicin (Dialysis) Inj) 10 mg UNSCH PRN OTHER 03/24/17 18:00 (Gelfoam 12 Mm/7 Mm Top) 1 foam UNSCH PRN TOPICAL 03/24/17 18:00 03/24/17 18:54 (Zofran Inj) 4 mg UNSCH PRN IV 03/24/17 18:00 03/24/17 22:26 (Benadryl) 25 mg UNSCH PRN PO 03/24/17 18:00 (Nitrostat Sl) 0.4 mg UNSCH PRN SL 03/24/17 18:00 (Catapres) 0.1 mg UNSCH PRN PO 03/24/17 18:00 Epoetin Rafael 48098 units 10,000 units UNSCH PRN IV 03/25/17 10:00 (Amicar Inj/NS Irr Bag) 3,012 ml @ 0 mls/hr TITRATE IRRIGATION 03/25/17 16:00 (Mucinex Er) 600 mg BID PO 03/25/17 21:00 03/26/17 08:29 (SoluMEDROL INJ) 40 mg Q8HR IV PUSH 03/26/17 13:00 UNV A/P Assessment and Plan STEMI EKG revealed ST elevations in the inferior leads with reciprocal ST depressions. Troponin was 0.75. The patient was taken to the Customer Service Analyst and a stent was placed to the graft of the RCA. - Continue medication regimen per cardiology. - Telemetry. - Oxygen and pain meds as needed. CHF BNP markedly elevated. Has a history of CAD s/p CABG. - continue Bumex. - dialysis for volume management. - follow Is and Os. - follow up with cardiology. ESRD The patient is on hemodialysis. Will need dialysis soon s/t dye load from cath. Nephrology consult appreciated. - Follow BMP. Kayexalate as needed. - Continue diuretics. - dialysis per nephrology. N/V/ Abdominal pain N/V seems to have resolved but pt complains of chronic diffuse abdominal pain. Negative CT in February. LFTs and lipase unremarkable. Possibly s/t GERD or PUD. - Antiemetics and pain meds as needed. - Advance diet as tolerated. - PPI. - repeat CT abdomen. Cough/ Aspiration/ COPD Likely secondary to chronic bronchitis. The patient also acknowledges some difficulty swallowing. Speech recommending NPO status. CXR with bibasilar densities, likely atelectasis. Barium negative for aspiration. Pt with diffuse wheezing. - diet per speech. - Solumedrol and standing nebs. - IS. - oxygen as needed. 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 - Physical therapy. - Continue medical regimen. Bladder tumors/ Hematuria The patient had recent bladder tumor removal on Wednesday. He has hematuria and a Frankel in place. Urology consult appreciated. - Continue blood thinners per cardiology. - 3 way Frankel per urology. - Follow CBC and transfuse as needed. PPx: SCDs. Discharge Planning Awaiting clinical improvement. Feliciano Echeverria DO March 26, 2017 13:07
--- NOTE | 2017-03-26 13:23 | HHI.PR ---
Subjective Patient symptoms today Reports that the hematuria has significantly improved. Denies suprapubic pain. Objective Vital Signs Vital Signs Date Time Temp Pulse Resp B/P Pulse Ox O2 Delivery O2 Flow Rate FiO2 03/26/17 13:08 82 03/26/17 12:39 77 03/26/17 11:45 85 03/26/17 11:00 97.8 80 18 116/73 95 03/26/17 10:25 77 03/26/17 09:15 78 03/26/17 08:05 78 03/26/17 07:03 72 03/26/17 07:00 98.3 83 20 118/62 95 03/26/17 06:00 80 03/26/17 05:00 84 03/26/17 04:00 84 03/26/17 03:00 77 03/26/17 03:00 98.4 83 20 120/63 97 03/26/17 02:00 82 03/26/17 01:00 82 03/26/17 00:00 86 03/25/17 23:00 98.7 85 20 120/57 97 03/25/17 23:00 81 03/25/17 22:00 90 03/25/17 21:00 80 03/25/17 20:00 80 03/25/17 19:00 98.6 87 22 141/63 96 03/25/17 19:00 85 03/25/17 18:00 80 03/25/17 17:19 78 03/25/17 16:25 77 03/25/17 15:39 97.5 100 16 127/72 96 03/25/17 14:13 77 Intake & Output 03/26/17 03/26/17 06:59 18:59 Output Total 2550 ml Balance -2550 ml Output Urine Total 2550 ml Result Diagram: 03/26/17 0520 03/26/17 0520 Imaging Last 24 hours Impressions Modified Barium Swallow 03/26/17 0000 Signed Impressions: Service Date/Time: Sunday, March 26, 2017 10:57 - CONCLUSION: There is no evidence for aspiration. Jamal Jay MD FACR Objective Remarks Continuous bladder irrigation running well with light pink output Medications and IVs Current Medications Medications (Trade) Dose Ordered Sig/Darinel Route Start Time Stop Time Status Last Admin (NS Flush) 2 ml UNSCH PRN IVF 03/24/17 12:15 (Tylenol) 325 mg Q4H PRN PO 03/24/17 16:15 (Restoril) 15 mg HS PRN PO 03/24/17 16:15 (Aspirin Chew) 81 mg DAILY PO 03/25/17 09:00 03/26/17 08:29 Ticagrelor 90 mg 90 mg BID PO 03/25/17 09:00 03/26/17 08:30 (Aggrastat Infusion Inj) 250 ml @ 7.02 mls/hr Q24H IV 03/24/17 16:13 (Lipitor) 80 mg HS PO 03/24/17 21:00 03/25/17 21:00 (Bumetanide) 1 mg DAILY PO 03/25/17 09:00 03/26/17 08:30 (Coreg) 6.25 mg BID PO 03/24/17 21:00 03/26/17 08:30 (Keflex) 250 mg TID PO 03/24/17 18:00 03/26/17 08:30 (Vitamin D3) 2,000 units DAILY PO 03/25/17 09:00 03/26/17 08:30 (Proscar) 5 mg DAILY PO 03/25/17 09:00 03/26/17 08:30 (Imdur) 30 mg DAILY PO 03/25/17 09:00 03/26/17 08:30 (Pyridium) 100 mg Q8H PRN PO 03/24/17 16:30 (Renvela) 800 mg DAILY PO 03/25/17 09:00 03/26/17 08:29 (Flomax) 0.4 mg BID PO 03/24/17 21:00 03/26/17 08:30 (Levemir Inj) 10 units HS SQ 03/24/17 21:00 03/24/17 22:30 (NovoLOG INJ) 5 units TIDAC SQ 03/24/17 17:00 03/25/17 08:00 (Protonix) 20 mg DAILY PO 03/25/17 09:00 03/26/17 08:30 (D50w (Vial) Inj) 25 ml UNSCH PRN IV PUSH 03/24/17 16:45 Glucagon 1 mg 1 mg UNSCH PRN OTHER 03/24/17 16:45 (NS 1000 ml Inj) 1,000 ml @ 0 mls/hr TITRATE PRN IV 03/24/17 18:00 (Heparin Inj) 8,000 units UNSCH PRN IV FLUSH 03/24/17 18:00 Heparin Sodium (Porcine) 1000 units 1,000 units Q1H PRN IV FLUSH 03/24/17 18:00 Sodium Chloride 1,000 ml @ 200 mls/hr Q5H PRN IV 03/24/17 18:00 (NS 250 ml Inj) 200 ml @ 0 mls/hr UNSCH PRN IV 03/24/17 18:00 (Mannitol Inj) 12.5 gm UNSCH PRN IV 03/24/17 18:00 (Albumin 25% Inj) 25 gm UNSCH PRN IV 03/24/17 18:00 03/24/17 19:55 (NS Flush) 5 ml UNSCH PRN IV FLUSH 03/24/17 18:00 (Heparin Inj) Dwell Heparin to f... UNSCH PRN OTHER 03/24/17 18:00 (Gentamicin (Dialysis) Inj) 10 mg UNSCH PRN OTHER 03/24/17 18:00 (Gelfoam 12 Mm/7 Mm Top) 1 foam UNSCH PRN TOPICAL 03/24/17 18:00 03/24/17 18:54 (Zofran Inj) 4 mg UNSCH PRN IV 03/24/17 18:00 03/24/17 22:26 (Benadryl) 25 mg UNSCH PRN PO 03/24/17 18:00 (Nitrostat Sl) 0.4 mg UNSCH PRN SL 03/24/17 18:00 (Catapres) 0.1 mg UNSCH PRN PO 03/24/17 18:00 Epoetin Rafael 63901 units 10,000 units UNSCH PRN IV 03/25/17 10:00 (Amicar Inj/NS Irr Bag) 3,012 ml @ 0 mls/hr TITRATE IRRIGATION 03/25/17 16:00 (Mucinex Er) 600 mg BID PO 03/25/17 21:00 03/26/17 08:29 (SoluMEDROL INJ) 40 mg Q8HR IV PUSH 03/26/17 13:00 UNV Assessment and Plan Assessment and Plan Urologic impression: Gross hematuria related to recent bladder cancer surgery. Plan: #1 continuous bladder irrigation with Amicar 3000 mg in 3000 cc normal saline and attempt to titrate off as urine continues to clear. #2 continue with Frankel catheter after continuous bladder irrigation no longer necessary. #3 outpatient oncology evaluation with Dr. 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 Shubham Velásquez MD March 26, 2017 13:23
[2017-03-26] MEDS ORDERED: DIATRIZOATE MEGLUM/DIATRIZOATE SOD 9 ML CUP PO ONE (13:30)
[2017-03-26] MEDS: RESP: ALBUTEROL 2.5 MG/IPRATROPIUM 0.5 MG NEB (SCH) NEB ×2 (13:30→21:06)
--- NOTE | 2017-03-26 13:31 | HHI.NPPN ---
Subjective Interval History All the notes were reviewed. 3 way Frankel catheter. Urology note reviewed: he has muscle invasive urothelial cancer. Review of Systems General Constitutional: Fatigue Gastrointestinal Gastrointestinal: Abdominal Pain Genitourinary Remarks hematuria Objective Data Data 03/25/17 03/26/17 18:59 06:59 Intake Total 540 ml Output Total 200 ml 2550 ml Balance 340 ml -2550 ml Intake Oral 480 ml IV Total 60 ml Output Urine Total 200 ml 2550 ml # Bowel Movements 0 Vital Signs Date Time Temp Pulse Resp B/P Pulse Ox O2 Delivery O2 Flow Rate FiO2 03/26/17 13:08 82 03/26/17 12:39 77 03/26/17 11:45 85 03/26/17 11:00 97.8 80 18 116/73 95 03/26/17 10:25 77 03/26/17 09:15 78 03/26/17 08:05 78 03/26/17 07:03 72 03/26/17 07:00 98.3 83 20 118/62 95 03/26/17 06:00 80 03/26/17 05:00 84 03/26/17 04:00 84 03/26/17 03:00 77 03/26/17 03:00 98.4 83 20 120/63 97 03/26/17 02:00 82 03/26/17 01:00 82 03/26/17 00:00 86 03/25/17 23:00 98.7 85 20 120/57 97 03/25/17 23:00 81 03/25/17 22:00 90 03/25/17 21:00 80 03/25/17 20:00 80 03/25/17 19:00 98.6 87 22 141/63 96 03/25/17 19:00 85 03/25/17 18:00 80 03/25/17 17:19 78 03/25/17 16:25 77 03/25/17 15:39 97.5 100 16 127/72 96 03/25/17 14:13 77 -: 03/26/17 0520 03/26/17 0520 Physical Exam General Appearance: Well Developed, Malnourished Neck Neck Exam: Neck Supple Pulmonary Resp Exam: Clear Bilaterally, Breath Sounds Equal Cardiology CV Exam: Regular, Normal Sinus Rhythm Gastrointestinal/Abdomen GI Exam: Soft, Bowel Sounds Present Musculoskeletal MS Exam: Joints Intact Integumentary Skin Exam: Intact Extremeties Extremities Exam: No Edema Neurologic Neuro Exam: Moving All Extremities Assessment/Plan Problem List: (1) ESRD (end stage renal disease) on dialysis Plan: Dialysis will be continue MWF. Dialysis later today. Monitor fluid and electrolyte status. Avoid Gadolinium. (2) STEMI (ST elevation myocardial infarction) Plan: cardiology following, s/p PCI with BMS placement to RCA on 03/24 on Brilinta, ASA, and Lipitor (3) Hypertension Plan: BP stable, contine present antihypertensives (4) Anemia Plan: Continue Epogen, stable Hemoglobin. (5) Metabolic bone disease Plan: On Renvela which will be continued. Phosphorus is acceptable. (6) Bladder mass Plan: s/p cystoscopy with tumor removal, follows with Dr. Velásquez Patient has muscle invasive urothelial cancer. Problem Qualifiers (1) STEMI (ST elevation myocardial infarction): Qualified Code: I21.19 - ST elevation myocardial infarction (STEMI) involving other coronary artery of inferior wall Chava Singh MD March 26, 2017 13:31
[2017-03-26] MEDS: methylPREDNISolone SOD SUCC 40 MG/1 ML VIAL IV PUSH SCH ×2 (13:34→22:23)
[2017-03-26] MEDS: EPOETIN ALFA 10,000 UNITS/ML VIAL IV PRN (15:20)
--- NOTE | 2017-03-26 15:22 | RADRPT ---
EXAM DATE/TIME: 03/26/2017 14:41 [facility] COMPARISON: CT ABDOMEN & PELVIS W/O CONTRAST, February 27, 2017, 17:31. INDICATIONS : Left upper quadrant pain. ORAL CONTRAST: Prescribed oral contrast ingested. RADIATION DOSE: 10.83 CTDIvol (mGy) MEDICAL HISTORY : Renal failure, chronic. Carcinoma, bladder. Cardiovascular diseaseHypertension, COPD. SURGICAL HISTORY : Cholecystectomy. CABG ENCOUNTER: Initial ACUITY: 1 day PAIN SCALE: 5/10 LOCATION: Left upper quadrant TECHNIQUE: Volumetric scanning of the abdomen and pelvis was performed. Using automated exposure control and ad justment of the mA and/or kV according to patient size, radiation dose was kept as low as reasonably achievable to obtain optimal diagnostic quality images. FINDINGS: LOWER LUNGS: Mild air space disease is identified in the right middle lobe, lingula and left lower lobe posteriorl y. LIVER: Homogeneous density without lesion. There is no dilation of the biliary tree. Gallbladder has been r emoved. SPLEEN: Normal size without lesion. PANCREAS: Within normal limits. KIDNEYS: Kidneys are small and demonstrate bilateral cortical thinning. There is significant vascular calcific ation bilaterally. There is no evidence of hydronephrosis. ADRENAL GLANDS: Within normal limits. VASCULAR: Extensive calcific atherosclerotic vascular disease is noted. Inferior vena cava filter is present. BOWEL/MESENTERY: The stomach, small bowel, and colon demonstrate no acute abnormality. There is no free intraperitone al air or fluid. ABDOMINAL WALL: Within normal limits. RETROPERITONEUM: There is no lymphadenopathy. BLADDER: Significant irregular wall thickening is noted throughout the urinary bladder. There is perivesicular stranding especially along the anterior margin of the bladder. REPRODUCTIVE: Uterus has been removed. INGUINAL: There is no lymphadenopathy or hernia. MUSCULOSKELETAL: No acute abnormality. CONCLUSION: New bibasilar airspace disease. Bilateral renal atrophy. Significant irregular thickening of the urinary bladder wall with indwelling Frankel. No evidence of acute intestinal process. Chris Cabral MD on March 26, 2017 at 15:13 Board Certified Radiologist. This report was verified electronically.
[2017-03-26] MEDS: TIROFIBAN INFUSION INJ 250 ML IV SCH (16:13)
[2017-03-26] MEDS: DOXYCYCLINE INJ 100 MG in SODIUM CHLORIDE 0.9% INJ 100 ML IV SCH (18:27)
[2017-03-26] MEDS: AMINOCAPROIC ACID INJ 3,000 MG in SODIUM CHLORIDE 0.9% IRR BAG 3,000 ML IRRIGATION SCH (19:24)
--- NOTE | 2017-03-26 20:12 | PD.CARD.PN ---
Subjective Subjective Remarks No CP but still c/o abdominal discomfort. Mild SOB. Less hematuria. Objective Medications Current Medications Medications (Trade) Dose Ordered Sig/Darinel Route Start Time Stop Time Status Last Admin (NS Flush) 2 ml UNSCH PRN IVF 03/24/17 12:15 (Tylenol) 325 mg Q4H PRN PO 03/24/17 16:15 (Restoril) 15 mg HS PRN PO 03/24/17 16:15 (Aspirin Chew) 81 mg DAILY PO 03/25/17 09:00 03/26/17 08:29 Ticagrelor 90 mg 90 mg BID PO 03/25/17 09:00 03/26/17 08:30 (Aggrastat Infusion Inj) 250 ml @ 7.02 mls/hr Q24H IV 03/24/17 16:13 (Lipitor) 80 mg HS PO 03/24/17 21:00 03/25/17 21:00 (Bumetanide) 1 mg DAILY PO 03/25/17 09:00 03/26/17 08:30 (Coreg) 6.25 mg BID PO 03/24/17 21:00 03/26/17 08:30 (Keflex) 250 mg TID PO 03/24/17 18:00 03/26/17 18:25 (Vitamin D3) 2,000 units DAILY PO 03/25/17 09:00 03/26/17 08:30 (Proscar) 5 mg DAILY PO 03/25/17 09:00 03/26/17 08:30 (Imdur) 30 mg DAILY PO 03/25/17 09:00 03/26/17 08:30 (Pyridium) 100 mg Q8H PRN PO 03/24/17 16:30 (Renvela) 800 mg DAILY PO 03/25/17 09:00 03/26/17 08:29 (Flomax) 0.4 mg BID PO 03/24/17 21:00 03/26/17 08:30 (Levemir Inj) 10 units HS SQ 03/24/17 21:00 03/24/17 22:30 (NovoLOG INJ) 5 units TIDAC SQ 03/24/17 17:00 03/25/17 08:00 (Protonix) 20 mg DAILY PO 03/25/17 09:00 03/26/17 08:30 (D50w (Vial) Inj) 25 ml UNSCH PRN IV PUSH 03/24/17 16:45 Glucagon 1 mg 1 mg UNSCH PRN OTHER 03/24/17 16:45 (NS 1000 ml Inj) 1,000 ml @ 0 mls/hr TITRATE PRN IV 03/24/17 18:00 (Heparin Inj) 8,000 units UNSCH PRN IV FLUSH 03/24/17 18:00 Heparin Sodium (Porcine) 1000 units 1,000 units Q1H PRN IV FLUSH 03/24/17 18:00 Sodium Chloride 1,000 ml @ 200 mls/hr Q5H PRN IV 03/24/17 18:00 (NS 250 ml Inj) 200 ml @ 0 mls/hr UNSCH PRN IV 03/24/17 18:00 (Mannitol Inj) 12.5 gm UNSCH PRN IV 03/24/17 18:00 03/26/17 15:21 (Albumin 25% Inj) 25 gm UNSCH PRN IV 03/24/17 18:00 03/24/17 19:55 (NS Flush) 5 ml UNSCH PRN IV FLUSH 03/24/17 18:00 (Heparin Inj) Dwell Heparin to f... UNSCH PRN OTHER 03/24/17 18:00 (Gentamicin (Dialysis) Inj) 10 mg UNSCH PRN OTHER 03/24/17 18:00 (Gelfoam 12 Mm/7 Mm Top) 1 foam UNSCH PRN TOPICAL 03/24/17 18:00 03/24/17 18:54 (Zofran Inj) 4 mg UNSCH PRN IV 03/24/17 18:00 03/24/17 22:26 (Benadryl) 25 mg UNSCH PRN PO 03/24/17 18:00 (Nitrostat Sl) 0.4 mg UNSCH PRN SL 03/24/17 18:00 (Catapres) 0.1 mg UNSCH PRN PO 03/24/17 18:00 Epoetin Rafael 74085 units 10,000 units UNSCH PRN IV 03/25/17 10:00 03/26/17 15:20 (Amicar Inj/NS Irr Bag) 3,012 ml @ 0 mls/hr TITRATE IRRIGATION 03/25/17 16:00 03/26/17 19:24 (Mucinex Er) 600 mg BID PO 03/25/17 21:00 03/26/17 08:29 Methylprednisolone Sodium Succinate 40 mg 40 mg Q8HR IV PUSH 03/26/17 13:30 03/26/17 13:34 (Vibramycin Inj/ NS Inj) 100 ml @ 100 mls/hr Q12H IV 03/26/17 17:00 03/26/17 18:27 Vital Signs / I&O Vital Signs Date Time Temp Pulse Resp B/P Pulse Ox O2 Delivery O2 Flow Rate FiO2 03/26/17 16:03 72 03/26/17 15:56 97.8 85 18 123/72 96 03/26/17 15:00 78 03/26/17 14:18 97 Nasal Cannula 2.00 03/26/17 14:00 72 03/26/17 13:08 82 03/26/17 12:39 77 03/26/17 11:45 85 03/26/17 11:00 97.8 80 18 116/73 95 03/26/17 10:25 77 03/26/17 09:15 78 03/26/17 08:05 78 03/26/17 07:03 72 03/26/17 07:00 98.3 83 20 118/62 95 03/26/17 06:00 80 03/26/17 05:00 84 03/26/17 04:00 84 03/26/17 03:00 77 03/26/17 03:00 98.4 83 20 120/63 97 03/26/17 02:00 82 03/26/17 01:00 82 03/26/17 00:00 86 03/25/17 23:00 98.7 85 20 120/57 97 03/25/17 23:00 81 03/25/17 22:00 90 03/25/17 21:00 80 I/O 03/25/17 03/25/17 03/25/17 03/26/17 03/26/17 03/26/17 07:00 15:00 23:00 07:00 15:00 23:00 Intake Total 320 ml 540 ml 895 ml Output Total 175 ml 200 ml 2550 ml 2500 ml Balance 145 ml 340 ml -2550 ml -1605 ml Intake Oral 240 ml 480 ml 850 ml IV Total 80 ml 60 ml 45 ml Output Urine Total 175 ml 200 ml 2550 ml Hemodialysis 2500 ml # Bowel Movements 0 0 1 Physical Exam GENERAL: In NAD. SKIN: Warm and dry. HEAD: Normocephalic. EYES: No scleral icterus. No injection or drainage. NECK: Supple, trachea midline. No JVD or lymphadenopathy. CARDIOVASCULAR: Regular rate and rhythm without murmurs, gallops, or rubs. RESPIRATORY: Breath sounds equal bilaterally. No accessory muscle use. GASTROINTESTINAL: Abdomen soft, non-tender, nondistended. MUSCULOSKELETAL: No cyanosis, or edema. Groin stable. Laboratory Laboratory Tests Test 03/26/17 05:20 White Blood Count 8.3 TH/MM3 Red Blood Count 3.21 MIL/MM3 Hemoglobin 9.4 GM/DL Hematocrit 29.6 % Mean Corpuscular Volume 92.0 FL Mean Corpuscular Hemoglobin 29.3 PG Mean Corpuscular Hemoglobin 31.8 % Concent Red Cell Distribution Width 19.7 % Platelet Count 130 TH/MM3 Mean Platelet Volume 10.1 FL Sodium Level 140 MEQ/L Potassium Level 4.2 MEQ/L Chloride Level 102 MEQ/L Carbon Dioxide Level 26.8 MEQ/L Anion Gap 11 MEQ/L Blood Urea Nitrogen 38 MG/DL Creatinine 6.28 MG/DL Estimat Glomerular Filtration 9 ML/MIN Rate Random Glucose 89 MG/DL Calcium Level 7.7 MG/DL Phosphorus Level 4.0 MG/DL Magnesium Level 1.9 MG/DL Albumin 2.7 GM/DL Imaging Last Impressions Modified Barium Swallow 03/26/17 0000 Signed Impressions: Service Date/Time: Sunday, March 26, 2017 10:57 - CONCLUSION: There is no evidence for aspiration. Jamal Jay MD FACR Abdomen/Pelvis CT 03/26/17 0000 Signed Impressions: Service Date/Time: Sunday, March 26, 2017 14:41 - CONCLUSION: New bibasilar airspace disease. Bilateral renal atrophy. Significant irregular thickening of the urinary bladder wall with indwelling Frankel. No evidence of acute intestinal process. Chris Cabral MD Chest X-Ray 03/25/17 0000 Signed Impressions: Service Date/Time: March 15:33 - CONCLUSION: Bibasilar densities likely atelectasis. Benji Martin MD Assessment and Plan Problem List: (1) ST elevation myocardial infarction (STEMI) of inferior wall (2) CAD (coronary artery disease) (3) ESRD (end stage renal disease) on dialysis (4) Bladder mass (5) Hypertension (6) Diabetes mellitus (7) COPD exacerbation (8) Hematuria, unspecified Assessment and Plan Stable from cardiac standpoint post FL and PCI. Continue Brilinta and baby ASA for at least one year. Continue post FL care with beta enmanuel and statin. Still has hematuria, followed by urology. Increase activity. Continue dialysis as per nephrology. May need GI evaluation. Continue monitoring. Rachael Eason MD March 26, 2017 20:12
[2017-03-26] MEDS ORDERED: ACETAMINOPHEN/HYDROcodone 325 MG/5 MG TAB PO ONE (22:15)
[2017-03-26] MEDS: ATORVASTATIN 80 MG TAB PO SCH (22:17)
[2017-03-26] MEDS: PHENAZOPYRIDINE HCL 100 MG TAB PO PRN (22:17)
[2017-03-27] VITALS (28 sets, daily range): BP systolic 106–144; BP diastolic 45–71; PULSE 68–109; RESP 16–20; TEMP 97.5–98.2; O2SAT 93–98
[2017-03-27] MEDS: OXYBUTYNIN CHLORIDE 5 MG TAB PO PRN ×2 (01:43→09:49)
[2017-03-27] MEDS: INSULIN DETEMIR 100 UNITS/ML VIAL SQ SCH ×2 (02:02→21:29)
[2017-03-27] MEDS: INSULIN ASPART SUPPLEMENTAL SCALE SQ SCH ×5 (02:04→21:28)
[2017-03-27 02:47] LABS: BICARBONATE 20.8 MEQ/L (21.0-32.0); MAGNESIUM 1.7 MG/DL (1.5-2.5); POTASSIUM 4.6 MEQ/L (3.5-5.1)
[2017-03-27] MEDS: DOXYCYCLINE INJ 100 MG in SODIUM CHLORIDE 0.9% INJ 100 ML IV SCH ×2 (04:09→17:51)
[2017-03-27] MEDS: methylPREDNISolone SOD SUCC 40 MG/1 ML VIAL IV PUSH SCH ×3 (06:00→21:45)
[2017-03-27] MEDS: PHENAZOPYRIDINE HCL 100 MG TAB PO PRN (06:35)
[2017-03-27 06:56] LABS: HEMATOCRIT 32.3 % (39.0-51.0); MEAN CELL VOLUME 91.4 FL (80.0-100.0); MEAN CORPUSCULAR HEMOGLOBIN 29.6 PG (27.0-34.0); MEAN CORPUSCULAR HGB CONC 32.4 % (32.0-36.0); PLATELET COUNT 182 TH/MM3 (150-450); RED BLOOD COUNT 3.54 MIL/MM3 (4.50-5.90); RED CELL DISTRIBUTION WIDTH 19.5 % (11.6-17.2); REVIEW FLAG FINAL; WHITE BLOOD COUNT 10.2 TH/MM3 (4.0-11.0)
[2017-03-27 07:14] LABS: BICARBONATE 26.7 MEQ/L (21.0-32.0); POTASSIUM 4.4 MEQ/L (3.5-5.1)
[2017-03-27] MEDS: RESP: ALBUTEROL 2.5 MG/IPRATROPIUM 0.5 MG NEB (SCH) NEB ×3 (08:06→19:13)
[2017-03-27] MEDS: INSULIN ASPART 1,000 UNITS/10 ML VIAL SQ SCH ×3 (09:47→16:56)
[2017-03-27] MEDS: CEPHALEXIN MONOHYDRATE 250 MG CAP PO SCH ×3 (09:48→17:51)
[2017-03-27] MEDS: TAMSULOSIN HCL 0.4 MG CAP PO SCH ×2 (09:49→21:45)
[2017-03-27] MEDS: ISOSORBIDE MONONITRATE 30 MG TAB PO SCH (09:49)
[2017-03-27] MEDS: ASPIRIN 81 MG CHEW TAB PO SCH (09:49)
[2017-03-27] MEDS: PANTOPRAZOLE SOD 20 MG DELAYED RELEASE TAB PO SCH (09:49)
[2017-03-27] MEDS: BUMETANIDE 1 MG TAB PO SCH (09:49)
[2017-03-27] MEDS: SEVELAMER CARBONATE 800 MG TAB PO SCH (09:49)
[2017-03-27] MEDS: CHOLECALCIFEROL (VIT D3) 1000 UNIT TAB PO SCH (09:49)
[2017-03-27] MEDS: TICAGRELOR 90 MG TAB PO SCH ×2 (09:49→21:44)
[2017-03-27] MEDS: CARVEDILOL 6.25 MG TAB PO SCH (09:49)
[2017-03-27] MEDS: guaiFENesin E.R. 600 MG TAB PO SCH ×2 (09:50→21:44)
--- NOTE | 2017-03-27 10:22 | RADRPT ---
EXAM DATE/TIME: 03/27/2017 08:00 [facility] COMPARISON: CT ABDOMEN & PELVIS W/O CONTRAST, March 26, 2017, 14:41. INDICATIONS : Blockage. MEDICAL HISTORY : Arthritis. Myocardial infarction. Hypercholesterolemia. Cataracts. CVA. Seizures. Heart attack. CHF. Coronary artery disease. Angina. HTN. COPD. GERD. Chronic renal failure. Bladder cancer. Skin cancer. DVT. LUE fistula. SURGICAL HISTORY : Total knee replacement, left. Cholecystectomy. Bilateral cataract extraction. Skin cancer removal f rom neck and left forearm. Right toe amputation. Coronary artery bypass graft. Genitourinary surgery. ENCOUNTER: Initial ACUITY: 3 days PAIN SCORE: 8/10 LOCATION: Bilateral lower quadrant MEASUREMENTS: RIGHT KIDNEY: 10.7 x 4.7 x 5.0 cm LEFT KIDNEY: 8.4 x 4.3 x 5.2 cm FINDINGS: There is thinning of the renal cortex bilaterally. No hydronephrosis. No masses or obvious renal calc jessica. Mixed echogenicity within the dependent portion of the urinary bladder is seen. No color flow. N o bladder wall thickening. Frankel catheter not well seen. CONCLUSION: 1. No hydronephrosis. 2. Mixed echogenicity noted within the urinary bladder likely debris which may represent hematoma. Benji Martin MD on March 27, 2017 at 10:15 Board Certified Radiologist. This report was verified electronically.
[2017-03-27] MEDS: FINASTERIDE 5 MG TAB PO SCH (10:28)
[2017-03-27] MEDS ORDERED: HYDROmorphone HCL PF 1 MG/ML VIAL IV PUSH ONE (11:00)
[2017-03-27] MEDS ORDERED: CARVEDILOL 6.25 MG TAB PO ONE (11:00)
--- NOTE | 2017-03-27 11:03 | HHI.PR ---
Subjective Remarks The patient indicated discomfort around his bladder. He said that the Frankel needs to come out. He says the breathing treatments have been helping. He denies chest pain or shortness of breath. Discussed with family and nursing. Objective Vitals Vital Signs Date Time Temp Pulse Resp B/P Pulse Ox O2 Delivery O2 Flow Rate FiO2 03/27/17 08:08 98 Nasal Cannula 2.00 03/27/17 08:00 98.2 97 16 144/68 98 03/27/17 07:00 108 03/27/17 06:00 96 03/27/17 05:00 94 03/27/17 04:00 98 03/27/17 03:00 109 03/27/17 03:00 97.9 82 16 123/70 98 03/27/17 02:00 94 03/27/17 01:00 106 03/27/17 00:00 100 03/26/17 23:00 104 03/26/17 23:00 98.0 83 16 135/73 99 03/26/17 22:00 116 03/26/17 21:00 102 03/26/17 21:00 98 Nasal Cannula 2.00 03/26/17 20:00 98 03/26/17 19:00 98.8 104 16 144/67 99 03/26/17 19:00 107 03/26/17 16:03 72 03/26/17 15:56 97.8 85 18 123/72 96 03/26/17 15:00 78 03/26/17 14:18 97 Nasal Cannula 2.00 03/26/17 14:00 72 03/26/17 13:08 82 03/26/17 12:39 77 03/26/17 11:45 85 03/26/17 11:00 97.8 80 18 116/73 95 I/O 03/26/17 03/26/17 03/26/17 03/27/17 03/27/17 03/27/17 07:00 15:00 23:00 07:00 15:00 23:00 Intake Total 895 ml 480 ml Output Total 2550 ml 2500 ml 100 ml Balance -2550 ml -1605 ml 380 ml Intake Oral 850 ml 480 ml IV Total 45 ml Output Urine Total 2550 ml 100 ml Hemodialysis 2500 ml # Bowel Movements 1 5 Result Diagram: 03/27/1761903/27/17 06 Imaging Last Impressions Renal Ultrasound 03/27/17 0000 Signed Impressions: Service Date/Time: Monday, March 27, 2017 08:00 - CONCLUSION: 1. No hydronephrosis. 2. Mixed echogenicity noted within the urinary bladder likely debris which may represent hematoma. Benji Martin MD Modified Barium Swallow 03/26/17 0000 Signed Impressions: Service Date/Time: Sunday, March 26, 2017 10:57 - CONCLUSION: There is no evidence for aspiration. Jamal Jay MD FACR Abdomen/Pelvis CT 03/26/17 0000 Signed Impressions: Service Date/Time: Sunday, March 26, 2017 14:41 - CONCLUSION: New bibasilar airspace disease. Bilateral renal atrophy. Significant irregular thickening of the urinary bladder wall with indwelling Frankel. No evidence of acute intestinal process. Chris Cabral MD Chest X-Ray 03/25/17 0000 Signed Impressions: Service Date/Time: March 15:33 - CONCLUSION: Bibasilar densities likely atelectasis. Benji Martin MD Objective Remarks GENERAL: Mildly uncomfortable. SKIN: Focused skin assessment warm/dry. HEAD: Atraumatic. Normocephalic. EYES: Pupils equal and round. No scleral icterus. No injection or drainage. ENT: No nasal bleeding or discharge. Mucous membranes pink and moist. NECK: Trachea midline. No JVD. CARDIOVASCULAR: Regular rate and rhythm. No murmur appreciated. RESPIRATORY: Mild diffuse wheezing. GASTROINTESTINAL: Abdomen soft, slight tenderness in the lower quadrants, nondistended. No rebound tenderness or guarding. : Frankel in place, gross hematuria. MUSCULOSKELETAL: No obvious deformities. No clubbing. No cyanosis. Pedal pulses not palpable. NEUROLOGICAL: Awake and alert. No obvious cranial nerve deficits. Motor grossly within normal limits. Normal speech. PSYCHIATRIC: Appropriate mood and affect; insight and judgment normal. Medications and IVs Current Medications Medications (Trade) Dose Ordered Sig/Darinel Route Start Time Stop Time Status Last Admin (NS Flush) 2 ml UNSCH PRN IVF 03/24/17 12:15 (Tylenol) 325 mg Q4H PRN PO 03/24/17 16:15 (Restoril) 15 mg HS PRN PO 03/24/17 16:15 (Aspirin Chew) 81 mg DAILY PO 03/25/17 09:00 03/27/17 09:49 Ticagrelor 90 mg 90 mg BID PO 03/25/17 09:00 03/27/17 09:49 (Aggrastat Infusion Inj) 250 ml @ 7.02 mls/hr Q24H IV 03/24/17 16:13 (Lipitor) 80 mg HS PO 03/24/17 21:00 03/26/17 22:17 (Bumetanide) 1 mg DAILY PO 03/25/17 09:00 03/27/17 09:49 (Keflex) 250 mg TID PO 03/24/17 18:00 03/27/17 09:48 (Vitamin D3) 2,000 units DAILY PO 03/25/17 09:00 03/27/17 09:49 (Proscar) 5 mg DAILY PO 03/25/17 09:00 03/27/17 10:28 (Imdur) 30 mg DAILY PO 03/25/17 09:00 03/27/17 09:49 (Pyridium) 100 mg Q8H PRN PO 03/24/17 16:30 03/27/17 06:35 (Renvela) 800 mg DAILY PO 03/25/17 09:00 03/27/17 09:49 (Flomax) 0.4 mg BID PO 03/24/17 21:00 03/27/17 09:49 (Levemir Inj) 10 units HS SQ 03/24/17 21:00 03/27/17 02:02 (NovoLOG INJ) 5 units TIDAC SQ 03/24/17 17:00 03/25/17 08:00 (Protonix) 20 mg DAILY PO 03/25/17 09:00 03/27/17 09:49 (D50w (Vial) Inj) 25 ml UNSCH PRN IV PUSH 03/24/17 16:45 Glucagon 1 mg 1 mg UNSCH PRN OTHER 03/24/17 16:45 (NS 1000 ml Inj) 1,000 ml @ 0 mls/hr TITRATE PRN IV 03/24/17 18:00 (Heparin Inj) 8,000 units UNSCH PRN IV FLUSH 03/24/17 18:00 Heparin Sodium (Porcine) 1000 units 1,000 units Q1H PRN IV FLUSH 03/24/17 18:00 Sodium Chloride 1,000 ml @ 200 mls/hr Q5H PRN IV 03/24/17 18:00 (NS 250 ml Inj) 200 ml @ 0 mls/hr UNSCH PRN IV 03/24/17 18:00 (Mannitol Inj) 12.5 gm UNSCH PRN IV 03/24/17 18:00 03/26/17 15:21 (Albumin 25% Inj) 25 gm UNSCH PRN IV 03/24/17 18:00 03/24/17 19:55 (NS Flush) 5 ml UNSCH PRN IV FLUSH 03/24/17 18:00 (Heparin Inj) Dwell Heparin to f... UNSCH PRN OTHER 03/24/17 18:00 (Gentamicin (Dialysis) Inj) 10 mg UNSCH PRN OTHER 03/24/17 18:00 (Gelfoam 12 Mm/7 Mm Top) 1 foam UNSCH PRN TOPICAL 03/24/17 18:00 03/24/17 18:54 (Zofran Inj) 4 mg UNSCH PRN IV 03/24/17 18:00 03/24/17 22:26 (Benadryl) 25 mg UNSCH PRN PO 03/24/17 18:00 (Nitrostat Sl) 0.4 mg UNSCH PRN SL 03/24/17 18:00 (Catapres) 0.1 mg UNSCH PRN PO 03/24/17 18:00 Epoetin Rafael 40818 units 10,000 units UNSCH PRN IV 03/25/17 10:00 03/26/17 15:20 (Amicar Inj/NS Irr Bag) 3,012 ml @ 0 mls/hr TITRATE IRRIGATION 03/25/17 16:00 03/26/17 19:24 (Mucinex Er) 600 mg BID PO 03/25/17 21:00 03/27/17 09:50 Methylprednisolone Sodium Succinate 40 mg 40 mg Q8HR IV PUSH 03/26/17 13:30 03/26/17 22:23 (Vibramycin Inj/ NS Inj) 100 ml @ 100 mls/hr Q12H IV 03/26/17 17:00 03/27/17 04:09 (Ditropan) 5 mg Q8H PRN PO 03/27/17 01:00 03/27/17 09:49 (Coreg) 12.5 mg BID PO 03/27/17 21:00 UNV (Coreg) 6.25 mg ONCE ONCE PO 03/27/17 11:00 03/27/17 11:01 (Roxicodone) 5 mg Q4H PRN PO 03/27/17 11:00 (Dilaudid Pf Inj) 0.5 mg ONCE ONCE IV PUSH 03/27/17 11:00 03/27/17 11:01 A/P Assessment and Plan STEMI EKG revealed ST elevations in the inferior leads with reciprocal ST depressions. Troponin was 0.75. The patient was taken to the [facility] and a stent was placed to the graft of the RCA. The patient had a run of V. tach . - Continue medication regimen per cardiology. Increase Coreg to 12.5 mg BID. - Telemetry. - Oxygen and pain meds as needed. - monitor lytes and replete as needed. CHF BNP markedly elevated. Has a history of CAD s/p CABG. - continue Bumex. - dialysis for volume management. - follow Is and Os. - follow up with cardiology. ESRD The patient is on hemodialysis. Will need dialysis soon s/t dye load from cath. Nephrology consult appreciated. - Follow BMP. Kayexalate as needed. - Continue diuretics. - dialysis per nephrology. N/V/ Abdominal pain N/V seems to have resolved but pt complains of chronic diffuse abdominal pain. Negative CT in February. LFTs and lipase unremarkable. Possibly s/t GERD, PUD or bladder cancer. CT showed: New bibasilar airspace disease; Bilateral renal atrophy; Significant irregular thickening of the urinary bladder wall with indwelling Frankel; No evidence of acute intestinal process. - Antiemetics and pain meds as needed. - Advance diet as tolerated. - PPI. Cough/ Aspiration/ COPD Likely secondary to chronic bronchitis. The patient also acknowledges some difficulty swallowing. Speech recommending NPO status. CXR with bibasilar densities, likely atelectasis. Barium negative for aspiration. Pt with diffuse wheezing. - diet per speech. - Solumedrol and standing nebs. - IS. - oxygen as needed. - doxycycline added. 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 - Physical therapy. - Continue medical regimen. Bladder tumors/ Hematuria The patient had recent bladder tumor removal on Wednesday. He has hematuria and a Frankel in place. Urology consult appreciated. 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 Frankel not draining well 03/27. Renal US without hydronephrosis. - Continue blood thinners per cardiology. - 3 way Frankel per urology. Will likely need to be replaced. - Follow CBC and transfuse as needed. PPx: SCDs. Discharge Planning Awaiting clinical improvement. Feliciano Echeverria DO March 27, 2017 11:03
[2017-03-27] MEDS ORDERED: BELLADONNA ALKALOIDS/OPIUM 60 MG SUPP RECTAL ONE (11:15)
--- NOTE | 2017-03-27 13:13 | HHI.NPPN ---
Subjective Additional Remarks c/o bladder spasm Review of Systems General Constitutional: Fatigue Gastrointestinal Gastrointestinal: Abdominal Pain Genitourinary Remarks hematuria Objective Data Data 03/26/17 03/27/17 19:00 07:00 Intake Total 1375 ml Output Total 2500 ml 100 ml Balance -2500 ml 1275 ml Intake Oral 1330 ml IV Total 45 ml Output Urine Total 100 ml Hemodialysis 2500 ml # Bowel Movements 6 Vital Signs Date Time Temp Pulse Resp B/P Pulse Ox O2 Delivery O2 Flow Rate FiO2 03/27/17 13:04 87 03/27/17 12:05 88 03/27/17 11:30 98.1 75 16 112/45 93 03/27/17 11:00 102 03/27/17 10:00 104 03/27/17 09:00 100 03/27/17 08:08 98 Nasal Cannula 2.00 03/27/17 08:00 96 03/27/17 08:00 98.2 97 16 144/68 98 03/27/17 07:00 108 03/27/17 06:00 96 03/27/17 05:00 94 03/27/17 04:00 98 03/27/17 03:00 109 03/27/17 03:00 97.9 82 16 123/70 98 03/27/17 02:00 94 03/27/17 01:00 106 03/27/17 00:00 100 03/26/17 23:00 104 03/26/17 23:00 98.0 83 16 135/73 99 03/26/17 22:00 116 03/26/17 21:00 102 03/26/17 21:00 98 Nasal Cannula 2.00 03/26/17 20:00 98 03/26/17 19:00 98.8 104 16 144/67 99 03/26/17 19:00 107 03/26/17 16:03 72 03/26/17 15:56 97.8 85 18 123/72 96 03/26/17 15:00 78 03/26/17 14:18 97 Nasal Cannula 2.00 03/26/17 14:00 72 -: 03/27/17 0620 03/27/17 0620 Physical Exam General Appearance: Well Developed, Malnourished Neck Neck Exam: Neck Supple Pulmonary Resp Exam: Clear Bilaterally, Breath Sounds Equal Cardiology CV Exam: Regular, Normal Sinus Rhythm Gastrointestinal/Abdomen GI Exam: Soft, Bowel Sounds Present Musculoskeletal MS Exam: Joints Intact Integumentary Skin Exam: Intact Extremeties Extremities Exam: No Edema Neurologic Neuro Exam: Moving All Extremities Assessment/Plan Problem List: (1) ESRD (end stage renal disease) on dialysis Plan: Dialysis will be continue MWF. Dialysis yesterday Monitor fluid and electrolyte status. Avoid Gadolinium. (2) STEMI (ST elevation myocardial infarction) Plan: cardiology following, s/p PCI with BMS placement to RCA on 03/24 on Brilinta, ASA, and Lipitor (3) Hypertension Plan: BP stable, contine present antihypertensives (4) Anemia Plan: Continue Epogen, stable Hemoglobin. (5) Metabolic bone disease Plan: On Renvela which will be continued. Phosphorus is acceptable. (6) Bladder mass Plan: s/p cystoscopy with tumor removal, follows with Dr. Velásquez Patient has muscle invasive urothelial cancer. he has dysuria await Urology follow up 3 way Frankel malfunction Problem Qualifiers (1) STEMI (ST elevation myocardial infarction): Qualified Code: I21.19 - ST elevation myocardial infarction (STEMI) involving other coronary artery of inferior wall Nicci Rock MD March 27, 2017 13:13
--- NOTE | 2017-03-27 14:21 | PD.CARD.PN ---
Subjective Subjective Remarks PT STABLE BUT STILL HAVING CP HAS NS VT CREAT 5.1 CBI CONTINUES WHEEZING AND RONCHI RRR NO S3 OR S4 2/6 FEI NO EDEMA ON DAPT + COREG HCT 32 P PCI RCA/SVG CHANO X 2 CONT CURRENT R WILL /\ CARVEDILOL Objective Vital Signs / I&O Vital Signs Date Time Temp Pulse Resp B/P Pulse Ox O2 Delivery O2 Flow Rate FiO2 03/27/17 14:02 86 03/27/17 13:12 94 Nasal Cannula 2.00 03/27/17 13:04 87 03/27/17 12:05 88 03/27/17 11:30 98.1 75 16 112/45 93 03/27/17 11:00 102 03/27/17 10:00 104 03/27/17 09:00 100 03/27/17 08:08 98 Nasal Cannula 2.00 03/27/17 08:00 96 03/27/17 08:00 98.2 97 16 144/68 98 03/27/17 07:00 108 03/27/17 06:00 96 03/27/17 05:00 94 03/27/17 04:00 98 03/27/17 03:00 109 03/27/17 03:00 97.9 82 16 123/70 98 03/27/17 02:00 94 03/27/17 01:00 106 03/27/17 00:00 100 03/26/17 23:00 104 03/26/17 23:00 98.0 83 16 135/73 99 03/26/17 22:00 116 03/26/17 21:00 102 03/26/17 21:00 98 Nasal Cannula 2.00 03/26/17 20:00 98 03/26/17 19:00 98.8 104 16 144/67 99 03/26/17 19:00 107 03/26/17 16:03 72 03/26/17 15:56 97.8 85 18 123/72 96 03/26/17 15:00 78 03/26/17 14:18 97 Nasal Cannula 2.00 I/O 03/26/17 03/26/17 03/26/17 03/27/17 03/27/17 03/27/17 07:00 15:00 23:00 07:00 15:00 23:00 Intake Total 895 ml 480 ml Output Total 2550 ml 2500 ml 100 ml Balance -2550 ml -1605 ml 380 ml Intake Oral 850 ml 480 ml IV Total 45 ml Output Urine Total 2550 ml 100 ml Hemodialysis 2500 ml # Bowel Movements 1 5 Laboratory Laboratory Tests Test 03/27/17 03/27/17 01:55 06:20 Sodium Level 137 MEQ/L 139 MEQ/L Potassium Level 4.6 MEQ/L 4.4 MEQ/L Chloride Level 97 MEQ/L 96 MEQ/L Carbon Dioxide Level 20.8 MEQ/L 26.7 MEQ/L Anion Gap 19 MEQ/L 16 MEQ/L Blood Urea Nitrogen 32 MG/DL 36 MG/DL Creatinine 4.38 MG/DL 5.07 MG/DL Estimat Glomerular Filtration 13 ML/MIN 11 ML/MIN Rate Random Glucose 215 MG/DL 159 MG/DL Calcium Level 8.0 MG/DL 8.1 MG/DL Magnesium Level 1.7 MG/DL 2.0 MG/DL White Blood Count 10.2 TH/MM3 Red Blood Count 3.54 MIL/MM3 Hemoglobin 10.5 GM/DL Hematocrit 32.3 % Mean Corpuscular Volume 91.4 FL Mean Corpuscular Hemoglobin 29.6 PG Mean Corpuscular Hemoglobin 32.4 % Concent Red Cell Distribution Width 19.5 % Platelet Count 182 TH/MM3 Mean Platelet Volume 10.4 FL Assessment and Plan Problem List: (1) ST elevation myocardial infarction (STEMI) of inferior wall (2) CAD (coronary artery disease) (3) ESRD (end stage renal disease) on dialysis (4) Bladder mass (5) Hypertension (6) Diabetes mellitus (7) COPD exacerbation (8) Hematuria, unspecified Jeremiah Hill DO March 27, 2017 14:21
--- NOTE | 2017-03-27 15:00 | RADRPT ---
EXAM DATE/TIME: 03/27/2017 14:45 [facility] COMPARISON: CHEST SINGLE AP, March 25, 2017, 15:33. INDICATIONS : Chest and neck pain with shortness of breath. MEDICAL HISTORY : Congestive heart failure. Chronic obstructive pulmonary disease. Emphysema. SURGICAL HISTORY : Stent placement. ENCOUNTER: Initial ACUITY: 1 week PAIN SCORE: 5/10 LOCATION: Bilateral lower chest FINDINGS: A single view of the chest demonstrates cardiomegaly with previous CABG and minimal left basilar dens ity. Osseous structures are intact. CONCLUSION: Minimal left basilar density likely atelectasis. Benji Martin MD on March 27, 2017 at 14:57 Board Certified Radiologist. This report was verified electronically.
--- NOTE | 2017-03-27 17:10 | HHI.PR ---
Subjective Patient symptoms today Called as patient was having significant discomfort. CBI was running with no urine output from the strong, but only around it. CBI was tunred off, patient comfortable, however no UOP from the catheter, only around it. Objective Vital Signs Vital Signs Date Time Temp Pulse Resp B/P Pulse Ox O2 Delivery O2 Flow Rate FiO2 03/27/17 15:00 85 03/27/17 14:02 86 03/27/17 13:12 94 Nasal Cannula 2.00 03/27/17 13:04 87 03/27/17 12:05 88 03/27/17 11:30 98.1 75 16 112/45 93 03/27/17 11:00 102 03/27/17 10:00 104 03/27/17 09:00 100 03/27/17 08:08 98 Nasal Cannula 2.00 03/27/17 08:00 96 03/27/17 08:00 98.2 97 16 144/68 98 03/27/17 07:00 108 03/27/17 06:00 96 03/27/17 05:00 94 03/27/17 04:00 98 03/27/17 03:00 109 03/27/17 03:00 97.9 82 16 123/70 98 03/27/17 02:00 94 03/27/17 01:00 106 03/27/17 00:00 100 03/26/17 23:00 104 03/26/17 23:00 98.0 83 16 135/73 99 03/26/17 22:00 116 03/26/17 21:00 102 03/26/17 21:00 98 Nasal Cannula 2.00 03/26/17 20:00 98 03/26/17 19:00 98.8 104 16 144/67 99 03/26/17 19:00 107 Intake & Output 03/27/17 03/27/17 07:00 19:00 Intake Total 1375 ml Output Total 100 ml Balance 1275 ml Intake Oral 1330 ml IV Total 45 ml Output Urine Total 100 ml # Bowel Movements 6 Result Diagram: 03/27/17 0620 03/27/17619 Imaging Last 24 hours Impressions Renal Ultrasound 03/27/17 0000 Signed Impressions: Service Date/Time: Monday, March 27, 2017 08:00 - CONCLUSION: 1. No hydronephrosis. 2. Mixed echogenicity noted within the urinary bladder likely debris which may represent hematoma. Benji Martin MD Chest X-Ray 03/27/17 0000 Signed Impressions: Service Date/Time: Monday, March 27, 2017 14:45 - CONCLUSION: Minimal left basilar density likely atelectasis. Benji Martin MD Objective Remarks Strong catheter appears to be out of position in the urethra. Unable to irrigate. Abdominal tenderness noted Medications and IVs Current Medications Medications (Trade) Dose Ordered Sig/Darinel Route Start Time Stop Time Status Last Admin (NS Flush) 2 ml UNSCH PRN IVF 03/24/17 12:15 (Tylenol) 325 mg Q4H PRN PO 03/24/17 16:15 (Restoril) 15 mg HS PRN PO 03/24/17 16:15 (Aspirin Chew) 81 mg DAILY PO 03/25/17 09:00 03/27/17 09:49 Ticagrelor 90 mg 90 mg BID PO 03/25/17 09:00 03/27/17 09:49 (Aggrastat Infusion Inj) 250 ml @ 7.02 mls/hr Q24H IV 03/24/17 16:13 (Lipitor) 80 mg HS PO 03/24/17 21:00 03/26/17 22:17 (Bumetanide) 1 mg DAILY PO 03/25/17 09:00 03/27/17 09:49 (Keflex) 250 mg TID PO 03/24/17 18:00 03/27/17 11:39 (Vitamin D3) 2,000 units DAILY PO 03/25/17 09:00 03/27/17 09:49 (Proscar) 5 mg DAILY PO 03/25/17 09:00 03/27/17 10:28 (Imdur) 30 mg DAILY PO 03/25/17 09:00 03/27/17 09:49 (Pyridium) 100 mg Q8H PRN PO 03/24/17 16:30 03/27/17 06:35 (Renvela) 800 mg DAILY PO 03/25/17 09:00 03/27/17 09:49 (Flomax) 0.4 mg BID PO 03/24/17 21:00 03/27/17 09:49 (Levemir Inj) 10 units HS SQ 03/24/17 21:00 03/27/17 02:02 (NovoLOG INJ) 5 units TIDAC SQ 03/24/17 17:00 03/25/17 08:00 (Protonix) 20 mg DAILY PO 03/25/17 09:00 03/27/17 09:49 (D50w (Vial) Inj) 25 ml UNSCH PRN IV PUSH 03/24/17 16:45 Glucagon 1 mg 1 mg UNSCH PRN OTHER 03/24/17 16:45 (NS 1000 ml Inj) 1,000 ml @ 0 mls/hr TITRATE PRN IV 03/24/17 18:00 (Heparin Inj) 8,000 units UNSCH PRN IV FLUSH 03/24/17 18:00 Heparin Sodium (Porcine) 1000 units 1,000 units Q1H PRN IV FLUSH 03/24/17 18:00 Sodium Chloride 1,000 ml @ 200 mls/hr Q5H PRN IV 03/24/17 18:00 (NS 250 ml Inj) 200 ml @ 0 mls/hr UNSCH PRN IV 03/24/17 18:00 (Mannitol Inj) 12.5 gm UNSCH PRN IV 03/24/17 18:00 03/26/17 15:21 (Albumin 25% Inj) 25 gm UNSCH PRN IV 03/24/17 18:00 03/24/17 19:55 (NS Flush) 5 ml UNSCH PRN IV FLUSH 03/24/17 18:00 (Heparin Inj) Dwell Heparin to f... UNSCH PRN OTHER 03/24/17 18:00 (Gentamicin (Dialysis) Inj) 10 mg UNSCH PRN OTHER 03/24/17 18:00 (Gelfoam 12 Mm/7 Mm Top) 1 foam UNSCH PRN TOPICAL 03/24/17 18:00 03/24/17 18:54 (Zofran Inj) 4 mg UNSCH PRN IV 03/24/17 18:00 03/24/17 22:26 (Benadryl) 25 mg UNSCH PRN PO 03/24/17 18:00 (Nitrostat Sl) 0.4 mg UNSCH PRN SL 03/24/17 18:00 (Catapres) 0.1 mg UNSCH PRN PO 03/24/17 18:00 Epoetin Rafael 30494 units 10,000 units UNSCH PRN IV 03/25/17 10:00 03/26/17 15:20 (Amicar Inj/NS Irr Bag) 3,012 ml @ 0 mls/hr TITRATE IRRIGATION 03/25/17 16:00 03/26/17 19:24 (Mucinex Er) 600 mg BID PO 03/25/17 21:00 03/27/17 09:50 Methylprednisolone Sodium Succinate 40 mg 40 mg Q8HR IV PUSH 03/26/17 13:30 03/27/17 13:37 (Vibramycin Inj/ NS Inj) 100 ml @ 100 mls/hr Q12H IV 03/26/17 17:00 03/27/17 04:09 (Ditropan) 5 mg Q8H PRN PO 03/27/17 01:00 03/27/17 09:49 (Roxicodone) 5 mg Q4H PRN PO 03/27/17 11:00 (Coreg) 12.5 mg Q8HR PO 03/27/17 15:00 Assessment and Plan Assessment and Plan -Strong catheter balloon deflated and catheter advanced into bladder. -Successful irrigation with 1L saline after manipulation with minimal clots -CBI resumed with clear urine on moderate rate -Maintain CBI overnight. May titrate -Strong catheter to be removed per Dr. Velásquez's orders Jamey Ford MD March 27, 2017 17:10
[2017-03-27] MEDS: CARVEDILOL 12.5 MG TAB PO SCH ×2 (17:51→21:44)
[2017-03-27] MEDS: AMINOCAPROIC ACID INJ 3,000 MG in SODIUM CHLORIDE 0.9% IRR BAG 3,000 ML IRRIGATION SCH (17:52)
[2017-03-27] MEDS: TIROFIBAN INFUSION INJ 250 ML IV SCH (18:03)
[2017-03-27] MEDS ORDERED: CARVEDILOL 12.5 MG TAB PO SCH (21:00)
[2017-03-27] MEDS: ATORVASTATIN 80 MG TAB PO SCH (21:44)
[2017-03-28] VITALS (27 sets, daily range): BP systolic 100–117; BP diastolic 45–60; PULSE 62–81; RESP 18–22; TEMP 97.6–99.1; O2SAT 93–98
[2017-03-28] MEDS: CARVEDILOL 12.5 MG TAB PO SCH ×3 (06:00→21:55)
[2017-03-28] MEDS: DOXYCYCLINE INJ 100 MG in SODIUM CHLORIDE 0.9% INJ 100 ML IV SCH ×2 (06:00→17:40)
[2017-03-28] MEDS: methylPREDNISolone SOD SUCC 40 MG/1 ML VIAL IV PUSH SCH ×2 (06:00→17:40)
[2017-03-28] MEDS: INSULIN ASPART SUPPLEMENTAL SCALE SQ SCH ×4 (06:00→22:07)
[2017-03-28] MEDS: RESP: ALBUTEROL 2.5 MG/IPRATROPIUM 0.5 MG NEB (SCH) NEB ×3 (07:58→19:44)
[2017-03-28] MEDS: CHOLECALCIFEROL (VIT D3) 1000 UNIT TAB PO SCH (08:56)
[2017-03-28] MEDS: FINASTERIDE 5 MG TAB PO SCH (08:57)
[2017-03-28] MEDS: TICAGRELOR 90 MG TAB PO SCH ×2 (08:57→21:55)
[2017-03-28] MEDS: BUMETANIDE 1 MG TAB PO SCH (08:57)
[2017-03-28] MEDS: ISOSORBIDE MONONITRATE 30 MG TAB PO SCH (08:57)
[2017-03-28] MEDS: ASPIRIN 81 MG CHEW TAB PO SCH (08:57)
[2017-03-28] MEDS: CEPHALEXIN MONOHYDRATE 250 MG CAP PO SCH ×3 (08:57→17:40)
[2017-03-28] MEDS: TAMSULOSIN HCL 0.4 MG CAP PO SCH ×2 (08:57→21:54)
[2017-03-28] MEDS: SEVELAMER CARBONATE 800 MG TAB PO SCH (08:57)
[2017-03-28] MEDS: guaiFENesin E.R. 600 MG TAB PO SCH ×2 (08:57→21:54)
[2017-03-28] MEDS: INSULIN ASPART 1,000 UNITS/10 ML VIAL SQ SCH ×3 (08:58→17:41)
[2017-03-28] MEDS ORDERED: ALUMINUM/MAGNESIUM/SIMETH 30 ML CUP PO ONE (09:00)
[2017-03-28] MEDS ORDERED: PANTOPRAZOLE SOD 20 MG DELAYED RELEASE TAB PO SCH (09:00)
--- NOTE | 2017-03-28 09:00 | HHI.PR ---
Subjective Remarks The patient stated that his urinary pain was better. He still complained of upper abdominal discomfort. The patient has been passing a lot of gas. His breathing is improving with the nebulizers. Family at the bedside. Discussed with nursing. Objective Vitals Vital Signs Date Time Temp Pulse Resp B/P Pulse Ox O2 Delivery O2 Flow Rate FiO2 03/28/17 07:59 93 Nasal Cannula 2.00 03/28/17 06:00 68 03/28/17 05:00 66 03/28/17 04:00 68 03/28/17 03:00 99.1 68 22 105/54 96 03/28/17 03:00 66 03/28/17 02:00 68 03/28/17 01:00 72 03/28/17 00:00 68 03/27/17 23:00 97.9 79 20 106/60 97 03/27/17 23:00 76 03/27/17 22:00 68 03/27/17 21:00 82 03/27/17 20:00 82 03/27/17 19:15 98 Nasal Cannula 2.00 03/27/17 19:00 82 03/27/17 19:00 97.6 84 20 117/64 98 03/27/17 18:00 84 03/27/17 17:00 88 03/27/17 16:00 86 03/27/17 15:00 85 03/27/17 15:00 97.5 79 16 140/71 97 03/27/17 14:02 86 03/27/17 13:12 94 Nasal Cannula 2.00 03/27/17 13:04 87 03/27/17 12:05 88 03/27/17 11:30 98.1 75 16 112/45 93 03/27/17 11:00 102 03/27/17 10:00 104 03/27/17 09:00 100 I/O 03/27/17 03/27/17 03/27/17 03/28/17 03/28/17 03/28/17 07:00 15:00 23:00 07:00 15:00 23:00 Intake Total 480 ml 420 ml 340 ml Output Total 100 ml 1100 ml Balance 380 ml 420 ml -760 ml Intake Oral 480 ml 420 ml 240 ml IV Total 100 ml Output Urine Total 100 ml 1100 ml # Bowel Movements 5 0 Result Diagram: 03/27/1761903/27/17619 Imaging Last Impressions Renal Ultrasound 03/27/17 0000 Signed Impressions: Service Date/Time: Monday, March 27, 2017 08:00 - CONCLUSION: 1. No hydronephrosis. 2. Mixed echogenicity noted within the urinary bladder likely debris which may represent hematoma. Benji Martin MD Chest X-Ray 03/27/17 Signed Impressions: Service Date/Time: Monday, March 27, 2017 14:45 - CONCLUSION: Minimal left basilar density likely atelectasis. Benji Martin MD Modified Barium Swallow 03/26/17 Signed Impressions: Service Date/Time: Sunday, March 26, 2017 10:57 - CONCLUSION: There is no evidence for aspiration. Jamal Jay MD FACR Abdomen/Pelvis CT 03/26/17 Signed Impressions: Service Date/Time: Sunday, March 26, 2017 14:41 - CONCLUSION: New bibasilar airspace disease. Bilateral renal atrophy. Significant irregular thickening of the urinary bladder wall with indwelling Frankel. No evidence of acute intestinal process. Chris Cabral MD Objective Remarks GENERAL: Resting comfortably. SKIN: Focused skin assessment warm/dry. HEAD: Atraumatic. Normocephalic. EYES: Pupils equal and round. No scleral icterus. No injection or drainage. ENT: No nasal bleeding or discharge. Mucous membranes pink and moist. NECK: Trachea midline. No JVD. CARDIOVASCULAR: Regular rate and rhythm. No murmur appreciated. RESPIRATORY: Mild wheezing, crackles at the bases. GASTROINTESTINAL: Abdomen soft, slight tenderness in the upper quadrants, nondistended. No rebound tenderness or guarding. : Frankel in place, hematuria improving. MUSCULOSKELETAL: No obvious deformities. No clubbing. No cyanosis. Pedal pulses not palpable. NEUROLOGICAL: Awake and alert. No obvious cranial nerve deficits. Motor grossly within normal limits. Normal speech. PSYCHIATRIC: Appropriate mood and affect; insight and judgment normal. Procedures Cardiac catheterization Medications and IVs Current Medications Medications (Trade) Dose Ordered Sig/Darinel Route Start Time Stop Time Status Last Admin (NS Flush) 2 ml UNSCH PRN IVF 03/24/17 12:15 (Tylenol) 325 mg Q4H PRN PO 03/24/17 16:15 (Restoril) 15 mg HS PRN PO 03/24/17 16:15 (Aspirin Chew) 81 mg DAILY PO 03/25/17 09:00 03/27/17 09:49 Ticagrelor 90 mg 90 mg BID PO 03/25/17 09:00 03/27/17 21:44 (Aggrastat Infusion Inj) 250 ml @ 7.02 mls/hr Q24H IV 03/24/17 16:13 (Lipitor) 80 mg HS PO 03/24/17 21:00 03/27/17 21:44 (Bumetanide) 1 mg DAILY PO 03/25/17 09:00 03/27/17 09:49 (Keflex) 250 mg TID PO 03/24/17 18:00 03/27/17 17:51 (Vitamin D3) 2,000 units DAILY PO 03/25/17 09:00 03/27/17 09:49 (Proscar) 5 mg DAILY PO 03/25/17 09:00 03/27/17 10:28 (Imdur) 30 mg DAILY PO 03/25/17 09:00 03/27/17 09:49 (Pyridium) 100 mg Q8H PRN PO 03/24/17 16:30 03/27/17 06:35 (Renvela) 800 mg DAILY PO 03/25/17 09:00 03/27/17 09:49 (Flomax) 0.4 mg BID PO 03/24/17 21:00 03/27/17 21:45 (Levemir Inj) 10 units HS SQ 03/24/17 21:00 03/27/17 21:29 (NovoLOG INJ) 5 units TIDAC SQ 03/24/17 17:00 03/25/17 08:00 (D50w (Vial) Inj) 25 ml UNSCH PRN IV PUSH 03/24/17 16:45 Glucagon 1 mg 1 mg UNSCH PRN OTHER 03/24/17 16:45 (NS 1000 ml Inj) 1,000 ml @ 0 mls/hr TITRATE PRN IV 03/24/17 18:00 (Heparin Inj) 8,000 units UNSCH PRN IV FLUSH 03/24/17 18:00 Heparin Sodium (Porcine) 1000 units 1,000 units Q1H PRN IV FLUSH 03/24/17 18:00 Sodium Chloride 1,000 ml @ 200 mls/hr Q5H PRN IV 03/24/17 18:00 (NS 250 ml Inj) 200 ml @ 0 mls/hr UNSCH PRN IV 03/24/17 18:00 (Mannitol Inj) 12.5 gm UNSCH PRN IV 03/24/17 18:00 03/26/17 15:21 (Albumin 25% Inj) 25 gm UNSCH PRN IV 03/24/17 18:00 03/24/17 19:55 (NS Flush) 5 ml UNSCH PRN IV FLUSH 03/24/17 18:00 (Heparin Inj) Dwell Heparin to f... UNSCH PRN OTHER 03/24/17 18:00 (Gentamicin (Dialysis) Inj) 10 mg UNSCH PRN OTHER 03/24/17 18:00 (Gelfoam 12 Mm/7 Mm Top) 1 foam UNSCH PRN TOPICAL 03/24/17 18:00 03/24/17 18:54 (Zofran Inj) 4 mg UNSCH PRN IV 03/24/17 18:00 03/24/17 22:26 (Benadryl) 25 mg UNSCH PRN PO 03/24/17 18:00 (Nitrostat Sl) 0.4 mg UNSCH PRN SL 03/24/17 18:00 (Catapres) 0.1 mg UNSCH PRN PO 03/24/17 18:00 Epoetin Rafael 13774 units 10,000 units UNSCH PRN IV 03/25/17 10:00 03/26/17 15:20 (Amicar Inj/NS Irr Bag) 3,012 ml @ 0 mls/hr TITRATE IRRIGATION 03/25/17 16:00 03/27/17 17:52 Guaifenesin 600 mg 600 mg BID PO 03/25/17 21:00 03/27/17 21:44 (Vibramycin Inj/ NS Inj) 100 ml @ 100 mls/hr Q12H IV 03/26/17 17:00 03/28/17 06:00 (Ditropan) 5 mg Q8H PRN PO 03/27/17 01:00 03/27/17 09:49 (Roxicodone) 5 mg Q4H PRN PO 03/27/17 11:00 (Coreg) 12.5 mg Q8HR PO 03/27/17 15:00 03/28/17 06:00 (Protonix) 40 mg BID PO 03/28/17 09:00 UNV (Colace) 100 mg BID PO 03/28/17 09:00 (Senokot) 17.2 mg DAILY PO 03/28/17 09:00 UNV (SoluMEDROL INJ) 40 mg BID IV PUSH 03/28/17 18:00 UNV A/P Assessment and Plan STEMI EKG revealed ST elevations in the inferior leads with reciprocal ST depressions. Troponin was 0.75. The patient was taken to the [facility] and a stent was placed to the graft of the RCA. The patient has had runs of NSVT on telemetry. - Continue medication regimen per cardiology. Increase Coreg to 12.5 mg TID. - Telemetry. - Oxygen and pain meds as needed. - monitor lytes and replete as needed. - repeat EKG. CHF BNP markedly elevated. Has a history of CAD s/p CABG. - continue Bumex. - dialysis for volume management. - follow Is and Os. - follow up with cardiology. ESRD The patient is on hemodialysis. Will need dialysis soon s/t dye load from cath. Nephrology consult appreciated. - Follow BMP. Kayexalate as needed. - Continue diuretics. - dialysis per nephrology. N/V/ Abdominal pain N/V seems to have resolved but pt complains of chronic diffuse abdominal pain. Negative CT in February. LFTs and lipase unremarkable. Possibly s/t GERD, PUD or bladder cancer. CT showed: New bibasilar airspace disease; Bilateral renal atrophy; Significant irregular thickening of the urinary bladder wall with indwelling Frankel; No evidence of acute intestinal process. - Antiemetics and pain meds as needed. - Advance diet as tolerated. - increase PPI. - add Maalox. - GI consult if no improvement. Cough/ Aspiration/ COPD Likely secondary to chronic bronchitis. The patient also acknowledges some difficulty swallowing. Speech recommending NPO status. CXR with bibasilar densities, likely atelectasis. Repeat CXR stable. Barium negative for aspiration. Pt with diffuse wheezing, improved. - diet per speech. - Solumedrol and standing nebs. - IS. - oxygen as needed. - doxycycline added. 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 - Physical therapy. - Continue medical regimen. Bladder tumors/ Hematuria The patient had recent bladder tumor removal on Wednesday. He has hematuria and a Frankel in place. Urology consult appreciated. 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 Frankel not draining well 03/27. Renal US without hydronephrosis. - Continue blood thinners per cardiology. - 3 way Frankel per urology. - Follow CBC and transfuse as needed. PPx: SCDs; PPI. Discharge Planning Awaiting clinical improvement. Feliciano Echeverria DO March 28, 2017 09:00
[2017-03-28] MEDS: DOCUSATE SODIUM 100 MG CAP PO SCH ×2 (09:04→21:54)
[2017-03-28] MEDS: PANTOPRAZOLE SOD 40 MG DELAYED RELEASE TAB PO SCH ×2 (09:04→21:54)
[2017-03-28] MEDS: SENNOSIDES 8.6 MG TAB PO SCH (09:04)
--- NOTE | 2017-03-28 13:10 | HHI.NPPN ---
Subjective Additional Remarks feels better Review of Systems General Constitutional: Fatigue Gastrointestinal Gastrointestinal: Abdominal Pain Genitourinary Remarks hematuria Objective Data Data 03/27/17 03/28/17 18:59 06:59 Intake Total 420 ml 340 ml Output Total 1100 ml Balance 420 ml -760 ml Intake Oral 420 ml 240 ml IV Total 100 ml Output Urine Total 1100 ml # Bowel Movements 0 Vital Signs Date Time Temp Pulse Resp B/P Pulse Ox O2 Delivery O2 Flow Rate FiO2 03/28/17 11:00 97.8 68 18 100/45 94 03/28/17 08:00 97.8 65 18 100/53 96 03/28/17 07:59 93 Nasal Cannula 2.00 03/28/17 06:00 68 03/28/17 05:00 66 03/28/17 04:00 68 03/28/17 03:00 99.1 68 22 105/54 96 03/28/17 03:00 66 03/28/17 02:00 68 03/28/17 01:00 72 03/28/17 00:00 68 03/27/17 23:00 97.9 79 20 106/60 97 03/27/17 23:00 76 03/27/17 22:00 68 03/27/17 21:00 82 03/27/17 20:00 82 03/27/17 19:15 98 Nasal Cannula 2.00 03/27/17 19:00 82 03/27/17 19:00 97.6 84 20 117/64 98 03/27/17 18:00 84 03/27/17 17:00 88 03/27/17 16:00 86 03/27/17 15:00 85 03/27/17 15:00 97.5 79 16 140/71 97 03/27/17 14:02 86 03/27/17 13:12 94 Nasal Cannula 2.00 -: 03/27/17 0620 03/27/17 0620 Microbiology 03/28/17 Gram Stain, Received Pending 03/28/17 Sputum Culture, Received Pending Physical Exam General Appearance: Well Developed, Malnourished Neck Neck Exam: Neck Supple Pulmonary Resp Exam: Clear Bilaterally, Breath Sounds Equal Cardiology CV Exam: Regular, Normal Sinus Rhythm Gastrointestinal/Abdomen GI Exam: Soft, Bowel Sounds Present Musculoskeletal MS Exam: Joints Intact Integumentary Skin Exam: Intact Extremeties Extremities Exam: No Edema Neurologic Neuro Exam: Moving All Extremities Assessment/Plan Problem List: (1) ESRD (end stage renal disease) on dialysis Plan: Dialysis will be continue MWF. Dialysis Monitor fluid and electrolyte status. Avoid Gadolinium. Bladder irrigation CBI Frankel catheter was advanced dressing on AVF with old blood removed no active bleeding noted Dr. Singh to follow (2) STEMI (ST elevation myocardial infarction) Plan: cardiology following, s/p PCI with BMS placement to RCA on 03/24 on Brilinta, ASA, and Lipitor (3) Hypertension Plan: BP stable, contine present antihypertensives (4) Anemia Plan: Continue Epogen, stable Hemoglobin. (5) Metabolic bone disease Plan: On Renvela which will be continued. Phosphorus is acceptable. (6) Bladder mass Plan: s/p cystoscopy with tumor removal, follows with Dr. Velásquez Patient has muscle invasive urothelial cancer. he has dysuria await Urology follow up 3 way Frankel now functioning better Problem Qualifiers (1) STEMI (ST elevation myocardial infarction): Qualified Code: I21.19 - ST elevation myocardial infarction (STEMI) involving other coronary artery of inferior wall Nicci Rock MD March 28, 2017 13:09
[2017-03-28] MEDS: AMINOCAPROIC ACID INJ 3,000 MG in SODIUM CHLORIDE 0.9% IRR BAG 3,000 ML IRRIGATION SCH ×2 (13:42→21:49)
[2017-03-28] MEDS ORDERED: ALUMINUM/MAGNESIUM/SIMETH 30 ML CUP PO PRN (15:00)
[2017-03-28] MEDS: INSULIN DETEMIR 100 UNITS/ML VIAL SQ SCH (21:42)
[2017-03-28] MEDS: ATORVASTATIN 80 MG TAB PO SCH (21:55)
[2017-03-29] VITALS (25 sets, daily range): BP systolic 103–118; BP diastolic 55–77; PULSE 58–76; RESP 18–20; TEMP 97.5–98.7; O2SAT 95–98
[2017-03-29] MEDS: DOXYCYCLINE INJ 100 MG in SODIUM CHLORIDE 0.9% INJ 100 ML IV SCH ×2 (05:59→17:26)
[2017-03-29] MEDS: CARVEDILOL 12.5 MG TAB PO SCH ×3 (06:00→21:18)
[2017-03-29] MEDS: methylPREDNISolone SOD SUCC 40 MG/1 ML VIAL IV PUSH SCH ×2 (06:00→17:32)
[2017-03-29 06:49] LABS: HEMATOCRIT 26.6 % (39.0-51.0); MEAN CELL VOLUME 91.2 FL (80.0-100.0); MEAN CORPUSCULAR HEMOGLOBIN 30.3 PG (27.0-34.0); MEAN CORPUSCULAR HGB CONC 33.2 % (32.0-36.0); PLATELET COUNT 169 TH/MM3 (150-450); RED BLOOD COUNT 2.92 MIL/MM3 (4.50-5.90); RED CELL DISTRIBUTION WIDTH 18.7 % (11.6-17.2); REVIEW FLAG FINAL; WHITE BLOOD COUNT 8.3 TH/MM3 (4.0-11.0)
[2017-03-29] MEDS: INSULIN ASPART SUPPLEMENTAL SCALE SQ SCH ×4 (07:00→21:35)
[2017-03-29 07:04] LABS: BICARBONATE 27.7 MEQ/L (21.0-32.0); MAGNESIUM 2.1 MG/DL (1.5-2.5)
[2017-03-29 07:16] LABS: CALCIUM-PROTEIN CORRECTED 8.2 MG/DL (8.5-10.1)
[2017-03-29] MEDS: INSULIN ASPART 1,000 UNITS/10 ML VIAL SQ SCH ×3 (08:00→17:00)
--- NOTE | 2017-03-29 08:30 | HHI.NPPN ---
Subjective Additional Remarks feels better. Events of the weekend noted. Patient's Frankel had dislodged from bladder, was manipulated back into bladder. On CBI at this time. Review of Systems General Constitutional: Fatigue Gastrointestinal Gastrointestinal: Abdominal Pain Genitourinary Remarks hematuria Objective Data Data 03/28/17 03/29/17 19:00 07:00 Intake Total 420 ml 240 ml Output Total 5800 ml 0 ml Balance -5380 ml 240 ml Intake Oral 420 ml 240 ml Output Urine Total 5800 ml 0 ml Vital Signs Date Time Temp Pulse Resp B/P Pulse Ox O2 Delivery O2 Flow Rate FiO2 03/29/17 06:00 66 03/29/17 05:00 64 03/29/17 04:00 66 03/29/17 03:00 65 03/29/17 03:00 98.7 71 20 103/55 97 03/29/17 02:00 66 03/29/17 01:00 62 03/29/17 00:00 64 03/28/17 23:00 97.8 70 22 104/49 96 03/28/17 23:00 64 03/28/17 22:00 74 03/28/17 21:00 72 03/28/17 20:00 64 03/28/17 19:44 96 Nasal Cannula 2.00 03/28/17 19:00 66 03/28/17 19:00 97.9 77 22 117/60 98 03/28/17 18:08 72 03/28/17 17:02 68 03/28/17 16:03 68 03/28/17 15:05 97.6 66 20 107/52 95 03/28/17 15:00 75 03/28/17 14:00 66 03/28/17 13:00 70 03/28/17 12:00 66 03/28/17 11:00 97.8 68 18 100/45 94 03/28/17 11:00 68 03/28/17 10:00 62 03/28/17 09:00 66 -: 03/29/17 0515 03/29/17 0515 Microbiology 03/28/17 Gram Stain - Final, Resulted 03/28/17 Sputum Culture, Resulted Pending Physical Exam General Appearance: Well Developed, Malnourished Neck Neck Exam: Neck Supple Pulmonary Resp Exam: Clear Bilaterally, Breath Sounds Equal Cardiology CV Exam: Regular, Normal Sinus Rhythm Gastrointestinal/Abdomen GI Exam: Soft, Bowel Sounds Present Musculoskeletal MS Exam: Joints Intact Integumentary Skin Exam: Intact Extremeties Extremities Exam: No Edema Neurologic Neuro Exam: Moving All Extremities Assessment/Plan Problem List: (1) ESRD (end stage renal disease) on dialysis Plan: Dialysis will be continue MWF. Dialysis Monitor fluid and electrolyte status. Avoid Gadolinium. Frankel catheter was advanced into the bladder, now on CBI (2) STEMI (ST elevation myocardial infarction) Plan: cardiology following, s/p PCI with BMS placement to RCA on 03/24 on Brilinta, ASA, and Lipitor (3) Hypertension Plan: BP stable, contine present antihypertensives (4) Anemia Plan: Continue Epogen. His Hemoglobin has dropped, could be secondary to hematuria. Monitor. (5) Metabolic bone disease Plan: On Renvela which will be continued. Phosphorus is acceptable. (6) Bladder mass Plan: s/p cystoscopy with tumor removal, follows with Dr. Velásquez Patient has muscle invasive urothelial cancer. he has dysuria await Urology follow up 3 way Frankel now functioning better Problem Qualifiers (1) STEMI (ST elevation myocardial infarction): Qualified Code: I21.19 - ST elevation myocardial infarction (STEMI) involving other coronary artery of inferior wall Chava Singh MD March 29, 2017 08:30
[2017-03-29] MEDS: RESP: ALBUTEROL 2.5 MG/IPRATROPIUM 0.5 MG NEB (SCH) NEB ×2 (08:44→19:24)
[2017-03-29] MEDS: EPOETIN ALFA 10,000 UNITS/ML VIAL IV PRN (09:50)
[2017-03-29] MEDS: GELATIN 12 MM/7 MM FOAM TOPICAL PRN (09:50)
--- NOTE | 2017-03-29 10:00 | HHI.PR ---
Subjective Remarks The patient was seen in dialysis. He said he still had abdominal pain. He said the dose of Maalox helped. He did indicate pain along his left chest wall. He otherwise had no acute complaints. Objective Vitals Vital Signs Date Time Temp Pulse Resp B/P Pulse Ox O2 Delivery O2 Flow Rate FiO2 03/29/17 08:47 98 1.50 03/29/17 08:00 97.9 60 18 112/70 96 03/29/17 06:00 66 03/29/17 05:00 64 03/29/17 04:00 66 03/29/17 03:00 65 03/29/17 03:00 98.7 71 20 103/55 97 03/29/17 02:00 66 03/29/17 01:00 62 03/29/17 00:00 64 03/28/17 23:00 97.8 70 22 104/49 96 03/28/17 23:00 64 03/28/17 22:00 74 03/28/17 21:00 72 03/28/17 20:00 64 03/28/17 19:44 96 Nasal Cannula 2.00 03/28/17 19:00 66 03/28/17 19:00 97.9 77 22 117/60 98 03/28/17 18:08 72 03/28/17 17:02 68 03/28/17 16:03 68 03/28/17 15:05 97.6 66 20 107/52 95 03/28/17 15:00 75 03/28/17 14:00 66 03/28/17 13:00 70 03/28/17 12:00 66 03/28/17 11:00 97.8 68 18 100/45 94 03/28/17 11:00 68 03/28/17 10:00 62 I/O 03/28/17 03/28/17 03/28/17 03/29/17 03/29/17 03/29/17 07:00 15:00 23:00 07:00 15:00 23:00 Intake Total 340 ml 420 ml 240 ml Output Total 1100 ml 5800 ml 0 ml 1000 ml Balance -760 ml -5380 ml 240 ml -1000 ml Intake Oral 240 ml 420 ml 240 ml IV Total 100 ml Output Urine Total 1100 ml 5800 ml 0 ml 1000 ml Result Diagram: 03/29/1751403/29/17514 Imaging Last Impressions Renal Ultrasound 03/27/17 0000 Signed Impressions: Service Date/Time: Monday, March 27, 2017 08:00 - CONCLUSION: 1. No hydronephrosis. 2. Mixed echogenicity noted within the urinary bladder likely debris which may represent hematoma. Benji Martin MD Chest X-Ray 03/27/17 0000 Signed Impressions: Service Date/Time: Monday, March 27, 2017 14:45 - CONCLUSION: Minimal left basilar density likely atelectasis. Benji Martin MD Modified Barium Swallow 03/26/17 0000 Signed Impressions: Service Date/Time: Sunday, March 26, 2017 10:57 - CONCLUSION: There is no evidence for aspiration. Jamal Jay MD FACR Abdomen/Pelvis CT 03/26/17 0000 Signed Impressions: Service Date/Time: Sunday, March 26, 2017 14:41 - CONCLUSION: New bibasilar airspace disease. Bilateral renal atrophy. Significant irregular thickening of the urinary bladder wall with indwelling Frankel. No evidence of acute intestinal process. Chris Cabral MD Objective Remarks GENERAL: Resting comfortably. SKIN: Focused skin assessment warm/dry. HEAD: Atraumatic. Normocephalic. EYES: Pupils equal and round. No scleral icterus. No injection or drainage. ENT: No nasal bleeding or discharge. Mucous membranes pink and moist. NECK: Trachea midline. No JVD. CARDIOVASCULAR: Regular rate and rhythm. No murmur appreciated. RESPIRATORY: Mild wheezing, crackles at the bases. GASTROINTESTINAL: Abdomen soft, slight tenderness in the upper quadrants, nondistended. No rebound tenderness or guarding. : Frankel in place, hematuria improving. MUSCULOSKELETAL: Tenderness to palpation of left chest wall. No obvious deformities. No clubbing. No cyanosis. NEUROLOGICAL: Awake and alert. No obvious cranial nerve deficits. Motor grossly within normal limits. Normal speech. PSYCHIATRIC: Appropriate mood and affect; insight and judgment normal. Procedures Cardiac catheterization Medications and IVs Current Medications Medications (Trade) Dose Ordered Sig/Darinel Route Start Time Stop Time Status Last Admin (NS Flush) 2 ml UNSCH PRN IVF 03/24/17 12:15 03/28/17 21:56 (Tylenol) 325 mg Q4H PRN PO 03/24/17 16:15 (Restoril) 15 mg HS PRN PO 03/24/17 16:15 (Aspirin Chew) 81 mg DAILY PO 03/25/17 09:00 03/28/17 08:57 Ticagrelor 90 mg 90 mg BID PO 03/25/17 09:00 03/28/17 21:55 (Aggrastat Infusion Inj) 250 ml @ 7.02 mls/hr Q24H IV 03/24/17 16:13 (Lipitor) 80 mg HS PO 03/24/17 21:00 03/28/17 21:55 (Bumetanide) 1 mg DAILY PO 03/25/17 09:00 03/28/17 08:57 (Keflex) 250 mg TID PO 03/24/17 18:00 03/28/17 17:40 (Vitamin D3) 2,000 units DAILY PO 03/25/17 09:00 03/28/17 08:56 (Proscar) 5 mg DAILY PO 03/25/17 09:00 03/28/17 08:57 (Imdur) 30 mg DAILY PO 03/25/17 09:00 03/28/17 08:57 (Pyridium) 100 mg Q8H PRN PO 03/24/17 16:30 03/27/17 06:35 (Renvela) 800 mg DAILY PO 03/25/17 09:00 03/28/17 08:57 (Flomax) 0.4 mg BID PO 03/24/17 21:00 03/28/17 21:54 (Levemir Inj) 10 units HS SQ 03/24/17 21:00 03/28/17 21:42 (NovoLOG INJ) 5 units TIDAC SQ 03/24/17 17:00 03/28/17 17:41 (D50w (Vial) Inj) 25 ml UNSCH PRN IV PUSH 03/24/17 16:45 Glucagon 1 mg 1 mg UNSCH PRN OTHER 03/24/17 16:45 (NS 1000 ml Inj) 1,000 ml @ 0 mls/hr TITRATE PRN IV 03/24/17 18:00 (Heparin Inj) 8,000 units UNSCH PRN IV FLUSH 03/24/17 18:00 Heparin Sodium (Porcine) 1000 units 1,000 units Q1H PRN IV FLUSH 03/24/17 18:00 Sodium Chloride 1,000 ml @ 200 mls/hr Q5H PRN IV 03/24/17 18:00 (NS 250 ml Inj) 200 ml @ 0 mls/hr UNSCH PRN IV 03/24/17 18:00 (Mannitol Inj) 12.5 gm UNSCH PRN IV 03/24/17 18:00 03/26/17 15:21 (Albumin 25% Inj) 25 gm UNSCH PRN IV 03/24/17 18:00 03/24/17 19:55 (NS Flush) 5 ml UNSCH PRN IV FLUSH 03/24/17 18:00 (Heparin Inj) Dwell Heparin to f... UNSCH PRN OTHER 03/24/17 18:00 (Gentamicin (Dialysis) Inj) 10 mg UNSCH PRN OTHER 03/24/17 18:00 (Gelfoam 12 Mm/7 Mm Top) 1 foam UNSCH PRN TOPICAL 03/24/17 18:00 03/24/17 18:54 (Zofran Inj) 4 mg UNSCH PRN IV 03/24/17 18:00 03/24/17 22:26 (Benadryl) 25 mg UNSCH PRN PO 03/24/17 18:00 (Nitrostat Sl) 0.4 mg UNSCH PRN SL 03/24/17 18:00 (Catapres) 0.1 mg UNSCH PRN PO 03/24/17 18:00 Epoetin Rafael 25561 units 10,000 units UNSCH PRN IV 03/25/17 10:00 03/26/17 15:20 (Amicar Inj/NS Irr Bag) 3,012 ml @ 0 mls/hr TITRATE IRRIGATION 03/25/17 16:00 03/28/17 21:49 Guaifenesin 600 mg 600 mg BID PO 03/25/17 21:00 03/28/17 21:54 (Vibramycin Inj/ NS Inj) 100 ml @ 100 mls/hr Q12H IV 03/26/17 17:00 03/29/17 05:59 (Ditropan) 5 mg Q8H PRN PO 03/27/17 01:00 03/27/17 09:49 (Roxicodone) 5 mg Q4H PRN PO 03/27/17 11:00 (Coreg) 12.5 mg Q8HR PO 03/27/17 15:00 03/29/17 06:00 (Colace) 100 mg BID PO 03/28/17 09:00 03/28/17 21:54 (Senokot) 17.2 mg DAILY PO 03/28/17 09:00 03/28/17 09:04 (SoluMEDROL INJ) 40 mg Q12H IV PUSH 03/28/17 18:00 03/29/17 06:00 (Mag-Al Plus Susp Liq) 30 ml Q6H PRN PO 03/28/17 15:00 (Protonix) 40 mg BID PO 03/28/17 09:00 03/28/17 21:54 A/P Assessment and Plan STEMI EKG revealed ST elevations in the inferior leads with reciprocal ST depressions. Troponin was 0.75. The patient was taken to the [facility] and a stent was placed to the graft of the RCA. The patient has had runs of NSVT on telemetry. - Continue medication regimen per cardiology. Increased Coreg to 12.5 mg TID. - Telemetry. - Oxygen and pain meds as needed. - monitor lytes and replete as needed. - repeat EKG. CHF BNP markedly elevated. Has a history of CAD s/p CABG. - continue Bumex. - dialysis for volume management. - follow Is and Os. - follow up with cardiology. ESRD The patient is on hemodialysis. Nephrology consult appreciated. - Follow BMP. Kayexalate as needed. - Continue diuretics. - dialysis per nephrology. N/V/ Abdominal pain N/V seems to have resolved but pt complains of chronic diffuse abdominal pain. Negative CT in February. LFTs and lipase unremarkable. Possibly s/t GERD, PUD or bladder cancer. CT showed: New bibasilar airspace disease; Bilateral renal atrophy; Significant irregular thickening of the urinary bladder wall with indwelling Frankel; No evidence of acute intestinal process. The pt does have pain upon palpation of the left chest wall. May be costochondritis. - Antiemetics and pain meds as needed. - Advance diet as tolerated. - increase PPI. - add standing Maalox. - start IV Tylenol for costochondritis. - GI consult if no improvement. Cough/ Aspiration/ COPD Likely secondary to chronic bronchitis. The patient also acknowledges some difficulty swallowing. Speech recommending NPO status. CXR with bibasilar densities, likely atelectasis. Repeat CXR stable. Barium negative for aspiration. Pt with diffuse wheezing, improved. - diet per speech. - Solumedrol and standing nebs. - IS. - oxygen as needed. - doxycycline added. 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 - Physical therapy. - Continue medical regimen. Bladder tumors/ Hematuria The patient had recent bladder tumor removal on Wednesday. He has hematuria and a Frankel in place. Urology consult appreciated. 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 Frankel not draining well 03/27. Renal US without hydronephrosis. - Continue blood thinners per cardiology. - 3 way Frankel per urology. - Follow CBC and transfuse as needed. PPx: SCDs; PPI. Discharge Planning Awaiting clinical improvement. Feliciano Echeverria DO March 29, 2017 10:00
[2017-03-29] MEDS: CEPHALEXIN MONOHYDRATE 250 MG CAP PO SCH ×3 (13:00→17:25)
--- NOTE | 2017-03-29 13:04 | HHI.PR ---
Subjective Patient symptoms today Pt completing dialysis today. Some hematuria noted. Objective Vital Signs Vital Signs Date Time Temp Pulse Resp B/P Pulse Ox O2 Delivery O2 Flow Rate FiO2 03/29/17 11:00 64 03/29/17 10:00 64 03/29/17 09:00 66 03/29/17 08:47 98 1.50 03/29/17 08:00 97.9 60 18 112/70 96 03/29/17 08:00 64 03/29/17 06:00 66 03/29/17 05:00 64 03/29/17 04:00 66 03/29/17 03:00 65 03/29/17 03:00 98.7 71 20 103/55 97 03/29/17 02:00 66 03/29/17 01:00 62 03/29/17 00:00 64 03/28/17 23:00 97.8 70 22 104/49 96 03/28/17 23:00 64 03/28/17 22:00 74 03/28/17 21:00 72 03/28/17 20:00 64 03/28/17 19:44 96 Nasal Cannula 2.00 03/28/17 19:00 66 03/28/17 19:00 97.9 77 22 117/60 98 03/28/17 18:08 72 03/28/17 17:02 68 03/28/17 16:03 68 03/28/17 15:05 97.6 66 20 107/52 95 03/28/17 15:00 75 03/28/17 14:00 66 Intake & Output 03/29/17 03/29/17 07:00 19:00 Intake Total 240 ml Output Total 0 ml 4000 ml Balance 240 ml -4000 ml Intake Oral 240 ml Output Urine Total 0 ml 1000 ml Hemodialysis 3000 ml Result Diagram: 03/29/1751403/29/1715 Objective Remarks Frankel catheter appears to be out of position in the urethra. Unable to irrigate. Abdominal tenderness noted 03/29 Abd:soft,slight tenderness, no rebound Frankel: clear when CBI is turned up Medications and IVs Current Medications Medications (Trade) Dose Ordered Sig/Darinel Route Start Time Stop Time Status Last Admin (NS Flush) 2 ml UNSCH PRN IVF 03/24/17 12:15 03/28/17 21:56 (Restoril) 15 mg HS PRN PO 03/24/17 16:15 (Aspirin Chew) 81 mg DAILY PO 03/25/17 09:00 03/28/17 08:57 Ticagrelor 90 mg 90 mg BID PO 03/25/17 09:00 03/28/17 21:55 (Aggrastat Infusion Inj) 250 ml @ 7.02 mls/hr Q24H IV 03/24/17 16:13 (Lipitor) 80 mg HS PO 03/24/17 21:00 03/28/17 21:55 (Bumetanide) 1 mg DAILY PO 03/25/17 09:00 03/28/17 08:57 (Keflex) 250 mg TID PO 03/24/17 18:00 03/28/17 17:40 (Vitamin D3) 2,000 units DAILY PO 03/25/17 09:00 03/28/17 08:56 (Proscar) 5 mg DAILY PO 03/25/17 09:00 03/28/17 08:57 (Imdur) 30 mg DAILY PO 03/25/17 09:00 03/28/17 08:57 (Pyridium) 100 mg Q8H PRN PO 03/24/17 16:30 03/27/17 06:35 (Renvela) 800 mg DAILY PO 03/25/17 09:00 03/28/17 08:57 (Flomax) 0.4 mg BID PO 03/24/17 21:00 03/28/17 21:54 (Levemir Inj) 10 units HS SQ 03/24/17 21:00 03/28/17 21:42 (NovoLOG INJ) 5 units TIDAC SQ 03/24/17 17:00 03/28/17 17:41 (D50w (Vial) Inj) 25 ml UNSCH PRN IV PUSH 03/24/17 16:45 Glucagon 1 mg 1 mg UNSCH PRN OTHER 03/24/17 16:45 (NS 1000 ml Inj) 1,000 ml @ 0 mls/hr TITRATE PRN IV 03/24/17 18:00 (Heparin Inj) 8,000 units UNSCH PRN IV FLUSH 03/24/17 18:00 Heparin Sodium (Porcine) 1000 units 1,000 units Q1H PRN IV FLUSH 03/24/17 18:00 Sodium Chloride 1,000 ml @ 200 mls/hr Q5H PRN IV 03/24/17 18:00 03/29/17 09:50 (NS 250 ml Inj) 200 ml @ 0 mls/hr UNSCH PRN IV 03/24/17 18:00 (Mannitol Inj) 12.5 gm UNSCH PRN IV 03/24/17 18:00 03/26/17 15:21 (Albumin 25% Inj) 25 gm UNSCH PRN IV 03/24/17 18:00 03/24/17 19:55 (NS Flush) 5 ml UNSCH PRN IV FLUSH 03/24/17 18:00 (Heparin Inj) Dwell Heparin to f... UNSCH PRN OTHER 03/24/17 18:00 (Gentamicin (Dialysis) Inj) 10 mg UNSCH PRN OTHER 03/24/17 18:00 (Gelfoam 12 Mm/7 Mm Top) 1 foam UNSCH PRN TOPICAL 03/24/17 18:00 03/29/17 09:50 (Zofran Inj) 4 mg UNSCH PRN IV 03/24/17 18:00 03/24/17 22:26 (Benadryl) 25 mg UNSCH PRN PO 03/24/17 18:00 (Nitrostat Sl) 0.4 mg UNSCH PRN SL 03/24/17 18:00 (Catapres) 0.1 mg UNSCH PRN PO 03/24/17 18:00 Epoetin Rafael 96232 units 10,000 units UNSCH PRN IV 03/25/17 10:00 03/29/17 09:50 (Amicar Inj/NS Irr Bag) 3,012 ml @ 0 mls/hr TITRATE IRRIGATION 03/25/17 16:00 03/28/17 21:49 Guaifenesin 600 mg 600 mg BID PO 03/25/17 21:00 03/28/17 21:54 (Vibramycin Inj/ NS Inj) 100 ml @ 100 mls/hr Q12H IV 03/26/17 17:00 03/29/17 05:59 (Ditropan) 5 mg Q8H PRN PO 03/27/17 01:00 03/27/17 09:49 (Roxicodone) 5 mg Q4H PRN PO 03/27/17 11:00 (Coreg) 12.5 mg Q8HR PO 03/27/17 15:00 03/29/17 06:00 (Colace) 100 mg BID PO 03/28/17 09:00 03/28/17 21:54 (Senokot) 17.2 mg DAILY PO 03/28/17 09:00 03/28/17 09:04 (SoluMEDROL INJ) 40 mg Q12H IV PUSH 03/28/17 18:00 03/29/17 06:00 (Protonix) 40 mg BID PO 03/28/17 09:00 03/28/17 21:54 (Mag-Al Plus Susp Liq) 30 ml Q6H PO 03/29/17 12:00 (Ofirmev Inj) 1,000 mg Q8HR IV 03/29/17 10:00 03/31/17 14:01 Assessment and Plan Assessment and Plan -Frankel catheter balloon deflated and catheter advanced into bladder. -Successful irrigation with 1L saline after manipulation with minimal clots -CBI resumed with clear urine on moderate rate -Maintain CBI overnight. May titrate -Frankel catheter to be removed per Dr. Velásquez's orders 03/29 76 y.o male with h/o muscle invasive bladder cancer s/p TURBT with gross hematuria Continue Amicar CBI for now Irrigate Chito Briseno DO March 29, 2017 13:04
[2017-03-29] MEDS: BUMETANIDE 1 MG TAB PO SCH (13:09)
[2017-03-29] MEDS: SEVELAMER CARBONATE 800 MG TAB PO SCH (13:09)
[2017-03-29] MEDS: guaiFENesin E.R. 600 MG TAB PO SCH ×2 (13:09→21:18)
[2017-03-29] MEDS: TICAGRELOR 90 MG TAB PO SCH ×2 (13:10→21:18)
[2017-03-29] MEDS: SENNOSIDES 8.6 MG TAB PO SCH (13:10)
[2017-03-29] MEDS: DOCUSATE SODIUM 100 MG CAP PO SCH ×2 (13:10→21:18)
[2017-03-29] MEDS: ISOSORBIDE MONONITRATE 30 MG TAB PO SCH (13:11)
[2017-03-29] MEDS: CHOLECALCIFEROL (VIT D3) 1000 UNIT TAB PO SCH (13:11)
[2017-03-29] MEDS: TAMSULOSIN HCL 0.4 MG CAP PO SCH ×2 (13:12→21:18)
[2017-03-29] MEDS: ASPIRIN 81 MG CHEW TAB PO SCH (13:12)
[2017-03-29] MEDS: PANTOPRAZOLE SOD 40 MG DELAYED RELEASE TAB PO SCH ×2 (13:12→21:18)
[2017-03-29] MEDS: FINASTERIDE 5 MG TAB PO SCH (13:12)
[2017-03-29] MEDS: ALUMINUM/MAGNESIUM/SIMETH 30 ML CUP PO SCH ×2 (13:18→17:26)
[2017-03-29] MEDS: ACETAMINOPHEN 1000 MG/100 ML VIAL IV SCH ×3 (13:18→21:18)
--- NOTE | 2017-03-29 17:08 | PD.CARD.PN ---
Subjective Subjective Remarks No CP or SOB, hematuria improving Objective Medications Current Medications Medications (Trade) Dose Ordered Sig/Darinel Route Start Time Stop Time Status Last Admin (NS Flush) 2 ml UNSCH PRN IVF 03/24/17 12:15 03/28/17 21:56 (Restoril) 15 mg HS PRN PO 03/24/17 16:15 (Aspirin Chew) 81 mg DAILY PO 03/25/17 09:00 03/29/17 13:12 Ticagrelor 90 mg 90 mg BID PO 03/25/17 09:00 03/29/17 13:10 (Aggrastat Infusion Inj) 250 ml @ 7.02 mls/hr Q24H IV 03/24/17 16:13 (Lipitor) 80 mg HS PO 03/24/17 21:00 03/28/17 21:55 (Bumetanide) 1 mg DAILY PO 03/25/17 09:00 03/29/17 13:09 (Keflex) 250 mg TID PO 03/24/17 18:00 03/29/17 13:09 (Vitamin D3) 2,000 units DAILY PO 03/25/17 09:00 03/29/17 13:11 (Proscar) 5 mg DAILY PO 03/25/17 09:00 03/29/17 13:12 (Imdur) 30 mg DAILY PO 03/25/17 09:00 03/29/17 13:11 (Pyridium) 100 mg Q8H PRN PO 03/24/17 16:30 03/27/17 06:35 (Renvela) 800 mg DAILY PO 03/25/17 09:00 03/29/17 13:09 (Flomax) 0.4 mg BID PO 03/24/17 21:00 03/29/17 13:12 (Levemir Inj) 10 units HS SQ 03/24/17 21:00 03/28/17 21:42 (NovoLOG INJ) 5 units TIDAC SQ 03/24/17 17:00 03/29/17 13:48 (D50w (Vial) Inj) 25 ml UNSCH PRN IV PUSH 03/24/17 16:45 Glucagon 1 mg 1 mg UNSCH PRN OTHER 03/24/17 16:45 (NS 1000 ml Inj) 1,000 ml @ 0 mls/hr TITRATE PRN IV 03/24/17 18:00 (Heparin Inj) 8,000 units UNSCH PRN IV FLUSH 03/24/17 18:00 Heparin Sodium (Porcine) 1000 units 1,000 units Q1H PRN IV FLUSH 03/24/17 18:00 Sodium Chloride 1,000 ml @ 200 mls/hr Q5H PRN IV 03/24/17 18:00 03/29/17 09:50 (NS 250 ml Inj) 200 ml @ 0 mls/hr UNSCH PRN IV 03/24/17 18:00 (Mannitol Inj) 12.5 gm UNSCH PRN IV 03/24/17 18:00 03/26/17 15:21 (Albumin 25% Inj) 25 gm UNSCH PRN IV 03/24/17 18:00 03/24/17 19:55 (NS Flush) 5 ml UNSCH PRN IV FLUSH 03/24/17 18:00 (Heparin Inj) Dwell Heparin to f... UNSCH PRN OTHER 03/24/17 18:00 (Gentamicin (Dialysis) Inj) 10 mg UNSCH PRN OTHER 03/24/17 18:00 (Gelfoam 12 Mm/7 Mm Top) 1 foam UNSCH PRN TOPICAL 03/24/17 18:00 03/29/17 09:50 (Zofran Inj) 4 mg UNSCH PRN IV 03/24/17 18:00 03/24/17 22:26 (Benadryl) 25 mg UNSCH PRN PO 03/24/17 18:00 (Nitrostat Sl) 0.4 mg UNSCH PRN SL 03/24/17 18:00 (Catapres) 0.1 mg UNSCH PRN PO 03/24/17 18:00 Epoetin Rafael 67764 units 10,000 units UNSCH PRN IV 03/25/17 10:00 03/29/17 09:50 (Amicar Inj/NS Irr Bag) 3,012 ml @ 0 mls/hr TITRATE IRRIGATION 03/25/17 16:00 03/28/17 21:49 Guaifenesin 600 mg 600 mg BID PO 03/25/17 21:00 03/29/17 13:09 (Vibramycin Inj/ NS Inj) 100 ml @ 100 mls/hr Q12H IV 03/26/17 17:00 03/29/17 05:59 (Ditropan) 5 mg Q8H PRN PO 03/27/17 01:00 03/27/17 09:49 (Roxicodone) 5 mg Q4H PRN PO 03/27/17 11:00 (Coreg) 12.5 mg Q8HR PO 03/27/17 15:00 03/29/17 13:18 (Colace) 100 mg BID PO 03/28/17 09:00 03/29/17 13:10 (Senokot) 17.2 mg DAILY PO 03/28/17 09:00 03/29/17 13:10 (SoluMEDROL INJ) 40 mg Q12H IV PUSH 03/28/17 18:00 03/29/17 06:00 (Protonix) 40 mg BID PO 03/28/17 09:00 03/29/17 13:12 (Mag-Al Plus Susp Liq) 30 ml Q6H PO 03/29/17 12:00 03/29/17 13:18 (Ofirmev Inj) 1,000 mg Q8HR IV 03/29/17 10:00 03/31/17 14:01 03/29/17 13:18 Vital Signs / I&O Vital Signs Date Time Temp Pulse Resp B/P Pulse Ox O2 Delivery O2 Flow Rate FiO2 03/29/17 15:58 97.5 66 20 114/57 95 03/29/17 14:01 70 03/29/17 13:30 66 03/29/17 11:00 64 03/29/17 10:00 64 03/29/17 09:00 66 03/29/17 08:47 98 1.50 03/29/17 08:00 97.9 60 18 112/70 96 03/29/17 08:00 64 03/29/17 06:00 66 03/29/17 05:00 64 03/29/17 04:00 66 03/29/17 03:00 65 03/29/17 03:00 98.7 71 20 103/55 97 03/29/17 02:00 66 03/29/17 01:00 62 03/29/17 00:00 64 03/28/17 23:00 97.8 70 22 104/49 96 03/28/17 23:00 64 03/28/17 22:00 74 03/28/17 21:00 72 03/28/17 20:00 64 03/28/17 19:44 96 Nasal Cannula 2.00 03/28/17 19:00 66 03/28/17 19:00 97.9 77 22 117/60 98 03/28/17 18:08 72 I/O 03/28/17 03/28/17 03/28/17 03/29/17 03/29/17 03/29/17 07:00 15:00 23:00 07:00 15:00 23:00 Intake Total 340 ml 420 ml 240 ml Output Total 1100 ml 5800 ml 0 ml 4000 ml Balance -760 ml -5380 ml 240 ml -4000 ml Intake Oral 240 ml 420 ml 240 ml IV Total 100 ml Output Urine Total 1100 ml 5800 ml 0 ml 1000 ml Hemodialysis 3000 ml Physical Exam GENERAL: In NAD. SKIN: Warm and dry. HEAD: Normocephalic. EYES: No scleral icterus. No injection or drainage. NECK: Supple, trachea midline. No JVD or lymphadenopathy. CARDIOVASCULAR: Regular rate and rhythm without murmurs, gallops, or rubs. RESPIRATORY: Breath sounds equal bilaterally. No accessory muscle use. GASTROINTESTINAL: Abdomen soft, non-tender, nondistended. MUSCULOSKELETAL: No cyanosis, or edema. Laboratory Laboratory Tests Test 03/29/17 05:15 White Blood Count 8.3 TH/MM3 Red Blood Count 2.92 MIL/MM3 Hemoglobin 8.8 GM/DL Hematocrit 26.6 % Mean Corpuscular Volume 91.2 FL Mean Corpuscular Hemoglobin 30.3 PG Mean Corpuscular Hemoglobin 33.2 % Concent Red Cell Distribution Width 18.7 % Platelet Count 169 TH/MM3 Mean Platelet Volume 10.5 FL Sodium Level 136 MEQ/L Potassium Level 5.0 MEQ/L Chloride Level 95 MEQ/L Carbon Dioxide Level 27.7 MEQ/L Anion Gap 13 MEQ/L Blood Urea Nitrogen 72 MG/DL Creatinine 8.06 MG/DL Estimat Glomerular Filtration 7 ML/MIN Rate Random Glucose 129 MG/DL Calcium Level 7.3 MG/DL Protein Corrected Calcium 8.2 MG/DL Magnesium Level 2.1 MG/DL Total Protein 5.5 GM/DL Imaging Last Impressions Renal Ultrasound 03/27/17 0000 Signed Impressions: Service Date/Time: Monday, March 27, 2017 08:00 - CONCLUSION: 1. No hydronephrosis. 2. Mixed echogenicity noted within the urinary bladder likely debris which may represent hematoma. Benji Martin MD Chest X-Ray 03/27/17 Signed Impressions: Service Date/Time: Monday, March 27, 2017 14:45 - CONCLUSION: Minimal left basilar density likely atelectasis. Benji Martin MD Modified Barium Swallow 03/26/17 Signed Impressions: Service Date/Time: Sunday, March 26, 2017 10:57 - CONCLUSION: There is no evidence for aspiration. Jamal Jay MD FACR Abdomen/Pelvis CT 03/26/17 Signed Impressions: Service Date/Time: Sunday, March 26, 2017 14:41 - CONCLUSION: New bibasilar airspace disease. Bilateral renal atrophy. Significant irregular thickening of the urinary bladder wall with indwelling Frankel. No evidence of acute intestinal process. Chris Cabral MD Assessment and Plan Problem List: (1) ST elevation myocardial infarction (STEMI) of inferior wall (2) CAD (coronary artery disease) (3) ESRD (end stage renal disease) on dialysis (4) Bladder mass (5) Hypertension (6) Diabetes mellitus (7) COPD exacerbation (8) Hematuria, unspecified Assessment and Plan Remains stable from cardiac standpoint. Continue Brilinta and baby ASA for at least one year. Continue post SD care with beta enmanuel and statin. Hematuria improving, followed by urology. Increase activity. Continue dialysis as per nephrology. Continue monitoring. Anticipate discharge home soon. Rachael Eason MD March 29, 2017 17:08
[2017-03-29] MEDS: INSULIN DETEMIR 100 UNITS/ML VIAL SQ SCH (21:16)
[2017-03-29] MEDS: ATORVASTATIN 80 MG TAB PO SCH (21:18)
[2017-03-30] VITALS (21 sets, daily range): BP systolic 113–123; BP diastolic 52–60; PULSE 60–74; RESP 18–20; TEMP 97.4–98; O2SAT 95–97
[2017-03-30] MEDS: ALUMINUM/MAGNESIUM/SIMETH 30 ML CUP PO SCH ×5 (00:35→23:57)
[2017-03-30] MEDS: AMINOCAPROIC ACID INJ 3,000 MG in SODIUM CHLORIDE 0.9% IRR BAG 3,000 ML IRRIGATION SCH ×3 (00:39→21:53)
[2017-03-30 05:13] LABS: HEMATOCRIT 28.3 % (39.0-51.0); MEAN CELL VOLUME 91.2 FL (80.0-100.0); MEAN CORPUSCULAR HEMOGLOBIN 29.3 PG (27.0-34.0); MEAN CORPUSCULAR HGB CONC 32.1 % (32.0-36.0); PLATELET COUNT 155 TH/MM3 (150-450); RED CELL DISTRIBUTION WIDTH 19.3 % (11.6-17.2); REVIEW FLAG FINAL; WHITE BLOOD COUNT 8.2 TH/MM3 (4.0-11.0)
[2017-03-30 05:40] LABS: BICARBONATE 32.3 MEQ/L (21.0-32.0); MAGNESIUM 1.9 MG/DL (1.5-2.5); POTASSIUM 4.8 MEQ/L (3.5-5.1)
[2017-03-30] MEDS: DOXYCYCLINE INJ 100 MG in SODIUM CHLORIDE 0.9% INJ 100 ML IV SCH ×2 (05:44→17:33)
[2017-03-30] MEDS: methylPREDNISolone SOD SUCC 40 MG/1 ML VIAL IV PUSH SCH (05:44)
[2017-03-30] MEDS: ACETAMINOPHEN 1000 MG/100 ML VIAL IV SCH ×4 (05:45→21:19)
[2017-03-30] MEDS: CARVEDILOL 12.5 MG TAB PO SCH ×3 (06:00→21:25)
[2017-03-30] MEDS: INSULIN ASPART SUPPLEMENTAL SCALE SQ SCH ×4 (06:04→21:38)
[2017-03-30 06:07] LABS: CALCIUM-PROTEIN CORRECTED 8.3 MG/DL (8.5-10.1)
[2017-03-30] MEDS: RESP: ALBUTEROL 2.5 MG/IPRATROPIUM 0.5 MG NEB (SCH) NEB (07:41)
[2017-03-30] MEDS: guaiFENesin E.R. 600 MG TAB PO SCH ×2 (08:48→21:25)
[2017-03-30] MEDS: CHOLECALCIFEROL (VIT D3) 1000 UNIT TAB PO SCH (08:48)
[2017-03-30] MEDS: SEVELAMER CARBONATE 800 MG TAB PO SCH (08:48)
[2017-03-30] MEDS: CEPHALEXIN MONOHYDRATE 250 MG CAP PO SCH ×3 (08:49→17:27)
[2017-03-30] MEDS: TAMSULOSIN HCL 0.4 MG CAP PO SCH ×2 (08:49→21:24)
[2017-03-30] MEDS: FINASTERIDE 5 MG TAB PO SCH (08:49)
[2017-03-30] MEDS: SENNOSIDES 8.6 MG TAB PO SCH (08:49)
[2017-03-30] MEDS: PANTOPRAZOLE SOD 40 MG DELAYED RELEASE TAB PO SCH ×2 (08:49→21:24)
[2017-03-30] MEDS: ASPIRIN 81 MG CHEW TAB PO SCH (08:49)
[2017-03-30] MEDS: BUMETANIDE 1 MG TAB PO SCH (08:49)
[2017-03-30] MEDS: TICAGRELOR 90 MG TAB PO SCH ×2 (08:50→21:50)
[2017-03-30] MEDS: DOCUSATE SODIUM 100 MG CAP PO SCH ×2 (08:50→21:24)
[2017-03-30] MEDS: INSULIN ASPART 1,000 UNITS/10 ML VIAL SQ SCH ×3 (08:50→17:26)
[2017-03-30] MEDS: ISOSORBIDE MONONITRATE 30 MG TAB PO SCH (08:50)
--- NOTE | 2017-03-30 09:34 | HHI.NPPN ---
Subjective General Problems: Anemia Renal Failure: Chronic, End Stage Renal Disease Interval History He was dialyzed yesterday. Hematuria continues, on CBI. at bedside. ( Mechelle Mcgee) Review of Systems General Constitutional: Fatigue (Mechelle Mcgee) Gastrointestinal Gastrointestinal: Abdominal Pain (Mechelle Mcgee) Genitourinary Remarks hematuria (Mechelle Mcgee) Objective Data Data 03/29/17 03/30/17 19:00 07:00 Intake Total 3000 ml 340 ml Output Total 5000 ml 2250 ml Balance -2000 ml -1910 ml Intake Oral 240 ml IV Total 100 ml Other 3000 ml Output Urine Total 2000 ml 2250 ml Hemodialysis 3000 ml Vital Signs Date Time Temp Pulse Resp B/P Pulse Ox O2 Delivery O2 Flow Rate FiO2 03/30/17 07:41 95 21 03/30/17 06:05 64 03/30/17 05:06 61 03/30/17 04:00 65 03/30/17 04:00 98.0 66 20 113/60 97 03/30/17 03:00 65 03/30/17 02:00 64 03/30/17 01:00 64 03/30/17 00:00 64 03/30/17 00:00 98.0 64 20 123/55 97 03/29/17 23:31 67 03/29/17 22:00 58 03/29/17 21:00 66 03/29/17 20:00 69 03/29/17 20:00 98.0 74 20 118/77 97 03/29/17 19:26 96 21 03/29/17 19:00 74 03/29/17 18:00 70 03/29/17 17:00 76 03/29/17 16:00 74 03/29/17 15:58 97.5 66 20 114/57 95 03/29/17 15:00 72 03/29/17 14:01 70 03/29/17 13:30 66 03/29/17 11:00 64 03/29/17 10:00 64 (Mechelle Mcgee) -: 03/30/17 0439 03/30/17 0439 Imaging Last Impressions Renal Ultrasound 03/27/17 0000 Signed Impressions: Service Date/Time: Monday, March 27, 2017 08:00 - CONCLUSION: 1. No hydronephrosis. 2. Mixed echogenicity noted within the urinary bladder likely debris which may represent hematoma. Benji Martin MD Chest X-Ray 03/27/17 Signed Impressions: Service Date/Time: Monday, March 27, 2017 14:45 - CONCLUSION: Minimal left basilar density likely atelectasis. Benji Martin MD Modified Barium Swallow 03/26/17 Signed Impressions: Service Date/Time: Sunday, March 26, 2017 10:57 - CONCLUSION: There is no evidence for aspiration. Jamal Jay MD FACR Abdomen/Pelvis CT 03/26/17 Signed Impressions: Service Date/Time: Sunday, March 26, 2017 14:41 - CONCLUSION: New bibasilar airspace disease. Bilateral renal atrophy. Significant irregular thickening of the urinary bladder wall with indwelling Strong. No evidence of acute intestinal process. Chris Cabral MD Tubes & Lines: Strong Tubes & Lines Comment on CBI (Mechelle Mcgee) Physical Exam General Appearance: Well Developed, No Acute Distress, Comfortable, Malnourished ( Mechelle Mcgee) Neck Neck Exam: Neck Supple (Mechelle Mcgee) Pulmonary Resp Exam: Breath Sounds Equal, Crackles, Rhonchi, Sputum (Mechelle Mcgee BRey RODRIGUEZ) Cardiology CV Exam: Regular, Normal Sinus Rhythm (Mechelle Mcgee) Gastrointestinal/Abdomen GI Exam: Soft, Bowel Sounds Present (Mechelle Mcgee) Musculoskeletal MS Exam: Joints Intact, Normal Tone (Mechelle Mcgee BRey RODRIGUEZ) Integumentary Skin Exam: Clear, Warm, Dry, Intact (Mechelle Mcgee BRey RODRIGUEZ) Extremeties Extremities Exam: No Edema, Pedal Pulses Palpable (Mechelle Mcgee) Neurologic Neuro Exam: Alert, Awake, Oriented, Speech Clear, Moving All Extremities ( Mechelle Mcgee) Psychiatric Psych Exam: Appropriate Responses (Mechelle Mcgee) Assessment/Plan Discussed Condition With: Patient, Spouse Assessment Summary: Anemia of CKD, End Stage Renal Disease Problem List: (1) ESRD (end stage renal disease) on dialysis Plan: 3L UF yesterday with HD Dialysis will be continue MWF. Monitor fluid and electrolyte status. Avoid Gadolinium. Avoid IVF renal diet with no protein restriction minimize lab draws, intermittent metabolic profile (2) Bladder mass Plan: s/p cystoscopy with tumor removal, follows with Dr. Velásquez Patient has muscle invasive urothelial cancer. on CBI with continued hematuria, had partial strong dislodgement over the weekend Urology following, appreciate further recommendations (3) STEMI (ST elevation myocardial infarction) Plan: cardiology following, s/p PCI with BMS placement to RCA on 03/24 on Brilinta, ASA, and Lipitor (4) Hypertension Plan: BP stable, contine present antihypertensives (5) Anemia Plan: Continue Epogen. His Hemoglobin low but improved, likely due to hematuria. Monitor Hb (6) Metabolic bone disease Plan: On Renvela .Phosphorus level in progress (Mechelle Mcgee) Plan patient was seen and examined. On CBI. Had dialysis yesterday. Urology to follow. Epogen for anemia. (Chava Singh MD) Problem Qualifiers (1) STEMI (ST elevation myocardial infarction): Qualified Code: I21.19 - ST elevation myocardial infarction (STEMI) involving other coronary artery of inferior wall Mechelle Mcgee March 30, 2017 09:34 Chava Singh MD March 30, 2017 11:43
--- NOTE | 2017-03-30 14:49 | HHI.PR ---
Subjective Remarks The patient wanted to know if he could go home. He says his abdominal pain has resolved. He said that Maalox helps a lot. He has not been out of bed much. He does endorse palpitations from time to time. Family at the bedside. Objective Vitals Vital Signs Date Time Temp Pulse Resp B/P Pulse Ox O2 Delivery O2 Flow Rate FiO2 03/30/17 14:00 64 03/30/17 13:00 62 03/30/17 12:00 62 03/30/17 11:00 62 03/30/17 11:00 97.6 60 18 120/55 97 03/30/17 10:00 62 03/30/17 09:00 62 03/30/17 08:16 97.9 61 18 120/58 95 03/30/17 08:00 64 03/30/17 07:41 95 21 03/30/17 07:00 65 03/30/17 06:05 64 03/30/17 05:06 61 03/30/17 04:00 65 03/30/17 04:00 98.0 66 20 113/60 97 03/30/17 03:00 65 03/30/17 02:00 64 03/30/17 01:00 64 03/30/17 00:00 64 03/30/17 00:00 98.0 64 20 123/55 97 03/29/17 23:31 67 03/29/17 22:00 58 03/29/17 21:00 66 03/29/17 20:00 69 03/29/17 20:00 98.0 74 20 118/77 97 03/29/17 19:26 96 21 03/29/17 19:00 74 03/29/17 18:00 70 03/29/17 17:00 76 03/29/17 16:00 74 03/29/17 15:58 97.5 66 20 114/57 95 03/29/17 15:00 72 I/O 03/29/17 03/29/17 03/29/17 03/30/17 03/30/17 03/30/17 06:59 14:59 22:59 06:59 14:59 22:59 Intake Total 240 ml 3000 ml 340 ml Output Total 0 ml 5000 ml 2250 ml Balance 240 ml -5000 ml 3000 ml -1910 ml Intake Oral 240 ml 240 ml IV Total 100 ml Other 3000 ml Output Urine Total 0 ml 2000 ml 2250 ml Hemodialysis 3000 ml Result Diagram: 03/30/17 0439 03/30/17 0439 Imaging Last Impressions Renal Ultrasound 03/27/17 0000 Signed Impressions: Service Date/Time: Monday, March 27, 2017 08:00 - CONCLUSION: 1. No hydronephrosis. 2. Mixed echogenicity noted within the urinary bladder likely debris which may represent hematoma. Benji Martin MD Chest X-Ray 03/27/17 0000 Signed Impressions: Service Date/Time: Monday, March 27, 2017 14:45 - CONCLUSION: Minimal left basilar density likely atelectasis. Benji Martin MD Modified Barium Swallow 03/26/17 0000 Signed Impressions: Service Date/Time: Sunday, March 26, 2017 10:57 - CONCLUSION: There is no evidence for aspiration. Jamal Jay MD FACR Abdomen/Pelvis CT 03/26/17 0000 Signed Impressions: Service Date/Time: Sunday, March 26, 2017 14:41 - CONCLUSION: New bibasilar airspace disease. Bilateral renal atrophy. Significant irregular thickening of the urinary bladder wall with indwelling Frankel. No evidence of acute intestinal process. Chris Cabral MD Objective Remarks GENERAL: Resting comfortably. SKIN: Focused skin assessment warm/dry. HEAD: Atraumatic. Normocephalic. EYES: Pupils equal and round. No scleral icterus. No injection or drainage. ENT: No nasal bleeding or discharge. Mucous membranes pink and moist. NECK: Trachea midline. No JVD. CARDIOVASCULAR: Regular rate and rhythm. No murmur appreciated. RESPIRATORY: Mild wheezing, crackles at the bases. GASTROINTESTINAL: Abdomen soft, nontender, nondistended. No rebound tenderness or guarding. : Frankel in place, hematuria improving. MUSCULOSKELETAL: Tenderness to palpation of left chest wall. No obvious deformities. No clubbing. No cyanosis. NEUROLOGICAL: Awake and alert. No obvious cranial nerve deficits. Motor grossly within normal limits. Normal speech. PSYCHIATRIC: Appropriate mood and affect; insight and judgment normal. Procedures Cardiac catheterization Medications and IVs Current Medications Medications (Trade) Dose Ordered Sig/Darinel Route Start Time Stop Time Status Last Admin (NS Flush) 2 ml UNSCH PRN IVF 03/24/17 12:15 03/28/17 21:56 (Restoril) 15 mg HS PRN PO 03/24/17 16:15 (Aspirin Chew) 81 mg DAILY PO 03/25/17 09:00 03/30/17 08:49 Ticagrelor 90 mg 90 mg BID PO 03/25/17 09:00 03/30/17 08:50 (Aggrastat Infusion Inj) 250 ml @ 7.02 mls/hr Q24H IV 03/24/17 16:13 (Lipitor) 80 mg HS PO 03/24/17 21:00 03/29/17 21:18 (Bumetanide) 1 mg DAILY PO 03/25/17 09:00 03/30/17 08:49 (Keflex) 250 mg TID PO 03/24/17 18:00 03/30/17 13:16 (Vitamin D3) 2,000 units DAILY PO 03/25/17 09:00 03/30/17 08:48 (Proscar) 5 mg DAILY PO 03/25/17 09:00 03/30/17 08:49 (Imdur) 30 mg DAILY PO 03/25/17 09:00 03/30/17 08:50 (Pyridium) 100 mg Q8H PRN PO 03/24/17 16:30 03/27/17 06:35 (Renvela) 800 mg DAILY PO 03/25/17 09:00 03/30/17 08:48 (Flomax) 0.4 mg BID PO 03/24/17 21:00 03/30/17 08:49 (Levemir Inj) 10 units HS SQ 03/24/17 21:00 03/29/17 21:16 (NovoLOG INJ) 5 units TIDAC SQ 03/24/17 17:00 03/30/17 12:00 (D50w (Vial) Inj) 25 ml UNSCH PRN IV PUSH 03/24/17 16:45 Glucagon 1 mg 1 mg UNSCH PRN OTHER 03/24/17 16:45 (NS 1000 ml Inj) 1,000 ml @ 0 mls/hr TITRATE PRN IV 03/24/17 18:00 (Heparin Inj) 8,000 units UNSCH PRN IV FLUSH 03/24/17 18:00 Heparin Sodium (Porcine) 1000 units 1,000 units Q1H PRN IV FLUSH 03/24/17 18:00 Sodium Chloride 1,000 ml @ 200 mls/hr Q5H PRN IV 03/24/17 18:00 03/29/17 09:50 (NS 250 ml Inj) 200 ml @ 0 mls/hr UNSCH PRN IV 03/24/17 18:00 (Mannitol Inj) 12.5 gm UNSCH PRN IV 03/24/17 18:00 03/26/17 15:21 (Albumin 25% Inj) 25 gm UNSCH PRN IV 03/24/17 18:00 03/24/17 19:55 (NS Flush) 5 ml UNSCH PRN IV FLUSH 03/24/17 18:00 (Heparin Inj) Dwell Heparin to f... UNSCH PRN OTHER 03/24/17 18:00 (Gentamicin (Dialysis) Inj) 10 mg UNSCH PRN OTHER 03/24/17 18:00 (Gelfoam 12 Mm/7 Mm Top) 1 foam UNSCH PRN TOPICAL 03/24/17 18:00 03/29/17 09:50 (Zofran Inj) 4 mg UNSCH PRN IV 03/24/17 18:00 03/24/17 22:26 (Benadryl) 25 mg UNSCH PRN PO 03/24/17 18:00 (Nitrostat Sl) 0.4 mg UNSCH PRN SL 03/24/17 18:00 (Catapres) 0.1 mg UNSCH PRN PO 03/24/17 18:00 Epoetin Rafael 44345 units 10,000 units UNSCH PRN IV 03/25/17 10:00 03/29/17 09:50 (Amicar Inj/NS Irr Bag) 3,012 ml @ 0 mls/hr TITRATE IRRIGATION 03/25/17 16:00 03/30/17 00:39 Guaifenesin 600 mg 600 mg BID PO 03/25/17 21:00 03/30/17 08:48 (Vibramycin Inj/ NS Inj) 100 ml @ 100 mls/hr Q12H IV 03/26/17 17:00 03/30/17 05:44 (Ditropan) 5 mg Q8H PRN PO 03/27/17 01:00 03/27/17 09:49 (Roxicodone) 5 mg Q4H PRN PO 03/27/17 11:00 (Coreg) 12.5 mg Q8HR PO 03/27/17 15:00 03/30/17 13:16 (Colace) 100 mg BID PO 03/28/17 09:00 03/30/17 08:50 (Senokot) 17.2 mg DAILY PO 03/28/17 09:00 03/30/17 08:49 (SoluMEDROL INJ) 40 mg Q12H IV PUSH 03/28/17 18:00 03/30/17 05:44 (Protonix) 40 mg BID PO 03/28/17 09:00 03/30/17 08:49 (Mag-Al Plus Susp Liq) 30 ml Q6H PO 03/29/17 12:00 03/30/17 13:16 (Ofirmev Inj) 1,000 mg Q8HR IV 03/29/17 10:00 03/31/17 14:01 03/29/17 21:18 A/P Assessment and Plan STEMI EKG revealed ST elevations in the inferior leads with reciprocal ST depressions. Troponin was 0.75. The patient was taken to [facility] and a stent was placed to the graft of the RCA. The patient has had runs of v tach on telemetry. Repeat EKG stable. - Continue medication regimen per cardiology. Increased Coreg to 12.5 mg TID. - Telemetry. - Oxygen and pain meds as needed. - monitor lytes and replete as needed. CHF BNP markedly elevated. Has a history of CAD s/p CABG. - continue PO Bumex. - dialysis for volume management. - follow Is and Os. - follow up with cardiology. ESRD The patient is on hemodialysis. Nephrology consult appreciated. - Follow BMP. Kayexalate as needed. - Continue diuretics. - dialysis per nephrology. N/V/ Abdominal pain N/V seems to have resolved but pt complains of chronic diffuse abdominal pain. Negative CT in February. LFTs and lipase unremarkable. Possibly s/t GERD, PUD or bladder cancer. CT showed: New bibasilar airspace disease; Bilateral renal atrophy; Significant irregular thickening of the urinary bladder wall with indwelling Frankel; No evidence of acute intestinal process. The pt does have pain upon palpation of the left chest wall. May be costochondritis. Resolved . - Antiemetics and pain meds as needed. - Advance diet as tolerated. - increase PPI. - added standing Maalox. - started IV Tylenol for costochondritis. Cough/ Aspiration/ COPD Likely secondary to chronic bronchitis. The patient also acknowledges some difficulty swallowing. Speech recommending NPO status. CXR with bibasilar densities, likely atelectasis. Repeat CXR stable. Barium negative for aspiration. Pt with diffuse wheezing, improved. Sputum culture growing Enterobacter cloacae, pansensitive. - diet per speech. - Solumedrol changed to prednisone. Continue standing nebs. - IS. - oxygen as needed. Walk test prior to discharge. - continue doxycycline. 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 - Physical therapy. - Continue medical regimen. Bladder tumors/ Hematuria The patient had recent bladder tumor removal on Wednesday. He has hematuria and a Frankel in place. Urology consult appreciated. 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 Frankel not draining well 03/27. Renal US without hydronephrosis. - Continue blood thinners per cardiology. - 3 way Frankel per urology. - Follow CBC and transfuse as needed. PPx: SCDs; PPI. Discharge Planning Awaiting clinical improvement. Feliciano Echeverria DO March 30, 2017 14:49
--- NOTE | 2017-03-30 15:15 | EKG ---
Date Performed: 03/29/2017 Time Performed: 17:55:38 PTAGE: 76 years EKG: Undetermined rhythm due to heavy baseline artifact, recommend repeat ekg IV conduction defe ct Possible inferior infarct - age undetermined Septal and lateral ST-T changes suggest myocardial in jury/ischemia Compared to the previous tracing there is now heavy artifact Abnormal ECG PREVIOUS TRACING : 03/25/2017 06.03 DOCTOR: Daryl Roth Interpretating Date/Time 03/30/2017 15:13:19
--- NOTE | 2017-03-30 15:22 | HHI.PR ---
Subjective Patient symptoms today Pt seen and examined. Irrigated at bedside. Clots removed. Objective Vital Signs Vital Signs Date Time Temp Pulse Resp B/P Pulse Ox O2 Delivery O2 Flow Rate FiO2 03/30/17 14:00 64 03/30/17 13:00 62 03/30/17 12:00 62 03/30/17 11:00 62 03/30/17 11:00 97.6 60 18 120/55 97 03/30/17 10:00 62 03/30/17 09:00 62 03/30/17 08:16 97.9 61 18 120/58 95 03/30/17 08:00 64 03/30/17 07:41 95 21 03/30/17 07:00 65 03/30/17 06:05 64 03/30/17 05:06 61 03/30/17 04:00 65 03/30/17 04:00 98.0 66 20 113/60 97 03/30/17 03:00 65 03/30/17 02:00 64 03/30/17 01:00 64 03/30/17 00:00 64 03/30/17 00:00 98.0 64 20 123/55 97 03/29/17 23:31 67 03/29/17 22:00 58 03/29/17 21:00 66 03/29/17 20:00 69 03/29/17 20:00 98.0 74 20 118/77 97 03/29/17 19:26 96 21 03/29/17 19:00 74 03/29/17 18:00 70 03/29/17 17:00 76 03/29/17 16:00 74 03/29/17 15:58 97.5 66 20 114/57 95 Intake & Output 03/30/17 03/30/17 07:00 19:00 Intake Total 340 ml Output Total 2250 ml Balance -1910 ml Intake Oral 240 ml IV Total 100 ml Output Urine Total 2250 ml Result Diagram: 03/30/17 0439 03/30/17 0439 Objective Remarks Frankel catheter appears to be out of position in the urethra. Unable to irrigate. Abdominal tenderness noted 03/29 Abd:soft,slight tenderness, no rebound Frankel: clear when CBI is turned up 03/30 Abd:soft,nt,nd Frankel irrigated at bedside; clots removed. Clear now on CBI Medications and IVs Current Medications Medications (Trade) Dose Ordered Sig/Darinel Route Start Time Stop Time Status Last Admin (NS Flush) 2 ml UNSCH PRN IVF 03/24/17 12:15 03/28/17 21:56 (Restoril) 15 mg HS PRN PO 03/24/17 16:15 (Aspirin Chew) 81 mg DAILY PO 03/25/17 09:00 03/30/17 08:49 Ticagrelor 90 mg 90 mg BID PO 03/25/17 09:00 03/30/17 08:50 (Aggrastat Infusion Inj) 250 ml @ 7.02 mls/hr Q24H IV 03/24/17 16:13 (Lipitor) 80 mg HS PO 03/24/17 21:00 03/29/17 21:18 (Bumetanide) 1 mg DAILY PO 03/25/17 09:00 03/30/17 08:49 (Keflex) 250 mg TID PO 03/24/17 18:00 03/30/17 13:16 (Vitamin D3) 2,000 units DAILY PO 03/25/17 09:00 03/30/17 08:48 (Proscar) 5 mg DAILY PO 03/25/17 09:00 03/30/17 08:49 (Imdur) 30 mg DAILY PO 03/25/17 09:00 03/30/17 08:50 (Pyridium) 100 mg Q8H PRN PO 03/24/17 16:30 03/27/17 06:35 (Renvela) 800 mg DAILY PO 03/25/17 09:00 03/30/17 08:48 (Flomax) 0.4 mg BID PO 03/24/17 21:00 03/30/17 08:49 (Levemir Inj) 10 units HS SQ 03/24/17 21:00 03/29/17 21:16 (NovoLOG INJ) 5 units TIDAC SQ 03/24/17 17:00 03/30/17 12:00 (D50w (Vial) Inj) 25 ml UNSCH PRN IV PUSH 03/24/17 16:45 Glucagon 1 mg 1 mg UNSCH PRN OTHER 03/24/17 16:45 (NS 1000 ml Inj) 1,000 ml @ 0 mls/hr TITRATE PRN IV 03/24/17 18:00 (Heparin Inj) 8,000 units UNSCH PRN IV FLUSH 03/24/17 18:00 Heparin Sodium (Porcine) 1000 units 1,000 units Q1H PRN IV FLUSH 03/24/17 18:00 Sodium Chloride 1,000 ml @ 200 mls/hr Q5H PRN IV 03/24/17 18:00 03/29/17 09:50 (NS 250 ml Inj) 200 ml @ 0 mls/hr UNSCH PRN IV 03/24/17 18:00 (Mannitol Inj) 12.5 gm UNSCH PRN IV 03/24/17 18:00 03/26/17 15:21 (Albumin 25% Inj) 25 gm UNSCH PRN IV 03/24/17 18:00 03/24/17 19:55 (NS Flush) 5 ml UNSCH PRN IV FLUSH 03/24/17 18:00 (Heparin Inj) Dwell Heparin to f... UNSCH PRN OTHER 03/24/17 18:00 (Gentamicin (Dialysis) Inj) 10 mg UNSCH PRN OTHER 03/24/17 18:00 (Gelfoam 12 Mm/7 Mm Top) 1 foam UNSCH PRN TOPICAL 03/24/17 18:00 03/29/17 09:50 (Zofran Inj) 4 mg UNSCH PRN IV 03/24/17 18:00 03/24/17 22:26 (Benadryl) 25 mg UNSCH PRN PO 03/24/17 18:00 (Nitrostat Sl) 0.4 mg UNSCH PRN SL 03/24/17 18:00 (Catapres) 0.1 mg UNSCH PRN PO 03/24/17 18:00 Epoetin Rafael [id number] units 10,000 units UNSCH PRN IV 03/25/17 10:00 03/29/17 09:50 (Amicar Inj/NS Irr Bag) 3,012 ml @ 0 mls/hr TITRATE IRRIGATION 03/25/17 16:00 03/30/17 00:39 Guaifenesin 600 mg 600 mg BID PO 03/25/17 21:00 03/30/17 08:48 (Vibramycin Inj/ NS Inj) 100 ml @ 100 mls/hr Q12H IV 03/26/17 17:00 03/30/17 05:44 (Ditropan) 5 mg Q8H PRN PO 03/27/17 01:00 03/27/17 09:49 (Roxicodone) 5 mg Q4H PRN PO 03/27/17 11:00 (Coreg) 12.5 mg Q8HR PO 03/27/17 15:00 03/30/17 13:16 (Colace) 100 mg BID PO 03/28/17 09:00 03/30/17 08:50 (Senokot) 17.2 mg DAILY PO 03/28/17 09:00 03/30/17 08:49 (Protonix) 40 mg BID PO 03/28/17 09:00 03/30/17 08:49 (Mag-Al Plus Susp Liq) 30 ml Q6H PO 03/29/17 12:00 03/30/17 13:16 (Ofirmev Inj) 1,000 mg Q8HR IV 03/29/17 10:00 03/31/17 14:01 03/29/17 21:18 (Deltasone) 20 mg BID PO 03/30/17 21:00 Assessment and Plan Assessment and Plan -Frankel catheter balloon deflated and catheter advanced into bladder. -Successful irrigation with 1L saline after manipulation with minimal clots -CBI resumed with clear urine on moderate rate -Maintain CBI overnight. May titrate -Frankel catheter to be removed per Dr. Velásquez's orders 03/29 76 y.o male with h/o muscle invasive bladder cancer s/p TURBT with gross hematuria Continue Amicar CBI for now Irrigate prn 03/30 76 y.o male with h/o muscle invasive bladder cancer s/p TURBT with gross hematuria Continue Amicar CBI for now Irrigate prn Chito Flower DO March 30, 2017 15:22
--- NOTE | 2017-03-30 18:52 | PD.CARD.PN ---
Subjective Subjective Remarks No angina or CHF symptoms Objective Medications Current Medications Medications (Trade) Dose Ordered Sig/Darinel Route Start Time Stop Time Status Last Admin (NS Flush) 2 ml UNSCH PRN IVF 03/24/17 12:15 03/28/17 21:56 (Restoril) 15 mg HS PRN PO 03/24/17 16:15 (Aspirin Chew) 81 mg DAILY PO 03/25/17 09:00 03/30/17 08:49 Ticagrelor 90 mg 90 mg BID PO 03/25/17 09:00 03/30/17 08:50 (Aggrastat Infusion Inj) 250 ml @ 7.02 mls/hr Q24H IV 03/24/17 16:13 (Lipitor) 80 mg HS PO 03/24/17 21:00 03/29/17 21:18 (Bumetanide) 1 mg DAILY PO 03/25/17 09:00 03/30/17 08:49 (Keflex) 250 mg TID PO 03/24/17 18:00 03/30/17 17:27 (Vitamin D3) 2,000 units DAILY PO 03/25/17 09:00 03/30/17 08:48 (Proscar) 5 mg DAILY PO 03/25/17 09:00 03/30/17 08:49 (Imdur) 30 mg DAILY PO 03/25/17 09:00 03/30/17 08:50 (Pyridium) 100 mg Q8H PRN PO 03/24/17 16:30 03/27/17 06:35 (Renvela) 800 mg DAILY PO 03/25/17 09:00 03/30/17 08:48 (Flomax) 0.4 mg BID PO 03/24/17 21:00 03/30/17 08:49 (Levemir Inj) 10 units HS SQ 03/24/17 21:00 03/29/17 21:16 (NovoLOG INJ) 5 units TIDAC SQ 03/24/17 17:00 03/30/17 17:26 (D50w (Vial) Inj) 25 ml UNSCH PRN IV PUSH 03/24/17 16:45 Glucagon 1 mg 1 mg UNSCH PRN OTHER 03/24/17 16:45 (NS 1000 ml Inj) 1,000 ml @ 0 mls/hr TITRATE PRN IV 03/24/17 18:00 (Heparin Inj) 8,000 units UNSCH PRN IV FLUSH 03/24/17 18:00 Heparin Sodium (Porcine) 1000 units 1,000 units Q1H PRN IV FLUSH 03/24/17 18:00 Sodium Chloride 1,000 ml @ 200 mls/hr Q5H PRN IV 03/24/17 18:00 03/29/17 09:50 (NS 250 ml Inj) 200 ml @ 0 mls/hr UNSCH PRN IV 03/24/17 18:00 (Mannitol Inj) 12.5 gm UNSCH PRN IV 03/24/17 18:00 03/26/17 15:21 (Albumin 25% Inj) 25 gm UNSCH PRN IV 03/24/17 18:00 03/24/17 19:55 (NS Flush) 5 ml UNSCH PRN IV FLUSH 03/24/17 18:00 (Heparin Inj) Dwell Heparin to f... UNSCH PRN OTHER 03/24/17 18:00 (Gentamicin (Dialysis) Inj) 10 mg UNSCH PRN OTHER 03/24/17 18:00 (Gelfoam 12 Mm/7 Mm Top) 1 foam UNSCH PRN TOPICAL 03/24/17 18:00 03/29/17 09:50 (Zofran Inj) 4 mg UNSCH PRN IV 03/24/17 18:00 03/24/17 22:26 (Benadryl) 25 mg UNSCH PRN PO 03/24/17 18:00 (Nitrostat Sl) 0.4 mg UNSCH PRN SL 03/24/17 18:00 (Catapres) 0.1 mg UNSCH PRN PO 03/24/17 18:00 Epoetin Rafael [id number] units 10,000 units UNSCH PRN IV 03/25/17 10:00 03/29/17 09:50 (Amicar Inj/NS Irr Bag) 3,012 ml @ 0 mls/hr TITRATE IRRIGATION 03/25/17 16:00 03/30/17 16:23 Guaifenesin 600 mg 600 mg BID PO 03/25/17 21:00 03/30/17 08:48 (Vibramycin Inj/ NS Inj) 100 ml @ 100 mls/hr Q12H IV 03/26/17 17:00 03/30/17 17:33 (Ditropan) 5 mg Q8H PRN PO 03/27/17 01:00 03/27/17 09:49 (Roxicodone) 5 mg Q4H PRN PO 03/27/17 11:00 (Coreg) 12.5 mg Q8HR PO 03/27/17 15:00 03/30/17 13:16 (Colace) 100 mg BID PO 03/28/17 09:00 03/30/17 08:50 (Senokot) 17.2 mg DAILY PO 03/28/17 09:00 03/30/17 08:49 (Protonix) 40 mg BID PO 03/28/17 09:00 03/30/17 08:49 (Mag-Al Plus Susp Liq) 30 ml Q6H PO 03/29/17 12:00 03/30/17 17:27 (Ofirmev Inj) 1,000 mg Q8HR IV 03/29/17 10:00 03/31/17 14:01 03/29/17 21:18 (Deltasone) 20 mg BID PO 03/30/17 21:00 Vital Signs / I&O Vital Signs Date Time Temp Pulse Resp B/P Pulse Ox O2 Delivery O2 Flow Rate FiO2 03/30/17 16:00 97.7 65 18 121/59 95 03/30/17 15:00 66 03/30/17 14:00 64 03/30/17 13:00 62 03/30/17 12:00 62 03/30/17 11:00 62 03/30/17 11:00 97.6 60 18 120/55 97 03/30/17 10:00 62 03/30/17 09:00 62 03/30/17 08:16 97.9 61 18 120/58 95 03/30/17 08:00 64 03/30/17 07:41 95 21 03/30/17 07:00 65 03/30/17 06:05 64 03/30/17 05:06 61 03/30/17 04:00 65 03/30/17 04:00 98.0 66 20 113/60 97 03/30/17 03:00 65 03/30/17 02:00 64 03/30/17 01:00 64 03/30/17 00:00 64 03/30/17 00:00 98.0 64 20 123/55 97 5/15/17 23:31 67 03/29/17 22:00 58 03/29/17 21:00 66 03/29/17 20:00 69 03/29/17 20:00 98.0 74 20 118/77 97 03/29/17 19:26 96 21 03/29/17 19:00 74 I/O 03/29/17 03/29/17 03/29/17 03/30/17 03/30/17 03/30/17 07:00 15:00 23:00 07:00 15:00 23:00 Intake Total 240 ml 3000 ml 340 ml Output Total 0 ml 5000 ml 2250 ml Balance 240 ml -5000 ml 3000 ml -1910 ml Intake Oral 240 ml 240 ml IV Total 100 ml Other 3000 ml Output Urine Total 0 ml 2000 ml 2250 ml Hemodialysis 3000 ml Physical Exam GENERAL: In NAD. SKIN: Warm and dry. HEAD: Normocephalic. EYES: No scleral icterus. No injection or drainage. NECK: Supple, trachea midline. No JVD or lymphadenopathy. CARDIOVASCULAR: Regular rate and rhythm without murmurs, gallops, or rubs. RESPIRATORY: Breath sounds equal bilaterally. No accessory muscle use. GASTROINTESTINAL: Abdomen soft, non-tender, nondistended. MUSCULOSKELETAL: No cyanosis, or edema. Laboratory Laboratory Tests Test 03/30/17 04:39 White Blood Count 8.2 TH/MM3 Red Blood Count 3.10 MIL/MM3 Hemoglobin 9.1 GM/DL Hematocrit 28.3 % Mean Corpuscular Volume 91.2 FL Mean Corpuscular Hemoglobin 29.3 PG Mean Corpuscular Hemoglobin 32.1 % Concent Red Cell Distribution Width 19.3 % Platelet Count 155 TH/MM3 Mean Platelet Volume 10.4 FL Sodium Level 135 MEQ/L Potassium Level 4.8 MEQ/L Chloride Level 93 MEQ/L Carbon Dioxide Level 32.3 MEQ/L Anion Gap 10 MEQ/L Blood Urea Nitrogen 54 MG/DL Creatinine 6.11 MG/DL Estimat Glomerular Filtration 9 ML/MIN Rate Random Glucose 141 MG/DL Calcium Level 7.4 MG/DL Protein Corrected Calcium 8.3 MG/DL Magnesium Level 1.9 MG/DL Total Protein 5.5 GM/DL Imaging Last Impressions Renal Ultrasound 03/27/17 0000 Signed Impressions: Service Date/Time: Monday, March 27, 2017 08:00 - CONCLUSION: 1. No hydronephrosis. 2. Mixed echogenicity noted within the urinary bladder likely debris which may represent hematoma. Benji Martin MD Chest X-Ray 03/27/17 Signed Impressions: Service Date/Time: Monday, March 27, 2017 14:45 - CONCLUSION: Minimal left basilar density likely atelectasis. Benji Martin MD Modified Barium Swallow 03/26/17 Signed Impressions: Service Date/Time: Sunday, March 26, 2017 10:57 - CONCLUSION: There is no evidence for aspiration. Jamal Jay MD FACR Abdomen/Pelvis CT 03/26/17 Signed Impressions: Service Date/Time: Sunday, March 26, 2017 14:41 - CONCLUSION: New bibasilar airspace disease. Bilateral renal atrophy. Significant irregular thickening of the urinary bladder wall with indwelling Frankel. No evidence of acute intestinal process. Chris Cabral MD Assessment and Plan Problem List: (1) ST elevation myocardial infarction (STEMI) of inferior wall (2) CAD (coronary artery disease) (3) ESRD (end stage renal disease) on dialysis (4) Bladder mass (5) Hypertension (6) Diabetes mellitus (7) COPD exacerbation (8) Hematuria, unspecified Assessment and Plan No new cardiac issues. Continue Brilinta and baby ASA for at least one year. Continue post [place] care with beta enmanuel and statin. Hematuria improving, followed by urology. Increase activity, PT. Continue dialysis as per nephrology. Continue monitoring. Transfer to med-surg unit. Rachael Eason MD March 30, 2017 18:52
[2017-03-30] MEDS: ATORVASTATIN 80 MG TAB PO SCH (21:25)
[2017-03-30] MEDS: predniSONE 20 MG TAB PO SCH (21:25)
[2017-03-30] MEDS: INSULIN DETEMIR 100 UNITS/ML VIAL SQ SCH (21:37)
[2017-03-31] VITALS (7 sets, daily range): BP systolic 119–144; BP diastolic 56–66; PULSE 58–64; RESP 18–24; TEMP 97.3–97.8; O2SAT 92–100
[2017-03-31] MEDS: DOXYCYCLINE INJ 100 MG in SODIUM CHLORIDE 0.9% INJ 100 ML IV SCH ×2 (05:42→17:58)
[2017-03-31] MEDS: ACETAMINOPHEN 1000 MG/100 ML VIAL IV SCH ×2 (05:44→16:01)
[2017-03-31] MEDS: ALUMINUM/MAGNESIUM/SIMETH 30 ML CUP PO SCH ×3 (05:45→17:57)
[2017-03-31] MEDS: CARVEDILOL 12.5 MG TAB PO SCH ×3 (05:45→22:00)
[2017-03-31] MEDS: INSULIN ASPART SUPPLEMENTAL SCALE SQ SCH ×4 (05:53→21:00)
[2017-03-31] MEDS: INSULIN ASPART 1,000 UNITS/10 ML VIAL SQ SCH ×3 (08:00→17:08)
--- NOTE | 2017-03-31 08:47 | HHI.PR ---
Subjective Patient symptoms today Pt seen and examined. Irrigated a few clots at the bedside today. Urine clearing slowly. Objective Vital Signs Vital Signs Date Time Temp Pulse Resp B/P Pulse Ox O2 Delivery O2 Flow Rate FiO2 03/31/17 04:00 97.8 58 18 144/61 100 03/31/17 00:00 97.3 59 18 121/56 92 03/30/17 20:17 67 03/30/17 20:00 97.4 74 18 119/52 96 03/30/17 16:00 97.7 65 18 121/59 95 03/30/17 15:00 66 03/30/17 14:00 64 03/30/17 13:00 62 03/30/17 12:00 62 03/30/17 11:00 62 03/30/17 11:00 97.6 60 18 120/55 97 03/30/17 10:00 62 03/30/17 09:00 62 Intake & Output 03/31/17 03/31/17 07:00 19:00 Intake Total 340 ml Output Total 1675 ml Balance -1335 ml Intake Oral 340 ml Output Urine Total 1675 ml Result Diagram: 03/30/17 0439 03/30/17 0439 Objective Remarks Frankel catheter appears to be out of position in the urethra. Unable to irrigate. Abdominal tenderness noted 03/29 Abd:soft,slight tenderness, no rebound Frankel: clear when CBI is turned up 03/30 Abd:soft,nt,nd Frankel irrigated at bedside; clots removed. Clear now on CBI 03/31 Abd:soft,nt,nd Frankel irrigated at bedside; clots removed. Clear now on CBI Medications and IVs Current Medications Medications (Trade) Dose Ordered Sig/Darinel Route Start Time Stop Time Status Last Admin (NS Flush) 2 ml UNSCH PRN IVF 03/24/17 12:15 03/28/17 21:56 (Restoril) 15 mg HS PRN PO 03/24/17 16:15 (Aspirin Chew) 81 mg DAILY PO 03/25/17 09:00 03/30/17 08:49 Ticagrelor 90 mg 90 mg BID PO 03/25/17 09:00 03/30/17 21:50 (Aggrastat Infusion Inj) 250 ml @ 7.02 mls/hr Q24H IV 03/24/17 16:13 (Lipitor) 80 mg HS PO 03/24/17 21:00 03/30/17 21:25 (Bumetanide) 1 mg DAILY PO 03/25/17 09:00 03/30/17 08:49 (Keflex) 250 mg TID PO 03/24/17 18:00 03/30/17 17:27 (Vitamin D3) 2,000 units DAILY PO 03/25/17 09:00 03/30/17 08:48 (Proscar) 5 mg DAILY PO 03/25/17 09:00 03/30/17 08:49 (Imdur) 30 mg DAILY PO 03/25/17 09:00 03/30/17 08:50 (Pyridium) 100 mg Q8H PRN PO 03/24/17 16:30 03/27/17 06:35 (Renvela) 800 mg DAILY PO 03/25/17 09:00 03/30/17 08:48 (Flomax) 0.4 mg BID PO 03/24/17 21:00 03/30/17 21:24 (Levemir Inj) 10 units HS SQ 03/24/17 21:00 03/30/17 21:37 (NovoLOG INJ) 5 units TIDAC SQ 03/24/17 17:00 03/30/17 17:26 (D50w (Vial) Inj) 25 ml UNSCH PRN IV PUSH 03/24/17 16:45 Glucagon 1 mg 1 mg UNSCH PRN OTHER 03/24/17 16:45 (NS 1000 ml Inj) 1,000 ml @ 0 mls/hr TITRATE PRN IV 03/24/17 18:00 (Heparin Inj) 8,000 units UNSCH PRN IV FLUSH 03/24/17 18:00 Heparin Sodium (Porcine) 1000 units 1,000 units Q1H PRN IV FLUSH 03/24/17 18:00 Sodium Chloride 1,000 ml @ 200 mls/hr Q5H PRN IV 03/24/17 18:00 03/29/17 09:50 (NS 250 ml Inj) 200 ml @ 0 mls/hr UNSCH PRN IV 03/24/17 18:00 (Mannitol Inj) 12.5 gm UNSCH PRN IV 03/24/17 18:00 03/26/17 15:21 (Albumin 25% Inj) 25 gm UNSCH PRN IV 03/24/17 18:00 03/24/17 19:55 (NS Flush) 5 ml UNSCH PRN IV FLUSH 03/24/17 18:00 (Heparin Inj) Dwell Heparin to f... UNSCH PRN OTHER 03/24/17 18:00 (Gentamicin (Dialysis) Inj) 10 mg UNSCH PRN OTHER 03/24/17 18:00 (Gelfoam 12 Mm/7 Mm Top) 1 foam UNSCH PRN TOPICAL 03/24/17 18:00 03/29/17 09:50 (Zofran Inj) 4 mg UNSCH PRN IV 03/24/17 18:00 03/24/17 22:26 (Benadryl) 25 mg UNSCH PRN PO 03/24/17 18:00 (Nitrostat Sl) 0.4 mg UNSCH PRN SL 03/24/17 18:00 (Catapres) 0.1 mg UNSCH PRN PO 03/24/17 18:00 Epoetin Rafael 70192 units 10,000 units UNSCH PRN IV 03/25/17 10:00 03/29/17 09:50 (Amicar Inj/NS Irr Bag) 3,012 ml @ 0 mls/hr TITRATE IRRIGATION 03/25/17 16:00 03/30/17 21:53 Guaifenesin 600 mg 600 mg BID PO 03/25/17 21:00 03/30/17 21:25 (Vibramycin Inj/ NS Inj) 100 ml @ 100 mls/hr Q12H IV 03/26/17 17:00 03/31/17 05:42 (Ditropan) 5 mg Q8H PRN PO 03/27/17 01:00 03/27/17 09:49 (Roxicodone) 5 mg Q4H PRN PO 03/27/17 11:00 03/31/17 05:50 (Coreg) 12.5 mg Q8HR PO 03/27/17 15:00 03/31/17 05:45 (Colace) 100 mg BID PO 03/28/17 09:00 03/30/17 21:24 (Senokot) 17.2 mg DAILY PO 03/28/17 09:00 03/30/17 08:49 (Protonix) 40 mg BID PO 03/28/17 09:00 03/30/17 21:24 (Mag-Al Plus Susp Liq) 30 ml Q6H PO 03/29/17 12:00 03/31/17 05:45 (Ofirmev Inj) 1,000 mg Q8HR IV 03/29/17 10:00 03/31/17 14:01 03/31/17 05:44 (Deltasone) 20 mg BID PO 03/30/17 21:00 03/30/17 21:25 Assessment and Plan Assessment and Plan -Frankel catheter balloon deflated and catheter advanced into bladder. -Successful irrigation with 1L saline after manipulation with minimal clots -CBI resumed with clear urine on moderate rate -Maintain CBI overnight. May titrate -Frankel catheter to be removed per Dr. Velásquez's orders 03/29 76 y.o male with h/o muscle invasive bladder cancer s/p TURBT with gross hematuria Continue Amicar CBI for now Irrigate prn 03/30 76 y.o male with h/o muscle invasive bladder cancer s/p TURBT with gross hematuria Continue Amicar CBI for now Irrigate prn 03/31 76 y.o male with h/o muscle invasive bladder cancer s/p TURBT with gross hematuria Continue Amicar CBI for now Irrigate prn Possible void trial in AM if urine stays clear Chito Flower DO March 31, 2017 08:47
[2017-03-31] MEDS: CEPHALEXIN MONOHYDRATE 250 MG CAP PO SCH ×3 (09:00→18:26)
--- NOTE | 2017-03-31 09:18 | HHI.NPPN ---
Subjective General Problems: Anemia Renal Failure: Chronic, End Stage Renal Disease Interval History Seen during dialysis. CBI continues, minimal clots and urine is clearing. He is coughing. (Mechelle Mcgee) Review of Systems General Constitutional: Fatigue (Mechelle Mcgee) Gastrointestinal Gastrointestinal: Abdominal Pain (Mechelle Mcgee) Genitourinary Remarks hematuria (Mechelle Mcgee) Objective Data Data 03/30/17 03/31/17 19:00 07:00 Intake Total 860 ml 340 ml Output Total 13676 ml 1675 ml Balance -07694 ml -1335 ml Intake Oral 760 ml 340 ml IV Total 100 ml Output Urine Total 16176 ml 1675 ml Vital Signs Date Time Temp Pulse Resp B/P Pulse Ox O2 Delivery O2 Flow Rate FiO2 03/31/17 04:00 97.8 58 18 144/61 100 03/31/17 00:00 97.3 59 18 121/56 92 03/30/17 20:17 67 03/30/17 20:00 97.4 74 18 119/52 96 03/30/17 16:00 97.7 65 18 121/59 95 03/30/17 15:00 66 03/30/17 14:00 64 03/30/17 13:00 62 03/30/17 12:00 62 03/30/17 11:00 62 03/30/17 11:00 97.6 60 18 120/55 97 03/30/17 10:00 62 (Mechelle Mcgee) -: 03/30/17 0439 03/30/17 0439 Imaging Last Impressions Renal Ultrasound 03/27/17 0000 Signed Impressions: Service Date/Time: Monday, March 27, 2017 08:00 - CONCLUSION: 1. No hydronephrosis. 2. Mixed echogenicity noted within the urinary bladder likely debris which may represent hematoma. Benji Martin MD Chest X-Ray 03/27/17 0000 Signed Impressions: Service Date/Time: Monday, March 27, 2017 14:45 - CONCLUSION: Minimal left basilar density likely atelectasis. Benji Martin MD Modified Barium Swallow 03/26/17 0000 Signed Impressions: Service Date/Time: Sunday, March 26, 2017 10:57 - CONCLUSION: There is no evidence for aspiration. Jamal Jay MD FACR Abdomen/Pelvis CT 03/26/17 0000 Signed Impressions: Service Date/Time: Sunday, March 26, 2017 14:41 - CONCLUSION: New bibasilar airspace disease. Bilateral renal atrophy. Significant irregular thickening of the urinary bladder wall with indwelling Frankel. No evidence of acute intestinal process. Chris Cabral MD Tubes & Lines: Frankel Tubes & Lines Comment on CBI (Mechelle Mcgee [employer]) Physical Exam General Appearance: Well Developed, No Acute Distress, Comfortable, Malnourished ( Mechelle Mcgee B. [employer]) Neck Neck Exam: Neck Supple (Mechelle Mcgee B. [employer]) Pulmonary Resp Exam: Breath Sounds Equal, Crackles, Rhonchi, Sputum (Mechelle Mcgee B. [employer]) Cardiology CV Exam: Regular, Normal Sinus Rhythm (Mechelle Mcgee B. [employer]) Gastrointestinal/Abdomen GI Exam: Soft, Bowel Sounds Present (Mechelle Mcgee B. [employer]) Musculoskeletal MS Exam: Joints Intact, Normal Tone (Mechelle Mcgee B. [employer]) Integumentary Skin Exam: Clear, Warm, Dry, Intact (Mechelle Mcgee B. [employer]) Extremeties Extremities Exam: No Edema, Pedal Pulses Palpable Extremeties Remarks left arm AVF, accessed during dialysis (Mechelle Mcgee B. [employer]) Neurologic Neuro Exam: Alert, Awake, Oriented, Speech Clear, Moving All Extremities ( Mechelle Mcgee B. [employer]) Psychiatric Psych Exam: Appropriate Responses (Mechelle Mcgee BRey LIVEP) Assessment/Plan Discussed Condition With: Patient, Spouse Assessment Summary: Anemia of CKD, End Stage Renal Disease Problem List: (1) ESRD (end stage renal disease) on dialysis Plan: Seen during dialysis today on a 2K, 350 BFR, goal 3L Dialysis will be continue MWF. Monitor fluid and electrolyte status. No acute concerns Avoid Gadolinium. Avoid IVF renal diet with no protein restriction minimize lab draws, intermittent metabolic profile (2) Bladder mass Plan: s/p cystoscopy with tumor removal, follows with Dr. 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 Urology following, appreciate further recommendations (3) STEMI (ST elevation myocardial infarction) Plan: cardiology following, s/p PCI with BMS placement to RCA on 03/24 on Brilinta, ASA, and Lipitor (4) Hypertension Plan: BP stable, contine present antihypertensives (5) Anemia Plan: Continue Epogen. His Hemoglobin low likely due to hematuria. Monitor Hb (6) Metabolic bone disease Plan: On Renvela .Phosphorus level ordered (Mechelle Mcgee) Plan patient was seen and examined. Agree with above assessment and plan. Seen during dialysis. (Chava Singh MD) Problem Qualifiers (1) STEMI (ST elevation myocardial infarction): Qualified Code: I21.19 - ST elevation myocardial infarction (STEMI) involving other coronary artery of inferior wall Mechelle Mcgee March 31, 2017 09:18 Chava Singh MD March 31, 2017 20:24
[2017-03-31] MEDS: EPOETIN ALFA 10,000 UNITS/ML VIAL IV PRN (11:51)
[2017-03-31] MEDS: FINASTERIDE 5 MG TAB PO SCH (13:24)
[2017-03-31] MEDS: ASPIRIN 81 MG CHEW TAB PO SCH (13:26)
[2017-03-31] MEDS: SEVELAMER CARBONATE 800 MG TAB PO SCH (13:26)
[2017-03-31] MEDS: guaiFENesin E.R. 600 MG TAB PO SCH ×2 (13:27→21:00)
[2017-03-31] MEDS: TAMSULOSIN HCL 0.4 MG CAP PO SCH ×2 (13:27→21:00)
[2017-03-31] MEDS: TICAGRELOR 90 MG TAB PO SCH ×2 (13:27→21:00)
[2017-03-31] MEDS: SENNOSIDES 8.6 MG TAB PO SCH (13:27)
[2017-03-31] MEDS: CHOLECALCIFEROL (VIT D3) 1000 UNIT TAB PO SCH (13:28)
[2017-03-31] MEDS: predniSONE 20 MG TAB PO SCH ×2 (13:28→21:00)
[2017-03-31] MEDS: DOCUSATE SODIUM 100 MG CAP PO SCH ×2 (13:28→21:00)
[2017-03-31] MEDS: ISOSORBIDE MONONITRATE 30 MG TAB PO SCH (13:29)
[2017-03-31] MEDS: PANTOPRAZOLE SOD 40 MG DELAYED RELEASE TAB PO SCH ×2 (13:29→21:00)
[2017-03-31] MEDS: BUMETANIDE 1 MG TAB PO SCH (13:30)
--- NOTE | 2017-03-31 16:10 | PD.CARD.PN ---
Subjective Subjective Remarks No CP or SOB, feels better, not active Objective Medications Current Medications Medications (Trade) Dose Ordered Sig/Darinel Route Start Time Stop Time Status Last Admin (NS Flush) 2 ml UNSCH PRN IVF 03/24/17 12:15 03/28/17 21:56 (Restoril) 15 mg HS PRN PO 03/24/17 16:15 (Aspirin Chew) 81 mg DAILY PO 03/25/17 09:00 03/31/17 13:26 Ticagrelor 90 mg 90 mg BID PO 03/25/17 09:00 03/31/17 13:27 (Aggrastat Infusion Inj) 250 ml @ 7.02 mls/hr Q24H IV 03/24/17 16:13 (Lipitor) 80 mg HS PO 03/24/17 21:00 03/30/17 21:25 (Bumetanide) 1 mg DAILY PO 03/25/17 09:00 03/31/17 13:30 (Keflex) 250 mg TID PO 03/24/17 18:00 03/31/17 13:31 (Vitamin D3) 2,000 units DAILY PO 03/25/17 09:00 03/31/17 13:28 (Proscar) 5 mg DAILY PO 03/25/17 09:00 03/31/17 13:24 (Imdur) 30 mg DAILY PO 03/25/17 09:00 03/31/17 13:29 (Pyridium) 100 mg Q8H PRN PO 03/24/17 16:30 03/27/17 06:35 (Renvela) 800 mg DAILY PO 03/25/17 09:00 03/31/17 13:26 (Flomax) 0.4 mg BID PO 03/24/17 21:00 03/31/17 13:27 (Levemir Inj) 10 units HS SQ 03/24/17 21:00 03/30/17 21:37 (NovoLOG INJ) 5 units TIDAC SQ 03/24/17 17:00 03/30/17 17:26 (D50w (Vial) Inj) 25 ml UNSCH PRN IV PUSH 03/24/17 16:45 Glucagon 1 mg 1 mg UNSCH PRN OTHER 03/24/17 16:45 (NS 1000 ml Inj) 1,000 ml @ 0 mls/hr TITRATE PRN IV 03/24/17 18:00 (Heparin Inj) 8,000 units UNSCH PRN IV FLUSH 03/24/17 18:00 Heparin Sodium (Porcine) 1000 units 1,000 units Q1H PRN IV FLUSH 03/24/17 18:00 Sodium Chloride 1,000 ml @ 200 mls/hr Q5H PRN IV 03/24/17 18:00 03/29/17 09:50 (NS 250 ml Inj) 200 ml @ 0 mls/hr UNSCH PRN IV 03/24/17 18:00 (Mannitol Inj) 12.5 gm UNSCH PRN IV 03/24/17 18:00 03/26/17 15:21 (Albumin 25% Inj) 25 gm UNSCH PRN IV 03/24/17 18:00 03/24/17 19:55 (NS Flush) 5 ml UNSCH PRN IV FLUSH 03/24/17 18:00 (Heparin Inj) Dwell Heparin to f... UNSCH PRN OTHER 03/24/17 18:00 (Gentamicin (Dialysis) Inj) 10 mg UNSCH PRN OTHER 03/24/17 18:00 (Gelfoam 12 Mm/7 Mm Top) 1 foam UNSCH PRN TOPICAL 03/24/17 18:00 03/29/17 09:50 (Zofran Inj) 4 mg UNSCH PRN IV 03/24/17 18:00 03/24/17 22:26 (Benadryl) 25 mg UNSCH PRN PO 03/24/17 18:00 (Nitrostat Sl) 0.4 mg UNSCH PRN SL 03/24/17 18:00 (Catapres) 0.1 mg UNSCH PRN PO 03/24/17 18:00 Epoetin Rafael 91310 units 10,000 units UNSCH PRN IV 03/25/17 10:00 03/31/17 11:51 (Amicar Inj/NS Irr Bag) 3,012 ml @ 0 mls/hr TITRATE IRRIGATION 03/25/17 16:00 03/30/17 21:53 Guaifenesin 600 mg 600 mg BID PO 03/25/17 21:00 03/31/17 13:27 (Vibramycin Inj/ NS Inj) 100 ml @ 100 mls/hr Q12H IV 03/26/17 17:00 03/31/17 05:42 (Ditropan) 5 mg Q8H PRN PO 03/27/17 01:00 03/27/17 09:49 (Roxicodone) 5 mg Q4H PRN PO 03/27/17 11:00 03/31/17 13:25 (Coreg) 12.5 mg Q8HR PO 03/27/17 15:00 03/31/17 16:00 (Colace) 100 mg BID PO 03/28/17 09:00 03/31/17 13:28 (Senokot) 17.2 mg DAILY PO 03/28/17 09:00 03/31/17 13:27 (Protonix) 40 mg BID PO 03/28/17 09:00 03/31/17 13:29 (Mag-Al Plus Susp Liq) 30 ml Q6H PO 03/29/17 12:00 03/31/17 05:45 (Deltasone) 20 mg BID PO 03/30/17 21:00 03/31/17 13:28 Vital Signs / I&O Vital Signs Date Time Temp Pulse Resp B/P Pulse Ox O2 Delivery O2 Flow Rate FiO2 03/31/17 08:00 97.8 64 24 126/66 93 03/31/17 04:00 97.8 58 18 144/61 100 03/31/17 00:00 97.3 59 18 121/56 92 03/30/17 20:17 67 03/30/17 20:00 97.4 74 18 119/52 96 I/O 03/30/17 03/30/17 03/30/17 03/31/17 03/31/17 03/31/17 06:59 14:59 22:59 06:59 14:59 22:59 Intake Total 340 ml 1100 ml 100 ml 120 ml Output Total 2250 ml 76727 ml 1075 ml 4600 ml Balance -1910 ml -14776 ml -975 ml -4480 ml Intake Oral 240 ml 1000 ml 100 ml 120 ml IV Total 100 ml 100 ml Output Urine Total 2250 ml 47051 ml 1075 ml 1600 ml Hemodialysis 3000 ml # Bowel Movements 0 Physical Exam GENERAL: In NAD. SKIN: Warm and dry. HEAD: Normocephalic. EYES: No scleral icterus. No injection or drainage. NECK: Supple, trachea midline. No JVD or lymphadenopathy. CARDIOVASCULAR: Regular rate and rhythm without murmurs, gallops, or rubs. RESPIRATORY: Breath sounds equal bilaterally. No accessory muscle use. GASTROINTESTINAL: Abdomen soft, non-tender, nondistended. MUSCULOSKELETAL: No cyanosis, or edema. Laboratory Laboratory Tests Test 03/31/17 11:02 Phosphorus Level 1.6 MG/DL Imaging Last Impressions Renal Ultrasound 03/27/17 0000 Signed Impressions: Service Date/Time: Monday, March 27, 2017 08:00 - CONCLUSION: 1. No hydronephrosis. 2. Mixed echogenicity noted within the urinary bladder likely debris which may represent hematoma. Benji Martin MD Chest X-Ray 03/27/17 0000 Signed Impressions: Service Date/Time: Monday, March 27, 2017 14:45 - CONCLUSION: Minimal left basilar density likely atelectasis. Benji Martin MD Modified Barium Swallow 03/26/17 0000 Signed Impressions: Service Date/Time: Sunday, March 26, 2017 10:57 - CONCLUSION: There is no evidence for aspiration. Jamal Jay MD FACR Abdomen/Pelvis CT 03/26/17 0000 Signed Impressions: Service Date/Time: Sunday, March 26, 2017 14:41 - CONCLUSION: New bibasilar airspace disease. Bilateral renal atrophy. Significant irregular thickening of the urinary bladder wall with indwelling Frankel. No evidence of acute intestinal process. Chris Cabral MD Assessment and Plan Problem List: (1) ST elevation myocardial infarction (STEMI) of inferior wall (2) CAD (coronary artery disease) (3) ESRD (end stage renal disease) on dialysis (4) Bladder mass (5) Hypertension (6) Diabetes mellitus (7) COPD exacerbation (8) Hematuria, unspecified Assessment and Plan Stable from cardiac standpoint. Continue Brilinta and baby ASA for at least one year. Continue post [place] care with beta enmanuel and statin. Hematuria improving, followed by urology. Increase activity, recommend PT. Continue dialysis as per nephrology. Continue monitoring. Problem Qualifiers (1) Diabetes mellitus: Rachael Eason MD March 31, 2017 16:10
--- NOTE | 2017-03-31 17:30 | HHI.PR ---
Subjective Remarks The patient was resting in bed. He had felt to dialysis earlier. His was at bedside and very concerned about the interruption in the continuous bladder irrigation. The patient says his abdominal pain was improved. He was looking forward to going home soon. Objective Vitals Vital Signs Date Time Temp Pulse Resp B/P Pulse Ox O2 Delivery O2 Flow Rate FiO2 03/31/17 16:00 97.5 59 20 140/65 96 03/31/17 08:00 97.8 64 24 126/66 93 03/31/17 04:00 97.8 58 18 144/61 100 03/31/17 00:00 97.3 59 18 121/56 92 03/30/17 20:17 67 03/30/17 20:00 97.4 74 18 119/52 96 I/O 03/30/17 03/30/17 03/30/17 03/31/17 03/31/17 03/31/17 07:00 15:00 23:00 07:00 15:00 23:00 Intake Total 340 ml 1100 ml 100 ml 120 ml Output Total 2250 ml 20001 ml 1075 ml 4600 ml Balance -1910 ml -46417 ml -975 ml -4480 ml Intake Oral 240 ml 1000 ml 100 ml 120 ml IV Total 100 ml 100 ml Output Urine Total 2250 ml 42287 ml 1075 ml 1600 ml Hemodialysis 3000 ml # Bowel Movements 0 Result Diagram: 03/30/17 0439 03/30/17 0439 Imaging Last Impressions Renal Ultrasound 03/27/17 0000 Signed Impressions: Service Date/Time: Monday, March 27, 2017 08:00 - CONCLUSION: 1. No hydronephrosis. 2. Mixed echogenicity noted within the urinary bladder likely debris which may represent hematoma. Benji Martin MD Chest X-Ray 03/27/17 0000 Signed Impressions: Service Date/Time: Monday, March 27, 2017 14:45 - CONCLUSION: Minimal left basilar density likely atelectasis. Benji Martin MD Modified Barium Swallow 03/26/17 0000 Signed Impressions: Service Date/Time: Sunday, March 26, 2017 10:57 - CONCLUSION: There is no evidence for aspiration. Jamal Jay MD FACR Abdomen/Pelvis CT 03/26/17 0000 Signed Impressions: Service Date/Time: Sunday, March 26, 2017 14:41 - CONCLUSION: New bibasilar airspace disease. Bilateral renal atrophy. Significant irregular thickening of the urinary bladder wall with indwelling Frankel. No evidence of acute intestinal process. Chris Cabral MD Objective Remarks GENERAL: Resting comfortably. SKIN: Focused skin assessment warm/dry. HEAD: Atraumatic. Normocephalic. EYES: Pupils equal and round. No scleral icterus. No injection or drainage. ENT: No nasal bleeding or discharge. Mucous membranes pink and moist. NECK: Trachea midline. No JVD. CARDIOVASCULAR: Regular rate and rhythm. No murmur appreciated. RESPIRATORY: Diffuse wheezing. GASTROINTESTINAL: Abdomen soft, nontender, nondistended. No rebound tenderness or guarding. : Frankel in place, hematuria improving. MUSCULOSKELETAL: Tenderness to palpation of left chest wall. No obvious deformities. No clubbing. No cyanosis. NEUROLOGICAL: Awake and alert. No obvious cranial nerve deficits. Motor grossly within normal limits. Normal speech. PSYCHIATRIC: Appropriate mood and affect; insight and judgment normal. Procedures Cardiac catheterization Medications and IVs Current Medications Medications (Trade) Dose Ordered Sig/Darinel Route Start Time Stop Time Status Last Admin (NS Flush) 2 ml UNSCH PRN IVF 03/24/17 12:15 03/28/17 21:56 (Restoril) 15 mg HS PRN PO 03/24/17 16:15 (Aspirin Chew) 81 mg DAILY PO 03/25/17 09:00 03/31/17 13:26 Ticagrelor 90 mg 90 mg BID PO 03/25/17 09:00 03/31/17 13:27 (Aggrastat Infusion Inj) 250 ml @ 7.02 mls/hr Q24H IV 03/24/17 16:13 (Lipitor) 80 mg HS PO 03/24/17 21:00 03/30/17 21:25 (Bumetanide) 1 mg DAILY PO 03/25/17 09:00 03/31/17 13:30 (Keflex) 250 mg TID PO 03/24/17 18:00 03/31/17 13:31 (Vitamin D3) 2,000 units DAILY PO 03/25/17 09:00 03/31/17 13:28 (Proscar) 5 mg DAILY PO 03/25/17 09:00 03/31/17 13:24 (Imdur) 30 mg DAILY PO 03/25/17 09:00 03/31/17 13:29 (Pyridium) 100 mg Q8H PRN PO 03/24/17 16:30 03/27/17 06:35 (Renvela) 800 mg DAILY PO 03/25/17 09:00 03/31/17 13:26 (Flomax) 0.4 mg BID PO 03/24/17 21:00 03/31/17 13:27 (Levemir Inj) 10 units HS SQ 03/24/17 21:00 03/30/17 21:37 (NovoLOG INJ) 5 units TIDAC SQ 03/24/17 17:00 03/31/17 17:08 (D50w (Vial) Inj) 25 ml UNSCH PRN IV PUSH 03/24/17 16:45 Glucagon 1 mg 1 mg UNSCH PRN OTHER 03/24/17 16:45 (NS 1000 ml Inj) 1,000 ml @ 0 mls/hr TITRATE PRN IV 03/24/17 18:00 (Heparin Inj) 8,000 units UNSCH PRN IV FLUSH 03/24/17 18:00 Heparin Sodium (Porcine) 1000 units 1,000 units Q1H PRN IV FLUSH 03/24/17 18:00 Sodium Chloride 1,000 ml @ 200 mls/hr Q5H PRN IV 03/24/17 18:00 03/29/17 09:50 (NS 250 ml Inj) 200 ml @ 0 mls/hr UNSCH PRN IV 03/24/17 18:00 (Mannitol Inj) 12.5 gm UNSCH PRN IV 03/24/17 18:00 03/26/17 15:21 (Albumin 25% Inj) 25 gm UNSCH PRN IV 03/24/17 18:00 03/24/17 19:55 (NS Flush) 5 ml UNSCH PRN IV FLUSH 03/24/17 18:00 (Heparin Inj) Dwell Heparin to f... UNSCH PRN OTHER 03/24/17 18:00 (Gentamicin (Dialysis) Inj) 10 mg UNSCH PRN OTHER 03/24/17 18:00 (Gelfoam 12 Mm/7 Mm Top) 1 foam UNSCH PRN TOPICAL 03/24/17 18:00 03/29/17 09:50 (Zofran Inj) 4 mg UNSCH PRN IV 03/24/17 18:00 03/24/17 22:26 (Benadryl) 25 mg UNSCH PRN PO 03/24/17 18:00 (Nitrostat Sl) 0.4 mg UNSCH PRN SL 03/24/17 18:00 (Catapres) 0.1 mg UNSCH PRN PO 03/24/17 18:00 Epoetin Rafael 19428 units 10,000 units UNSCH PRN IV 03/25/17 10:00 03/31/17 11:51 (Amicar Inj/NS Irr Bag) 3,012 ml @ 0 mls/hr TITRATE IRRIGATION 03/25/17 16:00 03/30/17 21:53 Guaifenesin 600 mg 600 mg BID PO 03/25/17 21:00 03/31/17 13:27 (Vibramycin Inj/ NS Inj) 100 ml @ 100 mls/hr Q12H IV 03/26/17 17:00 03/31/17 05:42 (Ditropan) 5 mg Q8H PRN PO 03/27/17 01:00 03/27/17 09:49 (Roxicodone) 5 mg Q4H PRN PO 03/27/17 11:00 03/31/17 13:25 (Coreg) 12.5 mg Q8HR PO 03/27/17 15:00 03/31/17 16:00 (Colace) 100 mg BID PO 03/28/17 09:00 03/31/17 13:28 (Senokot) 17.2 mg DAILY PO 03/28/17 09:00 03/31/17 13:27 (Protonix) 40 mg BID PO 03/28/17 09:00 03/31/17 13:29 (Mag-Al Plus Susp Liq) 30 ml Q6H PO 03/29/17 12:00 03/31/17 05:45 Prednisone 20 mg 20 mg BID PO 03/30/17 21:00 03/31/17 13:28 (Sodium Phosphate Inj/NS Inj) 155 ml @ 38.75 mls/ hr ONCE ONCE IV 03/31/17 17:30 03/31/17 21:29 UNV A/P Assessment and Plan STEMI EKG revealed ST elevations in the inferior leads with reciprocal ST depressions. Troponin was 0.75. The patient was taken to the [facility] and a stent was placed to the graft of the RCA. The patient has had runs of v tach on telemetry. Repeat EKG stable. - Continue medication regimen per cardiology. Increased Coreg to 12.5 mg TID. - Telemetry. - Oxygen and pain meds as needed. - monitor lytes and replete as needed. CHF BNP markedly elevated. Has a history of CAD s/p CABG. - continue PO Bumex. - dialysis for volume management. - follow Is and Os. - follow up with cardiology. ESRD The patient is on hemodialysis. Nephrology consult appreciated. - Follow BMP. Kayexalate as needed. - Continue diuretics. - dialysis per nephrology. N/V/ Abdominal pain N/V seems to have resolved but pt complains of chronic diffuse abdominal pain. Negative CT in February. LFTs and lipase unremarkable. Possibly s/t GERD, PUD or bladder cancer. CT showed: New bibasilar airspace disease; Bilateral renal atrophy; Significant irregular thickening of the urinary bladder wall with indwelling Frankel; No evidence of acute intestinal process. The pt does have pain upon palpation of the left chest wall. May be costochondritis. Resolved . - Antiemetics and pain meds as needed. - Advance diet as tolerated. - increase PPI. - added standing Maalox. - started IV Tylenol for costochondritis. D/c. Cough/ Aspiration/ COPD Likely secondary to chronic bronchitis. The patient also acknowledges some difficulty swallowing. Speech recommending NPO status. CXR with bibasilar densities, likely atelectasis. Repeat CXR stable. Barium negative for aspiration. Pt with diffuse wheezing, improved. Sputum culture growing Enterobacter cloacae, pansensitive. - diet per speech. - Solumedrol changed to prednisone. Continue standing nebs. - IS. - oxygen as needed. Walk test prior to discharge. - continue doxycycline. 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 - Physical therapy. - Continue medical regimen. Bladder tumors/ Hematuria The patient had recent bladder tumor removal on Wednesday. He has hematuria and a Frankel in place. Urology consult appreciated. 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 Frankel not draining well 03/27. Renal US without hydronephrosis. - Continue blood thinners per cardiology. - 3 way Frankel per urology. - Follow CBC and transfuse as needed. PPx: SCDs; PPI. Discharge Planning Awaiting urology clearance. Still on CBI. Feliciano Echeverria DO March 31, 2017 17:30
[2017-03-31] MEDS ORDERED: SODIUM PHOSPHATE INJ 15 MMOL in SODIUM CHLORIDE 0.9% INJ 150 ML IV ONE (18:00)
[2017-03-31] MEDS: RESP: ALBUTEROL 2.5 MG/IPRATROPIUM 0.5 MG NEB (SCH) NEB (19:53)
[2017-03-31] MEDS: ATORVASTATIN 80 MG TAB PO SCH (21:00)
[2017-03-31] MEDS: TIROFIBAN INFUSION INJ 250 ML IV SCH (22:00)
[2017-04-01] VITALS (9 sets, daily range): BP systolic 115–152; BP diastolic 58–69; PULSE 57–81; RESP 16–21; TEMP 97.2–98.2; O2SAT 94–98
[2017-04-01] MEDS: INSULIN DETEMIR 100 UNITS/ML VIAL SQ SCH ×2 (00:43→21:08)
[2017-04-01] MEDS: ALUMINUM/MAGNESIUM/SIMETH 30 ML CUP PO SCH ×4 (00:44→16:56)
[2017-04-01] MEDS: AMINOCAPROIC ACID INJ 3,000 MG in SODIUM CHLORIDE 0.9% IRR BAG 3,000 ML IRRIGATION SCH ×2 (00:49→03:58)
[2017-04-01] MEDS: CARVEDILOL 12.5 MG TAB PO SCH ×3 (06:00→21:05)
[2017-04-01] MEDS: DOXYCYCLINE INJ 100 MG in SODIUM CHLORIDE 0.9% INJ 100 ML IV SCH ×2 (06:14→16:53)
[2017-04-01] MEDS: INSULIN ASPART SUPPLEMENTAL SCALE SQ SCH ×4 (06:22→21:00)
[2017-04-01] MEDS: RESP: ALBUTEROL 2.5 MG/IPRATROPIUM 0.5 MG NEB (SCH) NEB ×3 (07:58→21:45)
[2017-04-01] MEDS: ASPIRIN 81 MG CHEW TAB PO SCH (08:41)
[2017-04-01] MEDS: TICAGRELOR 90 MG TAB PO SCH ×2 (08:41→21:15)
[2017-04-01] MEDS: BUMETANIDE 1 MG TAB PO SCH (08:42)
[2017-04-01] MEDS: DOCUSATE SODIUM 100 MG CAP PO SCH ×2 (08:42→21:03)
[2017-04-01] MEDS: predniSONE 20 MG TAB PO SCH ×2 (08:43→21:04)
[2017-04-01] MEDS: TAMSULOSIN HCL 0.4 MG CAP PO SCH ×2 (08:44→21:04)
[2017-04-01] MEDS: ISOSORBIDE MONONITRATE 30 MG TAB PO SCH (08:44)
[2017-04-01] MEDS: CEPHALEXIN MONOHYDRATE 250 MG CAP PO SCH ×3 (08:45→16:54)
[2017-04-01] MEDS: guaiFENesin E.R. 600 MG TAB PO SCH ×2 (08:45→21:03)
[2017-04-01] MEDS: FINASTERIDE 5 MG TAB PO SCH (08:45)
[2017-04-01] MEDS: CHOLECALCIFEROL (VIT D3) 1000 UNIT TAB PO SCH (08:46)
[2017-04-01] MEDS: SEVELAMER CARBONATE 800 MG TAB PO SCH (08:46)
[2017-04-01] MEDS: PANTOPRAZOLE SOD 40 MG DELAYED RELEASE TAB PO SCH ×2 (08:46→21:04)
[2017-04-01] MEDS: SENNOSIDES 8.6 MG TAB PO SCH (08:46)
--- NOTE | 2017-04-01 09:35 | HHI.PR ---
Subjective Patient symptoms today Pt feels well. Urine is clear. Objective Vital Signs Vital Signs Date Time Temp Pulse Resp B/P Pulse Ox O2 Delivery O2 Flow Rate FiO2 04/01/17 07:59 96 21 04/01/17 04:00 98.0 59 21 116/58 94 04/01/17 00:00 97.2 60 20 124/58 95 03/31/17 21:00 58 03/31/17 20:00 97.4 60 21 119/57 94 03/31/17 19:53 99 21 03/31/17 16:00 97.5 59 20 140/65 96 Intake & Output 04/01/17 04/01/17 07:00 19:00 Intake Total 240 ml Balance 240 ml Intake Oral 240 ml Result Diagram: 03/30/17 0439 03/30/17 0439 Objective Remarks Strong catheter appears to be out of position in the urethra. Unable to irrigate. Abdominal tenderness noted 03/29 Abd:soft,slight tenderness, no rebound Strong: clear when CBI is turned up 03/30 Abd:soft,nt,nd Strong irrigated at bedside; clots removed. Clear now on CBI 03/31 Abd:soft,nt,nd Strong irrigated at bedside; clots removed. Clear now on CBI 04/01 Abd:soft,nt,nd Strong clear: strong removed at bedside. Medications and IVs Current Medications Medications (Trade) Dose Ordered Sig/Darinel Route Start Time Stop Time Status Last Admin (NS Flush) 2 ml UNSCH PRN IVF 03/24/17 12:15 03/28/17 21:56 (Restoril) 15 mg HS PRN PO 03/24/17 16:15 (Aspirin Chew) 81 mg DAILY PO 03/25/17 09:00 04/01/17 08:41 Ticagrelor 90 mg 90 mg BID PO 03/25/17 09:00 04/01/17 08:41 (Aggrastat Infusion Inj) 250 ml @ 7.02 mls/hr Q24H IV 03/24/17 16:13 (Lipitor) 80 mg HS PO 03/24/17 21:00 03/31/17 21:00 (Bumetanide) 1 mg DAILY PO 03/25/17 09:00 04/01/17 08:42 (Keflex) 250 mg TID PO 03/24/17 18:00 04/01/17 08:45 (Vitamin D3) 2,000 units DAILY PO 03/25/17 09:00 04/01/17 08:46 (Proscar) 5 mg DAILY PO 03/25/17 09:00 04/01/17 08:45 (Imdur) 30 mg DAILY PO 03/25/17 09:00 04/01/17 08:44 (Pyridium) 100 mg Q8H PRN PO 03/24/17 16:30 03/27/17 06:35 (Renvela) 800 mg DAILY PO 03/25/17 09:00 04/01/17 08:46 (Flomax) 0.4 mg BID PO 03/24/17 21:00 04/01/17 08:44 (Levemir Inj) 10 units HS SQ 03/24/17 21:00 04/01/17 00:43 (NovoLOG INJ) 5 units TIDAC SQ 03/24/17 17:00 03/31/17 17:08 (D50w (Vial) Inj) 25 ml UNSCH PRN IV PUSH 03/24/17 16:45 Glucagon 1 mg 1 mg UNSCH PRN OTHER 03/24/17 16:45 (NS 1000 ml Inj) 1,000 ml @ 0 mls/hr TITRATE PRN IV 03/24/17 18:00 (Heparin Inj) 8,000 units UNSCH PRN IV FLUSH 03/24/17 18:00 Heparin Sodium (Porcine) 1000 units 1,000 units Q1H PRN IV FLUSH 03/24/17 18:00 Sodium Chloride 1,000 ml @ 200 mls/hr Q5H PRN IV 03/24/17 18:00 03/29/17 09:50 (NS 250 ml Inj) 200 ml @ 0 mls/hr UNSCH PRN IV 03/24/17 18:00 (Mannitol Inj) 12.5 gm UNSCH PRN IV 03/24/17 18:00 03/26/17 15:21 (Albumin 25% Inj) 25 gm UNSCH PRN IV 03/24/17 18:00 03/24/17 19:55 (NS Flush) 5 ml UNSCH PRN IV FLUSH 03/24/17 18:00 (Heparin Inj) Dwell Heparin to f... UNSCH PRN OTHER 03/24/17 18:00 (Gentamicin (Dialysis) Inj) 10 mg UNSCH PRN OTHER 03/24/17 18:00 (Gelfoam 12 Mm/7 Mm Top) 1 foam UNSCH PRN TOPICAL 03/24/17 18:00 03/29/17 09:50 (Zofran Inj) 4 mg UNSCH PRN IV 03/24/17 18:00 03/24/17 22:26 (Benadryl) 25 mg UNSCH PRN PO 03/24/17 18:00 (Nitrostat Sl) 0.4 mg UNSCH PRN SL 03/24/17 18:00 (Catapres) 0.1 mg UNSCH PRN PO 03/24/17 18:00 Epoetin Rfaael 49882 units 10,000 units UNSCH PRN IV 03/25/17 10:00 03/31/17 11:51 (Amicar Inj/NS Irr Bag) 3,012 ml @ 0 mls/hr TITRATE IRRIGATION 03/25/17 16:00 04/01/17 03:58 Guaifenesin 600 mg 600 mg BID PO 03/25/17 21:00 04/01/17 08:45 (Vibramycin Inj/ NS Inj) 100 ml @ 100 mls/hr Q12H IV 03/26/17 17:00 04/01/17 06:14 (Ditropan) 5 mg Q8H PRN PO 03/27/17 01:00 03/27/17 09:49 (Roxicodone) 5 mg Q4H PRN PO 03/27/17 11:00 04/01/17 06:28 (Coreg) 12.5 mg Q8HR PO 03/27/17 15:00 03/31/17 16:00 (Colace) 100 mg BID PO 03/28/17 09:00 04/01/17 08:42 (Senokot) 17.2 mg DAILY PO 03/28/17 09:00 04/01/17 08:46 (Protonix) 40 mg BID PO 03/28/17 09:00 04/01/17 08:46 (Mag-Al Plus Susp Liq) 30 ml Q6H PO 03/29/17 12:00 04/01/17 06:14 (Deltasone) 20 mg BID PO 03/30/17 21:00 04/01/17 08:43 Assessment and Plan Assessment and Plan -Strong catheter balloon deflated and catheter advanced into bladder. -Successful irrigation with 1L saline after manipulation with minimal clots -CBI resumed with clear urine on moderate rate -Maintain CBI overnight. May titrate -Strong catheter to be removed per Dr. Velásquez's orders 03/29 76 y.o male with h/o muscle invasive bladder cancer s/p TURBT with gross hematuria Continue Amicar CBI for now Irrigate prn 03/30 76 y.o male with h/o muscle invasive bladder cancer s/p TURBT with gross hematuria Continue Amicar CBI for now Irrigate prn 03/31 76 y.o male with h/o muscle invasive bladder cancer s/p TURBT with gross hematuria Continue Amicar CBI for now Irrigate prn Possible void trial in AM if urine stays clear 04/01 76 y.o. with h/o muscle invasive bladder cancer s/p TURBT with gross hematuria Urine now clear Strong removed Void trial Chito Flower DO April 01, 2017 09:35
[2017-04-01] MEDS: INSULIN ASPART 1,000 UNITS/10 ML VIAL SQ SCH ×3 (11:19→18:29)
--- NOTE | 2017-04-01 13:22 | HHI.NPPN ---
Subjective General Problems: Anemia Renal Failure: Chronic, End Stage Renal Disease Interval History Dialyzed without issues yesterday. To have strong removed today and begin voiding trial. (Mechelle Mcgee) Review of Systems General Constitutional: Fatigue (Mechelle Mcgee) Gastrointestinal Gastrointestinal: Abdominal Pain (Mechelle Mcgee) Genitourinary Remarks hematuria (Mechelle Mcgee) Objective Data Data 03/31/17 04/01/17 19:00 07:00 Intake Total 120 ml 240 ml Output Total 4600 ml Balance -4480 ml 240 ml Intake Oral 120 ml 240 ml Output Urine Total 1600 ml Hemodialysis 3000 ml # Bowel Movements 0 Vital Signs Date Time Temp Pulse Resp B/P Pulse Ox O2 Delivery O2 Flow Rate FiO2 04/01/17 08:00 98.2 59 18 135/66 94 04/01/17 07:59 96 21 04/01/17 04:00 98.0 59 21 116/58 94 04/01/17 00:00 97.2 60 20 124/58 95 03/31/17 21:00 58 03/31/17 20:00 97.4 60 21 119/57 94 03/31/17 19:53 99 21 03/31/17 16:00 97.5 59 20 140/65 96 (Mechelle Mcgee) -: 03/30/17 0439 03/30/17 0439 Imaging Last Impressions Renal Ultrasound 03/27/17 0000 Signed Impressions: Service Date/Time: Monday, March 27, 2017 08:00 - CONCLUSION: 1. No hydronephrosis. 2. Mixed echogenicity noted within the urinary bladder likely debris which may represent hematoma. Benji Martin MD Chest X-Ray 03/27/17 0000 Signed Impressions: Service Date/Time: Monday, March 27, 2017 14:45 - CONCLUSION: Minimal left basilar density likely atelectasis. Benji Martin MD Modified Barium Swallow 03/26/17 0000 Signed Impressions: Service Date/Time: Sunday, March 26, 2017 10:57 - CONCLUSION: There is no evidence for aspiration. Jamal Jay MD FACR Abdomen/Pelvis CT 03/26/17 0000 Signed Impressions: Service Date/Time: Sunday, March 26, 2017 14:41 - CONCLUSION: New bibasilar airspace disease. Bilateral renal atrophy. Significant irregular thickening of the urinary bladder wall with indwelling Strong. No evidence of acute intestinal process. Chris Cabral MD Tubes & Lines: Strong Tubes & Lines Comment on CBI (Mechelle Mcgee) Physical Exam General Appearance: Well Developed, No Acute Distress, Comfortable, Malnourished ( Mechelle Mcgee [employer]) Neck Neck Exam: Neck Supple (Mechelle Mcgee [employer]) Pulmonary Resp Exam: Breath Sounds Equal, Crackles, Rhonchi, Sputum (Mechelle Mcgee BRey [employer] P[employer]CHER) Cardiology CV Exam: Regular, Normal Sinus Rhythm (Mechelle Mcgee [employer]) Gastrointestinal/Abdomen GI Exam: Soft, Bowel Sounds Present (Mechelle McgeeP) Musculoskeletal MS Exam: Joints Intact, Normal Tone (Mechelle McgeeP) Integumentary Skin Exam: Clear, Warm, Dry, Intact (Mechelle Mcgee [employer]) Extremeties Extremities Exam: No Edema, Pedal Pulses Palpable Extremeties Remarks left arm AVF, accessed during dialysis (Mechelle McgeeP) Neurologic Neuro Exam: Alert, Awake, Oriented, Speech Clear, Moving All Extremities ( Mechelle Mcgee [employer]) Psychiatric Psych Exam: Appropriate Responses (Mechelle Mcgee) Assessment/Plan Discussed Condition With: Patient, Spouse Assessment Summary: Anemia of CKD, End Stage Renal Disease Problem List: (1) ESRD (end stage renal disease) on dialysis Plan: Dialysis will be continue [facility]. He had 3 liters fluid removal yesterday Monitor fluid and electrolyte status. No acute concerns. Avoid Gadolinium. Avoid IVF renal diet with no protein restriction minimize lab draws, intermittent metabolic profile he is stable for discharge from renal perspective, can resume outpatient arrangements if cleared by all all physicians (2) Bladder mass Plan: s/p cystoscopy with tumor removal, follows with Dr. 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 His Hemoglobin low likely due to hematuria. Monitor Hb (6) Metabolic bone disease Plan: phos low, hold renvela and replace phosphorus (Mechelle Mcgee) Plan patient was seen and examined. Agree with above assessment and plan. (Chava Sinhg MD) Problem Qualifiers (1) STEMI (ST elevation myocardial infarction): Qualified Code: I21.19 - ST elevation myocardial infarction (STEMI) involving other coronary artery of inferior wall Mechelle Mcgee April 01, 2017 13:22 Chava Singh MD April 01, 2017 21:28
[2017-04-01] MEDS ORDERED: POTASSIUM PHOSPHATE/SODIUM PHOSPHATE 250 MG TAB PO ONE ×2 (14:00→20:00)
[2017-04-01] MEDS: TIROFIBAN INFUSION INJ 250 ML IV SCH (16:13)
--- NOTE | 2017-04-01 19:49 | HHI.PR ---
Subjective Remarks patient denies cp/sob denies fevers/chills stable vital signs hematuria resolved c/o cough Objective Vitals Vital Signs Date Time Temp Pulse Resp B/P Pulse Ox O2 Delivery O2 Flow Rate FiO2 04/01/17 16:18 18 04/01/17 16:14 57 04/01/17 16:00 97.5 57 16 127/61 98 04/01/17 12:00 97.8 57 18 115/58 95 04/01/17 08:00 98.2 59 18 135/66 94 04/01/17 07:59 96 21 04/01/17 04:00 98.0 59 21 116/58 94 04/01/17 00:00 97.2 60 20 124/58 95 03/31/17 21:00 58 03/31/17 20:00 97.4 60 21 119/57 94 03/31/17 19:53 99 21 I/O 03/31/17 03/31/17 03/31/17 04/01/17 04/01/17 04/01/17 07:00 15:00 23:00 07:00 15:00 23:00 Intake Total 100 ml 120 ml 240 ml 100 ml Output Total 1075 ml 4600 ml 2200 ml Balance -975 ml -4480 ml 240 ml -2100 ml Intake Oral 100 ml 120 ml 240 ml IV Total 100 ml Output Urine Total 1075 ml 1600 ml 2200 ml Hemodialysis 3000 ml # Bowel Movements 0 Result Diagram: 03/30/17 0439 03/30/17 0439 Imaging Last Impressions Renal Ultrasound 03/27/17 0000 Signed Impressions: Service Date/Time: Monday, March 27, 2017 08:00 - CONCLUSION: 1. No hydronephrosis. 2. Mixed echogenicity noted within the urinary bladder likely debris which may represent hematoma. Benji Martin MD Chest X-Ray 03/27/17 0000 Signed Impressions: Service Date/Time: Monday, March 27, 2017 14:45 - CONCLUSION: Minimal left basilar density likely atelectasis. Benji Martin MD Modified Barium Swallow 03/26/17 0000 Signed Impressions: Service Date/Time: Sunday, March 26, 2017 10:57 - CONCLUSION: There is no evidence for aspiration. Jamal Jay MD FACR Abdomen/Pelvis CT 03/26/17 0000 Signed Impressions: Service Date/Time: Sunday, March 26, 2017 14:41 - CONCLUSION: New bibasilar airspace disease. Bilateral renal atrophy. Significant irregular thickening of the urinary bladder wall with indwelling Frankel. No evidence of acute intestinal process. Chris Cabral MD Objective Remarks GENERAL: Resting comfortably. SKIN: no rashes. HEAD: Atraumatic. Normocephalic. EYES: Pupils equal and round. No scleral icterus. No injection or drainage. ENT: No nasal bleeding or discharge. Mucous membranes pink and moist. NECK: Trachea midline. No JVD. CARDIOVASCULAR: Regular rate and rhythm. No murmur appreciated. RESPIRATORY: Diffuse wheezing. GASTROINTESTINAL: Abdomen soft, nontender, nondistended. No rebound tenderness or guarding. : Frankel in place, hematuria improving. MUSCULOSKELETAL: Tenderness to palpation of left chest wall. No obvious deformities. No clubbing. No cyanosis. NEUROLOGICAL: Awake and alert. No obvious cranial nerve deficits. Motor grossly within normal limits. Normal speech. PSYCHIATRIC: Appropriate mood and affect; insight and judgment normal. Procedures Cardiac catheterization Medications and IVs Current Medications Medications (Trade) Dose Ordered Sig/Darinel Route Start Time Stop Time Status Last Admin (NS Flush) 2 ml UNSCH PRN IVF 03/24/17 12:15 03/28/17 21:56 (Restoril) 15 mg HS PRN PO 03/24/17 16:15 (Aspirin Chew) 81 mg DAILY PO 03/25/17 09:00 04/01/17 08:41 Ticagrelor 90 mg 90 mg BID PO 03/25/17 09:00 04/01/17 08:41 (Aggrastat Infusion Inj) 250 ml @ 7.02 mls/hr Q24H IV 03/24/17 16:13 (Lipitor) 80 mg HS PO 03/24/17 21:00 03/31/17 21:00 (Bumetanide) 1 mg DAILY PO 03/25/17 09:00 04/01/17 08:42 (Keflex) 250 mg TID PO 03/24/17 18:00 04/01/17 16:54 (Vitamin D3) 2,000 units DAILY PO 03/25/17 09:00 04/01/17 08:46 (Proscar) 5 mg DAILY PO 03/25/17 09:00 04/01/17 08:45 (Imdur) 30 mg DAILY PO 03/25/17 09:00 04/01/17 08:44 (Pyridium) 100 mg Q8H PRN PO 03/24/17 16:30 03/27/17 06:35 (Flomax) 0.4 mg BID PO 03/24/17 21:00 04/01/17 08:44 (Levemir Inj) 10 units HS SQ 03/24/17 21:00 04/01/17 00:43 (NovoLOG INJ) 5 units TIDAC SQ 03/24/17 17:00 04/01/17 18:29 (D50w (Vial) Inj) 25 ml UNSCH PRN IV PUSH 03/24/17 16:45 Glucagon 1 mg 1 mg UNSCH PRN OTHER 03/24/17 16:45 (NS 1000 ml Inj) 1,000 ml @ 0 mls/hr TITRATE PRN IV 03/24/17 18:00 (Heparin Inj) 8,000 units UNSCH PRN IV FLUSH 03/24/17 18:00 Heparin Sodium (Porcine) 1000 units 1,000 units Q1H PRN IV FLUSH 03/24/17 18:00 Sodium Chloride 1,000 ml @ 200 mls/hr Q5H PRN IV 03/24/17 18:00 03/29/17 09:50 (NS 250 ml Inj) 200 ml @ 0 mls/hr UNSCH PRN IV 03/24/17 18:00 (Mannitol Inj) 12.5 gm UNSCH PRN IV 03/24/17 18:00 03/26/17 15:21 (Albumin 25% Inj) 25 gm UNSCH PRN IV 03/24/17 18:00 03/24/17 19:55 (NS Flush) 5 ml UNSCH PRN IV FLUSH 03/24/17 18:00 (Heparin Inj) Dwell Heparin to f... UNSCH PRN OTHER 03/24/17 18:00 (Gentamicin (Dialysis) Inj) 10 mg UNSCH PRN OTHER 03/24/17 18:00 (Gelfoam 12 Mm/7 Mm Top) 1 foam UNSCH PRN TOPICAL 03/24/17 18:00 03/29/17 09:50 (Zofran Inj) 4 mg UNSCH PRN IV 03/24/17 18:00 03/24/17 22:26 (Benadryl) 25 mg UNSCH PRN PO 03/24/17 18:00 (Nitrostat Sl) 0.4 mg UNSCH PRN SL 03/24/17 18:00 (Catapres) 0.1 mg UNSCH PRN PO 03/24/17 18:00 Epoetin Rafael 69689 units 10,000 units UNSCH PRN IV 03/25/17 10:00 03/31/17 11:51 (Amicar Inj/NS Irr Bag) 3,012 ml @ 0 mls/hr TITRATE IRRIGATION 03/25/17 16:00 04/01/17 03:58 Guaifenesin 600 mg 600 mg BID PO 03/25/17 21:00 04/01/17 08:45 (Vibramycin Inj/ NS Inj) 100 ml @ 100 mls/hr Q12H IV 03/26/17 17:00 04/01/17 16:53 (Ditropan) 5 mg Q8H PRN PO 03/27/17 01:00 03/27/17 09:49 (Roxicodone) 5 mg Q4H PRN PO 03/27/17 11:00 04/01/17 15:01 (Coreg) 12.5 mg Q8HR PO 03/27/17 15:00 04/01/17 14:59 (Colace) 100 mg BID PO 03/28/17 09:00 04/01/17 08:42 (Senokot) 17.2 mg DAILY PO 03/28/17 09:00 04/01/17 08:46 (Protonix) 40 mg BID PO 03/28/17 09:00 04/01/17 08:46 (Mag-Al Plus Susp Liq) 30 ml Q6H PO 03/29/17 12:00 04/01/17 16:56 (Deltasone) 20 mg BID PO 03/30/17 21:00 04/01/17 08:43 (K-Phos Neutral) 250 mg ONCE ONCE PO 04/01/17 20:00 04/01/17 20:01 Urinary Catheter: Yes Assessment to: Remove Vascular Central Line Catheter: No A/P Assessment and Plan STEMI EKG revealed ST elevations in the inferior leads with reciprocal ST depressions. Troponin was 0.75. The patient was taken to the Hemodialysis Rn and a stent was placed to the graft of the RCA. The patient has had runs of v tach on telemetry. Repeat EKG stable. - Continue medication regimen per cardiology.Coreg dose increased to 12.5 mg TID. - Continue Telemetry. - Oxygen and pain meds as needed. - monitor lytes and replete as needed. Acute on chronic systolic heart failure BNP markedly elevated. Has a history of CAD s/p CABG. - continue PO Bumex. - dialysis for volume management. - follow Is and Os. -Cardiology consulted, patient has been cleared for discharge from the cardiology standpoint. ESRD The patient is on hemodialysis. - Follow BMP. Kayexalate as needed. - Continue diuretics. - dialysis per nephrology. - Continue to follow-up nephrology recommendations. Patient placed on K-Phos by nephrology to replace low phosphorus. N/V/ Abdominal pain N/V seems to have resolved but pt complains of chronic diffuse abdominal pain. Negative CT in February. LFTs and lipase unremarkable. Possibly s/t GERD, PUD or bladder cancer. CT showed: New bibasilar airspace disease; Bilateral renal atrophy; Significant irregular thickening of the urinary bladder wall with indwelling Frankel; No evidence of acute intestinal process. The pt does have pain upon palpation of the left chest wall. May be costochondritis. Resolved . - Antiemetics and pain meds as needed. - Advance diet as tolerated. - increase PPI. - added standing Maalox. - started IV Tylenol for costochondritis. D/c. Cough/ Aspiration/ COPD Likely secondary to chronic bronchitis. The patient also acknowledges some difficulty swallowing. Speech recommending NPO status. CXR with bibasilar densities, likely atelectasis. Repeat CXR stable. Barium negative for aspiration. Pt with diffuse wheezing, improved. Sputum culture growing Enterobacter cloacae, pansensitive. - diet per speech. - Solumedrol changed to prednisone. Continue standing nebs. - IS. - oxygen as needed. Walk test prior to discharge. - I will switch Doxycycline to Levaquin IV. History of CVA The patient has residual numbness in the left upper and lower extremities. - Physical therapy. - Continue medical regimen. Bladder tumors/ Hematuria The patient had recent bladder tumor removal on Wednesday. He has hematuria and a Frankel in place. Urology consult appreciated. 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 Frankel not draining well 03/27. Renal US without hydronephrosis. - Continue blood thinners per cardiology. - Patient sp CBI with resolution and improvement of hematuria. Frankel to be discontinued and patient to be started on voiding trials. PPx: SCDs; PPI. Discharge Planning Poss Dc in am pending clinical improvement and urology clearance. Josemanuel Garcia MD April 01, 2017 19:49
--- NOTE | 2017-04-01 20:28 | PD.CARD.PN ---
Subjective Subjective Remarks No CP or SOB, still w mild abd pain, feels better Objective Medications Current Medications Medications (Trade) Dose Ordered Sig/Darinel Route Start Time Stop Time Status Last Admin (NS Flush) 2 ml UNSCH PRN IVF 03/24/17 12:15 03/28/17 21:56 (Restoril) 15 mg HS PRN PO 03/24/17 16:15 (Aspirin Chew) 81 mg DAILY PO 03/25/17 09:00 04/01/17 08:41 Ticagrelor 90 mg 90 mg BID PO 03/25/17 09:00 04/01/17 08:41 (Aggrastat Infusion Inj) 250 ml @ 7.02 mls/hr Q24H IV 03/24/17 16:13 (Lipitor) 80 mg HS PO 03/24/17 21:00 03/31/17 21:00 (Bumetanide) 1 mg DAILY PO 03/25/17 09:00 04/01/17 08:42 (Keflex) 250 mg TID PO 03/24/17 18:00 04/01/17 16:54 (Vitamin D3) 2,000 units DAILY PO 03/25/17 09:00 04/01/17 08:46 (Proscar) 5 mg DAILY PO 03/25/17 09:00 04/01/17 08:45 (Imdur) 30 mg DAILY PO 03/25/17 09:00 04/01/17 08:44 (Pyridium) 100 mg Q8H PRN PO 03/24/17 16:30 03/27/17 06:35 (Flomax) 0.4 mg BID PO 03/24/17 21:00 04/01/17 08:44 (Levemir Inj) 10 units HS SQ 03/24/17 21:00 04/01/17 00:43 (NovoLOG INJ) 5 units TIDAC SQ 03/24/17 17:00 04/01/17 18:29 (D50w (Vial) Inj) 25 ml UNSCH PRN IV PUSH 03/24/17 16:45 Glucagon 1 mg 1 mg UNSCH PRN OTHER 03/24/17 16:45 (NS 1000 ml Inj) 1,000 ml @ 0 mls/hr TITRATE PRN IV 03/24/17 18:00 (Heparin Inj) 8,000 units UNSCH PRN IV FLUSH 03/24/17 18:00 Heparin Sodium (Porcine) 1000 units 1,000 units Q1H PRN IV FLUSH 03/24/17 18:00 Sodium Chloride 1,000 ml @ 200 mls/hr Q5H PRN IV 03/24/17 18:00 03/29/17 09:50 (NS 250 ml Inj) 200 ml @ 0 mls/hr UNSCH PRN IV 03/24/17 18:00 (Mannitol Inj) 12.5 gm UNSCH PRN IV 03/24/17 18:00 03/26/17 15:21 (Albumin 25% Inj) 25 gm UNSCH PRN IV 03/24/17 18:00 03/24/17 19:55 (NS Flush) 5 ml UNSCH PRN IV FLUSH 03/24/17 18:00 (Heparin Inj) Dwell Heparin to f... UNSCH PRN OTHER 03/24/17 18:00 (Gentamicin (Dialysis) Inj) 10 mg UNSCH PRN OTHER 03/24/17 18:00 (Gelfoam 12 Mm/7 Mm Top) 1 foam UNSCH PRN TOPICAL 03/24/17 18:00 03/29/17 09:50 (Zofran Inj) 4 mg UNSCH PRN IV 03/24/17 18:00 03/24/17 22:26 (Benadryl) 25 mg UNSCH PRN PO 03/24/17 18:00 (Nitrostat Sl) 0.4 mg UNSCH PRN SL 03/24/17 18:00 (Catapres) 0.1 mg UNSCH PRN PO 03/24/17 18:00 Epoetin Rafael 01474 units 10,000 units UNSCH PRN IV 03/25/17 10:00 03/31/17 11:51 (Amicar Inj/NS Irr Bag) 3,012 ml @ 0 mls/hr TITRATE IRRIGATION 03/25/17 16:00 04/01/17 03:58 (Mucinex Er) 600 mg BID PO 03/25/17 21:00 04/01/17 08:45 (Ditropan) 5 mg Q8H PRN PO 03/27/17 01:00 03/27/17 09:49 (Roxicodone) 5 mg Q4H PRN PO 03/27/17 11:00 04/01/17 15:01 (Coreg) 12.5 mg Q8HR PO 03/27/17 15:00 04/01/17 14:59 (Colace) 100 mg BID PO 03/28/17 09:00 04/01/17 08:42 (Senokot) 17.2 mg DAILY PO 03/28/17 09:00 04/01/17 08:46 (Protonix) 40 mg BID PO 03/28/17 09:00 04/01/17 08:46 (Mag-Al Plus Susp Liq) 30 ml Q6H PO 03/29/17 12:00 04/01/17 16:56 Prednisone 20 mg 20 mg BID PO 03/30/17 21:00 04/01/17 08:43 Levofloxacin/ Dextrose 150 ml @ 100 mls/hr ONCE ONCE IV 04/01/17 21:00 04/01/17 22:29 (Levaquin 500 Mg Premix Inj) 100 ml @ 100 mls/hr Q48H IV 04/03/17 21:00 Vital Signs / I&O Vital Signs Date Time Temp Pulse Resp B/P Pulse Ox O2 Delivery O2 Flow Rate FiO2 04/01/17 16:18 18 04/01/17 16:14 57 04/01/17 16:00 97.5 57 16 127/61 98 04/01/17 12:00 97.8 57 18 115/58 95 04/01/17 08:00 98.2 59 18 135/66 94 04/01/17 07:59 96 21 04/01/17 04:00 98.0 59 21 116/58 94 04/01/17 00:00 97.2 60 20 124/58 95 03/31/17 21:00 58 I/O 03/31/17 03/31/17 03/31/17 04/01/17 04/01/17 04/01/17 07:00 15:00 23:00 07:00 15:00 23:00 Intake Total 100 ml 120 ml 240 ml 100 ml Output Total 1075 ml 4600 ml 2200 ml Balance -975 ml -4480 ml 240 ml -2100 ml Intake Oral 100 ml 120 ml 240 ml IV Total 100 ml Output Urine Total 1075 ml 1600 ml 2200 ml Hemodialysis 3000 ml # Bowel Movements 0 Physical Exam GENERAL: In NAD. SKIN: Warm and dry. HEAD: Normocephalic. EYES: No scleral icterus. No injection or drainage. NECK: Supple, trachea midline. No JVD or lymphadenopathy. CARDIOVASCULAR: Regular rate and rhythm without murmurs, gallops, or rubs. RESPIRATORY: Breath sounds equal bilaterally. No accessory muscle use. GASTROINTESTINAL: Abdomen soft, non-tender, nondistended. MUSCULOSKELETAL: No cyanosis, or edema. Laboratory Laboratory Tests Test 03/30/17 03/31/17 04:39 11:02 White Blood Count 8.2 TH/MM3 Red Blood Count 3.10 MIL/MM3 Hemoglobin 9.1 GM/DL Hematocrit 28.3 % Mean Corpuscular Volume 91.2 FL Mean Corpuscular Hemoglobin 29.3 PG Mean Corpuscular Hemoglobin 32.1 % Concent Red Cell Distribution Width 19.3 % Platelet Count 155 TH/MM3 Mean Platelet Volume 10.4 FL Sodium Level 135 MEQ/L Potassium Level 4.8 MEQ/L Chloride Level 93 MEQ/L Carbon Dioxide Level 32.3 MEQ/L Anion Gap 10 MEQ/L Blood Urea Nitrogen 54 MG/DL Creatinine 6.11 MG/DL Estimat Glomerular Filtration 9 ML/MIN Rate Random Glucose 141 MG/DL Calcium Level 7.4 MG/DL Protein Corrected Calcium 8.3 MG/DL Magnesium Level 1.9 MG/DL Total Protein 5.5 GM/DL Phosphorus Level 1.6 MG/DL Imaging Last Impressions Renal Ultrasound 03/27/17 0000 Signed Impressions: Service Date/Time: Monday, March 27, 2017 08:00 - CONCLUSION: 1. No hydronephrosis. 2. Mixed echogenicity noted within the urinary bladder likely debris which may represent hematoma. Benji Martin MD Chest X-Ray 03/27/17 0000 Signed Impressions: Service Date/Time: Monday, March 27, 2017 14:45 - CONCLUSION: Minimal left basilar density likely atelectasis. Benji Martin MD Modified Barium Swallow 03/26/17 0000 Signed Impressions: Service Date/Time: Sunday, March 26, 2017 10:57 - CONCLUSION: There is no evidence for aspiration. Jamal Jay MD FACR Abdomen/Pelvis CT 03/26/17 0000 Signed Impressions: Service Date/Time: Sunday, March 26, 2017 14:41 - CONCLUSION: New bibasilar airspace disease. Bilateral renal atrophy. Significant irregular thickening of the urinary bladder wall with indwelling Frankel. No evidence of acute intestinal process. Chris Cabral MD Assessment and Plan Problem List: (1) ST elevation myocardial infarction (STEMI) of inferior wall (2) CAD (coronary artery disease) (3) ESRD (end stage renal disease) on dialysis (4) Bladder mass (5) Hypertension (6) Diabetes mellitus (7) COPD exacerbation (8) Hematuria, unspecified Assessment and Plan Remains stable from cardiac standpoint. Continue Brilinta and baby ASA for at least one year. Continue post [place] care with beta enmanuel and statin. Hematuria improving, drain removed, followed by urology. Increase activity, recommend PT. Continue dialysis as per nephrology. Continue monitoring. No new cardiac issues. Problem Qualifiers (1) Diabetes mellitus: Rachael Eason MD April 01, 2017 20:28
[2017-04-01] MEDS ORDERED: LEVOFLOXACIN 750 MG PREMIX INJ 150 ML IV ONE (21:00)
[2017-04-01] MEDS: ATORVASTATIN 80 MG TAB PO SCH (21:04)
[2017-04-02] VITALS: BP 142/65; PULSE 60; RESP 20; TEMP 97.8; O2SAT 97
[2017-04-02 04:00] VITALS: BP 143/65; PULSE 61; RESP 20; TEMP 97.6; O2SAT 95
[2017-04-02] MEDS: CARVEDILOL 12.5 MG TAB PO SCH ×2 (05:16→15:33)
[2017-04-02] MEDS: ALUMINUM/MAGNESIUM/SIMETH 30 ML CUP PO SCH ×4 (05:16→17:04)
[2017-04-02 06:00] VITALS: PULSE 64
[2017-04-02] MEDS: INSULIN ASPART SUPPLEMENTAL SCALE SQ SCH ×3 (06:38→16:49)
[2017-04-02] MEDS: RESP: ALBUTEROL 2.5 MG/IPRATROPIUM 0.5 MG NEB (SCH) NEB ×2 (07:49→13:07)
[2017-04-02 07:50] VITALS: O2SAT 99
[2017-04-02 08:00] VITALS: BP 139/65; PULSE 57; RESP 18; TEMP 97.3; O2SAT 97
[2017-04-02] MEDS: INSULIN ASPART 1,000 UNITS/10 ML VIAL SQ SCH ×3 (08:00→16:50)
[2017-04-02] MEDS: ASPIRIN 81 MG CHEW TAB PO SCH (08:07)
[2017-04-02] MEDS: BUMETANIDE 1 MG TAB PO SCH (08:07)
[2017-04-02] MEDS: TICAGRELOR 90 MG TAB PO SCH (08:07)
[2017-04-02] MEDS: PANTOPRAZOLE SOD 40 MG DELAYED RELEASE TAB PO SCH (08:08)
[2017-04-02] MEDS: SENNOSIDES 8.6 MG TAB PO SCH (08:08)
[2017-04-02] MEDS: guaiFENesin E.R. 600 MG TAB PO SCH (08:08)
[2017-04-02] MEDS: CEPHALEXIN MONOHYDRATE 250 MG CAP PO SCH ×3 (08:08→17:04)
[2017-04-02] MEDS: FINASTERIDE 5 MG TAB PO SCH (08:08)
[2017-04-02] MEDS: ISOSORBIDE MONONITRATE 30 MG TAB PO SCH (08:08)
[2017-04-02] MEDS: CHOLECALCIFEROL (VIT D3) 1000 UNIT TAB PO SCH (08:08)
[2017-04-02] MEDS: predniSONE 20 MG TAB PO SCH (08:08)
[2017-04-02] MEDS: TAMSULOSIN HCL 0.4 MG CAP PO SCH (08:08)
[2017-04-02] MEDS: DOCUSATE SODIUM 100 MG CAP PO SCH (08:14)
[2017-04-02 08:52] LABS: BICARBONATE 27.2 MEQ/L (21.0-32.0); POTASSIUM 5.5 MEQ/L (3.5-5.1)
--- NOTE | 2017-04-02 09:18 | HHI.NPPN ---
Subjective General Problems: Anemia Renal Failure: Chronic, End Stage Renal Disease Interval History strong/CBI was removed however he states he cannot urinate. Seen during dialysis. (Mechelle Mcgee) Review of Systems General Constitutional: Fatigue (Mechelle Mcgee) Gastrointestinal Gastrointestinal: Abdominal Pain (Mechelle Mcgee) Genitourinary Remarks hematuria (Mechelle Mcgee) Objective Data Data 04/01/17 04/02/17 19:00 07:00 Intake Total 100 ml 150 ml Output Total 2200 ml 50 ml Balance -2100 ml 100 ml Intake Oral 0 ml IV Total 100 ml 150 ml Output Urine Total 2200 ml 50 ml # Voids 100 # Bowel Movements 0 Vital Signs Date Time Temp Pulse Resp B/P Pulse Ox O2 Delivery O2 Flow Rate FiO2 04/02/17 08:00 97.3 57 18 139/65 97 04/02/17 07:50 99 21 04/02/17 06:00 64 04/02/17 04:00 97.6 61 20 143/65 95 04/02/17 00:00 97.8 60 20 142/65 97 04/01/17 21:48 96 Oxyhood 21 04/01/17 20:00 81 04/01/17 20:00 97.6 59 18 152/69 97 04/01/17 16:18 18 04/01/17 16:14 57 04/01/17 16:00 97.5 57 16 127/61 98 04/01/17 12:00 97.8 57 18 115/58 95 (Mechelle Mcgee) -: 03/30/17 0439 04/02/17 0744 Physical Exam General Appearance: Well Developed, No Acute Distress, Comfortable, Malnourished ( Mechelle Mcgee) Neck Neck Exam: Neck Supple (Mechelle Mcgee) Pulmonary Resp Exam: Breath Sounds Equal, Crackles, Rhonchi, Sputum (Mechelle Mcgee) Cardiology CV Exam: Regular, Normal Sinus Rhythm (Mechelle Mcgee) Gastrointestinal/Abdomen GI Exam: Soft, Bowel Sounds Present (Mechelle Mcgee) Musculoskeletal MS Exam: Joints Intact, Normal Tone (Mechelle Mcgee) Integumentary Skin Exam: Clear, Warm, Dry, Intact (Mechelle Mcgee) Extremeties Extremities Exam: No Edema, Pedal Pulses Palpable Extremeties Remarks left arm AVF, accessed during dialysis (Mechelle Mcgee) Neurologic Neuro Exam: Alert, Awake, Oriented, Speech Clear, Moving All Extremities ( Mechelle Mcgee) Psychiatric Psych Exam: Appropriate Responses (Mechelle Mcgee) Assessment/Plan Discussed Condition With: Patient, Spouse Assessment Summary: Anemia of CKD, End Stage Renal Disease Problem List: (1) ESRD (end stage renal disease) on dialysis Plan: seen during dialysis on a 2K, 350 BFR, goal 3L Dialysis will be continue MWF. Monitor fluid and electrolyte status. repeat K level in am Avoid Gadolinium. Avoid IVF renal diet with no protein restriction minimize lab draws, intermittent metabolic profile he is stable for discharge from renal perspective, can resume outpatient arrangements if cleared by all all physicians (2) Bladder mass Plan: s/p cystoscopy with tumor removal, follows with Dr. 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 hematuria may have contributed to worsening anemia, since improved slightly Monitor Hb (6) Metabolic bone disease Plan: phos acceptable, continue renvela (Mechelle Mcgee) Plan Patient was seen and examined. Dialyzed today. Strong removed. Can be discharged if cleared by Urology (Chava Singh MD) Problem Qualifiers (1) STEMI (ST elevation myocardial infarction): Qualified Code: I21.19 - ST elevation myocardial infarction (STEMI) involving other coronary artery of inferior wall Mechelle Mcgee April 02, 2017 09:18 Chava Singh MD April 02, 2017 14:18
--- NOTE | 2017-04-02 10:25 | HHI.PR ---
Subjective Patient symptoms today Pt seen and examined. On Dialysis at present. Urine is slightly red without clots. Objective Vital Signs Vital Signs Date Time Temp Pulse Resp B/P Pulse Ox O2 Delivery O2 Flow Rate FiO2 04/02/17 08:00 97.3 57 18 139/65 97 04/02/17 07:50 99 21 04/02/17 06:00 64 04/02/17 04:00 97.6 61 20 143/65 95 04/02/17 00:00 97.8 60 20 142/65 97 04/01/17 21:48 96 Oxyhood 21 04/01/17 20:00 81 04/01/17 20:00 97.6 59 18 152/69 97 04/01/17 16:18 18 04/01/17 16:14 57 04/01/17 16:00 97.5 57 16 127/61 98 04/01/17 12:00 97.8 57 18 115/58 95 Intake & Output 04/02/17 04/02/17 07:00 19:00 Intake Total 150 ml Output Total 50 ml Balance 100 ml Intake Oral 0 ml IV Total 150 ml Output Urine Total 50 ml # Voids 100 # Bowel Movements 0 Result Diagram: 03/30/17 0439 04/02/17 0744 Objective Remarks Strong catheter appears to be out of position in the urethra. Unable to irrigate. Abdominal tenderness noted 03/29 Abd:soft,slight tenderness, no rebound Strong: clear when CBI is turned up 03/30 Abd:soft,nt,nd Strong irrigated at bedside; clots removed. Clear now on CBI 03/31 Abd:soft,nt,nd Strong irrigated at bedside; clots removed. Clear now on CBI 04/01 Abd:soft,nt,nd Strong clear: strong removed at bedside. 04/02 Abd:soft,nt,nd Medications and IVs Current Medications Medications (Trade) Dose Ordered Sig/Darinel Route Start Time Stop Time Status Last Admin (NS Flush) 2 ml UNSCH PRN IVF 03/24/17 12:15 03/28/17 21:56 (Restoril) 15 mg HS PRN PO 03/24/17 16:15 (Aspirin Chew) 81 mg DAILY PO 03/25/17 09:00 04/02/17 08:07 Ticagrelor 90 mg 90 mg BID PO 03/25/17 09:00 04/02/17 08:07 (Aggrastat Infusion Inj) 250 ml @ 7.02 mls/hr Q24H IV 03/24/17 16:13 (Lipitor) 80 mg HS PO 03/24/17 21:00 04/01/17 21:04 (Bumetanide) 1 mg DAILY PO 03/25/17 09:00 04/02/17 08:07 (Keflex) 250 mg TID PO 03/24/17 18:00 04/02/17 08:08 (Vitamin D3) 2,000 units DAILY PO 03/25/17 09:00 04/02/17 08:08 (Proscar) 5 mg DAILY PO 03/25/17 09:00 04/02/17 08:08 (Imdur) 30 mg DAILY PO 03/25/17 09:00 04/02/17 08:08 (Pyridium) 100 mg Q8H PRN PO 03/24/17 16:30 03/27/17 06:35 (Flomax) 0.4 mg BID PO 03/24/17 21:00 04/02/17 08:08 (Levemir Inj) 10 units HS SQ 03/24/17 21:00 04/01/17 21:08 (NovoLOG INJ) 5 units TIDAC SQ 03/24/17 17:00 04/02/17 08:00 (D50w (Vial) Inj) 25 ml UNSCH PRN IV PUSH 03/24/17 16:45 Glucagon 1 mg 1 mg UNSCH PRN OTHER 03/24/17 16:45 (NS 1000 ml Inj) 1,000 ml @ 0 mls/hr TITRATE PRN IV 03/24/17 18:00 (Heparin Inj) 8,000 units UNSCH PRN IV FLUSH 03/24/17 18:00 Heparin Sodium (Porcine) 1000 units 1,000 units Q1H PRN IV FLUSH 03/24/17 18:00 Sodium Chloride 1,000 ml @ 200 mls/hr Q5H PRN IV 03/24/17 18:00 03/29/17 09:50 (NS 250 ml Inj) 200 ml @ 0 mls/hr UNSCH PRN IV 03/24/17 18:00 (Mannitol Inj) 12.5 gm UNSCH PRN IV 03/24/17 18:00 03/26/17 15:21 (Albumin 25% Inj) 25 gm UNSCH PRN IV 03/24/17 18:00 03/24/17 19:55 (NS Flush) 5 ml UNSCH PRN IV FLUSH 03/24/17 18:00 (Heparin Inj) Dwell Heparin to f... UNSCH PRN OTHER 03/24/17 18:00 (Gentamicin (Dialysis) Inj) 10 mg UNSCH PRN OTHER 03/24/17 18:00 (Gelfoam 12 Mm/7 Mm Top) 1 foam UNSCH PRN TOPICAL 03/24/17 18:00 03/29/17 09:50 (Zofran Inj) 4 mg UNSCH PRN IV 03/24/17 18:00 03/24/17 22:26 (Benadryl) 25 mg UNSCH PRN PO 03/24/17 18:00 (Nitrostat Sl) 0.4 mg UNSCH PRN SL 03/24/17 18:00 (Catapres) 0.1 mg UNSCH PRN PO 03/24/17 18:00 Epoetin Rafael 56707 units 10,000 units UNSCH PRN IV 03/25/17 10:00 03/31/17 11:51 (Amicar Inj/NS Irr Bag) 3,012 ml @ 0 mls/hr TITRATE IRRIGATION 03/25/17 16:00 04/01/17 03:58 (Mucinex Er) 600 mg BID PO 03/25/17 21:00 04/02/17 08:08 (Ditropan) 5 mg Q8H PRN PO 03/27/17 01:00 03/27/17 09:49 (Roxicodone) 5 mg Q4H PRN PO 03/27/17 11:00 04/01/17 15:01 (Coreg) 12.5 mg Q8HR PO 03/27/17 15:00 04/02/17 05:16 (Colace) 100 mg BID PO 03/28/17 09:00 04/02/17 08:14 (Senokot) 17.2 mg DAILY PO 03/28/17 09:00 04/02/17 08:08 (Protonix) 40 mg BID PO 03/28/17 09:00 04/02/17 08:08 (Mag-Al Plus Susp Liq) 30 ml Q6H PO 03/29/17 12:00 04/02/17 05:16 Prednisone 20 mg 20 mg BID PO 03/30/17 21:00 04/02/17 08:08 (Levaquin 500 Mg Premix Inj) 100 ml @ 100 mls/hr Q48H IV 04/03/17 21:00 (Renvela) 800 mg TIDAC PO 04/02/17 12:00 Assessment and Plan Assessment and Plan -Strong catheter balloon deflated and catheter advanced into bladder. -Successful irrigation with 1L saline after manipulation with minimal clots -CBI resumed with clear urine on moderate rate -Maintain CBI overnight. May titrate -Strong catheter to be removed per Dr. Velásquez's orders 03/29 76 y.o male with h/o muscle invasive bladder cancer s/p TURBT with gross hematuria Continue Amicar CBI for now Irrigate prn 03/30 76 y.o male with h/o muscle invasive bladder cancer s/p TURBT with gross hematuria Continue Amicar CBI for now Irrigate prn 03/31 76 y.o male with h/o muscle invasive bladder cancer s/p TURBT with gross hematuria Continue Amicar CBI for now Irrigate prn Possible void trial in AM if urine stays clear 04/01 76 y.o. with h/o muscle invasive bladder cancer s/p TURBT with gross hematuria Urine now clear Strong removed Void trial 04/02 76 y.o. with h/o muscle invasive bladder cancer s/p TURBT with gross hematuria Voiding without clots; urine pink according to pt. Call with questions F/U with Dr. Velásquez as outpt. Chito Flower DO April 02, 2017 10:25
[2017-04-02] MEDS: GELATIN 12 MM/7 MM FOAM TOPICAL PRN (10:45)
[2017-04-02] MEDS: EPOETIN ALFA 10,000 UNITS/ML VIAL IV PRN (10:45)
[2017-04-02] MEDS: SEVELAMER CARBONATE 800 MG TAB PO SCH ×2 (12:00→17:00)
--- NOTE | 2017-04-02 15:38 | PD.CARD.PN ---
Subjective Subjective Remarks No CP or SOB, feels much better Objective Medications Current Medications Medications (Trade) Dose Ordered Sig/Darinel Route Start Time Stop Time Status Last Admin (NS Flush) 2 ml UNSCH PRN IVF 03/24/17 12:15 03/28/17 21:56 (Restoril) 15 mg HS PRN PO 03/24/17 16:15 (Aspirin Chew) 81 mg DAILY PO 03/25/17 09:00 04/02/17 08:07 Ticagrelor 90 mg 90 mg BID PO 03/25/17 09:00 04/02/17 08:07 (Aggrastat Infusion Inj) 250 ml @ 7.02 mls/hr Q24H IV 03/24/17 16:13 (Lipitor) 80 mg HS PO 03/24/17 21:00 04/01/17 21:04 (Bumetanide) 1 mg DAILY PO 03/25/17 09:00 04/02/17 08:07 (Keflex) 250 mg TID PO 03/24/17 18:00 04/02/17 15:33 (Vitamin D3) 2,000 units DAILY PO 03/25/17 09:00 04/02/17 08:08 (Proscar) 5 mg DAILY PO 03/25/17 09:00 04/02/17 08:08 (Imdur) 30 mg DAILY PO 03/25/17 09:00 04/02/17 08:08 (Pyridium) 100 mg Q8H PRN PO 03/24/17 16:30 03/27/17 06:35 (Flomax) 0.4 mg BID PO 03/24/17 21:00 04/02/17 08:08 (Levemir Inj) 10 units HS SQ 03/24/17 21:00 04/01/17 21:08 (NovoLOG INJ) 5 units TIDAC SQ 03/24/17 17:00 04/02/17 15:32 (D50w (Vial) Inj) 25 ml UNSCH PRN IV PUSH 03/24/17 16:45 Glucagon 1 mg 1 mg UNSCH PRN OTHER 03/24/17 16:45 (NS 1000 ml Inj) 1,000 ml @ 0 mls/hr TITRATE PRN IV 03/24/17 18:00 (Heparin Inj) 8,000 units UNSCH PRN IV FLUSH 03/24/17 18:00 Heparin Sodium (Porcine) 1000 units 1,000 units Q1H PRN IV FLUSH 03/24/17 18:00 Sodium Chloride 1,000 ml @ 200 mls/hr Q5H PRN IV 03/24/17 18:00 03/29/17 09:50 (NS 250 ml Inj) 200 ml @ 0 mls/hr UNSCH PRN IV 03/24/17 18:00 (Mannitol Inj) 12.5 gm UNSCH PRN IV 03/24/17 18:00 03/26/17 15:21 (Albumin 25% Inj) 25 gm UNSCH PRN IV 03/24/17 18:00 03/24/17 19:55 (NS Flush) 5 ml UNSCH PRN IV FLUSH 03/24/17 18:00 (Heparin Inj) Dwell Heparin to f... UNSCH PRN OTHER 03/24/17 18:00 (Gentamicin (Dialysis) Inj) 10 mg UNSCH PRN OTHER 03/24/17 18:00 (Gelfoam 12 Mm/7 Mm Top) 1 foam UNSCH PRN TOPICAL 03/24/17 18:00 04/02/17 10:45 (Zofran Inj) 4 mg UNSCH PRN IV 03/24/17 18:00 03/24/17 22:26 (Benadryl) 25 mg UNSCH PRN PO 03/24/17 18:00 (Nitrostat Sl) 0.4 mg UNSCH PRN SL 03/24/17 18:00 (Catapres) 0.1 mg UNSCH PRN PO 03/24/17 18:00 Epoetin Rafael 65140 units 10,000 units UNSCH PRN IV 03/25/17 10:00 04/02/17 10:45 (Amicar Inj/NS Irr Bag) 3,012 ml @ 0 mls/hr TITRATE IRRIGATION 03/25/17 16:00 04/01/17 03:58 (Mucinex Er) 600 mg BID PO 03/25/17 21:00 04/02/17 08:08 (Ditropan) 5 mg Q8H PRN PO 03/27/17 01:00 03/27/17 09:49 (Roxicodone) 5 mg Q4H PRN PO 03/27/17 11:00 04/01/17 15:01 (Coreg) 12.5 mg Q8HR PO 03/27/17 15:00 04/02/17 15:33 (Colace) 100 mg BID PO 03/28/17 09:00 04/02/17 08:14 (Senokot) 17.2 mg DAILY PO 03/28/17 09:00 04/02/17 08:08 (Protonix) 40 mg BID PO 03/28/17 09:00 04/02/17 08:08 (Mag-Al Plus Susp Liq) 30 ml Q6H PO 03/29/17 12:00 04/02/17 05:16 Prednisone 20 mg 20 mg BID PO 03/30/17 21:00 04/02/17 08:08 (Levaquin 500 Mg Premix Inj) 100 ml @ 100 mls/hr Q48H IV 04/03/17 21:00 (Renvela) 800 mg TIDAC PO 04/02/17 12:00 Vital Signs / I&O Vital Signs Date Time Temp Pulse Resp B/P Pulse Ox O2 Delivery O2 Flow Rate FiO2 04/02/17 08:00 97.3 57 18 139/65 97 04/02/17 07:50 99 21 04/02/17 06:00 64 04/02/17 04:00 97.6 61 20 143/65 95 04/02/17 00:00 97.8 60 20 142/65 97 04/01/17 21:48 96 Oxyhood 21 04/01/17 20:00 81 04/01/17 20:00 97.6 59 18 152/69 97 04/01/17 16:18 18 04/01/17 16:14 57 04/01/17 16:00 97.5 57 16 127/61 98 I/O 04/01/17 04/01/17 04/01/17 04/02/17 04/02/17 04/02/17 07:00 15:00 23:00 07:00 15:00 23:00 Intake Total 240 ml 250 ml 0 ml Output Total 2200 ml 50 ml 2700 ml Balance 240 ml -1950 ml -50 ml -2700 ml Intake Oral 240 ml 0 ml 0 ml IV Total 250 ml 0 ml Output Urine Total 2200 ml 50 ml Hemodialysis 2700 ml # Voids 0 100 # Bowel Movements 0 0 Physical Exam GENERAL: In NAD. SKIN: Warm and dry. HEAD: Normocephalic. EYES: No scleral icterus. No injection or drainage. NECK: Supple, trachea midline. No JVD or lymphadenopathy. CARDIOVASCULAR: Regular rate and rhythm without murmurs, gallops, or rubs. RESPIRATORY: Breath sounds equal bilaterally. No accessory muscle use. GASTROINTESTINAL: Abdomen soft, non-tender, nondistended. MUSCULOSKELETAL: No cyanosis, or edema. Laboratory Laboratory Tests Test 04/02/17 07:44 Sodium Level 130 MEQ/L Potassium Level 5.5 MEQ/L Chloride Level 91 MEQ/L Carbon Dioxide Level 27.2 MEQ/L Anion Gap 12 MEQ/L Blood Urea Nitrogen 77 MG/DL Creatinine 6.50 MG/DL Estimat Glomerular Filtration 8 ML/MIN Rate Random Glucose 115 MG/DL Calcium Level 7.6 MG/DL Phosphorus Level 4.3 MG/DL Albumin 2.6 GM/DL Imaging Last Impressions Renal Ultrasound 03/27/17 0000 Signed Impressions: Service Date/Time: Monday, March 27, 2017 08:00 - CONCLUSION: 1. No hydronephrosis. 2. Mixed echogenicity noted within the urinary bladder likely debris which may represent hematoma. Benji Martin MD Chest X-Ray 03/27/17 0000 Signed Impressions: Service Date/Time: Monday, March 27, 2017 14:45 - CONCLUSION: Minimal left basilar density likely atelectasis. Benji Martin MD Modified Barium Swallow 03/26/17 0000 Signed Impressions: Service Date/Time: Sunday, March 26, 2017 10:57 - CONCLUSION: There is no evidence for aspiration. Jamal Jay MD FACR Abdomen/Pelvis CT 03/26/17 0000 Signed Impressions: Service Date/Time: Sunday, March 26, 2017 14:41 - CONCLUSION: New bibasilar airspace disease. Bilateral renal atrophy. Significant irregular thickening of the urinary bladder wall with indwelling Frankel. No evidence of acute intestinal process. Chris Cabral MD Assessment and Plan Problem List: (1) ST elevation myocardial infarction (STEMI) of inferior wall (2) CAD (coronary artery disease) (3) ESRD (end stage renal disease) on dialysis (4) Bladder mass (5) Hypertension (6) Diabetes mellitus (7) COPD exacerbation (8) Hematuria, unspecified Assessment and Plan Remains stable from cardiac standpoint. Continue Brilinta and baby ASA for at least one year. Continue post [facility] care with beta enmanuel and statin. Hematuria improving, drain removed, followed by urology. Increase activity, recommend PT. Continue dialysis as per nephrology. Continue monitoring. No new cardiac issues. DC home, will schedule outpt f/u. Problem Qualifiers (1) Diabetes mellitus: Rachael Eason MD April 02, 2017 15:38
[2017-04-02 16:00] VITALS: BP 134/61; PULSE 61; RESP 20; TEMP 97.8; O2SAT 98
[2017-04-02] MEDS: TIROFIBAN INFUSION INJ 250 ML IV SCH (16:13)
[2017-04-02] MEDS ORDERED: CARV12.5 PO (16:57)
[2017-04-02] MEDS ORDERED: OXYB5TAB10 PO (16:57)
[2017-04-02] MEDS ORDERED: SEVEL800 PO (16:57)
[2017-04-02] MEDS ORDERED: BRIL90TA PO (16:57)
[2017-04-02] MEDS ORDERED: Aspirin Chew PO (16:57)
--- NOTE | 2017-04-02 16:57 | HHI.DCPOC ---
Discharge Care Plan Diagnosis: (1) Hematuria, unspecified (2) COPD exacerbation (3) ST elevation myocardial infarction (STEMI) of inferior wall (4) CAD (coronary artery disease) (5) Diabetes mellitus (6) Bladder mass (7) ESRD (end stage renal disease) on dialysis (8) STEMI (ST elevation myocardial infarction) (9) Hypertension (10) Anemia Goals to Promote Your Health * To prevent worsening of your condition and complications * To maintain your health at the optimal level Directions to Meet Your Goals Take your medications as prescribed Follow your dietary instruction Follow activity as directed Keep your appointments as scheduled Take your immunizations and boosters as scheduled If your symptoms worsen call your PCP, if no PCP go to Urgent Care Center or Emergency Room Smoking is Dangerous to Your Health. Avoid second hand smoke Call the 24-hour hour crisis hotline for domestic abuse at Josemanuel Garcia MD April 02, 2017 16:57
[2017-04-02] MEDS ORDERED: LEVO500T3 PO (17:02)
[2017-04-02] MEDS ORDERED: PRED20 PO (17:02)
--- NOTE | 2017-04-02 17:03 | HHI.DS ---
Discharge Summary Admission Date March 24, 2017 at 17:32 Discharge Date: April 02, 2017 Admitting Diagnosis STEMI (1) STEMI (ST elevation myocardial infarction) ICD Code: I21.3 Diagnosis: Principal (2) UTI (urinary tract infection) ICD Code: N39.0 Diagnosis: Principal (3) Bladder cancer ICD Code: C67.9 Diagnosis: Principal (4) Gross hematuria ICD Code: R31.0 Diagnosis: Principal (5) ESRD (end stage renal disease) on dialysis ICD Code: N18.6 Diagnosis: Principal (6) Bladder mass ICD Code: N32.89 Diagnosis: Principal (7) Acute on chronic systolic heart failure ICD Code: I50.23 Diagnosis: Principal (8) COPD exacerbation ICD Code: J44.1 Diagnosis: Principal (9) Hematuria, unspecified ICD Code: R31.9 Diagnosis: Principal Procedures Cardiac catheterization Brief History - From Admission The patient is a 76-year-old male with past medical history of CAD status post CABG who is presenting to the hospital with chest pain and shortness of breath. The chest pain was located on the right side of his chest and started at about midnight. He then developed coughing, shortness of breath and nausea and vomiting. He had bouts of vomiting every 20 minutes or so. He had a persistent cough and stated that it was difficult to breathe at times. The patient was evaluated on the scene and he was brought into the hospital as a STEMI alert. The patient says that on Wednesday he had 3 growths removed from his bladder by his urologist. He had been off aspirin and Plavix for a week before that procedure. He had a Frankel catheter in place which was bloody and was told not to resume the aspirin and Plavix until his urine cleared up. He says he is supposed to be on antibiotics after that procedure. The patient also mentions he was supposed to get stents placed in his lower extremities for decreased blood flow. He also endorses a difficult time swallowing at times. CBC/BMP: 03/30/17 0439 04/02/17 0744 Significant Findings Laboratory Tests Test 03/31/17 04/02/17 11:02 07:44 Phosphorus Level 1.6 MG/DL (2.5-4.9) Sodium Level 130 MEQ/L (136-145) Potassium Level 5.5 MEQ/L (3.5-5.1) Chloride Level 91 MEQ/L (98-107) Blood Urea Nitrogen 77 MG/DL (7-18) Creatinine 6.50 MG/DL (0.60-1.30) Estimat Glomerular Filtration 8 ML/MIN (>89) Rate Random Glucose 115 MG/DL (74-106) Calcium Level 7.6 MG/DL (8.5-10.1) Albumin 2.6 GM/DL (3.4-5.0) Imaging Last Impressions Renal Ultrasound 03/27/17 0000 Signed Impressions: Service Date/Time: Monday, March 27, 2017 08:00 - CONCLUSION: 1. No hydronephrosis. 2. Mixed echogenicity noted within the urinary bladder likely debris which may represent hematoma. Benji Martin MD Chest X-Ray 03/27/17 Signed Impressions: Service Date/Time: Monday, March 27, 2017 14:45 - CONCLUSION: Minimal left basilar density likely atelectasis. Benji Martin MD Modified Barium Swallow 03/26/17 0000 Signed Impressions: Service Date/Time: Sunday, March 26, 2017 10:57 - CONCLUSION: There is no evidence for aspiration. Jamal Jay MD FACR Abdomen/Pelvis CT 03/26/17 0000 Signed Impressions: Service Date/Time: Sunday, March 26, 2017 14:41 - CONCLUSION: New bibasilar airspace disease. Bilateral renal atrophy. Significant irregular thickening of the urinary bladder wall with indwelling Frankel. No evidence of acute intestinal process. Chris Cabral MD PE at Discharge GENERAL: Resting comfortably. SKIN: no rashes. HEAD: Atraumatic. Normocephalic. EYES: Pupils equal and round. No scleral icterus. No injection or drainage. ENT: No nasal bleeding or discharge. Mucous membranes pink and moist. NECK: Trachea midline. No JVD. CARDIOVASCULAR: Regular rate and rhythm. No murmur appreciated. RESPIRATORY: Diffuse wheezing. GASTROINTESTINAL: Abdomen soft, nontender, nondistended. No rebound tenderness or guarding. : Frankel in place, hematuria improving. MUSCULOSKELETAL: Tenderness to palpation of left chest wall. No obvious deformities. No clubbing. No cyanosis. NEUROLOGICAL: Awake and alert. No obvious cranial nerve deficits. Motor grossly within normal limits. Normal speech. PSYCHIATRIC: Appropriate mood and affect; insight and judgment normal. Pt update on day of discharge Patient denies cp/sob. Stable vital signs. Hospital Course STEMI EKG revealed ST elevations in the inferior leads with reciprocal ST depressions. Troponin was 0.75. The patient was taken to the [facility] and a stent was placed to the graft of the RCA. The patient has had runs of v tach on telemetry. Repeat EKG stable. - Cardiology consulted. Coreg dose increased to 12.5 mg TID. - Continue Telemetry. - Oxygen and pain meds as needed. - monitor lytes and replete as needed. - Continue Brilinta and baby ASA for at least one year. Continue post [place] care with beta enmanuel and statin. Acute on chronic systolic heart failure BNP markedly elevated. Has a history of CAD s/p CABG. - PO Bumex. - dialysis for volume management. - follow Is and Os. . ESRD The patient is on hemodialysis. - Follow BMP. Kayexalate as needed. - Continue diuretics. - dialysis per nephrology. - Continue to follow-up nephrology recommendations. Patient placed on K-Phos by nephrology to replace low phosphorus. N/V/ Abdominal pain N/V seems to have resolved but pt complains of chronic diffuse abdominal pain. Negative CT in February. LFTs and lipase unremarkable. Possibly s/t GERD, PUD or bladder cancer. CT showed: New bibasilar airspace disease; Bilateral renal atrophy; Significant irregular thickening of the urinary bladder wall with indwelling Frankel; No evidence of acute intestinal process. The pt does have pain upon palpation of the left chest wall. May be costochondritis. Resolved . - Antiemetics and pain meds as needed. - Advance diet as tolerated. - PPI - Maalox. - started IV Tylenol for costochondritis. D/c. Cough/ Aspiration/ COPD Likely secondary to COPD exacerbation. The patient also acknowledges some difficulty swallowing. Speech recommending NPO status. CXR with bibasilar densities, likely atelectasis. Repeat CXR stable. Barium negative for aspiration. Pt with diffuse wheezing, improved. Sputum culture growing Enterobacter cloacae, pansensitive. - diet per speech. - tretaed w Solumedrol tapered to prednisone. Continue standing nebs. - IS. - oxygen as needed. Walk test prior to discharge. - Initially treated with Doxycycline which was switched to Levaquin. History of CVA The patient has residual numbness in the left upper and lower extremities. - Physical therapy. - Continue medical regimen. Bladder tumors/ Hematuria The patient had recent bladder tumor removal. He presented with hematuria and a Frankel in place. Urology was consulted. 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 Frankel not draining well 03/27. Renal US without hydronephrosis. - Continue blood thinners per cardiology. - Patient sp CBI with resolution and improvement of hematuria. Frankel to be discontinued and patient to be started on voiding trials. PPx: SCDs; PPI. Pt Condition on Discharge: Stable Discharge Disposition: Disch w/ Home Health Serv Discharge Time: > 30 minutes Discharge Instructions DIET: Follow Instructions for: Renal Failure Diet Activities you can perform: Regular-No Restrictions Follow up Referrals: Cardiology - 2 Weeks Urology - 1 Week with Shubham Velásquez MD New Medications: Levofloxacin (Levofloxacin) 500 Mg Tab 500 MG PO DAILY Infection #5 Ref 0 TAB Prednisone (Prednisone) 20 Mg Tab 20 MG PO DIRECTED 40 MG twice a day x 3 days, then 20 MG daily x 3 days, then 10 MG daily x 3 days Inflammation #11 Ref 0 TAB Carvedilol (Coreg) 12.5 Mg Tab 12.5 MG PO Q8HR cad #93 TAB Oxybutynin (Ditropan) 5 Mg Tab 5 MG PO Q8H PRN BLADDER SPASMS #60 TAB Sevelamer Carbonate (Renvela) 800 Mg Tab 800 MG PO TIDAC hyperphosphatemia #93 TAB Ticagrelor (Brilinta) 90 Mg Tab 90 MG PO BID cad #62 Ref 3 TAB ([Aspirin Chew]) 81 MG CHEW 81 MG PO DAILY cad #31 TAB.CHEW Continued Medications: Aspirin (Aspirin Low Strength) 81 Mg Chew 81 MG PO DAILY Days 30 EA Atorvastatin (Lipitor) 80 Mg Tab 80 MG PO HS Days 30 TAB Bumetanide (Bumex) 1 Mg Tab 1 MG PO DAILY Ref 0 TAB Carvedilol (Coreg) 6.25 Mg Tab 6.25 MG PO BID Days 30 TAB Cephalexin (Keflex) 250 Mg Cap 250 MG PO TID Infection #15 Ref 0 CAP Cholecalciferol (Vitamin D3) 2,000 Unit Tab 2000 UNITS PO DAILY Nutritional Supplement #1 Ref 0 BOTTLE Finasteride (Proscar) 5 Mg Tab 5 MG PO DAILY Do not crush. Manage Prostate Problems #30 Ref 0 TAB Insulin Glargine Inj (Lantus Solostar Pen Inj) 300 Unit/3 Ml Pen 10 UNITS SQ HS Blood Sugar Management Ref 0 PEN Insulin Lispro (Human) Inj (Humalog Inj) 1,000 Unit/10 Ml Vial 5 UNITS SQ TIDAC Blood Sugar Management #1 Ref 0 VIAL Isosorbide Mononitrate ER (Isosorbide Mononitrate ER) 30 Mg Tanmay 30 MG PO DAILY Prevent Chest Pain #30 Ref 0 TAB Omeprazole (Omeprazole) 20 Mg Tab 20 MG PO DAILY #30 Ref 0 TAB Oxycodone-Acetaminophen (Percocet) 5-325 mg Tab 1-2 TAB PO Q6H PRN PAIN #30 Ref 0 TAB Phenazopyridine (Pyridium) 100 Mg Tab 100 MG PO Q8H PRN DYSURIA #30 Ref 0 TAB Sodium Bicarbonate (Sodium Bicarbonate) 650 Mg Tab 650 MG PO BID #60 Ref 0 TAB Tamsulosin (Flomax) 0.4 Mg Cap 0.4 MG PO BID Manage Prostate Problems #30 Ref 0 CAP Discontinued Medications: Amlodipine (Amlodipine) 5 Mg Tab 5 MG PO DAILY Blood Pressure Management #30 Ref 0 TAB Sevelamer Carbonate (Renvela) 800 Mg Tab 800 MG PO DAILY Control phosphorous levels #90 Ref 0 TAB Josemanuel Garcia MD April 02, 2017 17:03
--- NOTE | 2017-04-02 17:03 | HHI.FF ---
Face to Face Verification Diagnosis: (1) ESRD needing dialysis (2) Bladder cancer (3) CHF due to valvular disease (4) Bladder mass (5) ESRD (end stage renal disease) on dialysis (6) NSTEMI (non-ST elevated myocardial infarction) (7) STEMI (ST elevation myocardial infarction) (8) Gross hematuria Physical Therapy Order: Improve ambulation, Strength and gait training Home Health Nursing Order: Medical education Nursing assessment with vital signs I have seen patient Kendell Valdovinos on 04/02/17. My clinical findings support the need for the requested home health care services because: Patient has SOB Need for psychosocial assistance High risk of falls I certify that my clinical findings support that this patient is homebound because: Hx COPD- exertion dyspnea/weakness Unsafe to leave home unassisted Need for psychosocial assistance Josemanuel Garcia MD April 02, 2017 17:03
[2017-04-03] MEDS ORDERED: LEVOFLOXACIN 500 MG PREMIX INJ 100 ML IV SCH (21:00)
[2017-05-06] MEDS ORDERED: BUME1TAB PO (15:25)
[2017-05-06] MEDS ORDERED: VITA2000 PO (15:25)
[2017-05-06] MEDS ORDERED: BRIL90TA PO (15:25)
== END 2017-04-02 18:29 | disposition home health service (06) | DRG 246 ==
LOC: NEPE 11:48 → HCIS 17:32 → N04A 03-30 18:46
PROVIDERS: ADMIT Hospitalist; ATTEND Hospitalist
PROC: 027036Z Dilation of Coronary Artery, One Artery with Three Drug-eluting Intraluminal Devices, Percutaneous Approach (ICD-10-PCS; principal; 2017-03-24)
PROC: 02C03ZZ Extirpation of Matter from Coronary Artery, One Artery, Percutaneous Approach (ICD-10-PCS; 2017-03-24)
PROC: 4A023N7 Measurement of Cardiac Sampling and Pressure, Left Heart, Percutaneous Approach (ICD-10-PCS; 2017-03-24)
PROC: B2111ZZ Fluoroscopy of Multiple Coronary Arteries using Low Osmolar Contrast (ICD-10-PCS; 2017-03-24)
PROC: B2151ZZ Fluoroscopy of Left Heart using Low Osmolar Contrast (ICD-10-PCS; 2017-03-24)
PROC: B2121ZZ Fluoroscopy of Single Coronary Artery Bypass Graft using Low Osmolar Contrast (ICD-10-PCS; 2017-03-24)
PROC: B31N1ZZ Fluoroscopy of Other Upper Arteries using Low Osmolar Contrast (ICD-10-PCS; 2017-03-24)
PROC: 5A1D60Z (ICD-10-PCS; 2017-03-26)
DX: I21.19 ST elevation (STEMI) myocardial infarction involving other coronary artery of inferior wall (principal); N18.6 End stage renal disease; I47.2 Ventricular tachycardia; I50.23 Acute on chronic systolic (congestive) heart failure; E88.89 Other specified metabolic disorders; I25.719 Atherosclerosis of autologous vein coronary artery bypass graft(s) with unspecified angina pectoris; E11.22 Type 2 diabetes mellitus with diabetic chronic kidney disease; I13.2 Hypertensive heart and chronic kidney disease with heart failure and with stage 5 chronic kidney disease, or end stage renal disease; J98.11 Atelectasis; J44.1 Chronic obstructive pulmonary disease with (acute) exacerbation; R13.10 Dysphagia, unspecified; I25.10 Atherosclerotic heart disease of native coronary artery without angina pectoris; I25.5 Ischemic cardiomyopathy; R31.0 Gross hematuria; C67.9 Malignant neoplasm of bladder, unspecified; E03.9 Hypothyroidism, unspecified; M19.90 Unspecified osteoarthritis, unspecified site; E78.00 Pure hypercholesterolemia, unspecified; H91.90 Unspecified hearing loss, unspecified ear; D63.1 Anemia in chronic kidney disease; K21.9 Gastro-esophageal reflux disease without esophagitis; G89.29 Other chronic pain; M54.9 Dorsalgia, unspecified; R20.9 Unspecified disturbances of skin sensation; M94.0 Chondrocostal junction syndrome [Tietze]; N32.89 Other specified disorders of bladder; Z96.652 Presence of left artificial knee joint; I69.398 Other sequelae of cerebral infarction; I25.2 Old myocardial infarction; Z79.4 Long term (current) use of insulin; Z99.2 Dependence on renal dialysis; Z86.718 Personal history of other venous thrombosis and embolism; Z95.5 Presence of coronary angioplasty implant and graft; Z85.828 Personal history of other malignant neoplasm of skin
CPT/HCPCS: 36591; 71010; 74176; 74230; 76775; 76937; 80048; 80061; 80069; 80076; 82310; 82435; 82550; 82552; 82565; 82947; 82948; 83690; 83735; 83880; 84100; 84132; 84155; 84295; 84484; 84520; 85002; 85025; 85027; 85610; 85730; 87070; 87077; 87186; 87205; 88307; 90935; 92941; 93005; 93459; 94150; 94640; 96374; 96375; C1725; C1757; C1760; C1769; C1874; C1887; C1893; G0269; J0131; J1644; J1815; J1940; J1956; J2150; J2250; J2405; J2920; J3010; J3246; J7030; J7512; P9047; Q4081; Q9963; Q9967

== ENCOUNTER 2017-05-09 09:37 | Inpatient (IN) | payer MEDICARE, OTHER ==
[2017-05-09] VITALS (16 sets, daily range): BP systolic 143–194; BP diastolic 74–86; PULSE 62–88; RESP 18–28; TEMP 97.3–97.9; O2SAT 97–100
[~2017-05-09 09:37] MED LIST changes: -AMLO5TAB2 PO; +Aspirin Chew PO; +BRIL90TA PO; +BUME1TAB PO; -BUME1TAB26 PO; +CARV12.5 PO; -CEPH-459 PO; +OXYB5TAB10 PO; -PHEN0.4T PO; -PLAV75TA29 PO; +PRED20 PO; +VITA2000 PO; -VITA200012 PO
--- NOTE | 2017-05-09 10:04 | PD ---
HPI Chief Complaint: Cardiac Complaint Time Seen by Provider: 09:53 Travel History International Travel<30 days: No Contact w/Intl Traveler<30days: No Traveled to known affect area: No History of Present Illness HPI ONSET APPEARS TO HAVE BEEN SOB SINCE LAST NIGHT, WORSE WITH ACTIVITY/ EXERTION...ALSO DEVELOPED A PLEURITIC CP, SUBSTERNAL, NONRADIATING, WORSE WITH BREATHING, AND ASSOCIATED PROD COUGH OVER LAST 3 DAYS OR SO....PT IS A [facility] DIALYSIS PT...PCP IS DR PERKINS [facility] Past Medical History Hx Anticoagulant Therapy: Yes Anemia: Yes Arthritis: Yes Asthma: No Autoimmune Disease: No Blood Disorders: No Anxiety: No Depression: No Heart Rhythm Problems: Yes Cancer: Yes (SKIN, BLADDER) Cardiac Catheterization: Yes Cardiovascular Problems: Yes High Cholesterol: Yes Chest Pain: Yes Congestive Heart Failure: Yes COPD: Yes Cerebrovascular Accident: Yes (CVA 1998) Diabetes: Yes Patient Takes Glucophage: No Dialysis: Yes ( [facility]) Diminished Hearing: Yes ([facility]) Endocrine: Yes Gastrointestinal Disorders: Yes GERD: Yes Genitourinary: Yes (BPH) Headaches: No Hepatitis: No Hiatal Hernia: No Hypertension: Yes (chol) Immune Disorder: No Implanted Vascular Access Dvce: Yes Kidney Stones: No Medical other: Yes (DVT, FISTULA LEFT ARM, bilat reddened feet) Musculoskeletal: Yes (arthritis, chronic back pain) Neurologic: Yes (stroke 1998 Left sided weakness) Psychiatric: No Reproductive: No Respiratory: Yes Immunizations Current: Yes ( [facility]AVE HEPATITIS SHOT TODAY) Migraines: No Myocardial Infarction: Yes (pt states one 4 weeks ago and 1 week ago ) Radiation Therapy: No Renal Failure: Yes Seizures: Yes Sickle Cell Disease: No Sleep Apnea: No Thyroid Disease: No Ulcer: Yes Tetanus Vaccination: > 5 Years Influenza Vaccination: Yes Past Surgical History Abdominal Surgery: Yes (solomon) AICD: No Arteriovenous Shunt: No Body Medical Devices: STENTS,IVC FILTER, AV FISTULA LEFT arm Cardiac Surgery: Yes (1998 CABG x 3) Cholecystectomy: Yes Coronary Artery Bypass Graft: Yes (triple, 2008) Coronary Stent: Yes Ear Surgery: No Endocrine Surgery: No Eye Surgery: Yes (DUONG CATARACTS) Genitourinary Surgery: Yes (turbt x 1 yr ago) Gynecologic Surgery: No Insulin Pump: No Joint Replacement: Yes (LEFT KNEE) Neurologic Surgery: No Oral Surgery: No Pacemaker: No Thoracic Surgery: No Other Surgery: Yes (REMOVED SKIN CANCER LEFT FOREARM AND NECK) Social History Alcohol Use: No Tobacco Use: No Substance Use: No Allergies-Medications (Allergen,Severity, Reaction): Coded Allergies: No Known Allergies (Verified , 05/06/17) Reported Meds & Prescriptions Reported Meds & Active Scripts Active Brilinta (Ticagrelor) 90 Mg Tab 90 Mg PO BID Renvela (Sevelamer Carbonate) 800 Mg Tab 800 Mg PO TIDAC Ditropan (Oxybutynin Chloride) 5 Mg Tab 5 Mg PO Q8H PRN Coreg (Carvedilol) 12.5 Mg Tab 12.5 Mg PO Q8HR Percocet (Oxycodone-Acetaminophen) 5-325 mg Tab 1-2 Tab PO Q6H PRN Lipitor (Atorvastatin Calcium) 80 Mg Tab 80 Mg PO HS 30 Days Reported Aspirin Adult Low Strength (Aspirin) 81 Mg Tabdr 81 Mg PO DAILY Bumetanide 1 Mg Tab 1 Mg PO DAILY Vitamin D3 (Cholecalciferol) 2,000 Unit Cap 2,000 Units PO DAILY Humalog Inj (Insulin Human Lispro) 1,000 Unit/10 Ml Vial 5 Units SQ TIDAC Lantus Solostar Pen Inj (Insulin Glargine) 300 Unit/3 Ml Pen 10 Units SQ HS Isosorbide Mononitrate ER (Isosorbide Mononitrate) 30 Mg Tanmay 30 Mg PO DAILY Flomax (Tamsulosin HCl) 0.4 Mg Cap 0.4 Mg PO BID Proscar (Finasteride) 5 Mg Tab 5 Mg PO DAILY Do not crush. Sodium Bicarbonate 650 Mg Tab 650 Mg PO BID Omeprazole 20 Mg Tab 20 Mg PO DAILY Review of Systems Except as stated in HPI: all other systems reviewed are Neg Cardiovascular: Positive: Chest Pain or Discomfort Respiratory: Positive: Cough, Shortness of Breath Physical Exam Narrative GENERAL: SKIN: Warm and dry. HEAD: Atraumatic. Normocephalic. EYES: Pupils equal and round. No scleral icterus. No injection or drainage. ENT: No nasal bleeding or discharge. Mucous membranes pink and moist. NECK: Trachea midline. No JVD. CARDIOVASCULAR: IRREGULAR rhythm, RATE BETWEEN 70-90. RESPIRATORY: SOME INTERCOSTAL accessory muscle use. TACHYPNEIC, WHEEZY, CRACKLES BIBASILARLY GASTROINTESTINAL: Abdomen soft, non-tender, nondistended. MUSCULOSKELETAL: Extremities without clubbing, cyanosis, or 2+ PEDAL edema. No obvious deformities. NOTED LEFT ARM DIALYSIS SHUNT NEUROLOGICAL: Awake and alert. No obvious cranial nerve deficits. Motor grossly within normal limits. Five out of 5 muscle strength in the arms and legs. Normal speech. PSYCHIATRIC: Appropriate mood and affect; insight and judgment normal. Data Data Last Documented VS Vital Signs Date Time Temp Pulse Resp B/P Pulse Ox O2 Delivery O2 Flow Rate FiO2 05/09/17 10:27 99 Nasal Cannula 2 05/09/17 09:47 28 05/09/17 09:39 97.9 88 194/86 Orders Complete Blood Count With Diff (05/09/17 10:04) Comprehensive Metabolic Panel (05/09/17 10:04) B-Type Natriuretic Peptide (05/09/17 10:04) Act Partial Throm Time (Ptt) (05/09/17 10:04) Prothrombin Time / Inr (Pt) (05/09/17 10:04) Ckmb (Isoenzyme) Profile (05/09/17 10:04) Troponin I (05/09/17 10:04) Iv Access Insert/Monitor (05/09/17 10:04) Electrocardiogram (05/09/17 10:04) Ecg Monitoring (05/09/17 10:04) Oximetry (05/09/17 10:04) Oxygen Administration (05/09/17 10:04) Chest, Single Ap (05/09/17 10:04) Sodium Chloride 0.9% Flush (Ns Flush) (05/09/17 10:15) Methylprednisolone So Succ Inj (Solumedr (05/09/17 10:15) Albuterol Neb (Albuterol Neb) (05/09/17 10:15) Labs Laboratory Tests Test 05/09/17 05/09/17 10:20 10:45 Sodium Level 143 MEQ/L Potassium Level 4.6 MEQ/L Chloride Level 111 MEQ/L Carbon Dioxide Level 22.1 MEQ/L Anion Gap 10 MEQ/L Blood Urea Nitrogen 21 MG/DL Creatinine 5.03 MG/DL Estimat Glomerular Filtration 11 ML/MIN Rate Random Glucose 106 MG/DL Calcium Level 8.3 MG/DL Total Bilirubin 0.8 MG/DL Aspartate Amino Transf 13 U/L (AST/SGOT) Alanine Aminotransferase 11 U/L (ALT/SGPT) Alkaline Phosphatase 120 U/L Total Creatine Kinase 44 U/L Troponin I 0.13 NG/ML B-Type Natriuretic Peptide 2158 PG/ML Total Protein 7.0 GM/DL Albumin 2.9 GM/DL White Blood Count 12.1 TH/MM3 Red Blood Count 3.26 MIL/MM3 Hemoglobin 9.4 GM/DL Hematocrit 30.8 % Mean Corpuscular Volume 94.5 FL Mean Corpuscular Hemoglobin 28.9 PG Mean Corpuscular Hemoglobin 30.6 % Concent Red Cell Distribution Width 20.1 % Platelet Count 203 TH/MM3 Mean Platelet Volume 10.4 FL Neutrophils (%) (Auto) 80.6 % Lymphocytes (%) (Auto) 9.0 % Monocytes (%) (Auto) 8.4 % Eosinophils (%) (Auto) 0.8 % Basophils (%) (Auto) 1.2 % Neutrophils # (Auto) 9.8 TH/MM3 Lymphocytes # (Auto) 1.1 TH/MM3 Monocytes # (Auto) 1.0 TH/MM3 Eosinophils # (Auto) 0.1 TH/MM3 Basophils # (Auto) 0.1 TH/MM3 CBC Comment AUTO DIFF Prothrombin Time 11.0 SEC Prothromb Time International 1.0 RATIO Ratio Activated Partial 27.3 SEC Thromboplast Time MDM Medical Decision Making Medical Screen Exam Complete: Yes Emergency Medical Condition: Yes Medical Record Reviewed: Yes Interpretation(s) AFIB 90'S, WITH PVC, INVERTED T WAVES ON I/AVL/V4-V6...NO STEMI PATTERN NOTED Differential Diagnosis PNA V COPD V CHF V AR/NONSTEMI Narrative Course PT FOUND TO HAVE SOME PULM EDEMA ON CXR, ELEV BNP AND ELEV TROPONIN C/W CHF EXACERBATION, PERHAPS DIALYSIS WILL IMPROVE PT STATUS...THE ELEV TROP MAY BE DUE TO CKD VS CARDIAC STRAIN FROM PULM EDEMA Diagnosis Primary Impression: DYSPNEA DUE TO PULMONARY EDEMA Additional Impression: ELEVATED TROPONIN Admitting Information Admitting Physician Requests: Observation Eduardo Barton MD May 09, 2017 10:04
[2017-05-09] MEDS ORDERED: SODIUM CHLORIDE 0.9% FLUSH 10 ML FLUSH IVF PRN (10:15)
[2017-05-09] MEDS ORDERED: methylPREDNISolone SOD SUCC 125 MG/2 ML VIAL IVP ONE (10:15)
[2017-05-09] MEDS: RESP: ALBUTEROL 2.5 MG/3 ML NEB (SCH) INH (10:20)
[2017-05-09] MEDS ORDERED: ASPI1TAB91 PO (10:27)
[2017-05-09 11:02] LABS: ALT (GPT) 11 U/L (12-78); ANION GAP 10 MEQ/L (5-15); AST (GOT) 13 U/L (15-37); BICARBONATE 22.1 MEQ/L (21.0-32.0); BLOOD UREA NITROGEN 21 MG/DL (7-18); CHLORIDE 111 MEQ/L (98-107); GLOMERULAR FILTRATION RATE 11 ML/MIN (>89); POTASSIUM 4.6 MEQ/L (3.5-5.1); SODIUM (NA) 143 MEQ/L (136-145)
[2017-05-09 11:04] LABS: ALKALINE PHOSPHATASE 120 U/L (45-117); TOTAL BILIRUBIN ADULT 0.8 MG/DL (0.2-1.0)
--- NOTE | 2017-05-09 11:04 | RADRPT ---
EXAM DATE/TIME: 05/09/2017 10:40 [facility] COMPARISON: CHEST SINGLE AP, March 27, 2017, 14:45. INDICATIONS : Chest pain and shortness of breath. MEDICAL HISTORY : Arthritis. Myocardial infarction. Hypercholesterolemia. Cataracts. CVA. Seizures.Heart attack. CHF. C oronary artery disease. Angina. HTN. COPD. GERD. Chronic renal failure. Bladder cancer. Skin cancer. DVT. LUE fistula. SURGICAL HISTORY : Total knee replacement, left. Cholecystectomy. Bilateral cataract extraction. Skin cancer removal fro m neck and left forearm. Right toe amputation. Coronary artery bypass graft. Genitourinary surgery. ENCOUNTER: Initial ACUITY: 1 day PAIN SCORE: 5/10 LOCATION: Bilateral chest FINDINGS: There has been mild improved aeration of the left lower lung. Otherwise, the lungs are grossly clear on today's study. The heart size is stable. There are no pleural effusions or pulmonary edema. There is no evidence of pneumothorax.CONCLUSION: Improving mild infiltrate in the left lower lung. No new infiltrates are demonstrated. Papi Corona MD on May 09, 2017 at 11:01 Board Certified Radiologist. This report was verified electronically.
[2017-05-09 11:10] LABS: CREATINE KINASE 44 U/L (39-308)
[2017-05-09 11:49] LABS: AUTOMATED NEUTROPHIL # 9.8 TH/MM3 (1.8-7.7); BASOPHIL # 0.1 TH/MM3 (0-0.2); BASOPHIL % 1.2 % (0.0-2.0); EOSINOPHIL # 0.1 TH/MM3 (0-0.4); EOSINOPHIL % 0.8 % (0.0-4.0); HEMATOCRIT 30.8 % (39.0-51.0); LYMPHOCYTE # 1.1 TH/MM3 (1.0-4.8); MEAN CELL VOLUME 94.5 FL (80.0-100.0); MEAN CORPUSCULAR HEMOGLOBIN 28.9 PG (27.0-34.0); MEAN CORPUSCULAR HGB CONC 30.6 % (32.0-36.0); MONO % 8.4 % (0.0-8.0); NEUT % 80.6 % (16.0-70.0); PLATELET COUNT 203 TH/MM3 (150-450); RED BLOOD COUNT 3.26 MIL/MM3 (4.50-5.90); RED CELL DISTRIBUTION WIDTH 20.1 % (11.6-17.2); WHITE BLOOD COUNT 12.1 TH/MM3 (4.0-11.0)
[2017-05-09 11:53] LABS: HEMO FLAGS AUTO DIFF
[2017-05-09 11:57] LABS: APTT (PATIENT) 27.3 SEC (24.3-30.1)
--- NOTE | 2017-05-09 12:23 | HHI.HP ---
HPI Service Family Medicine Primary Care Physician Tonio Winchester MD Admission Diagnosis Diagnoses: International Travel<30 Days: No Contact w/Intl Traveler<30days: No Known Affected Area: No History of Present Illness CC: "I don't feel good." HPI: He reports that "I couldn't breath yesterday at 630 pm". His SOB started abruptly. He thought his breathing would get better if he lid down and got rest , but his breathing actually got worse. He does not have home O2. His reports that he was up and down, and complaining of stomach pain after eating tongan food. He also had 1 episode of chest pain that was reported as a "banging" in the center of his chest. It was a 7 out of 10 in intensity. He laid down and the pain got worse. The pain radiated into his back and he became sweaty during the episode. The pain was persistent until being evaluated in ED around 0900. He denies taking nitroglycerine. Currently, he is not having any chest pain. He reports that he "feels like one of the stents closed." He also has been having increased sputum production that is white in color. He denies having diarrhea - has BMs regularly - last BM was last night. At his baseline he uses a walker. Only minimal activity -- gets out of bed to chair and then to dialysis. Got Dialysis on Wednesday -- Dr. Fraser and Dr. Purcell. Taking medications regularly. Last week he was hospitalized in [facility] for redness in his feet - stent placed at that time by Dr. Bustillos. ROS: Still having pink urine. (Tereso Dyson MD R2) Review of Systems Constitutional: COMPLAINS OF: Fatigue, Chills Respiratory: COMPLAINS OF: Cough, Sputum production, Shortness of breath Cardiovascular: COMPLAINS OF: Chest pain, PND Gastrointestinal: DENIES: Abdominal pain, Black stools, Bloody stools Other Denies headaches, +Blurry vision (Tereso Dyson MD R2) Past Family Social History Past Medical History ESRD on dialysis MWF COPD CHF PVD CAD DMT2 Macular degeneration with steroid shots - [facility] Past Surgical History CABG 3 IVC filter, Heart stenting, most recent in March 2017 Lateral cataracts, Left knee replacement Skin cancer left forearm and neck (Tereso Dyson MD R2) Allergies: Coded Allergies: No Known Allergies (Verified , 05/06/17) Family History Noncontributory. Social History Denies alcohol, tobacco or illicit drug use. (Tereso Dyson MD R2) Physical Exam Vital Signs Vital Signs Date Time Temp Pulse Resp B/P Pulse Ox O2 Delivery O2 Flow Rate FiO2 05/09/17 10:27 99 Nasal Cannula 2 05/09/17 09:55 99 Nasal Cannula 2 05/09/17 09:47 28 05/09/17 09:39 97.9 88 22 194/86 98 Physical Exam GENERAL: Appears uncomfortable. Speaking in short sentences. Pulse ox 97% on 3 L nasal cannula. SKIN: Cool and dry. HEAD: Atraumatic. Normocephalic. EYES: Pupils equal round and reactive. ENT: Nose without bleeding, purulent drainage or septal hematoma. NECK: Trachea midline. No JVD or lymphadenopathy. CARDIOVASCULAR: Irregular rate, regular S1 and S2. RESPIRATORY: Rales at the bases, wheezing throughout. GASTROINTESTINAL: Abdomen soft, non-tender, distended. Positive bowel sounds. 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 No edema in the lower extremities. NEUROLOGICAL: Awake and alert. Cranial nerves II through XII intact. Laboratory Laboratory Tests Test 05/09/17 05/09/17 10:20 10:45 Sodium Level 143 Potassium Level 4.6 Chloride Level 111 Carbon Dioxide Level 22.1 Anion Gap 10 Blood Urea Nitrogen 21 Creatinine 5.03 Estimat Glomerular Filtration 11 Rate Random Glucose 106 Calcium Level 8.3 Total Bilirubin 0.8 Aspartate Amino Transf 13 (AST/SGOT) Alanine Aminotransferase 11 (ALT/SGPT) Alkaline Phosphatase 120 Total Creatine Kinase 44 Troponin I 0.13 B-Type Natriuretic Peptide 2158 Total Protein 7.0 Albumin 2.9 White Blood Count 12.1 Red Blood Count 3.26 Hemoglobin 9.4 Hematocrit 30.8 Mean Corpuscular Volume 94.5 Mean Corpuscular Hemoglobin 28.9 Mean Corpuscular Hemoglobin 30.6 Concent Red Cell Distribution Width 20.1 Platelet Count 203 Mean Platelet Volume 10.4 Neutrophils (%) (Auto) 80.6 Lymphocytes (%) (Auto) 9.0 Monocytes (%) (Auto) 8.4 Eosinophils (%) (Auto) 0.8 Basophils (%) (Auto) 1.2 Neutrophils # (Auto) 9.8 Lymphocytes # (Auto) 1.1 Monocytes # (Auto) 1.0 Eosinophils # (Auto) 0.1 Basophils # (Auto) 0.1 CBC Comment AUTO DIFF Prothrombin Time 11.0 Prothromb Time International 1.0 Ratio Activated Partial 27.3 Thromboplast Time (Tereso Dyson MD R2) Result Diagram: 05/09/17 1045 05/09/17 1020 Imaging Last 72 hours Impressions Chest X-Ray 05/09/17 1004 Signed Impressions: Service Date/Time: Tuesday, May 09, 2017 10:40 - CONCLUSION: Improving mild infiltrate in the left lower lung. No new infiltrates are demonstrated. Papi Corona MD (Tereso Dyson MD R2) Septic Shock Reassessment Heart: Irregular Lungs: Crackles Skin: Warm (Tereso Dyson MD R2) Assessment and Plan Assessment and Plan Mr. Valdovinos is 76-year-old male, with a significant past medical history of end-stage renal disease receiving dialysis MWF, congestive heart failure, coronary artery disease with previous bypass and stenting, inferior wall [place], COPD, bladder cancer, presenting with abrupt onset chest pain and shortness of breath 24 hours. He will be admitted for CHF exacerbation, fluid overload, as well as a COPD exacerbation. Problem #1: Shortness of breath Suspect worsening CHF, given elevated BNP to 2158, and crackles at the bases. Rule out acute myocardial ischemia with serial troponin and EKGs. EKG on admission showed new atrial fibrillation, however without any new ST segment or T-wave changes. Pathologic Q waves in inferior leads consistent with previous inferior wall NC. 2D ECHO 1.5 Lfluid water restriction. Strict I's and O's. Bumex IV 1 mg twice a day. Consult cardiology, patient known to Dr. Eaosn We appreciate his assistance. Problem #2: Coronary artery disease Previous stent in March 2017 for saphenous graft occlusion proximal to the right coronary artery. Stented by Dr. Eason. Initial troponin 0.13 x 2. Unlikely that chest pain is related to myocardial ischemia or infarction. Continue dual antiplatelet therapy with 90 mg twice a day, as well as aspirin 81 mg daily. Continue home statin therapy. Nitroglycerin 2% ointment 1 inch every 6 hours when necessary chest pain. O2 as needed. Morphine 2 mg IV q 2 hr PRN cp. Problem #3: End-stage renal disease Consult nephrology, we appreciate their assistance. He will likely need dialysis within the next 24 hours. Left-sided AV fistula with appropriate bruit. CR on admission 5.0. Problem #4: Congestive heart failure As above. Problem #5: COPD exacerbation Start Rocephin and azithromycin IV steroids DuoNeb's every 4 hours scheduled. Incentive spirometry Oxygen 1-4 L O2 greater than 90%. 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 Still with gross hematuria - monitor CBC daily. Hgb on admission 9.4 g/dL. Consider urologic consult vs out-patient follow-up. Problem #7: Diabetes mellitus On Lantus 10 units subcutaneous daily at bedtime, transition to Levemir 5 units twice a day. In addition to insulin sliding scale. Problem #8: FEN Fluids per nephrology Electrolytes at goal besides BUN/CR Nutrition Heart healthy diet. DVT ppx: Heparin 5,000 U q 12. dw Dr. Mars and Dr. Vazquez. Code Status Full code. (Tereso Dyson MD R2) Attending Attestation The patient has been seen and examined. The chart and all resident notes have been reviewed. I agree that inpatient care is appropriate and that a two midnight stay is expected for the reasons documented in the resident history and physical. I have discussed this with the resident and certify the resident s order for inpatient admission. Patient seen and examined. Case reviewed and discussed Please refer to resident H&P for further details regarding HPI, ROS, pMH, SurgHx , FH and SocHx In summary patient is a 76yoM presenting after an episode of chest pain last night, He is seen in his room with at his side. Chest pain now better Only hurt him after e leaned forward in bed GENERAL: thin male resting in bed SKIN: Warm and dry. Scattered eccymoses over face, LLE, chest HEAD: Normocephalic. AT EYES: No scleral icterus. No injection or drainage. NECK: Supple, trachea midline. No JVD or lymphadenopathy. CARDIOVASCULAR: Regular rate and rhythm without murmurs, gallops, or rubs. RESPIRATORY: Breath sounds equal bilaterally. No accessory muscle use. GASTROINTESTINAL: Abdomen soft, non-tender, nondistended. MUSCULOSKELETAL: No cyanosis, or edema. BACK: Nontender without obvious deformity. No CVA tenderness. 76yoM admitted with: Chest pain, r/o ACS Known to Dr. Eason- will consult cardiology Oxygen Morphine, oxygen titrated to chest pain Continue Anti-platelet Resume home meds as appropriate Patient seen and examined. Case reviewed and discussed Agree with plan of care as discussed with me and documented in the resident note. (Yaritza Mars MD) Problem List: (1) COPD exacerbation Status: Acute (2) Gross hematuria Status: Chronic (3) ESRD needing dialysis Status: Acute (4) Acute on chronic systolic heart failure Status: Acute (5) CAD (coronary artery disease) Status: Acute (6) Hypertension Status: Acute (Tereso Dyson MD R2) Physician Certification 2 Midnight Certification Type: Admission for Inpatient Services Order for Inpatient Services The services are ordered in accordance with Medicare regulations or non- Medicare payer requirements, as applicable. In the case of services not specified as inpatient-only, they are appropriately provided as inpatient services in accordance with the 2-midnight benchmark. Estimated LOS (days): 3 3 days is the estimated time the patient will need to remain in the hospital, assuming treatment plan goals are met and no additional complications. Post-Hospital Plan: Home (Tereso Dyson MD R2) Tereso Dyson MD R2 May 09, 2017 12:23 Yaritza Mars MD May 09, 2017 23:41
[2017-05-09 12:29] LABS: OVALOCYTES 1+ (NORMAL); POLYCHROMASIA 2.1 % (0.0-1.9); SCAN/DIFF AUTO DIFF CONFIRMED
[2017-05-09] MEDS ORDERED: SODIUM CHLORIDE 0.9% FLUSH 10 ML FLUSH IV FLUSH PRN ×2 (13:15→17:15)
[2017-05-09] MEDS ORDERED: RESP: ALBUTEROL 2.5 MG/3 ML NEB (PRN) INH (13:15)
[2017-05-09] MEDS ORDERED: NALOXONE HCL 0.4 MG/ML AMP IV PRN (13:15)
[2017-05-09] MEDS ORDERED: GLUCAGON 1 MG/ML VIAL OTHER PRN (13:15)
[2017-05-09] MEDS ORDERED: DEXTROSE 50% IN WATER 50 ML VIAL(D50) IV PRN (13:15)
[2017-05-09] MEDS: DOCUSATE SODIUM 50 MG/SENNA 8.6 MG TAB PO SCH ×2 (13:30→21:00)
[2017-05-09] MEDS: CARVEDILOL 12.5 MG TAB PO SCH ×2 (14:24→21:15)
[2017-05-09] MEDS: AZITHROMYCIN INJ 500 MG in SODIUM CHLOR 0.9% 250 ML INJ 250 ML IV SCH (14:24)
[2017-05-09] MEDS: PANTOPRAZOLE SOD 40 MG DELAYED RELEASE TAB PO SCH (14:24)
[2017-05-09] MEDS: HEPARIN SODIUM - SQ 10,000 UNITS/ML VIAL SQ SCH (14:25)
[2017-05-09] MEDS: SODIUM CHLORIDE 0.9% FLUSH 10 ML FLUSH IV FLUSH SCH ×2 (14:25→21:18)
[2017-05-09] MEDS: NITROGLYCERIN 2% OINT 1 GM PACKET TOP SCH ×2 (14:25→18:00)
[2017-05-09] MEDS: cefTRIAXone INJ 1,000 MG in SODIUM CHLORIDE 0.9% INJ 100 ML IV SCH (15:00)
[2017-05-09] MEDS: methylPREDNISolone SOD SUCC 125 MG/2 ML VIAL IVP SCH ×2 (15:55→23:00)
[2017-05-09] MEDS: MORPHINE SULFATE 4 MG/ML INJ IV PRN ×3 (15:56→21:18)
[2017-05-09] MEDS: INSULIN ASPART SUPPLEMENTAL SCALE SQ SCH ×2 (16:00→21:17)
[2017-05-09] MEDS: RESP: ALBUTEROL 2.5 MG/IPRATROPIUM 0.5 MG NEB (SCH) INH ×3 (16:06→23:31)
[2017-05-09] MEDS ORDERED: cloNIDine HCL 0.1 MG TAB PO PRN ×2 (16:15→17:15)
[2017-05-09] MEDS: SEVELAMER CARBONATE 800 MG TAB PO SCH (17:00)
[2017-05-09] MEDS ORDERED: SODIUM CHLOR 0.9% 1000 ML INJ 1,000 ML IV PRN ×3 (17:08)
[2017-05-09] MEDS ORDERED: NITROGLYCERIN 0.4 MG SL 25 TABS/BTL SL PRN (17:15)
[2017-05-09] MEDS ORDERED: ACETAMINOPHEN 325 MG TAB PO PRN (17:15)
[2017-05-09] MEDS ORDERED: diphenhydrAMINE HCL 25 MG CAP PO PRN (17:15)
[2017-05-09] MEDS ORDERED: HEPARIN SODIUM - IV 10,000 UNITS/10 ML VIAL IVF PRN (17:15)
[2017-05-09] MEDS ORDERED: MANNITOL 12.5 GM/50 ML VIAL IV PRN (17:15)
[2017-05-09] MEDS ORDERED: ONDANSETRON HCL 4 MG/2 ML VIAL IV PRN (17:15)
[2017-05-09] MEDS ORDERED: ALBUMIN HUMAN 25% 25 GM/100 ML BAGP IV PRN (17:15)
[2017-05-09] MEDS ORDERED: GELATIN 12 MM/7 MM FOAM TOP PRN (17:15)
--- NOTE | 2017-05-09 17:22 | PD.CONS ---
HPI Service Nephrology Consult Requested By Dr. Dyson Reason for Consult ESRD management Primary Care Physician Tonio Winchester MD History of Present Illness Patient is 76-year-old male with history of end-stage renal disease, congestive heart failure, retention, diabetes who had the increasing shortness of breath and could not breathe last night, he was feeling tired and had CP, as last dialysis was on Wednesday, he came in with these complaint chest x-ray showed the improvement in infiltrate, he received breathing treatments and is feeling better, he follows with Dr. Singh, his dialysis days are Wednesday, Wednesday and Wednesday Review of Systems Constitutional: COMPLAINS OF: Fatigue Respiratory: COMPLAINS OF: Shortness of breath Cardiovascular: COMPLAINS OF: Lower Extremity Edema Gastrointestinal: COMPLAINS OF: Constipation Musculoskeletal: COMPLAINS OF: Joint pain, Muscle aches, Stiffness Neurologic: COMPLAINS OF: Abnormal gait Psychiatric: COMPLAINS OF: Anxiety Past Family Social History Allergies: Coded Allergies: No Known Allergies (Verified , 05/06/17) Past Medical History Diabetes Hypertension Hyperlipidemia ESRD Atrial fibrillation CVA Osteoarthritis GERD Macular degeneration Congestive heart failure Peripheral edema Neuropathy Bladder cancer PVD Back pain Past Surgical History History of bladder cancer removal Left AV fistula Cholecystectomy Eye surgery Cataract removal CABG Lt Knee replacement Right toe removal Skin cancer PVD stent Reported Medications Reported Meds & Active Scripts Active Brilinta (Ticagrelor) 90 Mg Tab 90 Mg PO BID Renvela (Sevelamer Carbonate) 800 Mg Tab 800 Mg PO TIDAC Ditropan (Oxybutynin Chloride) 5 Mg Tab 5 Mg PO Q8H PRN Coreg (Carvedilol) 12.5 Mg Tab 12.5 Mg PO Q8HR Percocet (Oxycodone-Acetaminophen) 5-325 mg Tab 1-2 Tab PO Q6H PRN Lipitor (Atorvastatin Calcium) 80 Mg Tab 80 Mg PO HS 30 Days Reported Aspirin Adult Low Strength (Aspirin) 81 Mg Tabdr 81 Mg PO DAILY Bumetanide 1 Mg Tab 1 Mg PO DAILY Vitamin D3 (Cholecalciferol) 2,000 Unit Cap 2,000 Units PO DAILY Humalog Inj (Insulin Human Lispro) 1,000 Unit/10 Ml Vial 5 Units SQ TIDAC Lantus Solostar Pen Inj (Insulin Glargine) 300 Unit/3 Ml Pen 10 Units SQ HS Isosorbide Mononitrate ER (Isosorbide Mononitrate) 30 Mg Tanmay 30 Mg PO DAILY Flomax (Tamsulosin HCl) 0.4 Mg Cap 0.4 Mg PO BID Proscar (Finasteride) 5 Mg Tab 5 Mg PO DAILY Do not crush. Sodium Bicarbonate 650 Mg Tab 650 Mg PO BID Omeprazole 20 Mg Tab 20 Mg PO DAILY Active Ordered Medications Current Medications Medications (Trade) Dose Ordered Sig/Darinel Route Start Time Stop Time Status Last Admin (Ecotrin Ec) 81 mg DAILY PO 05/10/17 09:00 (Lipitor) 80 mg HS PO 05/09/17 21:00 (Renvela) 800 mg TIDAC PO 05/09/17 17:00 (Sodium Bicarbonate) 650 mg BID PO 05/09/17 21:00 (Brilinta) 90 mg BID PO 05/10/17 09:00 (NS Flush) 2 ml UNSCH PRN IV FLUSH 05/09/17 13:15 (NS Flush) 2 ml BID IV FLUSH 05/09/17 13:30 05/09/17 14:25 (Heparin Inj) 5,000 units Q12H SQ 05/09/17 14:00 05/09/17 14:25 (Narcan Inj) 0.4 mg UNSCH PRN IV 05/09/17 13:15 (Mely-Colace) 1 tab BID PO 05/09/17 13:30 (Nitroglycerin 2% Oint) 1 inch Q6HR TOP 05/09/17 13:15 05/09/17 14:25 (Morphine Inj) 2 mg Q5M PRN IV 05/09/17 13:15 05/09/17 16:33 (Protonix) 40 mg DAILY PO 05/09/17 13:30 05/09/17 14:24 (Coreg) 12.5 mg Q8HR PO 05/09/17 14:00 05/09/17 14:24 (D50w (Vial) Inj) 50 ml UNSCH PRN IV 05/09/17 13:15 (Glucagon Inj) 1 mg UNSCH PRN OTHER 05/09/17 13:15 Methylprednisolone Sodium Succinate 60 mg 60 mg Q6H IVP 05/09/17 17:00 05/09/17 15:55 Ceftriaxone Sodium 1000 mg/ Sodium Chloride 100 ml @ 200 mls/hr Q24H IV 05/09/17 15:00 05/09/17 15:00 (Zithromax Inj/ NS 250 ml Inj) 250 ml @ 250 mls/hr Q24H IV 05/09/17 14:00 05/09/17 14:24 (Catapres) 0.1 mg Q6H PRN PO 05/09/17 16:15 Family History Noncontributory Social History Denies smoking or alcohol Physical Exam Vital Signs Vital Signs Date Time Temp Pulse Resp B/P Pulse Ox O2 Delivery O2 Flow Rate FiO2 05/09/17 15:17 97.6 88 18 173/82 100 05/09/17 14:00 81 19 143/80 99 Room Air 05/09/17 12:00 76 20 147/86 99 Nasal Cannula 2 05/09/17 10:27 99 Nasal Cannula 2 05/09/17 10:25 99 Nasal Cannula 2.00 05/09/17 10:00 70 21 185/82 97 Nasal Cannula 2 05/09/17 09:55 99 Nasal Cannula 2 05/09/17 09:47 28 05/09/17 09:39 97.9 88 22 194/86 98 Physical Exam GENERAL: Well-nourished, well-developed patient. SKIN: Warm and dry. HEAD: Normocephalic. EYES: No scleral icterus. No injection or drainage. NECK: Supple, trachea midline. No JVD or lymphadenopathy. CARDIOVASCULAR: Irregular RESPIRATORY: Breath sounds reddish at bases ABDOMEN: Soft nontender no organomegaly pulsatile are present EXTREMITIES: No cyanosis, or edema. NEUROLOGICAL: Awake, alert, generalized weakness. Laboratory Laboratory Tests Test 05/09/17 05/09/17 10:20 10:45 Sodium Level 143 Potassium Level 4.6 Chloride Level 111 Carbon Dioxide Level 22.1 Anion Gap 10 Blood Urea Nitrogen 21 Creatinine 5.03 Estimat Glomerular Filtration 11 Rate Random Glucose 106 Calcium Level 8.3 Total Bilirubin 0.8 Aspartate Amino Transf 13 (AST/SGOT) Alanine Aminotransferase 11 (ALT/SGPT) Alkaline Phosphatase 120 Total Creatine Kinase 44 Troponin I 0.13 B-Type Natriuretic Peptide 2158 Total Protein 7.0 Albumin 2.9 White Blood Count 12.1 Red Blood Count 3.26 Hemoglobin 9.4 Hematocrit 30.8 Mean Corpuscular Volume 94.5 Mean Corpuscular Hemoglobin 28.9 Mean Corpuscular Hemoglobin 30.6 Concent Red Cell Distribution Width 20.1 Platelet Count 203 Mean Platelet Volume 10.4 Neutrophils (%) (Auto) 80.6 Lymphocytes (%) (Auto) 9.0 Monocytes (%) (Auto) 8.4 Eosinophils (%) (Auto) 0.8 Basophils (%) (Auto) 1.2 Neutrophils # (Auto) 9.8 Lymphocytes # (Auto) 1.1 Monocytes # (Auto) 1.0 Eosinophils # (Auto) 0.1 Basophils # (Auto) 0.1 CBC Comment AUTO DIFF Differential Comment AUTO DIFF CONFIRMED Polychromasia 2.1 Ovalocytes 1+ Prothrombin Time 11.0 Prothromb Time International 1.0 Ratio Activated Partial 27.3 Thromboplast Time D-Dimer Quantitative (PE/DVT) 1.23 Date/Time Procedure Status Source Growth 05/09/17 16:45 Aerobic Blood Culture Received Blood Peripheral Pending 05/09/17 16:45 Anaerobic Blood Culture Received Blood Peripheral Pending Result Diagram: 05/09/17 1045 05/09/17 1020 Imaging Last Impressions Chest X-Ray 05/09/17 1004 Signed Impressions: Service Date/Time: Wednesday, May 09, 2017 10:40 - CONCLUSION: Improving mild infiltrate in the left lower lung. No new infiltrates are demonstrated. Papi Corona MD Assessment and Plan Problem List: (1) ESRD (end stage renal disease) on dialysis Plan: Continue with hemodialysis on Wednesday, Wednesday and Wednesday I have placed orders in Avoid nephrotoxin, gadolinium Monitor fluid and placed on fluid restrictions (2) CHF due to valvular disease Plan: Continue to do hemodialysis 3 times a week (3) CAD (coronary artery disease) Plan: Status post CABG (4) Diabetes mellitus Plan: Follow blood glucose (5) Hypertension Plan: Continue monitor Nicci Rock MD May 09, 2017 17:22
[2017-05-09] MEDS ORDERED: BUMETANIDE INJ 1 MG/4 ML VIAL IVP SCH (18:00)
[2017-05-09] MEDS ORDERED: oxyCODONE/ACETAMINOPHEN 5 MG/325 MG TAB PO PRN (20:45)
[2017-05-09] MEDS: SODIUM BICARBONATE 650 MG TAB PO SCH (21:00)
[2017-05-09] MEDS: TICAGRELOR 90 MG TAB PO SCH (21:15)
[2017-05-09] MEDS: ATORVASTATIN 80 MG TAB PO SCH (21:15)
[2017-05-09] MEDS: INSULIN DETEMIR 100 UNITS/ML VIAL SQ SCH (21:17)
[2017-05-10] VITALS (26 sets, daily range): BP systolic 126–140; BP diastolic 55–90; PULSE 60–99; RESP 16–20; TEMP 97.8–98.1; O2SAT 98–100
[2017-05-10] MEDS: HEPARIN SODIUM - SQ 10,000 UNITS/ML VIAL SQ SCH ×2 (02:00→12:34)
[2017-05-10] MEDS: RESP: ALBUTEROL 2.5 MG/IPRATROPIUM 0.5 MG NEB (SCH) INH ×5 (03:24→23:58)
[2017-05-10] MEDS: methylPREDNISolone SOD SUCC 125 MG/2 ML VIAL IVP SCH ×2 (03:33→12:35)
[2017-05-10] MEDS: MORPHINE SULFATE 4 MG/ML INJ IV PRN ×4 (03:38→20:41)
[2017-05-10] MEDS: NITROGLYCERIN 2% OINT 1 GM PACKET TOP SCH ×4 (05:43→16:41)
[2017-05-10] MEDS: CARVEDILOL 12.5 MG TAB PO SCH ×3 (05:43→20:33)
[2017-05-10] MEDS: INSULIN ASPART SUPPLEMENTAL SCALE SQ SCH ×4 (05:46→20:36)
[2017-05-10 07:03] LABS: AUTOMATED NEUTROPHIL # 9.4 TH/MM3 (1.8-7.7); BASOPHIL % 0.2 % (0.0-2.0); HEMATOCRIT 27.2 % (39.0-51.0); HEMO FLAGS DIFF FINAL; LYMPH % 5.9 % (9.0-44.0); LYMPHOCYTE # 0.6 TH/MM3 (1.0-4.8); MEAN CELL VOLUME 93.6 FL (80.0-100.0); MEAN CORPUSCULAR HEMOGLOBIN 30.1 PG (27.0-34.0); MEAN CORPUSCULAR HGB CONC 32.2 % (32.0-36.0); MONO % 1.3 % (0.0-8.0); NEUT % 92.6 % (16.0-70.0); PLATELET COUNT 179 TH/MM3 (150-450); RED CELL DISTRIBUTION WIDTH 19.7 % (11.6-17.2); WHITE BLOOD COUNT 10.2 TH/MM3 (4.0-11.0)
[2017-05-10 07:43] LABS: ALKALINE PHOSPHATASE 97 U/L (45-117); ALT (GPT) 10 U/L (12-78); ANION GAP 13 MEQ/L (5-15); AST (GOT) 9 U/L (15-37); BICARBONATE 21.5 MEQ/L (21.0-32.0); BLOOD UREA NITROGEN 34 MG/DL (7-18); CHLORIDE 107 MEQ/L (98-107); GLOMERULAR FILTRATION RATE 10 ML/MIN (>89); HDL CHOLESTEROL 39.5 MG/DL (40.0-60.0); LDL CHOLESTEROL 38 MG/DL (0-99); POTASSIUM 4.5 MEQ/L (3.5-5.1); SODIUM (NA) 141 MEQ/L (136-145); TOTAL BILIRUBIN ADULT 0.5 MG/DL (0.2-1.0)
[2017-05-10] MEDS: SEVELAMER CARBONATE 800 MG TAB PO SCH ×3 (08:00→16:41)
[2017-05-10] MEDS ORDERED: TICAGRELOR 90 MG TAB PO SCH (09:00)
[2017-05-10] MEDS: SODIUM CHLORIDE 0.9% FLUSH 10 ML FLUSH IV FLUSH SCH ×2 (09:00→20:36)
[2017-05-10] MEDS: INSULIN DETEMIR 100 UNITS/ML VIAL SQ SCH ×2 (09:00→20:35)
[2017-05-10] MEDS ORDERED: PNEUMOCOCCAL POLYVALENT INJ 25 MCG/0.5 ML SYR IM ONE (10:00)
[2017-05-10] MEDS: EPOETIN ALFA 10,000 UNITS/ML VIAL IV PRN (10:01)
--- NOTE | 2017-05-10 11:00 | HHI.NPPN ---
Subjective History of Present Illness Esrd Additional Remarks CP Objective Data Data 05/09/17 05/10/17 19:00 07:00 Intake Total 240 ml Output Total 100 ml Balance 140 ml Intake Oral 240 ml Output Urine Total 100 ml Vital Signs Date Time Temp Pulse Resp B/P Pulse Ox O2 Delivery O2 Flow Rate FiO2 05/10/17 10:00 66 05/10/17 09:00 80 05/10/17 08:15 99 Nasal Cannula 3.00 05/10/17 08:00 97.8 99 16 140/90 99 05/10/17 08:00 62 05/10/17 06:00 66 05/10/17 05:00 66 05/10/17 04:00 65 05/10/17 04:00 97.9 66 18 130/67 99 05/10/17 03:00 76 05/10/17 02:00 62 05/10/17 01:00 62 05/10/17 00:00 98.1 66 18 139/75 100 05/10/17 00:00 66 05/09/17 23:00 62 05/09/17 22:00 68 05/09/17 21:00 64 05/09/17 20:30 98 Nasal Cannula 3.00 05/09/17 20:00 64 05/09/17 20:00 97.9 72 18 149/74 99 05/09/17 19:00 68 05/09/17 18:01 65 05/09/17 17:52 97.9 69 18 154/80 100 05/09/17 16:00 97.3 70 20 162/80 100 05/09/17 15:17 97.6 88 18 173/82 100 05/09/17 14:00 81 19 143/80 99 Room Air 05/09/17 12:00 76 20 147/86 99 Nasal Cannula 2 -: 05/10/17 0606 05/10/17 0606 Microbiology 05/09/17 Aerobic Blood Culture, Received Pending 05/09/17 Anaerobic Blood Culture, Received Pending 05/09/17 Aerobic Blood Culture, Received Pending 05/09/17 Anaerobic Blood Culture, Received Pending Physical Exam General Appearance: Well Developed Neck Neck Exam: Neck Supple Pulmonary Resp Exam: Crackles, Diminished Breath Sounds Cardiology CV Exam: Regular Gastrointestinal/Abdomen GI Exam: Soft, Non-Tender, Bowel Sounds Present Extremeties Extremities Exam: Trace Edema Assessment/Plan Problem List: (1) ESRD (end stage renal disease) on dialysis Plan: Continue with hemodialysis on Wednesday, Wednesday and Wednesday hemodialysis proceedings noted 3 L UF tolerating it (2) CHF due to valvular disease Plan: Continue to do hemodialysis 3 times a week (3) CAD (coronary artery disease) Plan: Status post CABG (4) Diabetes mellitus Plan: Follow blood glucose (5) Hypertension Plan: Continue monitor Nicci Rock MD May 10, 2017 11:00
--- NOTE | 2017-05-10 12:21 | HHI.FPPN ---
Subjective Remarks No acute events overnight. Afebrile, vital signs stable. Patient states he is not feeling any better than he was yesterday. Continues to complain of significant difficulty breathing and shortness of breath. Denies any chest pain at this time. (Syeda Renteria MD R3) Objective Vitals Vital Signs Date Time Temp Pulse Resp B/P Pulse Ox O2 Delivery O2 Flow Rate FiO2 05/10/17 10:00 66 05/10/17 09:00 80 05/10/17 08:15 99 Nasal Cannula 3.00 05/10/17 08:00 97.8 99 16 140/90 99 05/10/17 08:00 62 05/10/17 06:00 66 05/10/17 05:00 66 05/10/17 04:00 65 05/10/17 04:00 97.9 66 18 130/67 99 05/10/17 03:00 76 05/10/17 02:00 62 05/10/17 01:00 62 05/10/17 00:00 98.1 66 18 139/75 100 05/10/17 00:00 66 05/09/17 23:00 62 05/09/17 22:00 68 05/09/17 21:00 64 05/09/17 20:30 98 Nasal Cannula 3.00 05/09/17 20:00 64 05/09/17 20:00 97.9 72 18 149/74 99 05/09/17 19:00 68 05/09/17 18:01 65 05/09/17 17:52 97.9 69 18 154/80 100 05/09/17 16:00 97.3 70 20 162/80 100 05/09/17 15:17 97.6 88 18 173/82 100 05/09/17 14:00 81 19 143/80 99 Room Air I/O 05/09/17 05/09/17 05/09/17 05/10/17 05/10/17 05/10/17 07:00 15:00 23:00 07:00 15:00 23:00 Intake Total 240 ml Output Total 100 ml 3000 ml Balance 140 ml -3000 ml Intake Oral 240 ml Output Urine Total 100 ml Hemodialysis 3000 ml (Syeda Renteria MD R3) Result Diagram: 6/26/17 0606 6/26/17 0606 Objective Remarks Gen.: No acute distress Head: Normocephalic. Atraumatic. EENT: Pupils equal round and reactive to light. Nose without drainage. Airway intact. Throat without injection. Cardiovascular: Regular rate and rhythm. No murmurs, rubs or gallops. Respiratory: Lungs clear to auscultation bilaterally. No wheezes or rhonchi. Abdomen: Soft, nontender, nondistended. No peritoneal signs. Musculoskeletal: No gross deformities. No edema. Skin: No obvious rashes or erythema. Neuro: Sensory and motor grossly intact. Cranial nerves II through XII grossly intact. Psych: Appropriate mood and affect (Syeda Renteria MD R3) A/P Assessment and Plan Mr. Valdovinos is 76-year-old male, with a significant past medical history of end-stage renal disease receiving dialysis MWF, congestive heart failure, coronary artery disease with previous bypass and stenting, inferior wall [place], COPD, bladder cancer, presenting with abrupt onset chest pain and shortness of breath 24 hours. He will be admitted for CHF exacerbation, fluid overload, as well as a COPD exacerbation. Problem #1: Shortness of breath Suspect worsening CHF, given elevated BNP to 2158, and crackles at the bases. BNP elevated more this morning. Patient currently in dialysis. ACS rule out negative, elevated troponins at baseline. 2D ECHO pending 1.5 Lfluid water restriction. Strict I's and O's. Bumex IV 1 mg twice a day. Consult cardiology, patient known to Dr. Eason We appreciate his assistance. Problem #2: Coronary artery disease Previous stent in March 2017 for saphenous graft occlusion proximal to the right coronary artery. Stented by Dr. Eason. Continue dual antiplatelet therapy with 90 mg twice a day, as well as aspirin 81 mg daily. Continue home statin therapy. Problem #3: End-stage renal disease Consult nephrology, we appreciate their assistance. Continue dialysis MWF Problem #4: Congestive heart failure As above. Problem #5: COPD exacerbation Start Rocephin and azithromycin IV steroids DuoNeb's every 4 hours scheduled. Incentive spirometry Oxygen 1-4 L O2 greater than 90%. 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 Patient follows with urology. Still with gross hematuria - monitor CBC daily. Hgb on admission 9.4 g/dL. Problem #7: Diabetes mellitus On Lantus 10 units subcutaneous daily at bedtime, transition to Levemir 5 units twice a day. In addition to insulin sliding scale. Problem #8: FEN Fluids per nephrology Electrolytes: Replete when necessary Nutrition Heart healthy diet. DVT ppx: Heparin 5,000 U q 12. (Syeda Renteria MD R3) Attending Attestation Patient seen and examined with the resident team in HD- still having intermittent chest pain. Case reviewed and discussed -- Cardiology consultation pending, troponin level plateaued. Agree with plan of care as discussed with me and documented in the resident note. (Yaritza Mars MD) Problem List: (1) COPD exacerbation Status: Acute (2) Gross hematuria Status: Chronic (3) ESRD needing dialysis Status: Acute (4) Acute on chronic systolic heart failure Status: Acute (5) CAD (coronary artery disease) Status: Acute (6) Hypertension Status: Acute (Syeda Renteria MD R3) Syeda Renteria MD R3 May 10, 2017 12:21 Yaritza Mars MD May 10, 2017 13:09
[2017-05-10] MEDS: DOCUSATE SODIUM 50 MG/SENNA 8.6 MG TAB PO SCH ×2 (12:35→20:36)
[2017-05-10] MEDS: PANTOPRAZOLE SOD 40 MG DELAYED RELEASE TAB PO SCH (12:35)
[2017-05-10] MEDS: SODIUM BICARBONATE 650 MG TAB PO SCH ×2 (12:35→20:33)
[2017-05-10] MEDS: ASPIRIN EC 81 MG TABEC PO SCH (12:36)
[2017-05-10] MEDS: TICAGRELOR 90 MG TAB PO SCH ×2 (12:36→20:36)
[2017-05-10] MEDS: AZITHROMYCIN INJ 500 MG in SODIUM CHLOR 0.9% 250 ML INJ 250 ML IV SCH (12:37)
[2017-05-10] MEDS: cefTRIAXone INJ 1,000 MG in SODIUM CHLORIDE 0.9% INJ 100 ML IV SCH (15:57)
--- NOTE | 2017-05-10 16:35 | MB ---
cc: RACHAEL EASON DATE OF CONSULTATION 05/10/2017 HISTORY OF THE PRESENT ILLNESS Mr. Valdovinos is a 76-year-old white male well known to my practice with a history of inferior wall myocardial infarction, thrombectomy and angioplasty of the saphenous venous graft to the right coronary, congestive heart failure and end-stage disease on hemodialysis. Two days ago he developed shortness of breath in the evening. He also had epigastric pain after he ate [place] food, which he states radiated into his chest. It was sharp, in the lower substernal area. Also radiated into the back and also associated with diaphoresis and shortness of breath. He is now feeling better. He is currently in dialysis. His pain is significantly improved. PAST MEDICAL HISTORY Positive for: 1. His coronary artery disease. 2. Three-vessel bypass. 3. Recent inferior wall myocardial infarction and stenting of vein graft to the right coronary artery after the patient was of platelet inhibitors for bladder cancer surgery with placement of Resolute stents to the right coronary artery. 4. History of congestive heart failure. 5. Ischemic cardiomyopathy with ejection fraction of 35% by cardiac catheterization. 6. End-stage renal disease on hemodialysis. 7. Hypertension. 8. History of cerebrovascular accident. 9. Chronic obstructive pulmonary disease. 10. Dyslipidemia. 11. Arthritis. 12. Bladder cancer. 13. IVC filter placement. 14. Left A-V fistula. 15. Cholecystectomy. 16. Cataract surgery. 17. Left knee surgery. 18. Surgery for bladder cancer, Dr. Velásquez. MEDICATIONS At home include: 1. Lisinopril. 2. Isosorbide. 3. Coreg. 4. Aspirin. 5. Bumex. 6. Lipitor. 7. Cholecalciferol. 8. Humalog. 9. . 10. Renvela. 11. sodium bicarb. 12. Flomax. 13. Lantus insulin. 14. Proscar. 15. Percocet. 16. And Brilinta. ALLERGIES None. SOCIAL HISTORY The patient does not smoke but used to smoke in the past. He does not drink alcohol. He is . FAMILY HISTORY Positive for heart disease. REVIEW OF SYSTEMS Otherwise negative. PHYSICAL EXAMINATION VITAL SIGNS: Blood pressure 140/90, pulse 80 and regular. HEENT: Negative. 2+ carotid upstrokes. No bruits. LUNGS: Clear. CARDIOVASCULAR: Regular. No murmur, gallop or rub. ABDOMEN: Soft. No bruits. EXTREMITIES: With trace edema. 1+ distal pulses. NEUROLOGIC: Grossly nonfocal. EKG was reviewed and showed normal sinus rhythm, inferior Q-waves, PVCs, nonspecific ST-T changes. LABORATORY DATA Hemoglobin 8.7. Potassium 4.5, creatinine 5.64. Troponin 0.3 and 0.12. BNP 2158 and 2481. LDL 38, HDL 40. DIAGNOSES 1. Acute exacerbation of chronic systolic congestive heart failure. 2. Ischemic cardiomyopathy with moderate left ventricular dysfunction. 3. Coronary artery disease with a history of three-vessel coronary bypass and recent myocardial infarction with stenting of the vein graft to the right coronary artery. 4. End-stage renal disease on dialysis. 5. Diabetes mellitus. 6. Hypertension. 7. Peripheral vascular disease. DISPOSITION Mr. Valdovinos will be monitored on telemetry. His troponin is slightly elevated but not trending in either direction. There is no evidence of acute coronary syndrome at this time. His troponin elevation is likely related to his end-stage renal disease. He has evidence of heart failure exacerbation and is currently on dialysis. A significant amount of fluid will be removed tomorrow during dialysis if tolerated. I recommend to continue his current medical program including therapy for congestive heart failure and platelet inhibitors. He will be monitored on telemetry. I will follow him for cardiology during his hospitalization. Rachael Eason MD OQ/KK /1:57 PM /4:12 PM
--- NOTE | 2017-05-10 17:35 | ECHRPT ---
Indication: chest pain CONCLUSIONS The left ventricular systolic function is [id number] reduced with an estimated ejection fra ction in the range of 35-40%. Mild mitral valve stenosis. Moderate mitral valve regurgitation. There is mild tricuspid valve regurgitation. BP: 130 / 67 HR: 66 Rhythm: MEASUREMENTS (Male / Female) Normal Values Technical Quality: 2D ECHO LV Diastolic Diameter PLAX 5.5 cm 4.2 - 5.9 / 3.9 - 5.3 cm LV Systolic Diameter PLAX 4.8 cm IVS Diastolic Thickness 0.9 cm 0.6 - 1.0 / 0.6 - 0.9 cm LVPW Diastolic Thickness 1.2 cm 0.6 - 1.0 / 0.6 - 0.9 cm LV Relative Wall Thickness 0.4 RV Internal Dim ED PLAX 2.6 cm M-MODE Aortic Root Diameter MM 2.9 cm LA Systolic Diameter MM 4.3 cm LA Ao Ratio MM 1.5 AV Cusp Separation MM 1.5 cm DOPPLER MV Peak Velocity 168.0 cm/s MV Peak Gradient 11.3 mmHg MV Mean Velocity 98.9 cm/s MV Mean Gradient 5.0 mmHg Mitral E Point Velocity 151.0 cm/s Mitral A Point Velocity 106.0 cm/s Mitral E to A Ratio 1.4 LV E' Lateral Velocity 6.4 cm/s Mitral E to LV E' Lateral Ratio 23.5 TR Peak Velocity 289.0 cm/s TR Peak Gradient 33.4 mmHg FINDINGS LEFT VENTRICLE Normal left ventricular size. Wall thickness is normal. The left ventricular systolic function is [id number] reduced with an estimated ejection fra ction in the range of 35-40%. RIGHT VENTRICLE The right ventricle was not well visualized. LEFT ATRIUM The left atrial size is mildly dilated. RIGHT ATRIUM The right atrial size is normal. ATRIAL SEPTUM The interatrial septum not well visualized. AORTA The aortic root and proximal ascending aorta are normal in size on limited imaging. MITRAL VALVE Structurally normal mitral valve. Mild mitral valve stenosis. Mitral valve mean gradient is 5 mmHg. Moderate mitral valve regurgitation. Mild mitral annular calcification. AORTIC VALVE Trileaflet aortic valve. No aortic valve stenosis or regurgitation. TRICUSPID VALVE Structurally normal tricuspid valve. There is mild tricuspid valve regurgitation. There is estimated mild pulmonary hypertension present (range 40-50 mmHg). There is mild tricuspid valve regurgitation. PULMONARY VALVE The pulmonary valve is not well visualized. VESSELS The inferior vena cava was not well visualized. PERICARDIUM No pericardial effusion. Fabian Riley DO (Electronically Signed) Final Date:10 May 2017 17:34
[2017-05-10] MEDS: predniSONE 20 MG TAB PO SCH (20:33)
[2017-05-10] MEDS: ATORVASTATIN 80 MG TAB PO SCH (20:33)
[2017-05-11] VITALS (32 sets, daily range): BP systolic 135–146; BP diastolic 69–82; PULSE 59–84; RESP 18–20; TEMP 97.5–97.9; O2SAT 95–100
[2017-05-11] MEDS: HEPARIN SODIUM - SQ 10,000 UNITS/ML VIAL SQ SCH ×2 (02:00→14:32)
[2017-05-11] MEDS: RESP: ALBUTEROL 2.5 MG/IPRATROPIUM 0.5 MG NEB (SCH) INH ×6 (04:00→23:33)
[2017-05-11] MEDS: CARVEDILOL 12.5 MG TAB PO SCH ×3 (05:27→21:32)
[2017-05-11] MEDS: MORPHINE SULFATE 4 MG/ML INJ IV PRN ×4 (05:27→20:19)
[2017-05-11] MEDS: INSULIN ASPART SUPPLEMENTAL SCALE SQ SCH ×4 (05:28→21:33)
[2017-05-11] MEDS: NITROGLYCERIN 2% OINT 1 GM PACKET TOP SCH ×5 (05:52→23:38)
--- NOTE | 2017-05-11 08:34 | EKG ---
Date Performed: 05/09/2017 Time Performed: 17:01:56 PTAGE: 76 years EKG: Sinus rhythm with PAC(s) Prolonged QT interval Inferior infarct - age undetermined Anterolateral ST-T changes may be due to myocardial ischemia Abnormal ECG PREVIOUS TRACING : 05/09/2017 09.58 DOCTOR: Macy Leung Interpretating Date/Time 05/11/2017 08:33:37
--- NOTE | 2017-05-11 08:45 | EKG ---
Date Performed: 05/09/2017 Time Performed: 09:58:41 PTAGE: 76 years EKG: ATRIAL FIBRILLATION WITH ABERRANT CONDUCTION OR VENTRICULAR PREMATURE COMPLEXES INFERIOR MY OCARDIAL INFARCTION MODERATE T-WAVE ABNORMALITY, CONSIDER LATERAL ISCHEMIA ABNORMAL ECG PREVIOUS TRACING : 03/29/2017 17.55 DOCTOR: Macy Leung Interpretating Date/Time 05/11/2017 08:42:00
[2017-05-11] MEDS: ASPIRIN EC 81 MG TABEC PO SCH (09:00)
[2017-05-11] MEDS: SODIUM BICARBONATE 650 MG TAB PO SCH ×2 (09:00→21:31)
[2017-05-11] MEDS: PANTOPRAZOLE SOD 40 MG DELAYED RELEASE TAB PO SCH ×2 (09:00→21:32)
[2017-05-11] MEDS: SEVELAMER CARBONATE 800 MG TAB PO SCH ×3 (09:01→16:06)
[2017-05-11] MEDS: INSULIN DETEMIR 100 UNITS/ML VIAL SQ SCH ×2 (09:01→21:34)
[2017-05-11] MEDS: TICAGRELOR 90 MG TAB PO SCH ×2 (09:01→21:32)
[2017-05-11] MEDS: predniSONE 20 MG TAB PO SCH ×2 (09:01→21:32)
[2017-05-11] MEDS: DOCUSATE SODIUM 50 MG/SENNA 8.6 MG TAB PO SCH ×2 (09:01→21:31)
[2017-05-11] MEDS: SODIUM CHLORIDE 0.9% FLUSH 10 ML FLUSH IV FLUSH SCH ×2 (09:02→21:31)
--- NOTE | 2017-05-11 09:28 | HHI.FPPN ---
Subjective Remarks No acute events overnight. Afebrile, vital signs stable. Patient continues to complain of chest pain that is localizable to the xiphoid process. He states the pain radiates to the left side of his chest. He states the pain is worse when he gets out of bed or takes a deep breath. Denies diaphoresis. Continues to have shortness of breath. Objective Vitals Vital Signs Date Time Temp Pulse Resp B/P Pulse Ox O2 Delivery O2 Flow Rate FiO2 05/11/17 08:02 62 05/11/17 07:37 99 Nasal Cannula 2.00 05/11/17 07:00 62 05/11/17 06:00 61 05/11/17 05:00 63 05/11/17 04:00 62 05/11/17 04:00 97.8 62 18 137/71 98 05/11/17 03:00 63 05/11/17 02:00 62 05/11/17 01:00 62 05/11/17 00:00 67 05/11/17 00:00 97.9 68 18 135/69 100 05/11/17 00:00 100 Nasal Cannula 3.00 05/10/17 23:00 62 05/10/17 22:00 64 05/10/17 21:00 64 05/10/17 20:00 97.8 66 18 128/60 100 05/10/17 20:00 65 05/10/17 19:32 99 Nasal Cannula 3.00 05/10/17 19:00 66 05/10/17 18:04 66 05/10/17 17:01 83 05/10/17 16:00 81 05/10/17 15:00 97.9 81 18 126/55 100 05/10/17 15:00 74 05/10/17 14:04 82 05/10/17 13:00 92 05/10/17 12:00 97.8 98 20 134/70 98 05/10/17 12:00 72 05/10/17 11:00 68 05/10/17 10:00 66 I/O 05/10/17 05/10/17 05/10/17 05/11/17 05/11/17 05/11/17 07:00 15:00 23:00 07:00 15:00 23:00 Intake Total 240 ml 780 ml 240 ml Output Total 100 ml 3000 ml 0 ml Balance 140 ml -3000 ml 780 ml 240 ml Intake Oral 240 ml 480 ml 240 ml IV Total 300 ml Output Urine Total 100 ml 0 ml Hemodialysis 3000 ml # Bowel Movements 0 Result Diagram: 05/10/1760505/10/17605 Objective Remarks Gen.: No acute distress Head: Normocephalic. Atraumatic. EENT: Pupils equal round and reactive to light. Nose without drainage. Airway intact. Throat without injection. Cardiovascular: Regular rate and rhythm. No murmurs, rubs or gallops. Chest: Pain with palpation at the xiphoid process. Reproducible. Respiratory: Lungs clear to auscultation bilaterally. No wheezes or rhonchi. Abdomen: Soft, nontender, nondistended. No peritoneal signs. Musculoskeletal: No gross deformities. No edema. Skin: No obvious rashes or erythema. Neuro: Sensory and motor grossly intact. Cranial nerves II through XII grossly intact. Psych: Appropriate mood and affect A/P Assessment and Plan Mr. Valdovinos is 76-year-old male, with a significant past medical history of end-stage renal disease receiving dialysis MWF, congestive heart failure, coronary artery disease with previous bypass and stenting, inferior wall CO, COPD, bladder cancer, presenting with abrupt onset chest pain and shortness of breath 24 hours. He will be admitted for CHF exacerbation, fluid overload, as well as a COPD exacerbation. Problem #1: Acute exacerbation of systolic congestive heart failure Elevated BNP. Patient remains short of breath with chest pain. ACS rule out negative, elevated troponins at baseline. 2D ECHO showed EF of 3540% Cardiology consulted, appreciate recommendations. Continue medical therapy at this time. 1.5 Lfluid water restriction. Strict I's and O's. Bumex IV 1 mg twice a day. Problem #2: Chest pain Given reproducibility of the pain, likely noncardiac in origin. GERD versus costochondritis. Increase Protonix to 40 mg twice a day Given patient's history of CAD low threshold to repeat ACS rule out. Problem #3: Coronary artery disease Previous stent in March 2017 for saphenous graft occlusion proximal to the right coronary artery. Stented by Dr. Eason. Continue dual antiplatelet therapy with 90 mg twice a day, as well as aspirin 81 mg daily. Continue home statin therapy. Problem #4: End-stage renal disease Consult nephrology, we appreciate their assistance. Continue dialysis MWF Problem #5: COPD exacerbation Rocephin and azithromycin Prednisone 20 mg twice a day DuoNeb's every 4 hours scheduled. Incentive spirometry Oxygen 1-4 L O2 greater than 90%. 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 Patient follows with urology. Still with gross hematuria - monitor CBC daily. Hgb on admission 9.4 g/dL. Problem #7: Diabetes mellitus On Lantus 10 units subcutaneous daily at bedtime, transition to Levemir 5 units twice a day. In addition to insulin sliding scale. Problem #8: FEN Hep-Lock IV Electrolytes: Replete when necessary Nutrition Heart healthy diet. DVT ppx: Heparin 5,000 U q 12. Discharge Planning Pending clinical improvement Problem List: (1) COPD exacerbation Status: Acute (2) Gross hematuria Status: Chronic (3) ESRD needing dialysis Status: Acute (4) Acute on chronic systolic heart failure Status: Acute (5) CAD (coronary artery disease) Status: Acute (6) Hypertension Status: Acute Syeda Renteria MD R3 May 11, 2017 09:28
[2017-05-11 11:44] LABS: AUTOMATED NEUTROPHIL # 10.6 TH/MM3 (1.8-7.7); BASOPHIL % 0.1 % (0.0-2.0); HEMATOCRIT 29.3 % (39.0-51.0); HEMO FLAGS DIFF FINAL; LYMPH % 5.3 % (9.0-44.0); LYMPHOCYTE # 0.6 TH/MM3 (1.0-4.8); MEAN CORPUSCULAR HEMOGLOBIN 29.2 PG (27.0-34.0); MEAN CORPUSCULAR HGB CONC 31.4 % (32.0-36.0); MONO % 6.4 % (0.0-8.0); NEUT % 88.2 % (16.0-70.0); PLATELET COUNT 181 TH/MM3 (150-450); RED BLOOD COUNT 3.15 MIL/MM3 (4.50-5.90); RED CELL DISTRIBUTION WIDTH 20.2 % (11.6-17.2); WHITE BLOOD COUNT 12.1 TH/MM3 (4.0-11.0)
[2017-05-11 12:15] LABS: BICARBONATE 30.6 MEQ/L (21.0-32.0); POTASSIUM 4.9 MEQ/L (3.5-5.1)
--- NOTE | 2017-05-11 12:22 | HHI.NPPN ---
Subjective History of Present Illness Esrd Additional Remarks CP Objective Data Data 05/10/17 05/11/17 19:00 07:00 Intake Total 780 ml 240 ml Output Total 3000 ml 0 ml Balance -2220 ml 240 ml Intake Oral 480 ml 240 ml IV Total 300 ml Output Urine Total 0 ml Hemodialysis 3000 ml # Bowel Movements 0 Vital Signs Date Time Temp Pulse Resp B/P Pulse Ox O2 Delivery O2 Flow Rate FiO2 05/11/17 11:30 98 Nasal Cannula 1.00 05/11/17 11:30 97.8 65 20 139/72 98 05/11/17 11:12 99 Nasal Cannula 2.00 05/11/17 11:00 59 05/11/17 10:00 64 05/11/17 09:00 65 05/11/17 08:02 62 05/11/17 08:00 97.5 66 20 138/76 97 05/11/17 08:00 97 Nasal Cannula 3.00 05/11/17 07:37 99 Nasal Cannula 2.00 05/11/17 07:00 62 05/11/17 06:00 61 05/11/17 05:00 63 05/11/17 04:00 62 05/11/17 04:00 97.8 62 18 137/71 98 05/11/17 03:00 63 05/11/17 02:00 62 05/11/17 01:00 62 05/11/17 00:00 67 05/11/17 00:00 97.9 68 18 135/69 100 05/11/17 00:00 100 Nasal Cannula 3.00 05/10/17 23:00 62 05/10/17 22:00 64 05/10/17 21:00 64 05/10/17 20:00 97.8 66 18 128/60 100 05/10/17 20:00 65 05/10/17 19:32 99 Nasal Cannula 3.00 05/10/17 19:00 66 05/10/17 18:04 66 05/10/17 17:01 83 05/10/17 16:00 81 05/10/17 15:00 97.9 81 18 126/55 100 05/10/17 15:00 74 05/10/17 14:04 82 05/10/17 13:00 92 -: 05/11/17 1120 05/11/17 1120 Microbiology 05/11/17 Gram Stain, Received Pending 05/11/17 Sputum Culture, Received Pending Physical Exam General Appearance: Well Developed Neck Neck Exam: Neck Supple Pulmonary Resp Exam: Crackles, Diminished Breath Sounds Cardiology CV Exam: Regular Gastrointestinal/Abdomen GI Exam: Soft, Non-Tender, Bowel Sounds Present Extremeties Extremities Exam: Trace Edema Assessment/Plan Problem List: (1) ESRD (end stage renal disease) on dialysis Plan: Continue with hemodialysis on Wednesday, Wednesday and Wednesday CP atypical on steroids CAD EF 35% (2) CHF due to valvular disease Plan: Continue to do hemodialysis 3 times a week (3) CAD (coronary artery disease) Plan: Status post CABG (4) Diabetes mellitus Plan: Follow blood glucose (5) Hypertension Plan: Continue monitor Nicci Rock MD May 11, 2017 12:22
[2017-05-11 12:32] LABS: CALCIUM-PROTEIN CORRECTED 7.9 MG/DL (8.5-10.1)
--- NOTE | 2017-05-11 13:48 | RADRPT ---
EXAM DATE/TIME: 05/11/2017 12:41 [facility] COMPARISON: CHEST SINGLE AP, May 09, 2017, 10:40. INDICATIONS : Patient is short of breath and has chest pain since this morning. MEDICAL HISTORY : Arthritis. Myocardial infarction. Hypercholesterolemia. Cataracts. CVA. SURGICAL HISTORY : Total knee replacement, left. Cholecystectomy. Bilateral cataract extraction. ENCOUNTER: Subsequent ACUITY: 2 days PAIN SCORE: 7/10 LOCATION: Bilateral chest FINDINGS: There is consolidative change in the left base which is slightly worse than on prior exam. Slight federico nting of the costophrenic angles also present. Cardiac contours are grossly stable accounting for dif ferences in technique and projection. Sternotomy wires are again noted. CONCLUSION: Worsening left base infiltrate and bibasilar fusion Kaleb Reinoso MD on May 11, 2017 at 13:45 Board Certified Radiologist. This report was verified electronically.
[2017-05-11] MEDS: AZITHROMYCIN INJ 500 MG in SODIUM CHLOR 0.9% 250 ML INJ 250 ML IV SCH (14:32)
--- NOTE | 2017-05-11 14:35 | PD.CARD.PN ---
Subjective Subjective Remarks SOB improved, c/o lower anterior and right sided CP reproducible with chest palpation, tolerated dialysis well yest Objective Medications Current Medications Medications (Trade) Dose Ordered Sig/Darinel Route Start Time Stop Time Status Last Admin (Ecotrin Ec) 81 mg DAILY PO 05/10/17 09:00 05/11/17 09:00 (Lipitor) 80 mg HS PO 05/09/17 21:00 05/10/17 20:33 (Renvela) 800 mg TIDAC PO 05/09/17 17:00 05/11/17 11:28 (Sodium Bicarbonate) 650 mg BID PO 05/09/17 21:00 05/11/17 09:00 (NS Flush) 2 ml UNSCH PRN IV FLUSH 05/09/17 13:15 (NS Flush) 2 ml BID IV FLUSH 05/09/17 13:30 05/11/17 09:02 (Heparin Inj) 5,000 units Q12H SQ 05/09/17 14:00 05/11/17 02:00 (Narcan Inj) 0.4 mg UNSCH PRN IV 05/09/17 13:15 (Mely-Colace) 1 tab BID PO 05/09/17 13:30 05/11/17 09:01 (Nitroglycerin 2% Oint) 1 inch Q6HR TOP 05/09/17 13:15 05/11/17 11:28 (Morphine Inj) 2 mg Q5M PRN IV 05/09/17 13:15 05/11/17 11:28 (Coreg) 12.5 mg Q8HR PO 05/09/17 14:00 05/11/17 05:27 (D50w (Vial) Inj) 50 ml UNSCH PRN IV 05/09/17 13:15 Glucagon 1 mg 1 mg UNSCH PRN OTHER 05/09/17 13:15 Ceftriaxone Sodium 1000 mg/ Sodium Chloride 100 ml @ 200 mls/hr Q24H IV 05/09/17 15:00 05/10/17 15:57 (Zithromax Inj/ NS 250 ml Inj) 250 ml @ 250 mls/hr Q24H IV 05/09/17 14:00 05/10/17 12:37 Clonidine 0.1 mg 0.1 mg Q6H PRN PO 05/09/17 16:15 05/09/17 16:45 (NS 1000 ml Inj) 1,000 ml @ 0 mls/hr Q0M PRN IV 05/09/17 17:08 Heparin Sodium (Porcine) 8000 units 8,000 units UNSCH PRN IVF 05/09/17 17:15 Sodium Chloride 1,000 ml @ 200 mls/hr Q5H PRN IV 05/09/17 17:08 05/10/17 10:01 (NS 1000 ml Inj) 1,000 ml @ 0 mls/hr Q0M PRN IV 05/09/17 17:08 (Mannitol Inj) 12.5 gm UNSCH PRN IV 05/09/17 17:15 (Albumin 25% Inj) 25 gm UNSCH PRN IV 05/09/17 17:15 (NS Flush) 5 ml UNSCH PRN IV FLUSH 05/09/17 17:15 (Zofran Inj) 4 mg UNSCH PRN IV 05/09/17 17:15 (Tylenol) 650 mg UNSCH PRN PO 05/09/17 17:15 (Benadryl) 25 mg UNSCH PRN PO 05/09/17 17:15 (Nitrostat Sl) 0.4 mg UNSCH PRN SL 05/09/17 17:15 (Catapres) 0.1 mg UNSCH PRN PO 05/09/17 17:15 (Epogen Inj) 10,000 units UNSCH PRN IV 05/09/17 17:15 05/10/17 10:01 (Gelfoam 12 Mm/7 Mm Top) 1 foam UNSCH PRN TOP 05/09/17 17:15 05/10/17 10:01 (Brilinta) 90 mg BID PO 05/09/17 21:00 05/11/17 09:01 (Levemir Inj) 5 units Q12HR SQ 05/09/17 21:00 05/11/17 09:01 (Percocet 5-325 Mg) 1 tab Q6H PRN PO 05/09/17 20:45 (Deltasone) 20 mg BID PO 05/10/17 21:00 05/11/17 09:01 (Protonix) 40 mg BID PO 05/11/17 21:00 (Bumetanide) 1 mg DAILY PO 05/12/17 09:00 (Proscar) 5 mg DAILY PO 05/12/17 09:00 (Tylenol) 650 mg Q6H PO 05/11/17 14:00 Vital Signs / I&O Vital Signs Date Time Temp Pulse Resp B/P Pulse Ox O2 Delivery O2 Flow Rate FiO2 05/11/17 14:03 64 05/11/17 13:00 81 05/11/17 12:00 66 05/11/17 11:30 98 Nasal Cannula 1.00 05/11/17 11:30 97.8 65 20 139/72 98 05/11/17 11:12 99 Nasal Cannula 2.00 05/11/17 11:00 59 05/11/17 10:00 64 05/11/17 09:00 65 05/11/17 08:02 62 05/11/17 08:00 97.5 66 20 138/76 97 05/11/17 08:00 97 Nasal Cannula 3.00 05/11/17 07:37 99 Nasal Cannula 2.00 05/11/17 07:00 62 05/11/17 06:00 61 05/11/17 05:00 63 05/11/17 04:00 62 05/11/17 04:00 97.8 62 18 137/71 98 05/11/17 03:00 63 05/11/17 02:00 62 05/11/17 01:00 62 05/11/17 00:00 67 05/11/17 00:00 97.9 68 18 135/69 100 05/11/17 00:00 100 Nasal Cannula 3.00 05/10/17 23:00 62 05/10/17 22:00 64 05/10/17 21:00 64 05/10/17 20:00 97.8 66 18 128/60 100 05/10/17 20:00 65 05/10/17 19:32 99 Nasal Cannula 3.00 05/10/17 19:00 66 05/10/17 18:04 66 05/10/17 17:01 83 05/10/17 16:00 81 05/10/17 15:00 97.9 81 18 126/55 100 05/10/17 15:00 74 I/O 05/10/17 05/10/17 05/10/17 05/11/17 05/11/17 05/11/17 07:00 15:00 23:00 07:00 15:00 23:00 Intake Total 240 ml 780 ml 240 ml Output Total 100 ml 3000 ml 0 ml Balance 140 ml -3000 ml 780 ml 240 ml Intake Oral 240 ml 480 ml 240 ml IV Total 300 ml Output Urine Total 100 ml 0 ml Hemodialysis 3000 ml # Bowel Movements 0 Physical Exam GENERAL: In NAD SKIN: Warm and dry. HEAD: Normocephalic. EYES: No scleral icterus. No injection or drainage. NECK: Supple, trachea midline. No JVD or lymphadenopathy. CARDIOVASCULAR: Regular rate and rhythm without murmurs, gallops, or rubs. RESPIRATORY: Breath sounds equal bilaterally. No accessory muscle use. GASTROINTESTINAL: Abdomen soft, non-tender, nondistended. MUSCULOSKELETAL: No cyanosis, or edema. Laboratory Laboratory Tests Test 05/11/17 11:20 White Blood Count 12.1 TH/MM3 Red Blood Count 3.15 MIL/MM3 Hemoglobin 9.2 GM/DL Hematocrit 29.3 % Mean Corpuscular Volume 93.0 FL Mean Corpuscular Hemoglobin 29.2 PG Mean Corpuscular Hemoglobin 31.4 % Concent Red Cell Distribution Width 20.2 % Platelet Count 181 TH/MM3 Mean Platelet Volume 10.5 FL Neutrophils (%) (Auto) 88.2 % Lymphocytes (%) (Auto) 5.3 % Monocytes (%) (Auto) 6.4 % Eosinophils (%) (Auto) 0.0 % Basophils (%) (Auto) 0.1 % Neutrophils # (Auto) 10.6 TH/MM3 Lymphocytes # (Auto) 0.6 TH/MM3 Monocytes # (Auto) 0.8 TH/MM3 Eosinophils # (Auto) 0.0 TH/MM3 Basophils # (Auto) 0.0 TH/MM3 CBC Comment DIFF FINAL Differential Comment Sodium Level 134 MEQ/L Potassium Level 4.9 MEQ/L Chloride Level 97 MEQ/L Carbon Dioxide Level 30.6 MEQ/L Anion Gap 6 MEQ/L Blood Urea Nitrogen 39 MG/DL Creatinine 4.96 MG/DL Estimat Glomerular Filtration 11 ML/MIN Rate Random Glucose 211 MG/DL Calcium Level 7.4 MG/DL Protein Corrected Calcium 7.9 MG/DL Total Protein 6.1 GM/DL Imaging Last Impressions Chest X-Ray 05/11/17 0000 Signed Impressions: Service Date/Time: Thursday, May 11, 2017 12:41 - CONCLUSION: Worsening left base infiltrate and bibasilar fusion Kaleb Reinoso MD Assessment and Plan Problem List: (1) Acute on chronic systolic heart failure (2) Ischemic cardiomyopathy (3) CAD (coronary artery disease) (4) Hematuria, unspecified (5) Diabetes mellitus (6) Hypertension (7) ESRD (end stage renal disease) on dialysis Assessment and Plan No angina; atypical, likely musculoskeletal CP. CHF improving after dialysis. Continue tx for CHF. Continue monitoring. Increase activity. Rachael Eason MD May 11, 2017 14:35
[2017-05-11] MEDS: cefTRIAXone INJ 1,000 MG in SODIUM CHLORIDE 0.9% INJ 100 ML IV SCH (15:00)
[2017-05-11] MEDS: ACETAMINOPHEN 325 MG TAB PO SCH ×2 (16:06→20:00)
[2017-05-11 18:06] LABS: BACTERIA, URINE OCC /hpf; BLOOD, URINE LARGE (NEG); COMMENT (UR) CULTURE INDICATED; CULTURE IF INDICATED CULTURE INDICATED; GLUCOSE,URINE 150 mg/dL (NEG); KETONE, URINE NEG (NEG); NITRITE,URINE NEG (NEG); PH, URINE 6.5 (5.0-8.5); SQUAMOUS EPITHELIAL CELL URINE 1 /hpf (0-5); TRANSITIONAL EPI CELLS, URINE 4 /hpf; URINE COLOR YELLOW (YELLW/STRAW)
[2017-05-11] MEDS: ATORVASTATIN 80 MG TAB PO SCH (21:31)
[2017-05-12] VITALS (28 sets, daily range): BP systolic 132–163; BP diastolic 66–81; PULSE 59–80; RESP 18; TEMP 96.8–98.6; O2SAT 95–100
[2017-05-12] MEDS: ACETAMINOPHEN 325 MG TAB PO SCH ×4 (03:02→20:24)
[2017-05-12] MEDS: HEPARIN SODIUM - SQ 10,000 UNITS/ML VIAL SQ SCH ×2 (03:02→13:05)
[2017-05-12] MEDS: RESP: ALBUTEROL 2.5 MG/IPRATROPIUM 0.5 MG NEB (SCH) INH ×5 (03:06→19:22)
[2017-05-12] MEDS: MORPHINE SULFATE 4 MG/ML INJ IV PRN ×5 (05:18→21:45)
[2017-05-12] MEDS: CARVEDILOL 12.5 MG TAB PO SCH ×3 (06:12→21:33)
[2017-05-12] MEDS: NITROGLYCERIN 2% OINT 1 GM PACKET TOP SCH ×4 (06:12→23:36)
[2017-05-12] MEDS: INSULIN ASPART SUPPLEMENTAL SCALE SQ SCH ×4 (06:13→21:37)
[2017-05-12 06:35] LABS: AUTOMATED NEUTROPHIL # 8.1 TH/MM3 (1.8-7.7); BASOPHIL % 0.1 % (0.0-2.0); HEMATOCRIT 30.1 % (39.0-51.0); HEMO FLAGS DIFF FINAL; LYMPH % 5.1 % (9.0-44.0); LYMPHOCYTE # 0.5 TH/MM3 (1.0-4.8); MEAN CELL VOLUME 92.9 FL (80.0-100.0); MEAN CORPUSCULAR HEMOGLOBIN 29.9 PG (27.0-34.0); MEAN CORPUSCULAR HGB CONC 32.2 % (32.0-36.0); NEUT % 86.8 % (16.0-70.0); PLATELET COUNT 165 TH/MM3 (150-450); RED BLOOD COUNT 3.24 MIL/MM3 (4.50-5.90); WHITE BLOOD COUNT 9.4 TH/MM3 (4.0-11.0)
[2017-05-12 07:04] LABS: BICARBONATE 27.3 MEQ/L (21.0-32.0); POTASSIUM 4.8 MEQ/L (3.5-5.1)
[2017-05-12 07:15] LABS: CALCIUM-PROTEIN CORRECTED 7.5 MG/DL (8.5-10.1)
[2017-05-12] MEDS: ASPIRIN EC 81 MG TABEC PO SCH (08:54)
[2017-05-12] MEDS: DOCUSATE SODIUM 50 MG/SENNA 8.6 MG TAB PO SCH ×2 (08:54→21:33)
[2017-05-12] MEDS: FINASTERIDE 5 MG TAB PO SCH (08:54)
[2017-05-12] MEDS: BUMETANIDE 1 MG TAB PO SCH (08:54)
[2017-05-12] MEDS: TICAGRELOR 90 MG TAB PO SCH ×2 (08:54→21:33)
[2017-05-12] MEDS: PANTOPRAZOLE SOD 40 MG DELAYED RELEASE TAB PO SCH ×2 (08:54→21:33)
[2017-05-12] MEDS: SODIUM CHLORIDE 0.9% FLUSH 10 ML FLUSH IV FLUSH SCH ×2 (08:55→21:33)
[2017-05-12] MEDS: predniSONE 20 MG TAB PO SCH ×2 (08:55→21:33)
[2017-05-12] MEDS: SODIUM BICARBONATE 650 MG TAB PO SCH ×2 (08:55→21:32)
[2017-05-12] MEDS: SEVELAMER CARBONATE 800 MG TAB PO SCH ×3 (09:02→16:44)
[2017-05-12] MEDS: INSULIN DETEMIR 100 UNITS/ML VIAL SQ SCH ×2 (09:04→21:38)
--- NOTE | 2017-05-12 09:13 | HHI.FPPN ---
Subjective Remarks Patient still with pounding, 7 out of 10 pain in the center of his chest. Relieved by morphine. Not associated with movement or with meals. Breathing comfortably, and having yellow sputum production. Denies fevers or chills. Denies increasing SOB. Hemodialysis today 05/12. ( Tereso Dyson MD R2) Objective Vitals Vital Signs Date Time Temp Pulse Resp B/P Pulse Ox O2 Delivery O2 Flow Rate FiO2 05/12/17 08:00 68 05/12/17 07:49 99 Nasal Cannula 2.00 05/12/17 07:00 98.6 63 18 132/66 100 05/12/17 07:00 62 05/12/17 07:00 100 Nasal Cannula 2.00 05/12/17 06:00 62 05/12/17 05:00 63 05/12/17 04:00 63 05/12/17 03:00 97.9 61 18 140/75 99 05/12/17 03:00 61 05/12/17 02:00 66 05/12/17 01:00 64 05/12/17 00:00 64 05/11/17 23:35 100 Nasal Cannula 2.00 05/11/17 23:30 97.7 65 18 138/70 100 05/11/17 23:00 66 05/11/17 22:00 62 05/11/17 21:00 64 05/11/17 20:00 64 05/11/17 20:00 100 Nasal Cannula 2.50 05/11/17 20:00 97.8 67 18 138/74 100 05/11/17 19:00 64 05/11/17 18:16 78 05/11/17 17:04 62 05/11/17 16:00 84 05/11/17 15:07 97 Nasal Cannula 2.00 05/11/17 15:06 97.5 64 18 146/82 95 05/11/17 15:05 64 05/11/17 14:03 64 05/11/17 13:00 81 05/11/17 12:00 66 05/11/17 11:30 98 Nasal Cannula 1.00 05/11/17 11:30 97.8 65 20 139/72 98 05/11/17 11:12 99 Nasal Cannula 2.00 05/11/17 11:00 59 05/11/17 10:00 64 I/O 05/11/17 05/11/17 05/11/17 05/12/17 05/12/17 05/12/17 07:00 15:00 23:00 07:00 15:00 23:00 Intake Total 240 ml 780 ml 240 ml Output Total 0 ml 150 ml 0 ml Balance 240 ml 630 ml 240 ml Intake Oral 240 ml 480 ml 240 ml IV Total 300 ml Output Urine Total 0 ml 150 ml 0 ml # Bowel Movements 0 0 (Tereso Dyson MD R2) Result Diagram: 05/12/1752905/12/17 05 Objective Remarks Gen.: No acute distress Head: Normocephalic. Atraumatic. EENT: Pupils equal round and reactive to light. Nose without drainage. Airway intact. Throat without injection. Cardiovascular: Regular rate and rhythm. No murmurs, rubs or gallops. Chest: Pain with palpation at the xiphoid process. Reproducible. Respiratory: Lungs clear to auscultation bilaterally. No wheezes or rhonchi. Abdomen: Soft, nontender, nondistended. No peritoneal signs. Musculoskeletal: No gross deformities. No edema. Skin: No obvious rashes or erythema. Neuro: Sensory and motor grossly intact. Cranial nerves II through XII grossly intact. Psych: Appropriate mood and affect (Tereso Dyson MD R2) A/P Assessment and Plan Mr. Valdovinos is 76-year-old male, with a significant past medical history of end-stage renal disease receiving dialysis MWF, congestive heart failure, coronary artery disease with previous bypass and stenting, inferior wall [place], COPD, bladder cancer, presenting with abrupt onset chest pain and shortness of breath 24 hours. He will be admitted for CHF exacerbation, fluid overload, as well as a COPD exacerbation. Problem #1: Acute exacerbation of systolic congestive heart failure Elevated BNP. Patient remains short of breath with chest pain. ACS rule out negative, elevated troponins at baseline. Repeat on 05/12 showed downtrending troponins of 0.09. 2D ECHO showed EF of 3540% Cardiology consulted, appreciate recommendations. Continue medical therapy at this time. 1.5 Lfluid water restriction. Strict I's and O's. Bumex IV 1 mg twice a day. Transition to by mouth. Problem #2: Chest pain Given reproducibility of the pain, likely noncardiac in origin. GERD versus costochondritis. Increase Protonix to 40 mg twice a day Given patient's history of CAD low threshold to repeat ACS rule out. Problem #3: Coronary artery disease Previous stent in March 2017 for saphenous graft occlusion proximal to the right coronary artery. Stented by Dr. Eason. Continue dual antiplatelet therapy with 90 mg twice a day, as well as aspirin 81 mg daily. Continue home statin therapy. Problem #4: End-stage renal disease Consult nephrology, we appreciate their assistance. Continue dialysis MWF Problem #5: COPD exacerbation Rocephin and azithromycin Prednisone 20 mg twice a day DuoNeb's every 4 hours scheduled. Incentive spirometry Oxygen 1-4 L O2 greater than 90%. 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 Patient follows with urology. Still with gross hematuria - monitor CBC daily. Hgb on admission 9.4 g/dL. Problem #7: Diabetes mellitus On Lantus 10 units subcutaneous daily at bedtime, transition to Levemir 5 units twice a day. In addition to insulin sliding scale. Problem #8: FEN Hep-Lock IV Electrolytes: Replete when necessary Nutrition Heart healthy diet. DVT ppx: Heparin 5,000 U q 12. Discharge Planning Pending clinical improvement (Tereso Dyson MD R2) Attending Attestation Patient seen and examined. Case reviewed and discussed Agree with plan of care as discussed with me and documented in the resident note. (Yaritza Mars MD) Problem List: (1) COPD exacerbation Status: Acute (2) Gross hematuria Status: Chronic (3) ESRD needing dialysis Status: Acute (4) Acute on chronic systolic heart failure Status: Acute (5) CAD (coronary artery disease) Status: Chronic (6) Hypertension Status: Chronic (Tereso Dyson MD R2) Tereso Dyson MD R2 May 12, 2017 09:13 Yaritza Mars MD May 17, 2017 10:36
--- NOTE | 2017-05-12 11:12 | HHI.NPPN ---
Subjective History of Present Illness Esrd Additional Remarks CP Objective Data Data 05/11/17 05/12/17 19:00 07:00 Intake Total 780 ml 240 ml Output Total 150 ml 0 ml Balance 630 ml 240 ml Intake Oral 480 ml 240 ml IV Total 300 ml Output Urine Total 150 ml 0 ml # Bowel Movements 0 0 Vital Signs Date Time Temp Pulse Resp B/P Pulse Ox O2 Delivery O2 Flow Rate FiO2 05/12/17 10:14 65 05/12/17 09:23 65 05/12/17 08:00 68 05/12/17 07:49 99 Nasal Cannula 2.00 05/12/17 07:00 98.6 63 18 132/66 100 05/12/17 07:00 62 05/12/17 07:00 100 Nasal Cannula 2.00 05/12/17 06:00 62 05/12/17 05:00 63 05/12/17 04:00 63 05/12/17 03:00 97.9 61 18 140/75 99 05/12/17 03:00 61 05/12/17 02:00 66 05/12/17 01:00 64 05/12/17 00:00 64 05/11/17 23:35 100 Nasal Cannula 2.00 05/11/17 23:30 97.7 65 18 138/70 100 05/11/17 23:00 66 05/11/17 22:00 62 05/11/17 21:00 64 05/11/17 20:00 64 05/11/17 20:00 100 Nasal Cannula 2.50 05/11/17 20:00 97.8 67 18 138/74 100 05/11/17 19:00 64 05/11/17 18:16 78 05/11/17 17:04 62 05/11/17 16:00 84 05/11/17 15:07 97 Nasal Cannula 2.00 05/11/17 15:06 97.5 64 18 146/82 95 05/11/17 15:05 64 05/11/17 14:03 64 05/11/17 13:00 81 05/11/17 12:00 66 05/11/17 11:30 98 Nasal Cannula 1.00 05/11/17 11:30 97.8 65 20 139/72 98 -: 05/12/17 0530 05/12/17 0530 Microbiology 05/11/17 Legionella Antigen, Received Pending 05/11/17 Streptococcus pneumoniae Antigen (M, Received Pending 05/11/17 Urine Culture, Received Pending Physical Exam General Appearance: Well Developed Neck Neck Exam: Neck Supple Pulmonary Resp Exam: Crackles, Diminished Breath Sounds Cardiology CV Exam: Regular Gastrointestinal/Abdomen GI Exam: Soft, Non-Tender, Bowel Sounds Present Extremeties Extremities Exam: Trace Edema Assessment/Plan Problem List: (1) ESRD (end stage renal disease) on dialysis Plan: Continue with hemodialysis on Wednesday, Wednesday and Wednesday CP atypical on steroids CAD EF 35% seen during HD UF 4 L as tolerated (2) CHF due to valvular disease Plan: Continue to do hemodialysis 3 times a week (3) CAD (coronary artery disease) Plan: Status post CABG (4) Diabetes mellitus Plan: Follow blood glucose (5) Hypertension Plan: Continue monitor Nicci Rock MD May 12, 2017 11:12
[2017-05-12] MEDS: EPOETIN ALFA 10,000 UNITS/ML VIAL IV PRN (12:25)
[2017-05-12] MEDS: AZITHROMYCIN INJ 500 MG in SODIUM CHLOR 0.9% 250 ML INJ 250 ML IV SCH (13:07)
--- NOTE | 2017-05-12 16:04 | PD.CARD.PN ---
Subjective Subjective Remarks No CP, still w episodes of SOB, 4 l of fluid again removed during dialysis today Objective Medications Current Medications Medications (Trade) Dose Ordered Sig/Darinel Route Start Time Stop Time Status Last Admin (Ecotrin Ec) 81 mg DAILY PO 05/10/17 09:00 05/12/17 08:54 (Lipitor) 80 mg HS PO 05/09/17 21:00 05/11/17 21:31 (Renvela) 800 mg TIDAC PO 05/09/17 17:00 05/12/17 09:02 (Sodium Bicarbonate) 650 mg BID PO 05/09/17 21:00 05/12/17 08:55 (NS Flush) 2 ml UNSCH PRN IV FLUSH 05/09/17 13:15 (NS Flush) 2 ml BID IV FLUSH 05/09/17 13:30 05/12/17 08:55 (Heparin Inj) 5,000 units Q12H SQ 05/09/17 14:00 05/12/17 13:05 (Narcan Inj) 0.4 mg UNSCH PRN IV 05/09/17 13:15 (Mely-Colace) 1 tab BID PO 05/09/17 13:30 05/12/17 08:54 (Nitroglycerin 2% Oint) 1 inch Q6HR TOP 05/09/17 13:15 05/12/17 13:04 (Morphine Inj) 2 mg Q5M PRN IV 05/09/17 13:15 05/12/17 13:07 (Coreg) 12.5 mg Q8HR PO 05/09/17 14:00 05/12/17 13:05 (D50w (Vial) Inj) 50 ml UNSCH PRN IV 05/09/17 13:15 Glucagon 1 mg 1 mg UNSCH PRN OTHER 05/09/17 13:15 Ceftriaxone Sodium 1000 mg/ Sodium Chloride 100 ml @ 200 mls/hr Q24H IV 05/09/17 15:00 05/11/17 15:00 (Zithromax Inj/ NS 250 ml Inj) 250 ml @ 250 mls/hr Q24H IV 05/09/17 14:00 05/12/17 13:07 Clonidine 0.1 mg 0.1 mg Q6H PRN PO 05/09/17 16:15 05/09/17 16:45 (NS 1000 ml Inj) 1,000 ml @ 0 mls/hr Q0M PRN IV 05/09/17 17:08 Heparin Sodium (Porcine) 8000 units 8,000 units UNSCH PRN IVF 05/09/17 17:15 Sodium Chloride 1,000 ml @ 200 mls/hr Q5H PRN IV 05/09/17 17:08 05/10/17 10:01 (NS 1000 ml Inj) 1,000 ml @ 0 mls/hr Q0M PRN IV 05/09/17 17:08 (Mannitol Inj) 12.5 gm UNSCH PRN IV 05/09/17 17:15 (Albumin 25% Inj) 25 gm UNSCH PRN IV 05/09/17 17:15 (NS Flush) 5 ml UNSCH PRN IV FLUSH 05/09/17 17:15 (Zofran Inj) 4 mg UNSCH PRN IV 05/09/17 17:15 (Tylenol) 650 mg UNSCH PRN PO 05/09/17 17:15 (Benadryl) 25 mg UNSCH PRN PO 05/09/17 17:15 (Nitrostat Sl) 0.4 mg UNSCH PRN SL 05/09/17 17:15 (Catapres) 0.1 mg UNSCH PRN PO 05/09/17 17:15 (Epogen Inj) 10,000 units UNSCH PRN IV 05/09/17 17:15 05/12/17 12:25 (Gelfoam 12 Mm/7 Mm Top) 1 foam UNSCH PRN TOP 05/09/17 17:15 05/10/17 10:01 (Brilinta) 90 mg BID PO 05/09/17 21:00 05/12/17 08:54 (Levemir Inj) 5 units Q12HR SQ 05/09/17 21:00 05/12/17 09:04 (Percocet 5-325 Mg) 1 tab Q6H PRN PO 05/09/17 20:45 (Deltasone) 20 mg BID PO 05/10/17 21:00 05/12/17 08:55 (Protonix) 40 mg BID PO 05/11/17 21:00 05/12/17 08:54 (Bumetanide) 1 mg DAILY PO 05/12/17 09:00 05/12/17 08:54 (Proscar) 5 mg DAILY PO 05/12/17 09:00 05/12/17 08:54 (Tylenol) 650 mg Q6H PO 05/11/17 14:00 05/12/17 13:05 Vital Signs / I&O Vital Signs Date Time Temp Pulse Resp B/P Pulse Ox O2 Delivery O2 Flow Rate FiO2 05/12/17 15:00 66 05/12/17 14:45 2.00 05/12/17 14:00 65 05/12/17 13:51 74 05/12/17 13:00 96.8 71 18 163/74 100 05/12/17 12:04 79 05/12/17 11:00 59 05/12/17 10:14 65 05/12/17 09:23 65 05/12/17 08:00 68 05/12/17 07:49 99 Nasal Cannula 2.00 05/12/17 07:00 98.6 63 18 132/66 100 05/12/17 07:00 62 05/12/17 07:00 100 Nasal Cannula 2.00 05/12/17 06:00 62 05/12/17 05:00 63 05/12/17 04:00 63 05/12/17 03:00 97.9 61 18 140/75 99 05/12/17 03:00 61 05/12/17 02:00 66 05/12/17 01:00 64 05/12/17 00:00 64 05/11/17 23:35 100 Nasal Cannula 2.00 05/11/17 23:30 97.7 65 18 138/70 100 05/11/17 23:00 66 05/11/17 22:00 62 05/11/17 21:00 64 05/11/17 20:00 64 05/11/17 20:00 100 Nasal Cannula 2.50 05/11/17 20:00 97.8 67 18 138/74 100 05/11/17 19:00 64 05/11/17 18:16 78 05/11/17 17:04 62 I/O 05/11/17 05/11/17 05/11/17 05/12/17 05/12/17 05/12/17 07:00 15:00 23:00 07:00 15:00 23:00 Intake Total 240 ml 780 ml 240 ml Output Total 0 ml 150 ml 0 ml 4000 ml Balance 240 ml 630 ml 240 ml -4000 ml Intake Oral 240 ml 480 ml 240 ml IV Total 300 ml Output Urine Total 0 ml 150 ml 0 ml Hemodialysis 4000 ml # Bowel Movements 0 0 Physical Exam GENERAL: In NAD SKIN: Warm and dry. HEAD: Normocephalic. EYES: No scleral icterus. No injection or drainage. NECK: Supple, trachea midline. No JVD or lymphadenopathy. CARDIOVASCULAR: Regular rate and rhythm without murmurs, gallops, or rubs. RESPIRATORY: Breath sounds equal bilaterally. No accessory muscle use. GASTROINTESTINAL: Abdomen soft, non-tender, nondistended. MUSCULOSKELETAL: No cyanosis, or edema. Anterior CP reproducible with chest palpation Laboratory Laboratory Tests Test 05/11/17 05/12/17 16:09 05:30 Urine Color YELLOW Urine Turbidity CLOUDY Urine pH 6.5 Urine Specific [place] 1.017 Urine Protein 100 mg/dL Urine Glucose (UA) 150 mg/dL Urine Ketones NEG mg/dL Urine Occult Blood LARGE Urine Nitrite NEG Urine Bilirubin NEG Urine Urobilinogen LESS THAN 2.0 MG/DL Urine Leukocyte Esterase LARGE Urine RBC /hpf Urine WBC /hpf Urine Squamous Epithelial 1 /hpf Cells Urine Transitional Epithelial 4 /hpf Cells Urine Amorphous Sediment RARE Urine Bacteria OCC /hpf Microscopic Urinalysis Comment CULTURE INDICATED White Blood Count 9.4 TH/MM3 Red Blood Count 3.24 MIL/MM3 Hemoglobin 9.7 GM/DL Hematocrit 30.1 % Mean Corpuscular Volume 92.9 FL Mean Corpuscular Hemoglobin 29.9 PG Mean Corpuscular Hemoglobin 32.2 % Concent Red Cell Distribution Width 20.0 % Platelet Count 165 TH/MM3 Mean Platelet Volume 10.6 FL Neutrophils (%) (Auto) 86.8 % Lymphocytes (%) (Auto) 5.1 % Monocytes (%) (Auto) 8.0 % Eosinophils (%) (Auto) 0.0 % Basophils (%) (Auto) 0.1 % Neutrophils # (Auto) 8.1 TH/MM3 Lymphocytes # (Auto) 0.5 TH/MM3 Monocytes # (Auto) 0.7 TH/MM3 Eosinophils # (Auto) 0.0 TH/MM3 Basophils # (Auto) 0.0 TH/MM3 CBC Comment DIFF FINAL Differential Comment Sodium Level 134 MEQ/L Potassium Level 4.8 MEQ/L Chloride Level 97 MEQ/L Carbon Dioxide Level 27.3 MEQ/L Anion Gap 10 MEQ/L Blood Urea Nitrogen 54 MG/DL Creatinine 5.62 MG/DL Estimat Glomerular Filtration 10 ML/MIN Rate Random Glucose 161 MG/DL Calcium Level 6.9 MG/DL Protein Corrected Calcium 7.5 MG/DL Troponin I 0.09 NG/ML B-Type Natriuretic Peptide 1784 PG/ML Total Protein 6.0 GM/DL Imaging Last Impressions Chest X-Ray 05/11/17 0000 Signed Impressions: Service Date/Time: Thursday, May 11, 2017 12:41 - CONCLUSION: Worsening left base infiltrate and bibasilar fusion Kaleb Reinoso MD Assessment and Plan Problem List: (1) Acute on chronic systolic heart failure (2) Ischemic cardiomyopathy (3) CAD (coronary artery disease) (4) Hematuria, unspecified (5) Diabetes mellitus (6) Hypertension (7) ESRD (end stage renal disease) on dialysis Assessment and Plan No angina; atypical, likely musculoskeletal CP. Still w significant dyspnea. Will consult pulmonology. Continue tx for CHF. Continue dialysis. Continue monitoring. Increase activity as tolerated. He will need to go to rehab rather than home once ready. Rachael Eason MD May 12, 2017 16:04
[2017-05-12] MEDS: cefTRIAXone INJ 1,000 MG in SODIUM CHLORIDE 0.9% INJ 100 ML IV SCH (16:44)
--- NOTE | 2017-05-12 19:55 | MB ---
cc: Ginna MEJIA M.D. DATE OF CONSULTATION: 05/12/2017 HISTORY Mr. Valdovinos is a 76-year-old white male with multiple comorbidities including coronary disease and cardiomyopathy ischemic, peripheral arterial disease, diabetes, chronic renal failure on dialysis for inf-[id number]-half years, and severe physical disability basically bed and chair bound according to his for at least the last two years. He was admitted in March with an acute inferior [place], had to have another stent placed. He had an original bypass in 1998. He has also had significant peripheral arterial disease apparently with a recent stenting by Dr. Ortiz. Although he was told he had emphysema several years ago, he has less than a [id number] smoking history and quit smoking at 24 years of age. I do not have any formal documentation of the COPD. The patient failed a walk test today but is extremely weak, had to have assistance with ambulating. His oxygenation on 2 liters is 96-100%. Chest x-ray yesterday revealed increasing atelectasis at the left base. He has had some basilar atelectatic changes on admissions recently. He had a barium swallow which revealed no evidence of aspiration on a previous admission in March. Chest x-rays during that March admission also revealed some atelectatic changes at the left base. PAST MEDICAL HISTORY Past medical history is quite extensive. 1. End-stage renal disease with dialysis three days a week for lzm-iln-e-half years. 2. Chronic ischemic cardiomyopathy with EF of 35%. 3. Diabetes. 4. Macular degeneration. 5. Previous bypass surgery. 6. Previous IVC filter placement. 7. Cardiac stenting as recently as March. 8. Left knee replacement. 9. Skin cancers removed. SOCIAL HISTORY , living with his . She has a very difficult time caring for him at home because he is almost immobile. Smoking as noted. No alcohol use. ALLERGIES NO ALLERGIES NOTED. MEDICATIONS Reviewed in the EMR. PHYSICAL EXAMINATION GENERAL: This is an elderly-appearing disabled gentleman, very comfortable at rest. VITAL SIGNS: Afebrile, respirations 16-18 and his pulse is 70, blood pressure is 140/70. HEENT: Sclerae pale, anicteric. NECK: Neck veins are not distended. CHEST: Chest is actually fairly clear, somewhat diminished at the bases but no rales or congestion. HEART: Regular heart rhythm. Soft systolic murmur. No audible S3. ABDOMEN: Abdomen is obese but soft. EXTREMITIES: He has 1+ peripheral edema. No calf tenderness. Chronic stasis changes and arterial insufficiency changes in the skin of the legs. No cyanosis or clubbing. LABORATORY DATA Most recent white count is 9400, BUN is 54 with a creatinine of 5.6, BNP on presentation was 2481, followup 1784, hemoglobin is 9. DISCUSSION Mr. Valdovinos has multiple comorbidities, he is also quite debilitated physically, apparently has been very inactive for at least the last two years and has become physically disabled. He has some increasing left lower lobe atelectasis probably from hypoventilation. We will begin pulmonary therapy to try to improve ventilation and duration particularly at the bases, and I will have the nurses get him out of bed to the chair at least three times a day so he is mobile. Ultimately, clearance of this will depend on increasing mobility and improved pulmonary aeration. He does not appear to have any infection in the lung at the present time, he is afebrile with a normal white count but we will check a sputum as a surveillance. Further diagnostic and/or therapeutic intervention will depend on his ongoing clinical course and response to therapy. R. MD EDE Moreno/NICOLE /5:25 PM /7:36 PM
[2017-05-12] MEDS: ATORVASTATIN 80 MG TAB PO SCH (21:32)
[2017-05-13] VITALS (31 sets, daily range): BP systolic 140–158; BP diastolic 70–78; PULSE 57–77; RESP 16–20; TEMP 97.4–98.4; O2SAT 95–99
[2017-05-13] MEDS: RESP: ALBUTEROL 2.5 MG/IPRATROPIUM 0.5 MG NEB (SCH) INH ×2 (00:49→04:22)
[2017-05-13] MEDS: ACETAMINOPHEN 325 MG TAB PO SCH ×4 (02:18→22:53)
[2017-05-13] MEDS: HEPARIN SODIUM - SQ 10,000 UNITS/ML VIAL SQ SCH ×2 (02:19→14:49)
[2017-05-13] MEDS: NITROGLYCERIN 2% OINT 1 GM PACKET TOP SCH ×3 (06:30→17:10)
[2017-05-13] MEDS: CARVEDILOL 12.5 MG TAB PO SCH ×3 (06:30→22:54)
[2017-05-13] MEDS: MORPHINE SULFATE 4 MG/ML INJ IV PRN ×3 (06:32→14:47)
[2017-05-13] MEDS: INSULIN ASPART SUPPLEMENTAL SCALE SQ SCH ×4 (06:33→22:58)
[2017-05-13] MEDS: RESP: IPRATROPIUM 0.5 MG/2.5 ML NEB NEB SCH ×3 (07:32→19:39)
[2017-05-13 08:01] LABS: BASOPHIL % 0.1 % (0.0-2.0); HEMATOCRIT 31.4 % (39.0-51.0); HEMO FLAGS DIFF FINAL; LYMPH % 6.6 % (9.0-44.0); LYMPHOCYTE # 0.8 TH/MM3 (1.0-4.8); MEAN CORPUSCULAR HEMOGLOBIN 28.9 PG (27.0-34.0); MEAN CORPUSCULAR HGB CONC 31.1 % (32.0-36.0); MONO % 6.4 % (0.0-8.0); NEUT % 86.9 % (16.0-70.0); PLATELET COUNT 137 TH/MM3 (150-450); RED BLOOD COUNT 3.37 MIL/MM3 (4.50-5.90); RED CELL DISTRIBUTION WIDTH 19.6 % (11.6-17.2); WHITE BLOOD COUNT 11.6 TH/MM3 (4.0-11.0)
--- NOTE | 2017-05-13 08:09 | EKG ---
Date Performed: 05/12/2017 Time Performed: 13:19:14 PTAGE: 76 years EKG: Sinus rhythm Prolonged QT interval IV conduction defect Inferior infarct - age undetermined Anterolateral ST-T ch anges may be due to myocardial ischemia Abnormal ECG PREVIOUS TRACING : 05/09/2017 17.01 DOCTOR: Min Fung Interpretating Date/Time 05/13/2017 08:02:04
--- NOTE | 2017-05-13 08:16 | HHI.FPPN ---
Subjective Remarks AFVSS overnight. Pulm consulted given little improvement in SOB. Continuing to get dialysis. Today, 05/13 the patient is feeling well. Eating his breakfast in bed, speaking in full sentences. No concerns at this time. He is still having the intermittent chest pain that has not changed in severity or nature. Home 02 walk test failed, after walking to the door. (Tereso Dyson MD R2) Objective Vitals Vital Signs Date Time Temp Pulse Resp B/P Pulse Ox O2 Delivery O2 Flow Rate FiO2 05/13/17 07:36 99 05/13/17 06:00 64 05/13/17 05:00 57 05/13/17 04:24 96 Nasal Cannula 4.50 05/13/17 04:00 98.4 66 16 151/78 98 05/13/17 04:00 66 05/13/17 03:00 64 05/13/17 02:00 66 05/13/17 01:00 66 05/13/17 00:52 98 Nasal Cannula 4.50 05/13/17 00:00 67 05/12/17 23:30 98.0 70 18 151/81 97 05/12/17 23:00 66 05/12/17 22:00 68 05/12/17 21:00 68 05/12/17 20:00 68 05/12/17 20:00 98.0 69 18 150/67 99 05/12/17 20:00 99 Nasal Cannula 1.00 05/12/17 19:31 95 Nasal Cannula 4.50 05/12/17 19:00 66 05/12/17 18:16 80 05/12/17 17:25 71 05/12/17 16:28 70 05/12/17 15:00 98.0 69 18 147/71 96 05/12/17 15:00 66 05/12/17 14:45 2.00 05/12/17 14:00 65 05/12/17 13:51 74 05/12/17 13:00 96.8 71 18 163/74 100 05/12/17 12:04 79 05/12/17 11:00 59 05/12/17 10:14 65 05/12/17 09:23 65 I/O 05/12/17 05/12/17 05/12/17 05/13/17 05/13/17 05/13/17 07:00 15:00 23:00 07:00 15:00 23:00 Intake Total 240 ml 810 ml 240 ml Output Total 0 ml 4000 ml 0 ml 25 ml Balance 240 ml -4000 ml 810 ml 215 ml Intake Oral 240 ml 480 ml 240 ml IV Total 330 ml Output Urine Total 0 ml 0 ml 25 ml Hemodialysis 4000 ml # Bowel Movements 0 1 0 (Tereso Dyson MD R2) Result Diagram: 05/13/17 0702 05/12/17 0530 Imaging Last 72 hours Impressions Chest X-Ray 05/11/17 0000 Signed Impressions: Service Date/Time: Thursday, May 11, 2017 12:41 - CONCLUSION: Worsening left base infiltrate and bibasilar fusion Kaleb Reinoso MD Objective Remarks Gen.: No acute distress Head: Normocephalic. Atraumatic. EENT: Pupils equal round and reactive to light. Nose without drainage. Airway intact. Throat without injection. Cardiovascular: Regular rate and rhythm. No murmurs, rubs or gallops. Chest: Pain with palpation at the xiphoid process. Reproducible. Respiratory: Crackles at the bases L > R. Abdomen: Soft, nontender, nondistended. No peritoneal signs. Musculoskeletal: No gross deformities. No edema. Skin: No obvious rashes or erythema. Neuro: Sensory and motor grossly intact. Cranial nerves II through XII grossly intact. Psych: Appropriate mood and affect (Tereso Dyson MD R2) A/P Assessment and Plan Mr. Valdovinos is 76-year-old male, with a significant past medical history of end-stage renal disease receiving dialysis MWF, congestive heart failure, coronary artery disease with previous bypass and stenting, inferior wall [place], COPD, bladder cancer, presenting with abrupt onset chest pain and shortness of breath 24 hours. He will be admitted for CHF exacerbation, fluid overload, as well as a COPD exacerbation. Problem #1: Acute exacerbation of systolic congestive heart failure Elevated BNP. Patient remains short of breath with chest pain. ACS rule out negative, elevated troponins at baseline. Repeat on 05/12 showed downtrending troponins of 0.09. 2D ECHO showed EF of 3540% Cardiology consulted, appreciate recommendations. Continue medical therapy at this time. 1.5 Lfluid water restriction. Strict I's and O's. Bumex IV 1 mg PO daily. Problem #2: Chest pain Given reproducibility of the pain, likely noncardiac in origin. GERD versus costochondritis. Increase Protonix to 40 mg twice a day Given patient's history of CAD low threshold to repeat ACS rule out. Problem #3: Coronary artery disease Previous stent in March 2017 for saphenous graft occlusion proximal to the right coronary artery. Stented by Dr. Eason. Continue dual antiplatelet therapy with 90 mg twice a day, as well as aspirin 81 mg daily. Continue home statin therapy. Problem #4: End-stage renal disease Consult nephrology, we appreciate their assistance. Continue dialysis MWF Removed 4 L on 05/12 Problem #5: COPD exacerbation Rocephin and azithromycin for Left base infiltrate Prednisone 20 mg twice a day DuoNeb's every 4 hours scheduled. Incentive spirometry Oxygen 1-4 L O2 greater than 90%. OOB with assistance minimum of TID. Failed home O2 walk test - will need supp O2 on discharge - consult PT/OT for recs on discharge plans. 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 Patient follows with urology. Still with gross hematuria - monitor CBC daily. Hgb on admission 9.4 g/dL. Problem #7: Diabetes mellitus On Lantus 10 units subcutaneous daily at bedtime, transition to Levemir 5 units twice a day. In addition to insulin sliding scale. BG 150s x 24 hrs. Problem #8: FEN Hep-Lock IV Electrolytes: Replete when necessary Nutrition Heart healthy diet. DVT ppx: Heparin 5,000 U q 12. sdw Dr. Mars wdw Dr. Renteria. Discharge Planning Pending clinical improvement (Tereso Dyson MD R2) Attending Attestation Patient seen and examined. Case reviewed and discussed Agree with plan of care as discussed with me and documented in the resident note. (Yaritza Mars MD) Problem List: (1) COPD exacerbation Status: Acute (2) Gross hematuria Status: Chronic (3) ESRD needing dialysis Status: Acute (4) Acute on chronic systolic heart failure Status: Acute (5) CAD (coronary artery disease) Status: Chronic (6) Hypertension Status: Chronic (Tereso Dyson MD R2) Tereso Dyson MD R2 May 13, 2017 08:16 Yaritza Mars MD May 17, 2017 10:36
[2017-05-13 08:39] LABS: BICARBONATE 31.5 MEQ/L (21.0-32.0); POTASSIUM 4.2 MEQ/L (3.5-5.1)
[2017-05-13] MEDS ORDERED: OXYGENDME NAS.CANULA (08:46)
[2017-05-13 09:12] LABS: CALCIUM-PROTEIN CORRECTED 8.1 MG/DL (8.5-10.1)
[2017-05-13] MEDS: TICAGRELOR 90 MG TAB PO SCH ×2 (10:14→22:54)
[2017-05-13] MEDS: BUMETANIDE 1 MG TAB PO SCH (10:14)
[2017-05-13] MEDS: PANTOPRAZOLE SOD 40 MG DELAYED RELEASE TAB PO SCH ×2 (10:14→22:53)
[2017-05-13] MEDS: predniSONE 20 MG TAB PO SCH ×2 (10:14→22:53)
[2017-05-13] MEDS: DOCUSATE SODIUM 50 MG/SENNA 8.6 MG TAB PO SCH ×2 (10:15→22:54)
[2017-05-13] MEDS: SODIUM CHLORIDE 0.9% FLUSH 10 ML FLUSH IV FLUSH SCH ×2 (10:15→22:54)
[2017-05-13] MEDS: ASPIRIN EC 81 MG TABEC PO SCH (10:15)
[2017-05-13] MEDS: FINASTERIDE 5 MG TAB PO SCH (10:15)
[2017-05-13] MEDS: INSULIN DETEMIR 100 UNITS/ML VIAL SQ SCH ×2 (10:20→22:57)
[2017-05-13] MEDS: SEVELAMER CARBONATE 800 MG TAB PO SCH ×3 (10:57→17:00)
[2017-05-13] MEDS: SODIUM BICARBONATE 650 MG TAB PO SCH ×2 (10:58→22:54)
[2017-05-13] MEDS: CALCIUM CARBONATE 1.25 GM (CA 500 MG) TAB PO SCH ×2 (10:58→22:53)
--- NOTE | 2017-05-13 13:13 | HHI.NPPN ---
Subjective History of Present Illness Esrd Additional Remarks CP Objective Data Data 05/12/17 05/13/17 19:00 07:00 Intake Total 810 ml 240 ml Output Total 4000 ml 25 ml Balance -3190 ml 215 ml Intake Oral 480 ml 240 ml IV Total 330 ml Output Urine Total 0 ml 25 ml Hemodialysis 4000 ml # Bowel Movements 1 0 Vital Signs Date Time Temp Pulse Resp B/P Pulse Ox O2 Delivery O2 Flow Rate FiO2 05/13/17 12:00 64 05/13/17 11:02 19 05/13/17 11:00 97.6 64 18 140/70 99 05/13/17 11:00 61 05/13/17 10:00 66 05/13/17 09:00 66 05/13/17 08:00 64 05/13/17 07:36 99 05/13/17 07:00 59 05/13/17 07:00 95 Nasal Cannula 1.00 05/13/17 07:00 97.6 70 18 158/77 95 05/13/17 06:00 64 05/13/17 05:00 57 05/13/17 04:24 96 Nasal Cannula 4.50 05/13/17 04:00 98.4 66 16 151/78 98 05/13/17 04:00 66 05/13/17 03:00 64 05/13/17 02:00 66 05/13/17 01:00 66 05/13/17 00:52 98 Nasal Cannula 4.50 05/13/17 00:00 67 05/12/17 23:30 98.0 70 18 151/81 97 05/12/17 23:00 66 05/12/17 22:00 68 05/12/17 21:00 68 05/12/17 20:00 68 05/12/17 20:00 98.0 69 18 150/67 99 05/12/17 20:00 99 Nasal Cannula 1.00 05/12/17 19:31 95 Nasal Cannula 4.50 05/12/17 19:00 66 05/12/17 18:16 80 05/12/17 17:25 71 05/12/17 16:28 70 05/12/17 15:00 98.0 69 18 147/71 96 05/12/17 15:00 66 05/12/17 14:45 2.00 05/12/17 14:00 65 05/12/17 13:51 74 -: 05/13/17 0702 05/13/17 0702 Microbiology 05/12/17 Gram Stain - Final, Resulted 05/12/17 Sputum Culture - Preliminary, Resulted HEAVY GROWTH NORMAL RESPIRATORY TATIANNA... Physical Exam General Appearance: Well Developed Neck Neck Exam: Neck Supple Pulmonary Resp Exam: Diminished Breath Sounds Cardiology CV Exam: Regular Gastrointestinal/Abdomen GI Exam: Soft, Non-Tender, Bowel Sounds Present Extremeties Extremities Exam: Trace Edema Assessment/Plan Problem List: (1) ESRD (end stage renal disease) on dialysis Plan: Continue with hemodialysis on Wednesday, Wednesday and Wednesday CP atypical on steroids CAD EF 35% next HD in am (2) CHF due to valvular disease Plan: Continue to do hemodialysis 3 times a week (3) CAD (coronary artery disease) Plan: Status post CABG (4) Diabetes mellitus Plan: Follow blood glucose (5) Hypertension Plan: Continue monitor Nicci Rock MD May 13, 2017 13:13
[2017-05-13] MEDS: AZITHROMYCIN INJ 500 MG in SODIUM CHLOR 0.9% 250 ML INJ 250 ML IV SCH (14:48)
[2017-05-13] MEDS: cefTRIAXone INJ 1,000 MG in SODIUM CHLORIDE 0.9% INJ 100 ML IV SCH (14:49)
--- NOTE | 2017-05-13 16:28 | RADRPT ---
EXAM DATE/TIME: 05/13/2017 16:00 [facility] COMPARISON: CHEST PA & LAT, September 15, 2016, 10:07. INDICATIONS : Pulmonary edema MEDICAL HISTORY : Arthritis. Myocardial infarction. Hypercholesterolemia. Cataracts. CVA. SURGICAL HISTORY : Cholecystectomy. ENCOUNTER: Subsequent ACUITY: 3 days PAIN SCORE: 5/10 LOCATION: Bilateral chest FINDINGS: Median sternotomy wires are noted status post cardiac surgery. The heart is enlarged. Minimal pulmo nary vascular congestion is noted bilaterally. There is no significant change in the appearance of t he vascular stent within the left shoulder region. CONCLUSION: 1. Mild pulmonary vascular congestion. 2. Cardiomegaly. Franklin Jean Baptiste MD on May 13, 2017 at 16:20 Board Certified Radiologist. This report was verified electronically.
--- NOTE | 2017-05-13 17:06 | RADRPT ---
EXAM DATE/TIME: 05/13/2017 14:53 [facility] COMPARISON: CHEST PA & LAT, May 13, 2017, 16:00. INDICATIONS : Chest pain and dyspnea. DOSE: 1.02 mCi Tc99m DTPA 8.8 mCi Tc99m MAA MEDICAL HISTORY : Chronic obstructive pulmonary disease. Hypertension. Congestive heart failure. ESRD. SURGICAL HISTORY : CABG Cholecystectomy. ENCOUNTER: Initial ACUITY: 2 days PAIN SCALE: 0/10 LOCATION: Bilateral chest TECHNIQUE: Following five minutes of tidal breathing of DTPA aerosol, planar images of the lungs were performed in eight projections. The patient was then injected with MAA, and eight-view perfusion scan was perf ormed. FINDINGS: There is a heterogeneous perfusion abnormality involving the left lower lobe with corresponding venti latory defect. The chest radiograph shows diffuse interstitial prominence in vascular congestion. No focal pneumonia. CONCLUSION: Intermediate probability scan for pulmonary embolism Kaleb Reinoso MD on May 13, 2017 at 17:02 Board Certified Radiologist. This report was verified electronically.
--- NOTE | 2017-05-13 17:28 | OTSOAPIP ---
TIME SESSION COMPLETED: 1611 ATTEMPTED TO SEE PATIENT FOR INITIAL OCCUPATIONAL THERAPY EVALUATION, HOWEVER UPON ARRIVAL PATIENT WAS OFF FLOOR FOR CHEST X-RAY. WILL FOLLOW UP NEXT DAY. INTERDISCIPLINARY COMMUNICATION: REVIEWED ELECTRONIC MEDICAL RECORD Therapist: Priscila Workman OTR/Noah Signature on file
[2017-05-13] MEDS ORDERED: HEPARIN-D5W INJ 250 ML IV SCH ×2 (17:45→18:45)
[2017-05-13] MEDS ORDERED: HEPARIN SODIUM - IV 10,000 UNITS/10 ML VIAL IV ONE (18:15)
[2017-05-13] MEDS ORDERED: HEPARIN SODIUM - IV 10,000 UNITS/10 ML VIAL IV PRN ×4 (18:45→23:45)
--- NOTE | 2017-05-13 18:45 | PD.CARD.PN ---
Subjective Subjective Remarks No CP, still c/o KERR, more active Objective Medications Current Medications Medications (Trade) Dose Ordered Sig/Darinel Route Start Time Stop Time Status Last Admin (Ecotrin Ec) 81 mg DAILY PO 05/10/17 09:00 05/13/17 10:15 (Lipitor) 80 mg HS PO 05/09/17 21:00 05/12/17 21:32 (Renvela) 800 mg TIDAC PO 05/09/17 17:00 05/13/17 17:00 (Sodium Bicarbonate) 650 mg BID PO 05/09/17 21:00 05/13/17 10:58 (NS Flush) 2 ml UNSCH PRN IV FLUSH 05/09/17 13:15 (NS Flush) 2 ml BID IV FLUSH 05/09/17 13:30 05/13/17 10:15 (Narcan Inj) 0.4 mg UNSCH PRN IV 05/09/17 13:15 (Mely-Colace) 1 tab BID PO 05/09/17 13:30 05/13/17 10:15 (Nitroglycerin 2% Oint) 1 inch Q6HR TOP 05/09/17 13:15 05/13/17 17:10 (Morphine Inj) 2 mg Q5M PRN IV 05/09/17 13:15 05/13/17 14:47 (Coreg) 12.5 mg Q8HR PO 05/09/17 14:00 05/13/17 14:48 (D50w (Vial) Inj) 50 ml UNSCH PRN IV 05/09/17 13:15 Glucagon 1 mg 1 mg UNSCH PRN OTHER 05/09/17 13:15 Ceftriaxone Sodium 1000 mg/ Sodium Chloride 100 ml @ 200 mls/hr Q24H IV 05/09/17 15:00 05/13/17 14:49 (Zithromax Inj/ NS 250 ml Inj) 250 ml @ 250 mls/hr Q24H IV 05/09/17 14:00 05/13/17 14:48 Clonidine 0.1 mg 0.1 mg Q6H PRN PO 05/09/17 16:15 05/09/17 16:45 (NS 1000 ml Inj) 1,000 ml @ 0 mls/hr Q0M PRN IV 05/09/17 17:08 Heparin Sodium (Porcine) 8000 units 8,000 units UNSCH PRN IVF 05/09/17 17:15 Sodium Chloride 1,000 ml @ 200 mls/hr Q5H PRN IV 05/09/17 17:08 05/10/17 10:01 (NS 1000 ml Inj) 1,000 ml @ 0 mls/hr Q0M PRN IV 05/09/17 17:08 (Mannitol Inj) 12.5 gm UNSCH PRN IV 05/09/17 17:15 (Albumin 25% Inj) 25 gm UNSCH PRN IV 05/09/17 17:15 (NS Flush) 5 ml UNSCH PRN IV FLUSH 05/09/17 17:15 (Zofran Inj) 4 mg UNSCH PRN IV 05/09/17 17:15 (Tylenol) 650 mg UNSCH PRN PO 05/09/17 17:15 (Benadryl) 25 mg UNSCH PRN PO 05/09/17 17:15 (Nitrostat Sl) 0.4 mg UNSCH PRN SL 05/09/17 17:15 (Catapres) 0.1 mg UNSCH PRN PO 05/09/17 17:15 (Epogen Inj) 10,000 units UNSCH PRN IV 05/09/17 17:15 05/12/17 12:25 (Gelfoam 12 Mm/7 Mm Top) 1 foam UNSCH PRN TOP 05/09/17 17:15 05/10/17 10:01 (Brilinta) 90 mg BID PO 05/09/17 21:00 05/13/17 10:14 (Levemir Inj) 5 units Q12HR SQ 05/09/17 21:00 05/13/17 10:20 (Percocet 5-325 Mg) 1 tab Q6H PRN PO 05/09/17 20:45 (Deltasone) 20 mg BID PO 05/10/17 21:00 05/13/17 10:14 (Protonix) 40 mg BID PO 05/11/17 21:00 05/13/17 10:14 (Bumetanide) 1 mg DAILY PO 05/12/17 09:00 05/13/17 10:14 (Proscar) 5 mg DAILY PO 05/12/17 09:00 05/13/17 10:15 (Tylenol) 650 mg Q6H PO 05/11/17 14:00 05/13/17 14:49 Calcium Carbonate 500 mg 500 mg Q12HR PO 05/13/17 09:00 05/13/17 10:58 (Heparin-D5W Inj) 250 ml @ 0 mls/hr TITRATE IV 05/13/17 18:45 (Heparin Inj) 5,000 units UNSCH PRN IV 05/13/17 18:45 (Heparin Inj) 2,500 units UNSCH PRN IV 05/13/17 18:45 Vital Signs / I&O Vital Signs Date Time Temp Pulse Resp B/P Pulse Ox O2 Delivery O2 Flow Rate FiO2 05/13/17 18:00 59 05/13/17 17:00 77 05/13/17 16:00 68 05/13/17 15:30 97.6 67 20 140/73 98 05/13/17 15:00 65 05/13/17 14:00 62 05/13/17 13:38 99 Nasal Cannula 2.00 05/13/17 13:00 66 05/13/17 12:00 64 05/13/17 11:02 19 05/13/17 11:00 97.6 64 18 140/70 99 05/13/17 11:00 61 05/13/17 10:00 66 05/13/17 09:00 66 05/13/17 08:00 64 05/13/17 07:36 99 05/13/17 07:00 59 05/13/17 07:00 95 Nasal Cannula 1.00 05/13/17 07:00 97.6 70 18 158/77 95 05/13/17 06:00 64 05/13/17 05:00 57 05/13/17 04:24 96 Nasal Cannula 4.50 05/13/17 04:00 98.4 66 16 151/78 98 05/13/17 04:00 66 05/13/17 03:00 64 05/13/17 02:00 66 05/13/17 01:00 66 05/13/17 00:52 98 Nasal Cannula 4.50 05/13/17 00:00 67 05/12/17 23:30 98.0 70 18 151/81 97 05/12/17 23:00 66 05/12/17 22:00 68 05/12/17 21:00 68 05/12/17 20:00 68 05/12/17 20:00 98.0 69 18 150/67 99 05/12/17 20:00 99 Nasal Cannula 1.00 05/12/17 19:31 95 Nasal Cannula 4.50 05/12/17 19:00 66 I/O 05/12/17 05/12/17 05/12/17 05/13/17 05/13/17 05/13/17 07:00 15:00 23:00 07:00 15:00 23:00 Intake Total 240 ml 810 ml 240 ml 740 ml Output Total 0 ml 4000 ml 0 ml 25 ml 200 ml Balance 240 ml -4000 ml 810 ml 215 ml 540 ml Intake Oral 240 ml 480 ml 240 ml 240 ml IV Total 330 ml 500 ml Output Urine Total 0 ml 0 ml 25 ml 200 ml Hemodialysis 4000 ml # Bowel Movements 0 1 0 Physical Exam GENERAL: In NAD SKIN: Warm and dry. HEAD: Normocephalic. EYES: No scleral icterus. No injection or drainage. NECK: Supple, trachea midline. No JVD or lymphadenopathy. CARDIOVASCULAR: Regular rate and rhythm without murmurs, gallops, or rubs. RESPIRATORY: Breath sounds equal bilaterally. No accessory muscle use. GASTROINTESTINAL: Abdomen soft, non-tender, nondistended. MUSCULOSKELETAL: No cyanosis, or edema. Anterior CP reproducible with chest palpation Laboratory Laboratory Tests Test 05/13/17 07:02 White Blood Count 11.6 TH/MM3 Red Blood Count 3.37 MIL/MM3 Hemoglobin 9.8 GM/DL Hematocrit 31.4 % Mean Corpuscular Volume 93.0 FL Mean Corpuscular Hemoglobin 28.9 PG Mean Corpuscular Hemoglobin 31.1 % Concent Red Cell Distribution Width 19.6 % Platelet Count 137 TH/MM3 Mean Platelet Volume 10.6 FL Neutrophils (%) (Auto) 86.9 % Lymphocytes (%) (Auto) 6.6 % Monocytes (%) (Auto) 6.4 % Eosinophils (%) (Auto) 0.0 % Basophils (%) (Auto) 0.1 % Neutrophils # (Auto) 10.0 TH/MM3 Lymphocytes # (Auto) 0.8 TH/MM3 Monocytes # (Auto) 0.7 TH/MM3 Eosinophils # (Auto) 0.0 TH/MM3 Basophils # (Auto) 0.0 TH/MM3 CBC Comment DIFF FINAL Differential Comment Sodium Level 137 MEQ/L Potassium Level 4.2 MEQ/L Chloride Level 98 MEQ/L Carbon Dioxide Level 31.5 MEQ/L Anion Gap 8 MEQ/L Blood Urea Nitrogen 40 MG/DL Creatinine 4.28 MG/DL Estimat Glomerular Filtration 14 ML/MIN Rate Random Glucose 140 MG/DL Calcium Level 7.4 MG/DL Protein Corrected Calcium 8.1 MG/DL Total Protein 5.9 GM/DL Imaging Last Impressions Lung Scan-VQ Nuclear Medicine 05/13/17 0000 Signed Impressions: Service Date/Time: April 14:53 - CONCLUSION: Intermediate probability scan for pulmonary embolism Kaleb Reinoso MD Chest X-Ray 05/11/17 0000 Signed Impressions: Service Date/Time: Thursday, May 11, 2017 12:41 - CONCLUSION: Worsening left base infiltrate and bibasilar fusion Kaleb Reinoso MD Assessment and Plan Problem List: (1) Acute on chronic systolic heart failure (2) Ischemic cardiomyopathy (3) CAD (coronary artery disease) (4) Hematuria, unspecified (5) Diabetes mellitus (6) Hypertension (7) ESRD (end stage renal disease) on dialysis Assessment and Plan No angina; atypical, likely musculoskeletal CP. Still w significant dyspnea. Pulmonary evaluation in progress. Continue tx for CHF. Continue antiplatelet therapy. Continue dialysis. Continue monitoring. Increase activity as tolerated. He will need to go to rehab rather than home once ready. Rachael Eason MD May 13, 2017 18:44
[2017-05-13] MEDS: ATORVASTATIN 80 MG TAB PO SCH (22:53)
[2017-05-14] VITALS (11 sets, daily range): BP systolic 137–141; BP diastolic 63–68; PULSE 56–66; RESP 18; TEMP 97.4–98.3; O2SAT 99–100
--- NOTE | 2017-05-14 00:16 | HHI.FPPN ---
Addendum to progress note ADDENDUM Reason for addendum: Additonal documentation Additional information 76 y/o male with a significant PMHx of recent STEMI in March 2017 s/p stenting by Dr. Eason, COPD, ESRD getting dialysis MWF (care provided by Dr.s Fraser and Shweta), and DM, presenting with chest pain and CHF exacerbation. He has been getting aggressive fluid reduction with dialysis, ceftriaxone, and azithromycin for possible community acquired pneumonia, and his chronic medications for his heart failure. He has been stable since admission. In setting up discharge, he failed his home O2 walk test, desatting to 80% on room air, only after 5-10 feet , increasing our suspicion for PE (initial D-dimer was elevated on admission). VQ scan was indeterminant risk for PE with a perfusion defect in left lower lobe. He was started on a heparin gtt on 05/13 and will go for a confirmatory CTA follow by dialysis on 05/14 in AM. D/c planning to inpatient rehab once stable, with home O2. (Tereso Dyson MD R2) Tereso Dyson MD R2 May 14, 2017 00:16 Yaritza Mars MD May 14, 2017 14:26
[2017-05-14] MEDS: NITROGLYCERIN 2% OINT 1 GM PACKET TOP SCH ×2 (02:35→06:00)
[2017-05-14] MEDS: ACETAMINOPHEN 325 MG TAB PO SCH ×2 (02:35→07:56)
[2017-05-14 02:50] LABS: APTT (PATIENT) 245.3 SEC (24.3-30.1)
[2017-05-14 05:49] LABS: APTT (PATIENT) 88.5 SEC (24.3-30.1)
[2017-05-14] MEDS: INSULIN ASPART SUPPLEMENTAL SCALE SQ SCH ×3 (06:51→16:22)
[2017-05-14] MEDS: CARVEDILOL 12.5 MG TAB PO SCH (06:56)
[2017-05-14] MEDS: SEVELAMER CARBONATE 800 MG TAB PO SCH ×2 (06:56→16:20)
[2017-05-14] MEDS: INSULIN DETEMIR 100 UNITS/ML VIAL SQ SCH (07:54)
[2017-05-14] MEDS: MORPHINE SULFATE 4 MG/ML INJ IV PRN ×2 (07:55→16:17)
[2017-05-14] MEDS: BUMETANIDE 1 MG TAB PO SCH (07:56)
[2017-05-14] MEDS: ASPIRIN EC 81 MG TABEC PO SCH (07:56)
[2017-05-14] MEDS: predniSONE 20 MG TAB PO SCH (07:56)
[2017-05-14] MEDS: TICAGRELOR 90 MG TAB PO SCH (07:56)
[2017-05-14] MEDS: DOCUSATE SODIUM 50 MG/SENNA 8.6 MG TAB PO SCH (07:56)
[2017-05-14] MEDS: PANTOPRAZOLE SOD 40 MG DELAYED RELEASE TAB PO SCH (07:57)
[2017-05-14] MEDS: CALCIUM CARBONATE 1.25 GM (CA 500 MG) TAB PO SCH (07:57)
[2017-05-14] MEDS: SODIUM BICARBONATE 650 MG TAB PO SCH (07:57)
[2017-05-14] MEDS: FINASTERIDE 5 MG TAB PO SCH (07:57)
[2017-05-14] MEDS: RESP: IPRATROPIUM 0.5 MG/2.5 ML NEB NEB SCH ×2 (07:58→13:54)
[2017-05-14] MEDS: SODIUM CHLORIDE 0.9% FLUSH 10 ML FLUSH IV FLUSH SCH (07:59)
[2017-05-14] MEDS ORDERED: IOHEXOL 350 MG/ML 10 ML VIAL (for RAD DIAG) IV ONE (08:43)
--- NOTE | 2017-05-14 09:12 | RADRPT ---
EXAM DATE/TIME: 05/14/2017 08:43 [facility] COMPARISON: LUNG VENTILATION & PERFUSION SCAN, May 13, 2017, 14:53. INDICATIONS : Chest pain with shortness of breath. IV CONTRAST: 60 cc Omnipaque 350 (iohexol) IV RADIATION DOSE: 16.92 CTDIvol (mGy) MEDICAL HISTORY : Renal failure, chronic. Cardiovascular disease Chronic obstructive pulmonary disease.Diabetes, bladde r cancer SURGICAL HISTORY : Cholecystectomy. CABG ENCOUNTER: Initial ACUITY: 1 day PAIN SCALE: 3/10 LOCATION: Left chest TECHNIQUE: Volumetric scanning of the chest was performed using a pulmonary embolism protocol MIP images were re constructed. Using automated exposure control and adjustment of the mA and/or kV according to patien t size, radiation dose was kept as low as reasonably achievable to obtain optimal diagnostic quality images. DICOM format image data is available electronically for review and comparison. FINDINGS: PULMONARY ARTERIES: No filling defects are seen in the pulmonary arteries through the segmental level. LUNGS: There is patchy lobular and tubular parenchymal density in the right perihilar region. There is mild atelectatic change in the left lung base which appears at least in part related to central airway obs truction involving the lower lobe segmental bronchi. There is a small volume of fissural fluid and fi ssural pseudotumor present. Minimal bilateral dependent pleural fluid. PLEURAE: Bilateral pleural fluid, minimal dependent fluid and fissural pseudotumor on the left. MEDIASTINUM: There is good visualization of the great vessels of the middle mediastinum. No evidence of mediastin al or hilar adenopathy/mass. Dense coronary calcifications. MUSCULOSKELETAL: Within normal limits for patient age. MISCELLANEOUS: The visualized upper abdominal organs demonstrate no acute abnormality. CONCLUSION: No evidence of pulmonary embolism. Pleural and parenchymal lung findings as described. Kaleb Reinoso MD on May 14, 2017 at 9:04 Board Certified Radiologist. This report was verified electronically.
--- NOTE | 2017-05-14 09:25 | HHI.NPPN ---
Subjective History of Present Illness Esrd Additional Remarks CP Objective Data Data 05/13/17 05/14/17 19:00 07:00 Intake Total 740 ml Output Total 200 ml Balance 540 ml Intake Oral 240 ml IV Total 500 ml Output Urine Total 200 ml Vital Signs Date Time Temp Pulse Resp B/P Pulse Ox O2 Delivery O2 Flow Rate FiO2 05/14/17 06:54 98.3 63 18 137/63 100 05/14/17 06:00 62 05/14/17 05:00 63 05/14/17 04:00 64 05/14/17 03:00 56 05/14/17 02:00 62 05/14/17 01:00 62 05/14/17 00:42 97.4 66 18 141/66 99 05/14/17 00:00 62 05/13/17 23:00 63 05/13/17 22:00 64 05/13/17 21:01 97 Nasal Cannula 1.00 05/13/17 21:00 62 05/13/17 20:50 97.4 66 18 149/73 97 05/13/17 20:00 62 05/13/17 19:42 98 Nasal Cannula 1.00 05/13/17 19:00 58 05/13/17 18:00 59 05/13/17 17:00 77 05/13/17 16:00 68 05/13/17 15:30 97.6 67 20 140/73 98 05/13/17 15:00 65 05/13/17 14:00 62 05/13/17 13:38 99 Nasal Cannula 2.00 05/13/17 13:00 66 05/13/17 12:00 64 05/13/17 11:02 19 05/13/17 11:00 97.6 64 18 140/70 99 05/13/17 11:00 61 05/13/17 10:00 66 -: 05/13/17 0702 05/13/17 0702 Physical Exam General Appearance: Well Developed Neck Neck Exam: Neck Supple Pulmonary Resp Exam: Diminished Breath Sounds Cardiology CV Exam: Regular Gastrointestinal/Abdomen GI Exam: Soft, Non-Tender, Bowel Sounds Present Extremeties Extremities Exam: Trace Edema Assessment/Plan Problem List: (1) ESRD (end stage renal disease) on dialysis Plan: Continue with hemodialysis on Wednesday, Wednesday and Wednesday CP atypical on steroids CAD EF 35% CTA neg for PE dialysis UF 3 L tolerating it well seen during dialysis (2) CHF due to valvular disease Plan: Continue to do hemodialysis 3 times a week (3) CAD (coronary artery disease) Plan: Status post CABG (4) Diabetes mellitus Plan: Follow blood glucose (5) Hypertension Plan: Continue monitor Nicci Rock MD May 14, 2017 09:25
[2017-05-14] MEDS: EPOETIN ALFA 10,000 UNITS/ML VIAL IV PRN (09:29)
--- NOTE | 2017-05-14 12:07 | HHI.FPPN ---
Subjective Remarks No acute events overnight. Afebrile, vital signs stable. Patient continues to complain of localizable chest pain, reproducible with palpation. States his breathing was bad this morning but it has since improved. Is stable on 1 L nasal cannula. (Syeda Renteria MD R3) Objective Vitals Vital Signs Date Time Temp Pulse Resp B/P Pulse Ox O2 Delivery O2 Flow Rate FiO2 05/14/17 07:00 98.3 60 18 137/68 99 05/14/17 07:00 60 05/14/17 07:00 95 Nasal Cannula 1.00 05/14/17 06:54 98.3 63 18 137/63 100 05/14/17 06:00 62 05/14/17 05:00 63 05/14/17 04:00 64 05/14/17 03:00 56 05/14/17 02:00 62 05/14/17 01:00 62 05/14/17 00:42 97.4 66 18 141/66 99 05/14/17 00:00 62 05/13/17 23:00 63 05/13/17 22:00 64 05/13/17 21:01 97 Nasal Cannula 1.00 05/13/17 21:00 62 05/13/17 20:50 97.4 66 18 149/73 97 05/13/17 20:00 62 05/13/17 19:42 98 Nasal Cannula 1.00 05/13/17 19:00 58 05/13/17 18:00 59 05/13/17 17:00 77 05/13/17 16:00 68 05/13/17 15:30 97.6 67 20 140/73 98 05/13/17 15:00 65 05/13/17 14:00 62 05/13/17 13:38 99 Nasal Cannula 2.00 05/13/17 13:00 66 I/O 05/13/17 05/13/17 05/13/17 05/14/17 05/14/17 05/14/17 07:00 15:00 23:00 07:00 15:00 23:00 Intake Total 240 ml 740 ml 240 ml Output Total 25 ml 200 ml 100 ml Balance 215 ml 540 ml 140 ml Intake Oral 240 ml 240 ml 240 ml IV Total 500 ml Output Urine Total 25 ml 200 ml 100 ml # Bowel Movements 0 (Syeda Renteria MD R3) Result Diagram: 05/13/17 0705/13/17 0702 Objective Remarks Gen.: No acute distress Head: Normocephalic. Atraumatic. EENT: Pupils equal round and reactive to light. Nose without drainage. Airway intact. Throat without injection. Cardiovascular: Regular rate and rhythm. No murmurs, rubs or gallops. Chest: Pain with palpation at the xiphoid process. Reproducible. Respiratory: CTAB in anterior adler. Abdomen: Soft, nontender, nondistended. No peritoneal signs. Musculoskeletal: No gross deformities. No edema. Skin: No obvious rashes or erythema. Neuro: Sensory and motor grossly intact. Cranial nerves II through XII grossly intact. Psych: Appropriate mood and affect (Syeda Renteria MD R3) A/P Assessment and Plan Mr. Valdovinos is 76-year-old male, with a significant past medical history of end-stage renal disease receiving dialysis MWF, congestive heart failure, coronary artery disease with previous bypass and stenting, inferior wall TN, COPD, bladder cancer, presenting with abrupt onset chest pain and shortness of breath 24 hours. He will be admitted for CHF exacerbation, fluid overload, as well as a COPD exacerbation. Problem #1: Acute exacerbation of systolic congestive heart failure Elevated BNP. Patient at baseline. ACS rule out negative, elevated troponins at baseline. Repeat on 05/12 showed downtrending troponins of 0.09. 2D ECHO showed EF of 3540% Cardiology consulted, appreciate recommendations. Continue medical therapy at this time. 1.5 Lfluid water restriction. Strict I's and O's. Bumex 1 mg PO daily. Problem #2: Chest pain Given reproducibility of the pain, likely noncardiac in origin. GERD versus costochondritis. Increase Protonix to 40 mg twice a day Given patient's history of CAD low threshold to repeat ACS rule out. Problem #3: Coronary artery disease Previous stent in March 2017 for saphenous graft occlusion proximal to the right coronary artery. Stented by Dr. Eason. Continue dual antiplatelet therapy with 90 mg twice a day, as well as aspirin 81 mg daily. Continue home statin therapy. Problem #4: End-stage renal disease Consult nephrology, we appreciate their assistance. Continue dialysis MWF Removed 4 L on 05/12 Problem #5: COPD exacerbation Rocephin and azithromycin x 5 days, completed Prednisone 20 mg twice a day DuoNeb's every 4 hours scheduled. Incentive spirometry OOB with assistance minimum of TID. 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 Patient follows with urology. Still with gross hematuria - monitor CBC daily. Hgb on admission 9.4 g/dL. Problem #7: Diabetes mellitus On Lantus 10 units subcutaneous daily at bedtime, transition to Levemir 5 units twice a day. In addition to insulin sliding scale. BG 150s x 24 hrs. Problem #8: FEN Hep-Lock IV Electrolytes: Replete when necessary Nutrition Heart healthy diet. DVT ppx: Heparin 5,000 U q 12. Discharge Planning To SNF hopefully today (Syeda Renteria MD R3) Attending Attestation Patient seen and examined. Case reviewed and discussed Agree with plan of care as discussed with me and documented in the resident note. (Yaritza Mars MD) Problem List: (1) COPD exacerbation Status: Acute (2) Gross hematuria Status: Chronic (3) ESRD needing dialysis Status: Acute (4) Acute on chronic systolic heart failure Status: Acute (5) CAD (coronary artery disease) Status: Chronic (6) Hypertension Status: Chronic (Sydea Renteria MD R3) Syeda Renteria MD R3 May 14, 2017 12:07 Yaritza Mars MD May 17, 2017 10:36
--- NOTE | 2017-05-14 12:11 | HHI.DCPOC ---
Discharge Care Plan Goals to Promote Your Health * To prevent worsening of your condition and complications take all medications as prescribed * To maintain your health at the optimal level follow all discharge instructions Directions to Meet Your Goals Take your medications as prescribed Follow your dietary instruction Follow activity as directed Keep your appointments as scheduled Take your immunizations and boosters as scheduled If your symptoms worsen call your PCP, if no PCP go to Urgent Care Center or Emergency Room Smoking is Dangerous to Your Health. Avoid second hand smoke Call the 24-hour hour crisis hotline for domestic abuse at Syeda Renteria MD R3 May 14, 2017 12:11 Yaritza Mars MD May 14, 2017 14:26
--- NOTE | 2017-05-14 12:15 | HHI.DS ---
Discharge Summary Admission Date May 09, 2017 at 13:13 Discharge Date: May 14, 2017 Admitting Diagnosis (1) COPD exacerbation Diagnosis: Principal (2) Gross hematuria Diagnosis: Secondary (3) ESRD needing dialysis Diagnosis: Secondary (4) Acute on chronic systolic heart failure Diagnosis: Principal (5) CAD (coronary artery disease) Diagnosis: Secondary (6) Hypertension Diagnosis: Secondary [facility] Pulmonology Brief History CC: "I don't feel good." HPI: He reports that "I couldn't breath yesterday at 630 pm". His SOB started abruptly. He thought his breathing would get better if he lid down and got rest , but his breathing actually got worse. He does not have home O2. His reports that he was up and down, and complaining of stomach pain after eating kazakh food. He also had 1 episode of chest pain that was reported as a "banging" in the center of his chest. It was a 7 out of 10 in intensity. He laid down and the pain got worse. The pain radiated into his back and he became sweaty during the episode. The pain was persistent until being evaluated in ED around 0900. He denies taking nitroglycerine. Currently, he is not having any chest pain. He reports that he "feels like one of the stents closed." He also has been having increased sputum production that is white in color. He denies having diarrhea - has BMs regularly - last BM was last night. At his baseline he uses a walker. Only minimal activity -- gets out of bed to chair and then to dialysis. Got Dialysis on Wednesday -- Dr. Fraser and Dr. Purcell. Taking medications regularly. Last week he was hospitalized in [facility] for redness in his feet - stent placed at that time by Dr. Bustillos. ROS: Still having pink urine. CBC/BMP: 05/13/17 0702 05/13/17 0702 Significant Findings Laboratory Tests Test 05/11/17 05/12/17 05/13/17 05/14/17 16:09 05:30 07:02 01:36 Urine Turbidity CLOUDY (CLEAR) Urine Protein 100 mg/dL (NEG-TRACE) Urine Glucose (UA) 150 mg/dL (NEG) Urine Occult Blood LARGE (NEG) Urine Leukocyte Esterase LARGE (NEG) Urine Bacteria OCC /hpf (NONE) Red Blood Count 3.24 MIL/MM3 3.37 MIL/MM3 (4.50-5.90) (4.50-5.90) Hemoglobin 9.7 GM/DL 9.8 GM/DL (13.0-17.0) (13.0-17.0) Hematocrit 30.1 % 31.4 % (39.0-51.0) (39.0-51.0) Red Cell Distribution Width 20.0 % 19.6 % (11.6-17.2) (11.6-17.2) Neutrophils (%) (Auto) 86.8 % 86.9 % (16.0-70.0) (16.0-70.0) Lymphocytes (%) (Auto) 5.1 % 6.6 % (9.0-44.0) (9.0-44.0) Neutrophils # (Auto) 8.1 TH/MM3 10.0 TH/MM3 (1.8-7.7) (1.8-7.7) Lymphocytes # (Auto) 0.5 TH/MM3 0.8 TH/MM3 (1.0-4.8) (1.0-4.8) Sodium Level 134 MEQ/L (136-145) Chloride Level 97 MEQ/L (98-107) Blood Urea Nitrogen 54 MG/DL (7-18) 40 MG/DL (7-18) Creatinine 5.62 MG/DL 4.28 MG/DL (0.60-1.30) (0.60-1.30) Estimat Glomerular Filtration 10 ML/MIN (>89) 14 ML/MIN (>89) Rate Random Glucose 161 MG/DL 140 MG/DL (74-106) (74-106) Calcium Level 6.9 MG/DL 7.4 MG/DL (8.5-10.1) (8.5-10.1) Protein Corrected Calcium 7.5 MG/DL 8.1 MG/DL (8.5-10.1) (8.5-10.1) Troponin I 0.09 NG/ML (0.02-0.05) B-Type Natriuretic Peptide 1784 PG/ML (0-100) Total Protein 6.0 GM/DL 5.9 GM/DL (6.4-8.2) (6.4-8.2) White Blood Count 11.6 TH/MM3 (4.0-11.0) Mean Corpuscular Hemoglobin 31.1 % Concent (32.0-36.0) Platelet Count 137 TH/MM3 (150-450) Activated Partial 245.3 SEC Thromboplast Time (24.3-30.1) Test 05/14/17 05:26 Activated Partial 88.5 SEC Thromboplast Time (24.3-30.1) Imaging Last [address] Angiography 05/14/17 0000 Signed Impressions: Service Date/Time: Sunday, May 14, 2017 08:43 - CONCLUSION: No evidence of pulmonary embolism. Pleural and parenchymal lung findings as described. Kaleb Reinoso MD Lung Scan-VQ Nuclear Medicine 05/13/17 0000 Signed Impressions: Service Date/Time: April 14:53 - CONCLUSION: Intermediate probability scan for pulmonary embolism Kaelb Reinoso MD Chest X-Ray 05/13/17 0000 Signed Impressions: Service Date/Time: April 16:00 - CONCLUSION: 1. Mild pulmonary vascular congestion. 2. Cardiomegaly. Franklin Jean Baptiste MD PE at Discharge Gen.: No acute distress Head: Normocephalic. Atraumatic. EENT: Pupils equal round and reactive to light. Nose without drainage. Airway intact. Throat without injection. Cardiovascular: Regular rate and rhythm. No murmurs, rubs or gallops. Chest: Pain with palpation at the xiphoid process. Reproducible. Respiratory: CTAB in anterior adler. Abdomen: Soft, nontender, nondistended. No peritoneal signs. Musculoskeletal: No gross deformities. No edema. Skin: No obvious rashes or erythema. Neuro: Sensory and motor grossly intact. Cranial nerves II through XII grossly intact. Psych: Appropriate mood and affect Hospital Course Patient admitted for COPD exacerbation and acute on chronic congestive heart failure. He arrived complaining of chest pain, ACS rule out negative. Chest pain persists is likely costochondritis. Reproducible with palpation. Not likely cardiac in origin. Patient seen by cardiology who agreed with medical management at this time. Patient seen by pulmonology who state that the patient needs to increase activity and go to rehabilitation on discharge. Nephrology assisting in patient's dialysis, Wednesday. Patient was diuresed with Bumex IV with good response. He was treated with Rocephin and azithromycin for his COPD exacerbation, completed 5 days of antibiotics. Does walk test, will need to be discharged on home oxygen. He will be discharged to rehabilitation in stable condition. Of note patient also with a transitional cell carcinoma of the bladder, will be followed up by urology as an outpatient. Pt Condition on Discharge: Stable Discharge Disposition: Discharge to SNF Discharge Instructions DIET: Follow Instructions for: As Tolerated, No Restrictions Follow up Referrals: Cardiology - 2 Weeks with Rachael Eason MD PCP Follow-up - 1 Week Urology - 2 Weeks New Medications: Oxygen (O2) (Oxygen (O2)) Device 2 LITER JUAN.CANULA CONTINUOUS Oxygen Concentrator Portable Gaseous 2 L/min via Nasal Canula Continuous For 99 months Prevent Hypoxemia #2 Ref 99 CYLINDER Continued Medications: Aspirin DR (Aspirin Adult Low Strength) 81 Mg Tabdr 81 MG PO DAILY CAD #30 TAB Atorvastatin (Lipitor) 80 Mg Tab 80 MG PO HS Days 30 TAB Bumetanide (Bumetanide) 1 Mg Tab 1 MG PO DAILY #30 Ref 0 TAB Carvedilol (Coreg) 12.5 Mg Tab 12.5 MG PO Q8HR cad #93 TAB Cholecalciferol (Vitamin D3) 2,000 Unit Cap 2000 UNITS PO DAILY Nutritional Supplement #1 Ref 0 BOTTLE Finasteride (Proscar) 5 Mg Tab 5 MG PO DAILY Do not crush. Manage Prostate Problems #30 Ref 0 TAB Insulin Glargine Inj (Lantus Solostar Pen Inj) 300 Unit/3 Ml Pen 10 UNITS SQ HS Blood Sugar Management Ref 0 PEN Insulin Lispro (Human) Inj (Humalog Inj) 1,000 Unit/10 Ml Vial 5 UNITS SQ TIDAC Blood Sugar Management #1 Ref 0 VIAL Isosorbide Mononitrate ER (Isosorbide Mononitrate ER) 30 Mg [place] 30 MG PO DAILY Prevent Chest Pain #30 Ref 0 TAB Omeprazole (Omeprazole) 20 Mg Tab 20 MG PO DAILY #30 Ref 0 TAB Oxybutynin (Ditropan) 5 Mg Tab 5 MG PO Q8H PRN BLADDER SPASMS #60 TAB Oxycodone-Acetaminophen (Percocet) 5-325 mg Tab 1-2 TAB PO Q6H PRN PAIN #30 Ref 0 TAB Sevelamer Carbonate (Renvela) 800 Mg Tab 800 MG PO TIDAC hyperphosphatemia #93 TAB Sodium Bicarbonate (Sodium Bicarbonate) 650 Mg Tab 650 MG PO BID #60 Ref 0 TAB Tamsulosin (Flomax) 0.4 Mg Cap 0.4 MG PO BID Manage Prostate Problems #30 Ref 0 CAP Ticagrelor (Brilinta) 90 Mg Tab 90 MG PO BID cad #62 Ref 3 TAB Syeda Renteria MD R3 May 14, 2017 12:15
== END 2017-05-14 16:56 | DRG 291 ==
LOC: NEPC 09:37 → NEDA 12:31 → OBSVTOIN 13:13 → N04B 15:10 → HCIS 17:30
PROVIDERS: ADMIT Family Medicine; ATTEND Family Medicine
PROC: 5A1D60Z (ICD-10-PCS; principal; 2017-05-09)
DX: I13.2 Hypertensive heart and chronic kidney disease with heart failure and with stage 5 chronic kidney disease, or end stage renal disease (principal); I50.23 Acute on chronic systolic (congestive) heart failure; N18.6 End stage renal disease; E11.22 Type 2 diabetes mellitus with diabetic chronic kidney disease; J44.1 Chronic obstructive pulmonary disease with (acute) exacerbation; J98.11 Atelectasis; I48.91 Unspecified atrial fibrillation; I25.5 Ischemic cardiomyopathy; I25.10 Atherosclerotic heart disease of native coronary artery without angina pectoris; R31.0 Gross hematuria; Z99.2 Dependence on renal dialysis; E78.5 Hyperlipidemia, unspecified; I25.2 Old myocardial infarction; I73.9 Peripheral vascular disease, unspecified; K21.9 Gastro-esophageal reflux disease without esophagitis; M94.0 Chondrocostal junction syndrome [Tietze]; N40.0 Benign prostatic hyperplasia without lower urinary tract symptoms; H91.90 Unspecified hearing loss, unspecified ear; H35.30 Unspecified macular degeneration; Z79.4 Long term (current) use of insulin; Z79.82 Long term (current) use of aspirin; C67.9 Malignant neoplasm of bladder, unspecified; Z85.828 Personal history of other malignant neoplasm of skin; Z86.73 Personal history of transient ischemic attack (TIA), and cerebral infarction without residual deficits; Z87.891 Personal history of nicotine dependence; Z95.1 Presence of aortocoronary bypass graft; Z95.5 Presence of coronary angioplasty implant and graft; Z96.652 Presence of left artificial knee joint
CPT/HCPCS: 71010; 71020; 71275; 78582; 80048; 80053; 80061; 81001; 82550; 82948; 83880; 84155; 84484; 85025; 85379; 85610; 85730; 87040; 87070; 87086; 87205; 87449; 90935; 93005; 93306; 94150; 94620; 94640; 94664; 94667; 94668; 96374; A9540; A9567; J0456; J0696; J1644; J1815; J2270; J2930; J7030; J7050; J7512; J7613; J7644; Q4081; Q9967

== ENCOUNTER 2017-06-03 09:03 | Emergency (ER) | payer MEDICARE, OTHER ==
[~2017-06-03] VITALS: Ht 172.7 cm; Wt 78.6 kg
[~2017-06-03 09:03] MED LIST changes: +ACET1TAB86 PO; +APIX2.5T PO; +ASPI1TAB91 PO; -ASPI81CH25 PO; -Aspirin Chew PO; -CARV6.25 PO; +CETI10 PO; +FLUT50SP EACH NARE; -HUMALOG SQ; +HYDR-3799 PO; +IPRASOL NEB; +LACT PO; -LANTINJ SQ; +LEVEMIR SQ; +MAGN400S PO; +MAGN400T3 PO; +NOVOLOGP2 SQ; -OXYB5TAB10 PO; +OXYC1TAB63 PO; +OXYGENDME NAS.CANULA; -PERC5TAB12 PO; -SODI650T PO
[2017-06-03 09:12] VITALS: BP 151/66; PULSE 86; RESP 16; TEMP 98.6; O2SAT 96
--- NOTE | 2017-06-03 09:21 | PD ---
HPI Chief Complaint: Bleeding Time Seen by Provider: 09:16 Travel History International Travel<30 days: No Contact w/Intl Traveler<30days: No Traveled to known affect area: No History of Present Illness HPI 76-year-old male presents with bleeding from his dialysis site this morning at his alf facility. He states he just got released from this hospital. He states he had dialysis yesterday. He confirms he is on Brillinta and eliquis for history of prior strokes and blood clots. He states that he has been taking his medications like he should. The nurse placed a bandage to his arm and there is no active bleeding currently. He is wanting to go back to the alf. He states he is told he had a come here to be evaluated. He denies other complaints. PFSH Past Medical History Hx Anticoagulant Therapy: Yes Anemia: Yes Arthritis: Yes Asthma: No Autoimmune Disease: No Blood Disorders: No Anxiety: No Depression: No Heart Rhythm Problems: Yes Cancer: Yes (SKIN, BLADDER) Cardiac Catheterization: Yes Cardiovascular Problems: Yes High Cholesterol: Yes Chemotherapy: Yes (BLADDER CA) Chest Pain: Yes Congestive Heart Failure: Yes COPD: Yes Cerebrovascular Accident: Yes (CVA 1998) Diabetes: Yes Dialysis: Yes ( MWF) Diminished Hearing: Yes ([place]) Endocrine: Yes Gastrointestinal Disorders: Yes GERD: Yes Genitourinary: Yes (BPH) Headaches: No Hepatitis: No Hiatal Hernia: No Hypertension: Yes (chol) Immune Disorder: No Implanted Vascular Access Dvce: Yes Kidney Stones: No Musculoskeletal: Yes (arthritis, chronic back pain) Neurologic: Yes (stroke 1998 Left sided weakness) Psychiatric: No Reproductive: No Respiratory: Yes Immunizations Current: Yes ( STATES DIALYSIS GAVE HEPATITIS SHOT TODAY) Migraines: No Myocardial Infarction: Yes (pt states one 4 weeks ago and 1 week ago ) Radiation Therapy: No Renal Failure: Yes Seizures: Yes Sickle Cell Disease: No Sleep Apnea: No Thyroid Disease: No Ulcer: Yes Past Surgical History Abdominal Surgery: Yes (cholesectomy) AICD: No Arteriovenous Shunt: No Body Medical Devices: STENTS,IVC FILTER, AV FISTULA LEFT arm Cardiac Surgery: Yes (1998 CABG x 3) Cholecystectomy: Yes Coronary Artery Bypass Graft: Yes (triple, 2008) Coronary Stent: Yes Ear Surgery: No Endocrine Surgery: No Eye Surgery: Yes (DUONG CATARACTS) Genitourinary Surgery: Yes (turbt x 1 yr ago) Gynecologic Surgery: No Insulin Pump: No Joint Replacement: Yes (LEFT KNEE) Neurologic Surgery: No Oral Surgery: No Pacemaker: No Thoracic Surgery: No Other Surgery: Yes (REMOVED SKIN CANCER LEFT FOREARM AND NECK) Social History Alcohol Use: No Tobacco Use: No Substance Use: No Allergies-Medications (Allergen,Severity, Reaction): Coded Allergies: No Known Allergies (Verified , 05/06/17) Reported Meds & Prescriptions Reported Meds & Active Scripts Active Prednisone 20 Mg Tab 10 Mg PO DAILY 14 Days Oxycodone-Acetaminophen 5-325 mg Tab 1 Tab PO Q6H PRN Magnesium Oxide 241.3 Mg Tab 400 Mg PO DAILY 30 Days Eq Milk of Magnesia (Magnesium Hydroxide) 1,200 Mg/15 Ml Natividad 30 Ml PO Q12H PRN 7 Days Acidophilus/l-Sporogenes (Lactobacillus Acidophilus) 1 Tab Tab 1 Tab PO Q12HR 5 Days Isosorbide Mononitrate ER (Isosorbide Mononitrate) 30 Mg Tanmay 30 Mg PO BID 30 Days Duoneb (Ipratropium-Albuterol Neb) 0.5-2.5 Mg/3 Ml Neb 1 Ampule NEB Q6HR WHILE AWAKE NEB 14 Days Duoneb (Ipratropium-Albuterol Neb) 0.5-2.5 Mg/3 Ml Neb 1 Ampule NEB Q4HR NEB PRN 14 Days Levemir Inj (Insulin Detemir) 1,000 unit/ 10 ML Vial 8 Units SQ HS 30 Days Novolog Inj (Insulin Aspart) 1,000 Unit/10 Ml Vial 3 Units SQ TIDAC 30 Days Hydralazine HCl 25 Mg Tablet 25 Mg PO Q8HR 30 Days Fluticasone Nasal [place] 50 Mcg/Act Naspr 2 [place] EACH NARE DAILY 7 Days Cetirizine (Cetirizine HCl) 10 Mg Tab 10 Mg PO HS 7 Days Coreg (Carvedilol) 12.5 Mg Tab 25 Mg PO BID 30 Days Eliquis (Apixaban) 2.5 Mg Tab 2.5 Mg PO BID 30 Days follow up with hematology in clinic before stopping monitor for bleeding continue fall safety precautions Eq Acetaminophen (Acetaminophen) 325 Mg Tab 650 Mg PO Q4H PRN Aspirin Adult Low Strength (Aspirin) 81 Mg Tabdr 81 Mg PO DAILY Bumetanide 1 Mg Tab 1 Mg PO DAILY Vitamin D3 (Cholecalciferol) 2,000 Unit Cap 2,000 Units PO DAILY Brilinta (Ticagrelor) 90 Mg Tab 90 Mg PO BID Renvela (Sevelamer Carbonate) 800 Mg Tab 800 Mg PO TIDAC Lipitor (Atorvastatin Calcium) 80 Mg Tab 80 Mg PO HS 30 Days Flomax (Tamsulosin HCl) 0.4 Mg Cap 0.4 Mg PO BID Proscar (Finasteride) 5 Mg Tab 5 Mg PO DAILY Do not crush. Omeprazole 20 Mg Tab 20 Mg PO DAILY Oxygen (O2) Device 2 Liter JUAN.CANULA CONTINUOUS Oxygen Concentrator Portable Gaseous 2 L/min via Nasal Canula Continuous For 99 months Review of Systems Except as stated in HPI: all other systems reviewed are Neg Physical Exam Narrative GENERAL: Well-nourished, well-developed patient. SKIN: Warm and dry. No bleeding noted to bandage to left arm HEAD: Normocephalic and atraumatic. EYES: No injection or drainage. ENT: No nasal drainage noted. NECK: Supple, trachea midline. CARDIOVASCULAR: Regular rate and rhythm RESPIRATORY: No increased effort. No accessory muscle use. GASTROINTESTINAL: Abdomen nondistended. EXTREMITIES: Left arm with positive thrill over fistula without active bleeding currently with bandage noted NEUROLOGICAL: Awake and alert. Moves extremities. Normal speech. Data Data Last Documented VS Vital Signs Date Time Temp Pulse Resp B/P Pulse Ox O2 Delivery O2 Flow Rate FiO2 06/03/17 09:17 94 Room Air 06/03/17 09:12 98.6 86 16 151/66 Orders Complete Blood Count With Diff (06/03/17 09:16) Act Partial Throm Time (Ptt) (06/03/17 09:16) Prothrombin Time / Inr (Pt) (06/03/17 09:16) Labs Laboratory Tests Test 06/03/17 09:25 White Blood Count 7.1 TH/MM3 Red Blood Count 2.74 MIL/MM3 Hemoglobin 8.4 GM/DL Hematocrit 26.4 % Mean Corpuscular Volume 96.2 FL Mean Corpuscular Hemoglobin 30.8 PG Mean Corpuscular Hemoglobin 32.0 % Concent Red Cell Distribution Width 21.8 % Platelet Count 102 TH/MM3 Mean Platelet Volume 10.7 FL Neutrophils (%) (Auto) 83.0 % Lymphocytes (%) (Auto) 8.1 % Monocytes (%) (Auto) 5.4 % Eosinophils (%) (Auto) 3.1 % Basophils (%) (Auto) 0.4 % Neutrophils # (Auto) 5.9 TH/MM3 Lymphocytes # (Auto) 0.6 TH/MM3 Monocytes # (Auto) 0.4 TH/MM3 Eosinophils # (Auto) 0.2 TH/MM3 Basophils # (Auto) 0.0 TH/MM3 CBC Comment DIFF FINAL Differential Comment Prothrombin Time 11.5 SEC Prothromb Time International 1.0 RATIO Ratio Activated Partial 29.3 SEC Thromboplast Time MDM Medical Decision Making Medical Screen Exam Complete: Yes Emergency Medical Condition: Yes Medical Record Reviewed: Yes (past history confirm) Interpretation(s) CBC & BMP Diagram 06/03/17 09:25 Differential Diagnosis Anemia, fistula bleeding, hypercoagulable Narrative Course Patient agrees to straight stick of CBC and coags and to monitor for recurrence of bleeding Labs are at baseline, no bleeding here, patient is wanting to go, family at bedside and questions answered, Patient denies any new complaints, Patient knows that follow up is incumbent on them and to return to the emergency room immediately if new or worsening symptoms develop. Patient given strict return precautions, vitals reviewed and are normal, agrees to further workup as an outpatient. Diagnosis Primary Impression: Hemorrhage of arteriovenous fistula Qualified Code: T82.838A - Hemorrhage of arteriovenous fistula, initial encounter Patient Instructions: General Instructions Additional Instructions: Return as needed, keep bandage in place, follow with pre press manager tomorrow Med/Other Pt SpecificInfo: No Change to Meds Disposition: 03 DISCHARGE TO SNF Condition: Stable Yasmeen Tsang MD Jun 03, 2017 09:21
[2017-06-03 09:39] LABS: AUTOMATED NEUTROPHIL # 5.9 TH/MM3 (1.8-7.7); BASOPHIL % 0.4 % (0.0-2.0); EOSINOPHIL # 0.2 TH/MM3 (0-0.4); EOSINOPHIL % 3.1 % (0.0-4.0); HEMATOCRIT 26.4 % (39.0-51.0); HEMO FLAGS DIFF FINAL; LYMPH % 8.1 % (9.0-44.0); LYMPHOCYTE # 0.6 TH/MM3 (1.0-4.8); MEAN CELL VOLUME 96.2 FL (80.0-100.0); MEAN CORPUSCULAR HEMOGLOBIN 30.8 PG (27.0-34.0); MONO % 5.4 % (0.0-8.0); PLATELET COUNT 102 TH/MM3 (150-450); RED BLOOD COUNT 2.74 MIL/MM3 (4.50-5.90); RED CELL DISTRIBUTION WIDTH 21.8 % (11.6-17.2); WHITE BLOOD COUNT 7.1 TH/MM3 (4.0-11.0)
[2017-06-03 09:49] LABS: PROTHROMBIN TIME - PATIENT 11.5 SEC (9.8-11.6)
[2017-06-03 09:50] LABS: APTT (PATIENT) 29.3 SEC (24.3-30.1)
[2017-06-03 10:36] VITALS: BP 132/72
[2017-06-03] MEDS ORDERED: IPRASOL INH (23:02)
[2017-06-03] MEDS ORDERED: MAPA325T PO (23:02)
[2017-06-03] MEDS ORDERED: TAMS5CAP PO (23:02)
[2017-06-03] MEDS ORDERED: DULC10SU3 RECTAL (23:05)
[2017-06-03] MEDS ORDERED: MAGNSOL2 PO (23:05)
[2017-06-03] MEDS ORDERED: MILKSUS PO ×2 (23:07→23:09)
[2017-06-03] MEDS ORDERED: ENEMENE3 PR (23:07)
[2017-06-03] MEDS ORDERED: MAGN400T2 PO (23:14)
[2017-06-03] MEDS ORDERED: CIPR500T2 PO (23:16)
[2017-06-03] MEDS ORDERED: PHEN-510 PO (23:18)
[2017-06-04] MEDS ORDERED: CEPH-460 PO (00:59)
== END 2017-06-03 10:53 ==
LOC: NEPE 09:03
DX: T82.838A Hemorrhage due to vascular prosthetic devices, implants and grafts, initial encounter (principal); E11.9 Type 2 diabetes mellitus without complications; I10 Essential (primary) hypertension; E78.00 Pure hypercholesterolemia, unspecified; Z99.2 Dependence on renal dialysis; Z79.4 Long term (current) use of insulin; Z79.01 Long term (current) use of anticoagulants; Z86.2 Personal history of diseases of the blood and blood-forming organs and certain disorders involving the immune mechanism; Z87.39 Personal history of other diseases of the musculoskeletal system and connective tissue; Z86.79 Personal history of other diseases of the circulatory system; Z85.51 Personal history of malignant neoplasm of bladder; Z87.09 Personal history of other diseases of the respiratory system; Z87.19 Personal history of other diseases of the digestive system
CPT/HCPCS: 85025; 85610; 85730; 99283

== ENCOUNTER 2017-06-03 17:59 | Emergency (ER) | payer MEDICARE, OTHER ==
[~2017-06-03] VITALS: Ht 172.7 cm; Wt 80.0 kg
[2017-06-03 18:03] VITALS: BP 152/72; PULSE 82; RESP 24; TEMP 98; O2SAT 100
--- NOTE | 2017-06-03 18:06 | PD ---
Physical Exam Time Seen by Provider: 18:05 Narrative 76 y/o on brilinta and eliquis presents for evaluation of penile bleeding which started this morning. Was seen here earlier today for bleeding from AV site. Vital signs reviewed. Seen at triage desk. Awaiting bed placement. [facility] Medical Record Reviewed: Yes Supervised Visit with SIOMARA: Von Ramirez Jun 03, 2017 18:06
[2017-06-03 22:33] VITALS: BP 146/67; PULSE 91; RESP 16; O2SAT 99
--- NOTE | 2017-06-03 22:33 | PD ---
HPI Chief Complaint: Bleeding Time Seen by Provider: 21:37 Travel History International Travel<30 days: No Contact w/Intl Traveler<30days: No Traveled to known affect area: No History of Present Illness HPI Patient is a 76-year-old male who presents to emergency room with complaints of hematuria. he is end-stage renal disease on hemodialysis, reports that he does make some urine daily. Patient takes Brilinta as well as Eliquis daily as he has history of PE and he has a strong cardiac history. He was told by Dr. Jaeger (his biophysics scientist) that he is not to stop any of his anti-platelets as well as blood thinners. Reports that he also has history of bladder cancer which he is scheduled to see Dr. gramajo in June for medical management. Patient reports that he noticed bright red blood out of his urine prior to coming to the emergency room. Reports that this has happened in the past a few years ago. Patient with no abdominal pain this time. he reports that he was seen in the emergency room earlier today as he had some bleeding from his left sided ED fistula, reports that his bleeding from his AV fistula has stopped bleeding since he was last seen in the ER. PFSH Past Medical History Hx Anticoagulant Therapy: Yes (ELIQUIS, BIRLENTA) Anemia: Yes Arthritis: Yes Asthma: No Autoimmune Disease: No Blood Disorders: No Anxiety: No Depression: No Heart Rhythm Problems: Yes Cancer: Yes (SKIN, BLADDER) Cardiac Catheterization: Yes Cardiovascular Problems: Yes High Cholesterol: Yes Chemotherapy: Yes (BLADDER CA) Chest Pain: Yes Congestive Heart Failure: Yes COPD: Yes Cerebrovascular Accident: Yes (CVA 1998) Diabetes: Yes Patient Takes Glucophage: Yes Dialysis: Yes ( MWF) Diminished Hearing: Yes ([place]) Endocrine: Yes Gastrointestinal Disorders: Yes (HX ULCER, acid reflux) GERD: Yes Genitourinary: Yes (BPH) Headaches: No Hepatitis: No Hiatal Hernia: No Heparin Induced Thrombocytopen: No Hypertension: Yes (cholesectomy) Immune Disorder: No Implanted Vascular Access Dvce: Yes Kidney Stones: No Medical other: Yes (DVT, FISTULA LEFT ARM, bilat reddened feet) Musculoskeletal: Yes (arthritis, chronic back pain) Neurologic: Yes (stroke 1998 Left sided weakness) Psychiatric: No Reproductive: No Respiratory: Yes Immunizations Current: Yes ( [facility] DIAL[facility] GAVE HEPATITIS SHOT TODAY) Migraines: No Myocardial Infarction: Yes (pt states one 4 weeks ago and 1 week ago ) Radiation Therapy: No Renal Failure: Yes Seizures: Yes Sickle Cell Disease: No Sleep Apnea: No Thyroid Disease: No Ulcer: Yes Tetanus Vaccination: < 5 Years Influenza Vaccination: Yes Past Surgical History Abdominal Surgery: Yes (cholesectomy) AICD: No Arteriovenous Shunt: No Body Medical Devices: STENTS,IVC FILTER, AV FISTULA LEFT arm Cardiac Surgery: Yes (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 3) Cholecystectomy: Yes Coronary Artery Bypass Graft: Yes (triple, 2008) Coronary Stent: Yes Ear Surgery: No Endocrine Surgery: No Eye Surgery: Yes (DUONG CATARACTS) Genitourinary Surgery: Yes (turbt x 1 yr ago) Gynecologic Surgery: No Insulin Pump: No Joint Replacement: Yes (LEFT KNEE) Neurologic Surgery: No Oral Surgery: No Pacemaker: No Thoracic Surgery: No Other Surgery: Yes (REMOVED SKIN CANCER LEFT FOREARM AND NECK) Social History Alcohol Use: No Tobacco Use: No Substance Use: No Allergies-Medications (Allergen,Severity, Reaction): Coded Allergies: No Known Allergies (Verified , 06/03/17) Reported Meds & Prescriptions Reported Meds & Active Scripts Active Prednisone 20 Mg Tab 10 Mg PO DAILY 14 Days Oxycodone-Acetaminophen 5-325 mg Tab 1 Tab PO Q6H PRN Acidophilus/l-Sporogenes (Lactobacillus Acidophilus) 1 Tab Tab 1 Tab PO Q12HR 5 Days Isosorbide Mononitrate ER (Isosorbide Mononitrate) 30 Mg Tanmay 30 Mg PO BID 30 Days Duoneb (Ipratropium-Albuterol Neb) 0.5-2.5 Mg/3 Ml Neb 1 Ampule NEB Q4HR NEB PRN 14 Days Levemir Inj (Insulin Detemir) 1,000 unit/ 10 ML Vial 8 Units SQ HS 30 Days Novolog Inj (Insulin Aspart) 1,000 Unit/10 Ml Vial 3 Units SQ TIDAC 30 Days Hydralazine HCl 25 Mg Tablet 25 Mg PO Q8HR 30 Days Fluticasone Nasal Napoleon 50 Mcg/Act Naspr 2 Napoleon EACH NARE DAILY 7 Days Cetirizine (Cetirizine HCl) 10 Mg Tab 10 Mg PO HS 7 Days Coreg (Carvedilol) 12.5 Mg Tab 25 Mg PO BID 30 Days Eliquis (Apixaban) 2.5 Mg Tab 2.5 Mg PO BID 30 Days follow up with hematology in clinic before stopping monitor for bleeding continue fall safety precautions Aspirin Adult Low Strength (Aspirin) 81 Mg Tabdr 81 Mg PO DAILY Bumetanide 1 Mg Tab 1 Mg PO DAILY Vitamin D3 (Cholecalciferol) 2,000 Unit Cap 2,000 Units PO DAILY Brilinta (Ticagrelor) 90 Mg Tab 90 Mg PO BID Renvela (Sevelamer Carbonate) 800 Mg Tab 800 Mg PO TIDAC Lipitor (Atorvastatin Calcium) 80 Mg Tab 80 Mg PO HS 30 Days Proscar (Finasteride) 5 Mg Tab 5 Mg PO DAILY Do not crush. Omeprazole 20 Mg Tab 20 Mg PO DAILY Oxygen (O2) Device 2 Liter JUAN.CANULA CONTINUOUS Oxygen Concentrator Portable Gaseous 2 L/min via Nasal Canula Continuous For 99 months Reported Pyridium (Phenazopyridine HCl) 200 Mg Tablet 200 Mg PO TID Ciprofloxacin (Ciprofloxacin HCl) 500 Mg Tab 500 Mg PO BID Magnesium Oxide 400 Mg Tab 400 Mg PO DAILY Milk of Magnesia Liq (Magnesium Hydroxide) 400 Mg/5 Ml Susp 30 Ml PO Q12HR PRN Milk of Magnesia Liq (Magnesium Hydroxide) 400 Mg/5 Ml Susp 30 Ml PO DAILY PRN Enema 7-19 gm/118Ml (Sodium Phosphates) 1 Brenda Brenda 118 Ml VT DAILY PRN Dulcolax Supp (Bisacodyl) 10 Mg Supp 10 Mg RECTAL DAILY PRN Magnesium Citrate Liq (Magnesium Citrate) 300 Ml Liq 296 Ml PO DAILY PRN Mapap (Acetaminophen) 325 Mg Tab 650 Mg PO Q4HR PRN Duoneb (Ipratropium-Albuterol Neb) 0.5-2.5 Mg/3 Ml Neb 1 Nebule INH QID NEB Flomax (Tamsulosin HCl) 0.4 Mg Cap 0.4 Mg PO DAILY Review of Systems General / Constitutional: No: Fever Eyes: No: Visual changes HENT: No: Headaches Cardiovascular: No: Chest Pain or Discomfort Respiratory: No: Shortness of Breath Gastrointestinal: No: Abdominal Pain Genitourinary: Positive: Hematuria, No: Dysuria Musculoskeletal: No: Pain Skin: No Rash Neurologic: No: Weakness Psychiatric: No: Depression Endocrine: No: Polydipsia Hematologic/Lymphatic: No: Easy Bruising Physical Exam Narrative GENERAL: NAD, nontoxic SKIN: Focused skin assessment warm/dry. HEAD: Atraumatic. Normocephalic. EYES: Pupils equal and round. No scleral icterus. No injection or drainage. ENT: No nasal bleeding or discharge. Mucous membranes pink and moist. NECK: Trachea midline. No JVD. CARDIOVASCULAR: Regular rate and rhythm. No murmur appreciated. RESPIRATORY: No accessory muscle use. Clear to auscultation. Breath sounds equal bilaterally. GASTROINTESTINAL: Abdomen soft, non-tender, nondistended. Hepatic and splenic margins not palpable. MUSCULOSKELETAL: No obvious deformities. No clubbing. No cyanosis. No edema. Left sided AV fistula with no active bleeding and good thrill NEUROLOGICAL: Awake and alert. Motor grossly within normal limits. Normal speech. PSYCHIATRIC: Appropriate mood and affect; insight and judgment normal. Data Data Last Documented VS Vital Signs Date Time Temp Pulse Resp B/P Pulse Ox O2 Delivery O2 Flow Rate FiO2 06/03/17 22:33 91 16 146/67 99 Room Air 06/03/17 18:03 98.0 Orders Complete Blood Count With Diff (06/03/17 21:51) Prothrombin Time / Inr (Pt) (06/03/17 21:51) Act Partial Throm Time (Ptt) (06/03/17 21:51) Urinalysis - C+S If Indicated (06/03/17 21:51) Iv Access Insert/Monitor (06/03/17 21:51) Bladder/Catheter Irrigation (06/03/17 21:51) Urine Culture (06/03/17 23:30) Ceftriaxone Inj (Rocephin Inj) (06/04/17 01:00) Labs Laboratory Tests Test 06/03/17 06/04/17 23:30 00:15 Urine Color Red Urine Turbidity Turbid Urine pH 8.5 Urine Specific Bryan 1.026 Urine Protein 300 OR GREATER mg/dL Urine Glucose (UA) 100 mg/dL Urine Ketones 15 mg/dL Urine Occult Blood LARGE Urine Nitrite POS Urine Bilirubin NEG Urine Urobilinogen 1.0 MG/DL Urine Leukocyte Esterase LARGE Urine RBC /hpf Urine WBC /hpf Microscopic Urinalysis Comment CULTURE INDICATED White Blood Count 9.5 TH/MM3 Red Blood Count 2.81 MIL/MM3 Hemoglobin 8.8 GM/DL Hematocrit 27.4 % Mean Corpuscular Volume 97.3 FL Mean Corpuscular Hemoglobin 31.3 PG Mean Corpuscular Hemoglobin 32.2 % Concent Red Cell Distribution Width 21.9 % Platelet Count 117 TH/MM3 Mean Platelet Volume 10.7 FL Neutrophils (%) (Auto) 88.3 % Lymphocytes (%) (Auto) 5.0 % Monocytes (%) (Auto) 5.3 % Eosinophils (%) (Auto) 0.7 % Basophils (%) (Auto) 0.7 % Neutrophils # (Auto) 8.4 TH/MM3 Lymphocytes # (Auto) 0.5 TH/MM3 Monocytes # (Auto) 0.5 TH/MM3 Eosinophils # (Auto) 0.1 TH/MM3 Basophils # (Auto) 0.1 TH/MM3 CBC Comment DIFF FINAL Differential Comment Prothrombin Time 11.5 SEC Prothromb Time International 1.0 RATIO Ratio Activated Partial 29.5 SEC Thromboplast Time MDM Medical Decision Making Medical Screen Exam Complete: Yes Emergency Medical Condition: Yes Interpretation(s) Vital Signs Date Time Temp Pulse Resp B/P Pulse Ox O2 Delivery O2 Flow Rate FiO2 06/03/17 18:03 98.0 82 24 152/72 100 Room Air Differential Diagnosis Hematuria could be caused from hypercoagulable state, bladder cancer, UTI Narrative Course 76-year-old male who presents to emergency room with history of end-stage renal disease on hemodialysis and bladder cancer currently on Brilinta and Eliquis presents to ER with c/f hematuria. Patient does his history of bladder cancer, it has not been treated yet. Patient does have follow-up appointment with Dr. Lynn in June for medical management of his bladder cancer. Hematuria could be secondary from his bladder cancer versus a urinary tract infection versus hypercoagulable state. CBC, coags ordered. UA ordered. CBI ordered until urine clear. CBI ran until clear, 3 way strong cather removed after CBI CBC & BMP Diagram 06/04/17 00:15 HGB 8.8, HGB earlier today was 8.4 Microbiology Date/Time Procedure Status Source Growth 06/03/17 23:30 Urine Culture Received Urine Clean Catch Pending UA positive for UTI. Will treat with IV rocephin and discharge on keflex. UC pending. Patient will follow up with his urologist and will return to ER as needed Diagnosis Primary Impression: Hematuria, unspecified Additional Impressions: UTI (urinary tract infection) Qualified Code: N30.01 - Acute cystitis with hematuria Anemia Qualified Code: D64.9 - Anemia, unspecified type Patient Instructions: General Instructions Additional Instructions: Please follow up with all cultures from today Please follow up with your primary care doctor as well as your urologist Return to ER as needed Med/Other Pt SpecificInfo: Prescription(s) given Scripts Cephalexin (Keflex)500 Mg Qno790 Mg PO Q6H #10 CAP Ref 0 Prov:Syeda Quiroz DO 06/04/17 Disposition: 01 DISCHARGE HOME Condition: Stable Syeda Quiroz DO Jun 03, 2017 22:32
[2017-06-03] MEDS ORDERED: TAMS5CAP PO (23:02)
[2017-06-03] MEDS ORDERED: IPRASOL INH (23:02)
[2017-06-03] MEDS ORDERED: MAPA325T PO (23:02)
[2017-06-03] MEDS ORDERED: MAGNSOL2 PO (23:05)
[2017-06-03] MEDS ORDERED: DULC10SU3 RECTAL (23:05)
[2017-06-03] MEDS ORDERED: ENEMENE3 PR (23:07)
[2017-06-03] MEDS ORDERED: MILKSUS PO ×2 (23:07→23:09)
[2017-06-03] MEDS ORDERED: MAGN400T2 PO (23:14)
[2017-06-03] MEDS ORDERED: CIPR500T2 PO (23:16)
[2017-06-03] MEDS ORDERED: PHEN-510 PO (23:18)
[2017-06-03 23:54] LABS: BLOOD, URINE LARGE (NEG); GLUCOSE,URINE 100 mg/dL (NEG); KETONE, URINE 15 mg/dL (NEG); NITRITE,URINE POS (NEG); PH, URINE 8.5 (5.0-8.5); URINE COLOR Red (YELLW/STRAW)
[2017-06-04 00:19] LABS: COMMENT (UR) CULTURE INDICATED; CULTURE IF INDICATED CULTURE INDICATED
[2017-06-04 00:26] LABS: AUTOMATED NEUTROPHIL # 8.4 TH/MM3 (1.8-7.7); BASOPHIL # 0.1 TH/MM3 (0-0.2); BASOPHIL % 0.7 % (0.0-2.0); EOSINOPHIL # 0.1 TH/MM3 (0-0.4); EOSINOPHIL % 0.7 % (0.0-4.0); HEMATOCRIT 27.4 % (39.0-51.0); HEMO FLAGS DIFF FINAL; LYMPHOCYTE # 0.5 TH/MM3 (1.0-4.8); MEAN CELL VOLUME 97.3 FL (80.0-100.0); MEAN CORPUSCULAR HEMOGLOBIN 31.3 PG (27.0-34.0); MEAN CORPUSCULAR HGB CONC 32.2 % (32.0-36.0); MONO % 5.3 % (0.0-8.0); NEUT % 88.3 % (16.0-70.0); PLATELET COUNT 117 TH/MM3 (150-450); RED BLOOD COUNT 2.81 MIL/MM3 (4.50-5.90); RED CELL DISTRIBUTION WIDTH 21.9 % (11.6-17.2); WHITE BLOOD COUNT 9.5 TH/MM3 (4.0-11.0)
[2017-06-04 00:43] LABS: APTT (PATIENT) 29.5 SEC (24.3-30.1); PROTHROMBIN TIME - PATIENT 11.5 SEC (9.8-11.6)
[2017-06-04] MEDS ORDERED: CEPH-460 PO (00:59)
[2017-06-04] MEDS ORDERED: cefTRIAXone INJ 1,000 MG in SODIUM CHLORIDE 0.9% INJ 100 ML IV ONE (01:00)
== END 2017-06-04 02:13 | disposition home or self-care (01) ==
LOC: NEPC 17:59
DX: R31.9 Hematuria, unspecified (principal); N30.01 Acute cystitis with hematuria; D64.9 Anemia, unspecified; C67.9 Malignant neoplasm of bladder, unspecified; I12.0 Hypertensive chronic kidney disease with stage 5 chronic kidney disease or end stage renal disease; N18.6 End stage renal disease; E11.9 Type 2 diabetes mellitus without complications; Z99.2 Dependence on renal dialysis; Z79.01 Long term (current) use of anticoagulants; Z79.4 Long term (current) use of insulin; Z86.711 Personal history of pulmonary embolism; Z86.79 Personal history of other diseases of the circulatory system; Z87.39 Personal history of other diseases of the musculoskeletal system and connective tissue; Z87.09 Personal history of other diseases of the respiratory system; Z87.19 Personal history of other diseases of the digestive system; Z87.448 Personal history of other diseases of urinary system; Z86.69 Personal history of other diseases of the nervous system and sense organs
CPT/HCPCS: 51700; 81001; 85025; 85610; 85730; 87086; 96365; 99284; J0696